=== PATIENT | male | born 1945 | race Caucasian/White ===

== ENCOUNTER 2018-09-30 16:33 | Inpatient (IN) ==
[2018-09-30 16:55] LABS: Basophils # 0.1 K/mm3 (0-0.2); Basophils % 0.4 % (0.1-2.0); Eosinophils # 0.6 K/mm3 (0.0-0.4); Eosinophils % 2.6 % (0.1-12.0); Hematocrit 44.8 % (42.0-52.0); Hemoglobin 14.3 g/dL (14.1-18.0); Lymphocytes # 2.3 K/mm3 (0.7-4.5); Lymphocytes % 10.6 % (10-50); Mean Corpuscular HGB Conc 31.9 g/dL (31.8-35.4); Mean Corpuscular Hemoglobin 31.4 pg (27.0-31.2); Mean Corpuscular Volume 98.3 fl (80-94); Mean Platelet Volume 8.2 fl (7.4-10.4); Monocytes # 0.7 K/mm3 (0.1-1.0); Monocytes % 3.1 % (1.7-9.3); Neutrophils # 17.8 K/mm3 (1.8-7.8); Neutrophils % 83.4 % (37.0-80.0); Platelet Count 156 K/mm3 (142-424); Red Blood Count 4.56 M/mm3 (4.60-6.20); Red Cell Distribution Width 14.4 % (11.5-17.5); White Blood Count 21.4 K/mm3 (4.8-10.8)
--- NOTE | 2018-09-30 16:55 | Emergency Department Note ---
ED Disposition Clinical Impression: Leukocytosis Qualifiers: Leukocytosis type: unspecified Qualified Code(s): D72.829 - Elevated white blood cell count, unspecified Vomiting alone Qualifiers: Vomiting type: unspecified Vomiting Intractability: non-intractable Qualified Code(s): R11.11 - Vomiting without nausea Hypothermia Qualifiers: Encounter type: initial encounter Qualified Code(s): T68.XXXA - Hypothermia, in itial encounter Disposition: Still a Patient Condition on Discharge: Fair - Critical Care Critical Care Time: No Attestation: On , the high probability of a clinically significant, sudden or life threatening deterioration of the following system(s) required my full and direct attention, intervention and personal management. The time I documented below is in addition to time spent performing reported procedures but includes the following listed in this critical care notation. Medical Decision Making - Jermaine Inquiry Pt receiving controlled substance: No Vital Signs: 09/30/18 16:53 09/30/18 18:03 09/30/18 18:20 Temperature 97.0 F L 96.2 F L Temperature Source Tympanic Rectal Pulse Rate [Left Radial] 90 103 H Respiratory Rate 18 Blood Pressure [Right Arm] 133/81 123/50 L Blood Pressure Mean [Right Arm] 98 74 Blood Pressure Source [Right Arm] Manual Cuff/ Palpation Automatic Cuff Blood Pressure Position [Right Arm] Sitting Supine 02 Sat by Pulse Oximetry 98 99 Oxygen Delivery Method Room Air Room Air 09/30/18 18:34 09/30/18 19:00 09/30/18 19:17 Temperature 96.8 F L Temperature Source Rectal Pulse Rate [Left Radial] 93 H 93 H Respiratory Rate Blood Pressure [Right Arm] 115/69 114/60 Blood Pressure Mean [Right Arm] 84 78 Blood Pressure Source [Right Arm] Automatic Cuff Blood Pressure Position [Right Arm] Sitting 02 Sat by Pulse Oximetry 97 95 Oxygen Delivery Method Room Air 09/30/18 19:19 Temperature 96.8 F L Temperature Source Rectal Pulse Rate [Left Radial] 95 H Respiratory Rate 20 Blood Pressure [Right Arm] 124/84 Blood Pressure Mean [Right Arm] 97 Blood Pressure Source [Right Arm] Blood Pressure Position [Right Arm] 02 Sat by Pulse Oximetry 95 Oxygen Delivery Method Room Air - Lab Data Lab Results 09/30/18 16:45: WBC 21.4 H*, RBC 4.56 L, Hgb 14.3, Hct 44.8, MCV 98.3 H, MCH 31.4 H, MCHC 31.9, RDW 14.4, Plt Count 156, MPV 8.2, Neut % (Auto) 83.4 H, Lymph % (Auto) 10.6, [place] % (Auto) 3.1, Eos % (Auto) 2.6, Baso % (Auto) 0.4, Neut # (Auto) 17.8 H, Lymph # (Auto) 2.3, [place] # (Auto) 0.7, Eos # (Auto) 0.6 H, Baso # (Auto) 0.1, Total Counted 100, Neutrophils % (Manual) 81 H, Band Neutrophils % 1.0, Lymphocytes % (Manual) 10, Atypical Lymphs % 2.0, Monocytes % (Manual) 4, Eosinophils % (Manual) 2, Platelet Estimate Normal, RBC Morphology Normal 09/30/18 16:45: Sodium 138, Potassium 5.3 H, Chloride 102, Carbon Dioxide 27, Anion Gap 14.3, BUN 24 H, Creatinine 1.74 H, Estimated Creat Clear 48, Estimated GFR 39 L, Est GFR ( Amer) 47 L, Glucose 198 H, Calcium 9.5, Total Bilirubin 0.4, AST 19, ALT 24, Alkaline Phosphatase 114, Total Protein 8.1, Albumin 3.8, Globulin 4.3 H, Albumin/Globulin Ratio 0.9 L, Amylase 128 H, Lipase 135 09/30/18 16:45: Influenza Type A Ag Negative, Influenza Type B Ag Negative 09/30/18 16:45: Troponin I 0.06 09/30/18 16:45: TSH 1.55, Free T4 Index 3.4 L, Thyroxine (T4) 9.4, T3 Uptake 36 09/30/18 17:33: Lactate 1.7 09/30/18 18:24: Urine Color Yellow, Urine Appearance Clear, Urine pH 6.0, Ur Specific [place] >= 1.030, Urine Protein 2+, Urine Glucose (UA) Trace, Urine Ketones Trace, Urine Blood 3+, Urine Nitrate Negative, Urine Bilirubin Negative, Urine Urobilinogen 0.2, Ur Leukocyte Esterase Negative Result diagrams: 09/30/18 16:45 09/30/18 16:45 Orders (Tests/Meds): ED MEDICATIONS Discontinued Medications Generic Name Dose Route Start Last Admin Trade Name Freq PRN Reason Stop Dose Admin Sodium Chloride 500 mls @ 500 mls/hr 09/30/18 17:00 Sod Chlor 0.9% 500ml Bag IV 10/30/18 16:59 .Q1H ROHITH Sodium Chloride 500 mls @ 999 mls/hr 09/30/18 17:00 09/30/18 17:02 Sod Chlor 0.9% 1000ml Bag IV 09/30/18 17:30 999 mls/hr .Q31M ROHITH Administration Ondansetron HCl 4 mg 09/30/18 16:44 09/30/18 16:45 Zofran 4mg/2ml Vial IV 09/30/18 16:45 4 mg ONCE ONE Administration ORDERS Category Date Time Status CT abdomen pelvis wo con Stat Cat Scan 09/30/18 17:20 Taken XR chest portable Stat Exams 09/30/18 17:01 Taken Urinalysis and Microscopic Stat Lab 09/30/18 18:24 Ordered Blood Culture Stat Micro 09/30/18 17:33 Received - Radiology Data #1 Image(s): Chest Image Reviewed: Yes I reviewed the patient's radiology image Hazy left base, no infiltrate in this area on CT scan. - CT Data CT Scan: Abdomen, Pelvis Time Received: 18:[address] Reviewed: Yes: I have viewed the radiologist's interpretation Findings Narrative: CT scan interpreted by [facility] radiologist. Faxed report received and reviewed: No acute intrapelvic abnormality detected. Nonobstructing left urinary calculi. Fat-containing bilateral inguinal hernias, left greater than right, without inflammatory changes. Mild cell canal stenosis at L4-L5. Colonic diverticulosis without diverticulitis. Moderate stool burden in the sigmoid colon and rectum. - ECG Data Tracing #1 EKG interpreted by Gregory Arriola MD: Rhythm: sinus Rate: 93 [place]: Left Ectopy: none Conduction: Right bundle branch block ST Segment Changes: none T Wave Changes: none Q Waves: none No evidence of acute ischemia or injury No prior EKGs available for comparison - Physician Consults Physician Consulted: Lilian Ramsey Time: 18:52 Reason -: Admission Comment/Response: Agrees to admit the patient to the hospital. We discussed the patient's clinical information, including history, exam, laboratory and radiology results and ED course. Per hospital procedure, I will write temporary bridge inpatient orders on the patient. Specific orders requested by the [facility] physician: Treat for sepsis, vancomycin and cefepime. Cultures. General Adult HPI - General Stated complaint: vomitting, weakness Time Seen by Provider: 09/30/18 16:55 - History of Present Illness HPI narrative: Poor historian. Lays with eyes closed. Will answer questions by shaking and nodding his head and sometimes with one word answers. Brought in by ambulance with reports of general illness and vomiting. Patient told the nurse that he was having generalized abdominal pain, nausea and vomiting. He tells me that he feels improved and is currently denying any pain including abdominal pain. Denies headache, chest pain, back pain, or abdominal pain. He states that he does feel nauseated. Denies shortness of breath. Has schizoaffective disorder and is a diabetic. - Related Data Home Medications Medication Instructions Recorded Confirmed Allopurinol [Allopurinol 300mg 300 mg PO DAILY 09/30/18 09/30/18 tablet] Aspirin [Aspir 81] 81 mg PO DAILY 09/30/18 09/30/18 Atorvastatin Calcium [Atorvastatin 40 mg PO DAILY 09/30/18 09/30/18 40mg Tab] Cholecalciferol (Vitamin D3) 1,000 unit PO DAILY 09/30/18 09/30/18 [Vitamin D3 1,000 Unit Cap] Levothyroxine Sodium 100 mg PO DAILY 09/30/18 09/30/18 [Levothyroxine 100mcg (0.1MG) Tab] Lisinopril [Prinivil 5mg Tablet] 5 mg PO DAILY 09/30/18 09/30/18 Metformin HCl [Fortamet] 500 mg PO BID 09/30/18 09/30/18 Metoprolol Tartrate 50 mg PO BID 09/30/18 09/30/18 Tamsulosin HCl [Flomax 0.4mg 0.4 mg PO HS 09/30/18 09/30/18 capsule] Venlafaxine HCl [Effexor XR 75mg 75 mg PO DAILY 09/30/18 09/30/18 capsule] Allergies Allergy/AdvReac Type Severity Reaction Status Date / Time No Known Allergies Allergy Verified 09/30/18 16:43 [facility] History I have reviewed the patient's past medical history: Yes ROS Obtained: Yes unobtainable due to mental condition Physical Exam - General General appearance: in no apparent distress, other (Lays with eyes closed, appears generally ill) - Head Head exam: atraumatic, normocephalic - Eye Eye exam: Present: normal appearance, PERRL, EOMI - ENT ENT exam: Present: mucous membranes moist - Neck Neck exam: Present: normal inspection - Chest Chest inspection: Present: normal inspection - Respiratory Respiratory exam: Present: normal lung sounds bilaterally. Absent: respiratory distress - Cardiovascular Cardiovascular exam: Present: regular rate, normal rhythm, normal heart sounds - Abdominal Exam Abdominal exam: Present: soft, guarding (Denies tenderness, but seems to guard with palpation, generalized) - Extremities Exam Extremities exam: Present: normal inspection - Neurological Exam Neurological exam: Present: alert, other (Oriented to person and place, states year is 82) - Skin Skin exam: Present: warm, pallor, other (no cellulitis)
[2018-09-30 17:10] LABS: Albumin Level 3.8 gm/dL (3.4-5.0); Albumin/Globulin Ratio 0.9 (1.1-1.8); Anion Gap 14.3 mEq/L (5-15); Bilirubin,Total 0.4 mg/dL (0.2-1.0); Calcium 9.5 mg/dL (8.5-10.1); Globulin 4.3 gm/dl (1.3-3.2); Potassium 5.3 mmoL/L (3.5-5.1); Total Protein,Serum 8.1 gm/dL (6.4-8.2)
[2018-09-30 17:18] LABS: Eosinophils % 2 % (0-3); Lymphocytes % 10 % (10-50); Monocytes % 4 % (2-9); Neutrophils % 81 % (42-76); Total Cells Counted 100
[2018-09-30 17:19] LABS: RBC Morphology Normal
[2018-09-30 17:44] LABS: Free Thyroxine Index 3.4 ug/dL (5.93-13.13); T4 (Thyroxine) 9.4 ug/dl (4.7-13.3); Thyroid Stimulating Hormone 1.55 uIU/ml (0.358-3.740)
[2018-09-30 18:31] LABS: Microscopic, Urine URINE MICROSCOPIC (MICROSCOPIC)
[2018-09-30 18:37] LABS: Appearance,Urine CLEAR (Clear); Bilirubin,Urine Negative (Negative); Blood, Urine 3+ (Negative); Color,Urine YELLOW (Yellow); Glucose,Urine (UA) TRACE (Negative); Ketones,Urine TRACE (Negative); Leukocyte Esterase,Urine Negative (Negative); Protein,Urine 2+ (Negative); Specific Gravity, Urine >= 1.030 (1.005-1.030); Urobilinogen,Urine 0.2 EU/dl (0.2)
[2018-09-30 19:36] LABS: Bacteria,Urine Trace /lpf; RBC,Urine 20-50 #/hpf (0-3); Squamous Epithelial Cell,Urine Occasional #/hpf (0-5); WBC,Urine Occasional #/hpf (0-3)
--- NOTE | 2018-09-30 20:33 | History & Physical Report ---
*Admission Date: 09/30/18 *Chief complaint: abd pain *History of present illness: this wm was sent from [facility] for not feeling well poor historian. Lays with eyes closed. Will answer questions by shaking and nodding his head and sometimes with one word answers. Brought in by ambulance with reports of general illness and vomiting. Patient told the nurse that he was having generalized abdominal pain, nausea and vomiting. He tells me that he feels improved and is currently denying any pain including abdominal pain. Denies headache, chest pain, back pain, or abdominal pain. He states that he does feel nauseated. Denies shortness of breath. Has schizoaffective disorder and is a diabetic. [facility] History I have reviewed the patient's past medical history: Yes Medical History: Reports:: Diabetes Mellitus Type 2 Denies:: Cancer, Diabetes Mellitus Type 1, MRSA Amputation: No Fractures: No - *Social History Educational Level: Completed High School Smoking Status: Current every day smoker Tobacco Type: cigarettes Alcohol Intake: never Occupational Status: unemployed Housing: assisted living facility - Psychiatric History Expresses thoughts of harming self/others: None Suicide Plan Description: No Plan *Family Hx:: Kidney Disease Review of Systems - Review of Systems Review of systems:: pertinent systems reviewed and negative unless documented below - Constitutional Denies fever(s) - Eyes Denies change in vision - ENT Denies sore throat - *Cardiovascular Denies chest pain - *Respiratory Denies cough - *Gastrointestinal Reports abdominal pain, Reports nausea - *Genitourinary Denies blood in urine - *Musculoskeletal Denies back pain - Integumentary/Breasts Denies rash - *Neurologic Denies seizure-like activity - Psychiatric Denies anxiety Meds Home Medications Medication Instructions Recorded Confirmed Type Allopurinol [Allopurinol 300mg 300 mg PO DAILY 09/30/18 09/30/18 History tablet] Aspirin [Aspir 81] 81 mg PO DAILY 09/30/18 09/30/18 History Atorvastatin Calcium [Atorvastatin 40 mg PO DAILY 09/30/18 09/30/18 History 40mg Tab] Cholecalciferol (Vitamin D3) 1,000 unit PO DAILY 09/30/18 09/30/18 History [Vitamin D3 1,000 Unit Cap] Levothyroxine Sodium 100 mg PO DAILY 09/30/18 09/30/18 History [Levothyroxine 100mcg (0.1MG) Tab] Lisinopril [Prinivil 5mg Tablet] 5 mg PO DAILY 09/30/18 09/30/18 History Metformin HCl [Fortamet] 500 mg PO BID 09/30/18 09/30/18 History Metoprolol Tartrate 50 mg PO BID 09/30/18 09/30/18 History Tamsulosin HCl [Flomax 0.4mg 0.4 mg PO HS 09/30/18 09/30/18 History capsule] Venlafaxine HCl [Effexor XR 75mg 75 mg PO DAILY 09/30/18 09/30/18 History capsule] Allergies Allergy/AdvReac Type Severity Reaction Status Date / Time No Known Allergies Allergy Verified 09/30/18 16:43 Exam Vital signs and Labs for Last 24 Hours: Temp Pulse Resp BP Pulse Ox 97.1 F L 105 H 20 107/54 L 96 09/30/18 20:00 09/30/18 20:00 09/30/18 20:00 09/30/18 20:00 09/30/18 20:00 Laboratory Results - last 24 hr 09/30/18 16:45: WBC 21.4 H*, RBC 4.56 L, Hgb 14.3, Hct 44.8, MCV 98.3 H, MCH 31.4 H, MCHC 31.9, RDW 14.4, Plt Count 156, MPV 8.2, Neut % (Auto) 83.4 H, Lymph % (Auto) 10.6, [place] % (Auto) 3.1, Eos % (Auto) 2.6, Baso % (Auto) 0.4, Neut # (Auto) 17.8 H, Lymph # (Auto) 2.3, [place] # (Auto) 0.7, Eos # (Auto) 0.6 H, Baso # (Auto) 0.1, Total Counted 100, Neutrophils % (Manual) 81 H, Band Neutrophils % 1.0, Lymphocytes % (Manual) 10, Atypical Lymphs % 2.0, Monocytes % (Manual) 4, Eosinophils % (Manual) 2, Platelet Estimate Normal, RBC Morphology Normal 09/30/18 16:45: Sodium 138, Potassium 5.3 H, Chloride 102, Carbon Dioxide 27, Anion Gap 14.3, BUN 24 H, Creatinine 1.74 H, Estimated Creat Clear 48, Estimated GFR 39 L, Est GFR ( Amer) 47 L, Glucose 198 H, Calcium 9.5, Total Bilirubin 0.4, AST 19, ALT 24, Alkaline Phosphatase 114, Total Protein 8.1, Albumin 3.8, Globulin 4.3 H, Albumin/Globulin Ratio 0.9 L, Amylase 128 H, Lipase 135 09/30/18 16:45: Influenza Type A Ag Negative, Influenza Type B Ag Negative 09/30/18 16:45: Troponin I 0.06 09/30/18 16:45: TSH 1.55, Free T4 Index 3.4 L, Thyroxine (T4) 9.4, T3 Uptake 36 09/30/18 17:33: Lactate 1.7 09/30/18 18:24: Urine Color Yellow, Urine Appearance Clear, Urine pH 6.0, Ur Specific [place] >= 1.030, Urine Protein 2+, Urine Glucose (UA) Trace, Urine Ketones Trace, Urine Blood 3+, Urine Nitrate Negative, Urine Bilirubin Negative, Urine Urobilinogen 0.2, Ur Leukocyte Esterase Negative, Urine RBC 20-50, Urine WBC Occasional, Ur Squamous Epith Cells Occasional, Urine Bacteria Trace I & O for Last 24 hours: Intake & Output 09/28/18 09/29/18 09/30/18 10/01/18 11:59 11:59 11:59 11:59 Intake Total 1000 / 1000 Balance 1000 / 1000 Weight 200 lb - Constitutional no acute distress, obese - *Routine HEENT Exam Head: Present: normocephalic Eye: Present: EOMI, PERRL. Absent: conjunctival icterus ENT: Present: mucous membranes dry - *Routine Neck Exam Present: supple - *Routine Respiratory Exam Present: CTA bilaterally - *Routine Cardiovascular Exam Present: RRR, murmur - *Routine Abdominal Exam Present: soft, tenderness - *Routine Extremities Exam Absent: tenderness - *Routine Skin Exam Present: intact - *Routine Neurological Exam Present: alert, CN II-XII intact - Routine Psychiatric Exam Present: unable to assess Assessment and Plan (1) Diabetes 1.5, managed as type 2 Current visit: Yes Status: Acute Category: Medical Code(s): E10.9 - Type 1 diabetes mellitus without complications (2) Leukocytosis Current visit: Yes Status: Acute Qualifiers: Leukocytosis type: unspecified Qualified Code(s): D72.829 - Elevated white blood cell count, unspecified Category: Medical Code(s): D72.829 - Elevated white blood cell count, unspecified (3) Hypothermia Current visit: Yes Status: Acute Qualifiers: Encounter type: initial encounter Qualified Code(s): T68.XXXA - Hypothermia, initial encounter Category: Medical Code(s): T68.XXXA - Hypothermia, initial encounter (4) Overweight Current visit: Yes Status: Acute Category: Medical Code(s): E66.3 - Overweight (5) Schizophrenia Current visit: Yes Status: Acute Category: Medical Code(s): F20.9 - Sc hizophrenia, unspecified
[2018-10-01 06:26] LABS: Eosinophils # 0.2 K/mm3 (0.0-0.4); Monocytes # 0.6 K/mm3 (0.1-1.0); Neutrophils # 8.6 K/mm3 (1.8-7.8); Red Cell Distribution Width 14.6 % (11.5-17.5)
[2018-10-01 06:32] LABS: Basophils % 0.3 % (0.1-2.0); Eosinophils % 1.4 % (0.1-12.0); Lymphocytes # 1.5 K/mm3 (0.7-4.5); Lymphocytes % 13.7 % (10-50); Mean Corpuscular HGB Conc 31.8 g/dL (31.8-35.4); Mean Corpuscular Hemoglobin 31.4 pg (27.0-31.2); Mean Corpuscular Volume 98.9 fl (80-94); Mean Platelet Volume 8.5 fl (7.4-10.4); Monocytes % 5.2 % (1.7-9.3); Neutrophils % 79.4 % (37.0-80.0); Platelet Count 125 K/mm3 (142-424); Red Blood Count 3.54 M/mm3 (4.60-6.20); White Blood Count 10.8 K/mm3 (4.8-10.8)
[2018-10-01 06:33] LABS: Anion Gap 11.6 mEq/L (5-15); Potassium 4.6 mmoL/L (3.5-5.1)
[2018-10-01 06:34] LABS: Hemoglobin 11.1 g/dL (14.1-18.0)
[2018-10-01 06:45] LABS: Calcium 8.1 mg/dL (8.5-10.1)
--- NOTE | 2018-10-01 07:33 | Pharmacy Consult Notes ---
[facility] Pharmacy VTE Monitoring - Patient Demographics Admission date: 10/01/18 Report Date: 10/01/18 Time: 07:29 Allergies/Adverse Reactions: Patient Allergies No Known Allergies Allergy (Verified 09/30/18 16:43) Height: 1.65 m Weight: 96.247 kg Patient Problems: Current Active Problems Leukocytosis (Acute) Vomiting alone (Acute) Hypothermia (Acute) Diabetes 1.5, managed as type 2 (Acute) Overweight (Acute) Schizophrenia (Acute) - VTE Risk Labs: VTE Related Lab Results Hgb 11.1 g/dL (14.1-18.0) L D 10/01/18 05:45 Hct 35.0 % (42.0-52.0) L 10/01/18 05:45 Plt Count 125 K/mm3 (142-424) L 10/01/18 05:45 BUN 20 mg/dL (7-18) H 10/01/18 05:45 Creatinine 1.49 mg/dL (0.70-1.30) H 10/01/18 05:45 Estimated Creat Clear 59 mL/min (50-200) 10/01/18 05:45 Was VTE Risk Assessment Performed: Yes VTE Risk Level: Very Low Risk Clinical Trial Participant: No - Prophylaxis VTE Prophylaxis Ordered?: Yes Types of VTE Prophylaxis: TEDS Knee High
--- NOTE | 2018-10-01 08:41 | Pharmacy Consult Notes ---
- Pharmacy Consult Date: 10/01/18 Time: 08:39 Referring provider: DR. SUAREZ Reason for Consult:: VANCOMYCIN DOSING Allergies and ADEs:: Allergies Allergy/AdvReac Type Severity Reaction Status Date / Time No Known Allergies Allergy Verified 09/30/18 16:43 Home Medications:: Home Medications Medication Instructions Recorded Confirmed Type Allopurinol [Allopurinol 300mg 300 mg PO DAILY 09/30/18 09/30/18 History tablet] Aspirin [Aspir 81] 81 mg PO DAILY 09/30/18 09/30/18 History Atorvastatin Calcium [Atorvastatin 40 mg PO DAILY 09/30/18 09/30/18 History 40mg Tab] Cholecalciferol (Vitamin D3) 1,000 unit PO DAILY 09/30/18 09/30/18 History [Vitamin D3 1,000 Unit Cap] Levothyroxine Sodium 100 mcg PO DAILY 09/30/18 10/01/18 History [Levothyroxine 100mcg (0.1MG) Tab] Lisinopril [Prinivil 5mg Tablet] 5 mg PO DAILY 09/30/18 09/30/18 History Metformin HCl [Fortamet] 500 mg PO BID 09/30/18 09/30/18 History Metoprolol Tartrate 50 mg PO BID 09/30/18 09/30/18 History Tamsulosin HCl [Flomax 0.4mg 0.4 mg PO HS 09/30/18 09/30/18 History capsule] Venlafaxine HCl [Effexor XR 75mg 75 mg PO DAILY 09/30/18 09/30/18 History capsule] Height: 1.65 m Weight: 96.247 kg Laboratory Results:: Laboratory Results - last 24 hr 09/30/18 16:45: WBC 21.4 H*, RBC 4.56 L, Hgb 14.3, Hct 44.8, MCV 98.3 H, MCH 31.4 H, MCHC 31.9, RDW 14.4, Plt Count 156, MPV 8.2, Neut % (Auto) 83.4 H, Lymph % (Auto) 10.6, [place] % (Auto) 3.1, Eos % (Auto) 2.6, Baso % (Auto) 0.4, Neut # (Auto) 17.8 H, Lymph # (Auto) 2.3, [place] # (Auto) 0.7, Eos # (Auto) 0.6 H, Baso # (Auto) 0.1, Total Counted 100, Neutrophils % (Manual) 81 H, Band Neutrophils % 1.0, Lymphocytes % (Manual) 10, Atypical Lymphs % 2.0, Monocytes % (Manual) 4, E osinophils % (Manual) 2, Platelet Estimate Normal, RBC Morphology Normal 09/30/18 16:45: Sodium 138, Potassium 5.3 H, Chloride 102, Carbon Dioxide 27, Anion Gap 14.3, BUN 24 H, Creatinine 1.74 H, Estimated Creat Clear 48, Estimated GFR 39 L, Est GFR ( Amer) 47 L, Glucose 198 H, Calcium 9.5, Total Bilirubin 0.4, AST 19, ALT 24, Alkaline Phosphatase 114, Total Protein 8.1, Albumin 3.8, Globulin 4.3 H, Albumin/Globulin Ratio 0.9 L, Amylase 128 H, Lipase 135 09/30/18 16:45: Influenza Type A Ag Negative, Influenza Type B Ag Negative 09/30/18 16:45: Troponin I 0.06 09/30/18 16:45: TSH 1.55, Free T4 Index 3.4 L, Thyroxine (T4) 9.4, T3 Uptake 36 09/30/18 17:33: Lactate 1.7 09/30/18 18:24: Urine Color Yellow, Urine Appearance Clear, Urine pH 6.0, Ur Specific [place] >= 1.030, Urine Protein 2+, Urine Glucose (UA) Trace, Urine Ketones Trace, Urine Blood 3+, Urine Nitrate Negative, Urine Bilirubin Negative, Urine Urobilinogen 0.2, Ur Leukocyte Esterase Negative, Urine RBC 20-50, Urine WBC Occasional, Ur Squamous Epith Cells Occasional, Urine Bacteria Trace 09/30/18 20:50: Troponin I 0.08 H 09/30/18 23:03: POC Glucose 164 H 09/30/18 23:45: Troponin I 0.09 H 10/01/18 05:45: WBC 10.8 D, RBC 3.54 L, Hgb 11.1 L D, Hct 35.0 L, MCV 98.9 H, MCH 31.4 H, MCHC 31.8, RDW 14.6, Plt Count 125 L, MPV 8.5, Neut % (Auto) 79.4, Lymph % (Auto) 13.7, [place] % (Auto) 5.2, Eos % (Auto) 1.4, Baso % (Auto) 0.3, Neut # (Auto) 8.6 H, Lymph # (Auto) 1.5, [place] # (Auto) 0.6, Eos # (Auto) 0.2, Baso # (Auto) 0.0 10/01/18 05:45: Sodium 141, Potassium 4.6, Chloride 108 H, Carbon Dioxide 26, Anion Gap 11.6, BUN 20 H, Creatinine 1.49 H, Estimated Creat Clear 59, Estimated GFR 46 L, Est GFR ( Amer) 56 L, Glucose 116 H D, Calcium 8.1 L D 10/01/18 05:45: ESR 22 H 10/01/18 06:20: POC Glucose 112 H Medical History: Reports:: Diabetes Mellitus Type 2 Denies:: Cancer, Diabetes Mellitus Type 1, MRSA Assessment and Plan (1) Diabetes 1.5, managed as type 2 Current visit: Yes Status: Acute Category: Medical Code(s): E10.9 - Type 1 diabetes mellitus without complications (2) Leukocytosis Current visit: Yes Status: Acute Qualifiers: Leukocytosis type: unspecified Qualified Code(s): D72.829 - Elevated white blood cell count, unspecified Category: Medical Code(s): D72.829 - Elevated white blood cell count, unspecified (3) Hypothermia Current visit: Yes Status: Acute Qualifiers: Encounter type: initial encounter Qualified Code(s): T68.XXXA - Hypothermia, initial encounter Category: Medical Code(s): T68.XXXA - Hypothermia, initial encounter (4) Overweight Current visit: Yes Status: Acute Category: Medical Code(s): E66.3 - Overweight (5) Schizophrenia Current visit: Yes Status: Acute Category: Medical Code(s): F20.9 - Schizophrenia, unspecified - Assessment and plan all Dx Assessment and Plan for all problems:: BASED ON PATIENT FACTORS, RECOMMEND VANCOMYCIN 1750 MG IV Q24H. WILL OBTAIN VANCOMYCIN TROUGH LEVEL PRIOR TO 3RD DOSE. PHARMACY WILL FOLLOW DAILY AND ADJUST APPROPRIATE.
--- NOTE | 2018-10-01 08:51 | Progress Note ---
Internal Medicine - PN: Subj Interval history: looks better but still with abd pain but no vomiting and wbc ok Exam Vital signs and Labs for Last 24 Hours: Temp Pulse Resp BP Pulse Ox 97.9 F 83 16 138/53 L 99 10/01/18 08:00 10/01/18 08:00 10/01/18 08:00 10/01/18 08:00 10/01/18 08:00 Laboratory Results - last 24 hr 09/30/18 16:45: WBC 21.4 H*, RBC 4.56 L, Hgb 14.3, Hct 44.8, MCV 98.3 H, MCH 31.4 H, MCHC 31.9, RDW 14.4, Plt Count 156, MPV 8.2, Neut % (Auto) 83.4 H, Lymph % (Auto) 10.6, [place] % (Auto) 3.1, Eos % (Auto) 2.6, Baso % (Auto) 0.4, Neut # (Auto) 17.8 H, Lymph # (Auto) 2.3, [place] # (Auto) 0.7, Eos # (Auto) 0.6 H, Baso # (Auto) 0.1, Total Counted 100, Neutrophils % (Manual) 81 H, Band Neutrophils % 1.0, Lymphocytes % (Manual) 10, Atypical Lymphs % 2.0, Monocytes % (Manual) 4, Eosinophils % (Manual) 2, Platelet Estimate Normal, RBC Morphology Normal 09/30/18 16:45: Sodium 138, Potassium 5.3 H, Chloride 102, Carbon Dioxide 27, Anion Gap 14.3, BUN 24 H, Creatinine 1.74 H, Estimated Creat Clear 48, Estimated GFR 39 L, Est GFR ( Amer) 47 L, Glucose 198 H, Calcium 9.5, Total Phil irubin 0.4, AST 19, ALT 24, Alkaline Phosphatase 114, Total Protein 8.1, Albumin 3.8, Globulin 4.3 H, Albumin/Globulin Ratio 0.9 L, Amylase 128 H, Lipase 135 09/30/18 16:45: Influenza Type A Ag Negative, Influenza Type B Ag Negative 09/30/18 16:45: Troponin I 0.06 09/30/18 16:45: TSH 1.55, Free T4 Index 3.4 L, Thyroxine (T4) 9.4, T3 Uptake 36 09/30/18 17:33: Lactate 1.7 09/30/18 18:24: Urine Color Yellow, Urine Appearance Clear, Urine pH 6.0, Ur Specific [place] >= 1.030, Urine Protein 2+, Urine Glucose (UA) Trace, Urine Ketones Trace, Urine Blood 3+, Urine Nitrate Negative, Urine Bilirubin Negative, Urine Urobilinogen 0.2, Ur Leukocyte Esterase Negative, Urine RBC 20-50, Urine WBC Occasional, Ur Squamous Epith Cells Occasional, Urine Bacteria Trace 09/30/18 20:50: Troponin I 0.08 H 09/30/18 23:03: POC Glucose 164 H 09/30/18 23:45: Troponin I 0.09 H 10/01/18 05:45: WBC 10.8 D, RBC 3.54 L, Hgb 11.1 L D, Hct 35.0 L, MCV 98.9 H, MCH 31.4 H, MCHC 31.8, RDW 14.6, Plt Count 125 L, MPV 8.5, Neut % (Auto) 79.4, Lymph % (Auto) 13.7, [place] % (Auto) 5.2, Eos % (Auto) 1.4, Baso % (Auto) 0.3, Neut # (Auto) 8.6 H, Lymph # (Auto) 1.5, [place] # (Auto) 0.6, Eos # (Auto) 0.2, Baso # (Auto) 0.0 10/01/18 05:45: Sodium 141, Potassium 4.6, Chloride 108 H, Carbon Dioxide 26, Anion Gap 11.6, BUN 20 H, Creatinine 1.49 H, Estimated Creat Clear 59, Estimated GFR 46 L, Est GFR ( Amer) 56 L, Glucose 116 H D, Calcium 8.1 L D 10/01/18 05:45: ESR 22 H 10/01/18 06:20: POC Glucose 112 H I & O for Last 24 hours: Intake & Output 09/28/18 09/29/18 09/30/18 10/01/18 11:59 11:59 11:59 11:59 Intake Total 1240 / 1240 Output Total 800 / 800 Balance 440 / 440 Weight 212 lb 3 oz - Constitutional no acute distress, obese - *Routine HEENT Exam Head: Present: normocephalic Eye: Present: EOMI, PERRL. Absent: conjunctival icterus ENT: Present: mucous membranes dry - *Routine Neck Exam Absent: JVD - *Routine Respiratory Exam Present: CTA bilaterally - *Routine Cardiovascular Exam Present: RRR, murmur - *Routine Abdominal Exam Present: soft, tenderness. Absent: rebound, guarding, organomegaly - *Routine Extremities Exam Absent: calf tenderness - Routine Back/Spine/Pelvis Exam Back/Spine: Present: full ROM - *Routine Skin Exam Present: intact - *Routine Neurological Exam Present: CN II-XII intact - Routine Psychiatric Exam Present: unable to assess Assessment and Plan (1) Diabetes 1.5, managed as type 2 Current visit: Yes Status: Acute Category: Medical Code(s): E10.9 - Type 1 diabetes mellitus without complications (2) Leukocytosis Current visit: Yes Status: Acute Qualifiers: Leukocytosis type: unspecified Qualified Code(s): D72.829 - Elevated white blood cell count, unspecified Category: Medical Code(s): D72.829 - Elevated white blood cell count, unspecified (3) Hypothermia Current visit: Yes Status: Acute Qualifiers: Encounter type: initial encounter Qualified Code(s): T68.XXXA - Hypothermia, initial encounter Category: Medical Code(s): T68.XXXA - Hypothermia, initial encounter (4) Overweight Current visit: Yes Status: Acute Category: Medical Code(s): E66.3 - Overweight (5) Schizophrenia Current visit: Yes Status: Acute Category: Medical Code(s): F20.9 - Schizophrenia, unspecified (6) Renal insufficiency Current visit: Yes Status: Acute Category: Medical Code(s): N28.9 - Disorder of kidney and ureter, unspecified
[2018-10-02 07:05] LABS: Basophils % 0.4 % (0.1-2.0); Eosinophils # 0.5 K/mm3 (0.0-0.4); Eosinophils % 5.7 % (0.1-12.0); Hematocrit 32.6 % (42.0-52.0); Hemoglobin 10.3 g/dL (14.1-18.0); Lymphocytes # 1.6 K/mm3 (0.7-4.5); Mean Corpuscular HGB Conc 31.6 g/dL (31.8-35.4); Mean Corpuscular Hemoglobin 30.8 pg (27.0-31.2); Mean Corpuscular Volume 97.4 fl (80-94); Mean Platelet Volume 8.6 fl (7.4-10.4); Monocytes # 0.6 K/mm3 (0.1-1.0); Monocytes % 6.5 % (1.7-9.3); Neutrophils # 5.9 K/mm3 (1.8-7.8); Neutrophils % 68.4 % (37.0-80.0); Platelet Count 98 K/mm3 (142-424); Red Blood Count 3.34 M/mm3 (4.60-6.20); Red Cell Distribution Width 14.5 % (11.5-17.5); White Blood Count 8.6 K/mm3 (4.8-10.8)
[2018-10-02 07:08] LABS: Anion Gap 10.4 mEq/L (5-15); Calcium 8.1 mg/dL (8.5-10.1); Potassium 4.4 mmoL/L (3.5-5.1)
--- NOTE | 2018-10-02 08:45 | Progress Note ---
Internal Medicine - PN: Subj *Date: 10/02/18 *Time: 08:56 Exam Vital signs and Labs for Last 24 Hours: Temp Pulse Resp BP Pulse Ox 98.8 F 76 16 112/64 95 10/02/18 08:00 10/02/18 08:00 10/02/18 08:00 10/02/18 08:00 10/02/18 08:00 Laboratory Results - last 24 hr 10/01/18 08:55: Lactate 0.9 10/01/18 12:03: POC Glucose 115 H 10/01/18 16:43: POC Glucose 136 H 10/01/18 20:18: POC Glucose 122 H 10/02/18 06:18: POC Glucose 109 10/02/18 06:47: WBC 8.6, RBC 3.34 L, Hgb 10.3 L, Hct 32.6 L, MCV 97.4 H, MCH 30.8, MCHC 31.6 L, RDW 14.5, Plt Count 98 L, MPV 8.6, Neut % (Auto) 68.4, Lymph % (Auto) 19.0, [place] % (Auto) 6.5, Eos % (Auto) 5.7, Baso % (Auto) 0.4, Neut # (Auto) 5.9, Lymph # (Auto) 1.6, [place] # (Auto) 0.6, Eos # (Auto) 0.5 H, Baso # (Auto) 0.0 10/02/18 06:47: Sodium 140, Potassium 4.4, Chloride 108 H, Carbon Dioxide 26, Anion Gap 10.4, BUN 18, Creatinine 1.44 H, Estimated Creat Clear 61, Estimated GFR 48 L, Est GFR ( Amer) 58 L, Glucose 117 H, Calcium 8.1 L I & O for Last 24 hours: Intake & Output 09/29/18 09/30/18 10/01/18 10/02/18 11:59 11:59 11:59 11:59 Intake Total 1240 / 1240 2594 / 2594 Output Total 800 / 800 800 / 800 Balance 440 / 440 1794 / 1794 Weight 212 lb 3.013 oz - *Routine HEENT Exam Head: Present: normocephalic Eye: Present: PERRL ENT: Present: mucous membranes moist - *Routine Neck Exam Present: supple. Absent: lymphadenopathy - *Routine Respiratory Exam Present: CTA bilaterally - *Routine Cardiovascular Exam Present: RRR - *Routine Abdominal Exam Present: soft, normoactive bowel sounds. Absent: tenderness - *Routine Extremities Exam Absent: cyanosis, clubbing, edema - *Routine Skin Exam Present: warm. Absent: rash - *Routine Neurological Exam Present: alert, oriented X3 Assessment and Plan (1) Diabetes 1.5, managed as type 2 Current visit: Yes Status: Acute Category: Medical Code(s): E10.9 - Type 1 diabetes mellitus without complications (2) Leukocytosis Current visit: Yes Status: Acute Qualifiers: Leukocytosis type: unspecified Qualified Code(s): D72.829 - Elevated white blood cell count, unspecified Category: Medical Code(s): D72.829 - Elevated white blood cell count, unspecified (3) Hypothermia Current visit: Yes Status: Acute Qualifiers: Encounter type: initial encounter Qualified Code(s): T68.XXXA - Hypothermia, initial encounter Category: Medical Code(s): T68.XXXA - Hypothermia, initial encounter (4) Overweight Current visit: Yes Status: Acute Category: Medical Code(s): E66.3 - Over weight (5) Schizophrenia Current visit: Yes Status: Acute Category: Medical Code(s): F20.9 - Schizophrenia, unspecified (6) Renal insufficiency Current visit: Yes Status: Acute Category: Medical Code(s): N28.9 - Disorder of kidney and ureter, unspecified - Assessment and plan all Dx Assessment and Plan for all problems:: rounded with lori,all orders per lori. wait cx results PT eval
--- NOTE | 2018-10-02 14:56 | Cardiology Report ---
PROCEDURE: 2-D M-mode and color Doppler study INDICATIONS FOR THE TEST: Chest pain COPD Heart Murmur Tobacco Smoking+ Palpitations Fatigue Syncope Edema Hypertension Diabetes Mellitus+ Rheumatic Fever SOB DRUMMOND Obesity Hyperlipidemia Family History HD Additional History SCHIZOPHRENIA PATIENT INFORMATION HEIGHT:65 WEIGHT:212 GENDER: Male B/P:107/54 2-D/M-MODE INTERPRETATION: 2-D MEASUREMENTS OBSERVED VALUES IN CMS Right Ventricular Dimension (RVDd) 2.2 Interventricular Septum (Thickness)(IVsd) 1.0 Left Ventricular Internal Dimensions(LVIDd) 4.3 Left Ventricular Posterior Wall (Thickness)(LVPWd) 1.1 Aortic Root 4.0 Aortic Cusp Separation 2.0 Left Atrial Dimensions (LAD) 4.1 2D 1. Left atrium is mildly enlarged, left ventricle is normal size, mild concentric left ventricular hypertrophy, visually estimated ejection fraction of 55% with no regional wall motion abnormality. 2. The right atrium and right ventricle are normal size and contractility. 3. The aortic valve is thickened and calcified with leaflet continue to show mobility. 4. The mitral and tricuspid valve is minimally thickened. 5. The pulmonic valve is poorly visualized. 6. No significant pericardial effusion noted. DOPPLER INTERROGATION: Doppler interrogation of the aortic, mitral and tricuspid valvular presence of mild mitral and tricuspid regurgitation, tricuspid regurgitation jet velocity is inadequate for calculation of the right ventricular systolic pressure, grade 1 diastolic dysfunction seen with tissue Doppler evidence of raised left atrial pressure. CONCLUSION: 1. Mildly enlarged left atrium, normal left ventricular size, mild concentric left ventricular hypertrophy, visually estimated ejection fraction 55% with no regional wall motion abnormality, grade 1 diastolic dysfunction seen with tissue Doppler evidence of raised left atrial pressure. 2. Thickened and calcified aortic valve without Doppler evidence of aortic stenosis aortic insufficiency. 3. Mild mitral and tricuspid regurgitation 4. No significant pericardial effusion noted.
[2018-10-03 07:02] LABS: Basophils % 0.3 % (0.1-2.0); Eosinophils % 7.5 % (0.1-12.0); Hemoglobin 11.1 g/dL (14.1-18.0); Lymphocytes # 1.1 K/mm3 (0.7-4.5); Lymphocytes % 8.1 % (10-50); Mean Corpuscular HGB Conc 32.7 g/dL (31.8-35.4); Mean Corpuscular Hemoglobin 31.5 pg (27.0-31.2); Mean Corpuscular Volume 96.3 fl (80-94); Mean Platelet Volume 8.1 fl (7.4-10.4); Monocytes # 0.7 K/mm3 (0.1-1.0); Neutrophils # 10.3 K/mm3 (1.8-7.8); Neutrophils % 79.2 % (37.0-80.0); Platelet Count 122 K/mm3 (142-424); Red Blood Count 3.53 M/mm3 (4.60-6.20); Red Cell Distribution Width 14.6 % (11.5-17.5); White Blood Count 13.1 K/mm3 (4.8-10.8)
[2018-10-03 07:12] LABS: Calcium 8.3 mg/dL (8.5-10.1)
--- NOTE | 2018-10-03 08:42 | Discharge Summary ---
General - General Admission date:: 10/01/18 Discharge date: 10/03/18 HPI HPI: this wm was sent from [facility] for not feeling well poor historian. Lays with eyes closed. Will answer questions by shaking and nodding his head and sometimes with one word answers. Brought in by ambulance with reports of general illness and vomiting. Patient told the nurse that he was having generalized abdominal pain, nausea and vomiting. He tells me that he feels improved and is currently denying any pain including abdominal pain. Denies headache, chest pain, back pain, or abdominal pain. He states that he does feel nauseated. Denies shortness of breath. Has schizoaffective disorder and is a diabetic. Hospital Course Hospital Course: pt with slow improvement in sx and is eating and able to ambulate - cultures have been ok and labs stable with no fever Objective Vital signs: Temp Pulse Resp BP Pulse Ox 99.0 F 99 H 18 113/66 93 L 10/03/18 08:00 10/03/18 08:00 10/03/18 08:00 10/03/18 08:00 10/03/18 08:00 no acute distress, obese - *Routine HEENT Exam Head: Present: normocephalic Eye: Present: EOMI, PERRL ENT: Present: mucous membranes dry - *Routine Neck Exam Present: supple - *Routine Respiratory Exam Present: CTA bilaterally - *Routine Cardiovascular Exam Present: murmur, S4 - *Routine Abdominal Exam Present: soft - *Routine Extremities Exam Present: full ROM - *Routine Skin Exam Present: intact - *Routine Neurological Exam Present: alert, oriented X3, CN II-XII intact - Routine Psychiatric Exam Present: normal affect Results Labs on day of discharge: Labs from last 24 hours 10/03/18 10/03/18 10/03/18 06:35 06:35 05:58 WBC 13.1 H D RBC 3.53 L Hgb 11.1 L Hct 34.0 L MCV 96.3 H MCH 31.5 H MCHC 32.7 RDW 14.6 Plt Count 122 L MPV 8.1 Neut % (Auto) 79.2 Lymph % (Auto) 8.1 L [place] % (Auto) 5.0 Eos % (Auto) 7.5 Baso % (Auto) 0.3 Neut # (Auto) 10.3 H Lymph # (Auto) 1.1 [place] # (Auto) 0.7 Eos # (Auto) 1.0 H Baso # (Auto) 0.0 Sodium 137 Potassium 4.0 Chloride 104 Carbon Dioxide 23 Anion Gap 14.0 BUN 19 H Creatinine 1.41 H Estimated Creat Clear 63 Estimated GFR 49 L Est GFR ( Amer) 59 Glucose 140 H POC Glucose 139 H Calcium 8.3 L Vancomycin Trough 10/02/18 10/02/18 10/02/18 20:24 20:20 16:43 WBC RBC Hgb Hct MCV MCH MCHC RDW Plt Count MPV Neut % (Auto) Lymph % (Auto) [place] % (Auto) Eos % (Auto) Baso % (Auto) Neut # (Auto) Lymph # (Auto) [place] # (Auto) Eos # (Auto) Baso # (Auto) Sodium Potassium Chloride Carbon Dioxide Anion Gap BUN Creatinine Estimated Creat Clear Estimated GFR Est GFR ( Amer) Glucose POC Glucose 108 94 Calcium Vancomycin Trough 13.4 10/02/18 10:59 WBC RBC Hgb Hct MCV MCH MCHC RDW Plt Count MPV Neut % (Auto) Lymph % (Auto) [place] % (Auto) Eos % (Auto) Baso % (Auto) Neut # (Auto) Lymph # (Auto) [place] # (Auto) Eos # (Auto) Baso # (Auto) Sodium Potassium Chloride Carbon Dioxide Anion Gap BUN Creatinine Estimated Creat Clear Estimated GFR Est GFR ( Amer) Glucose POC Glucose 151 H Calcium Vancomycin Trough Preliminary micro results at discharge 09/30/18 17:33 Blood Culture - Preliminary Blood NO GROWTH AFTER 48 HOURS 09/30/18 17:33 Blood Culture - Preliminary Blood NO GROWTH AFTER 48 HOURS 10/01/18 11:34 Urine Culture - Preliminary Urine,Catheterized NO GROWTH AFTER 24 HOURS DS: Diagnosis - Discharge Diagnosis (1) Diabetes 1.5, managed as type 2 Status: Acute (2) Leukocytosis Status: Acute (3) Hypothermia Status: Acute (4) Overweight Status: Acute (5) Schizophrenia Status: Acute (6) Renal insufficiency Status: Acute Discharge Plan - Patient Discharge Instructions ACTIVITY: Continue current activity DIET: continue same diet Patient Instructions: DI for Nausea -- Adult, DI for Vomiting -- Adult, DI for Leukocytosis - Follow up Plan Disposition: Home, Self-Snf Medications: Home Medications Medication Instructions Recorded Confirmed Type Allopurinol [Allopurinol 300mg 300 mg PO DAILY 11/13/18 11/13/18 History tablet] Aspirin [Aspir 81] 81 mg PO DAILY 09/30/18 09/30/18 History Atorvastatin Calcium [Atorvastatin 20 mg PO DAILY 09/30/18 10/01/18 History 40mg Tab] Cholecalciferol (Vitamin D3) 1,000 unit PO DAILY 09/30/18 09/30/18 History [Vitamin D3 1,000 Unit Cap] Levothyroxine Sodium 100 mcg PO DAILY 09/30/18 10/01/18 History [Levothyroxine 100mcg (0.1MG) Tab] Lisinopril [Prinivil 5mg Tablet] 2.5 mg PO DAILY 09/30/18 10/01/18 History Metformin HCl [Fortamet] 500 mg PO BID 09/30/18 09/30/18 History Metoprolol Tartrate 25 mg PO BID 09/30/18 10/01/18 History Tamsulosin HCl [Flomax 0.4mg 0.4 mg PO HS 09/30/18 09/30/18 History capsule] Venlafaxine HCl [Effexor XR 75mg 225 mg PO DAILY 09/30/18 10/01/18 History capsule] Prescriptions/Medication Reconciliation: New Atorvastatin Calcium [Lipitor 20mg Tablet] 20 mg PO HS tablet Lisinopril [Zestril 2.5mg Tablet] 2.5 mg PO DAILY tablet Venlafaxine HCl [Effexor XR 75mg capsule] 225 mg PO DAILY cap.er.24h cephALEXin [Keflex 500mg Cap] 500 mg PO TID #15 cap Metoprolol Tartrate [Lopressor 25mg tablet] 25 mg PO BID tablet Continue Tamsulosin HCl [Flomax 0.4mg capsule] 0.4 mg PO HS Lisinopril [Prinivil 5mg Tablet] 2.5 mg PO DAILY Levothyroxine Sodium [Levothyroxine 100mcg (0.1MG) Tab] 100 mcg PO DAILY Metoprolol Tartrate 25 mg PO BID Metformin HCl [Fortamet] 500 mg PO BID Atorvastatin Calcium [Atorvastatin 40mg Tab] 20 mg PO DAILY Allopurinol [Allopurinol 300mg tablet] 300 mg PO DAILY Cholecalciferol (Vitamin D3) [Vitamin D3 1,000 Unit Cap] 1,000 unit PO DAILY Venlafaxine HCl [Effexor XR 75mg capsule] 225 mg PO DAILY Aspirin [Aspir 81] 81 mg PO DAILY
== END 2018-10-03 11:35 | disposition home or self-care (01) ==
LOC: 2ND 16:33 → ER 16:33 → 2ND 20:00
PROVIDERS: ADMIT Internal Medicine Adolescent Medicine; ATTEND Emergency Medicine
CPT/HCPCS: 36415; 71010; 71045; 74176; 80048; 80053; 80202; 81001; 82150; 82962; 83605; 83690; 84436; 84443; 84479; 84484; 85007; 85025; 85651; 87040; 87086; 87275; 87276; 93005; 93306; 96365; 96366; 96367; 96375; 97161; 99285; G0378; J2405; J3370

== ENCOUNTER → 2019-04-18 15:52 | Outpatient (REF) | payer MEDICARE, SELFPAY ==
[2019-04-18 17:12] LABS: Occult Blood,Stool Negative (Negative)
== END ==
LOC: LAB.DROPOF 15:52
PROVIDERS: Visit Provider Emergency Medicine
DX: D64.9 Anemia, unspecified (principal)
CPT/HCPCS: 82272; G0328

== ENCOUNTER 2019-07-24 21:35 | Inpatient (IN) ==
[2019-07-24 22:06] LABS: Basophils % 0.2 % (0.1-2.0); Eosinophils # 0.2 K/mm3 (0.0-0.4); Eosinophils % 1.3 % (0.1-12.0); Hematocrit 37.3 % (42.0-52.0); Hemoglobin 12.3 g/dL (14.1-18.0); Lymphocytes # 2.2 K/mm3 (0.7-4.5); Lymphocytes % 12.1 % (10-50); Mean Corpuscular Volume 97.1 fl (80-94); Monocytes # 1.3 K/mm3 (0.1-1.0); Monocytes % 6.9 % (1.7-9.3); Neutrophils # 14.3 K/mm3 (1.8-7.8); Neutrophils % 79.3 % (37.0-80.0); Platelet Count 203 K/mm3 (142-424); Red Blood Count 3.84 M/mm3 (4.60-6.20); Red Cell Distribution Width 13.8 % (11.5-17.5); White Blood Count 18.1 K/mm3 (4.8-10.8)
--- NOTE | 2019-07-24 22:13 | Emergency Department Note ---
ED Disposition Clinical Impression: Cellulitis, UTI (urinary tract infection) Disposition: Admitted as Observation Condition on Discharge: Fair Instructions: Cellulitis Referrals: Provider,ReferralMD [Referring] - Time of Disposition: 02:02 - Critical Care Critical Care Time: No Attestation: On 07/24/19, the high probability of a clinically significant, sudden or life threatening deterioration of the following system(s) required my full and direct attention, intervention and personal management. The time I documented below is in addition to time spent performing reported procedures but includes the following listed in this critical care notation. Medical Decision Making - Medical Records Medical records reviewed: Yes: I reviewed the patient's medical records. - Jermaine Inquiry Pt receiving controlled substance: No Jermaine was queried for this patient: No Vital Signs: 07/24/19 21:36 07/24/19 23:22 07/25/19 00:48 Temperature 101.2 F H Temperature Source Oral Pulse Rate [Right] 120 H 96 H 92 H Respiratory Rate 20 18 16 Blood Pressure [Right Arm] 134/75 122/73 105/62 L Blood Pressure Mean [Right Arm] 94 89 76 Blood Pressure Source [Right Arm] Automatic Cuff Automatic Cuff Automatic Cuff Blood Pressure Position [Right Arm] Supine Supine Supine 02 Sat by Pulse Oximetry 95 93 L 97 Oxygen Delivery Method Room Air Room Air Room Air 07/25/19 01:31 07/25/19 01:47 Temperature 98.3 F Temperature Source Oral Pulse Rate [Right] 96 H Respiratory Rate 18 Blood Pressure [Right Arm] 112/83 Blood Pressure Mean [Right Arm] 92 Blood Pressure Source [Right Arm] Automatic Cuff Blood Pressure Position [Right Arm] Supine 02 Sat by Pulse Oximetry 97 Oxygen Delivery Method Room Air - Lab Data Lab results reviewed: Yes: I reviewed the patient's lab results. Lab Results 07/24/19 21:40: WBC 18.1 H, RBC 3.84 L, Hgb 12.3 L, Hct 37.3 L, MCV 97.1 H, MCH 32.0 H, MCHC 33.0, RDW 13.8, Plt Count 203, MPV 8.0, Neut % (Auto) 79.3, Lymph % (Auto) 12.1, [place] % (Auto) 6.9, Eos % (Auto) 1.3, Baso % (Auto) 0.2, Neut # (Auto) 14.3 H, Lymph # (Auto) 2.2, [place] # (Auto) 1.3 H, Eos # (Auto) 0.2, Baso # (Auto) 0.0, Total Counted 100, Neutrophils % (Manual) 87 H, Band Neutrophils % 7.0, Lymphocytes % (Manual) 4 L, Monocytes % (Manual) 2, Platelet Estimate Normal, RBC Morphology Normal 07/24/19 21:40: Sodium 133 L, Potassium 3.7, Chloride 98, Carbon Dioxide 24, Anion Gap 14.7, BUN 21 H, Creatinine 1.68 H, Estimated Creat Clear 52, Estimated GFR 40 L, Est GFR ( Amer) 48 L, Glucose 161 H, Calcium 9.4, Total Bilirubin 0.5, AST 38 H, ALT 50, Alkaline Phosphatase 100, Total Protein 7.8, Albumin 2.8 L, Globulin 5.0 H, Albumin/Globulin Ratio 0.6 L 07/24/19 21:40: Lactate 1.6 Result diagrams: 07/24/19 21:40 07/24/19 21:40 Orders (Tests/Meds): ED MEDICATIONS Generic Name Dose Route Start Last Admin Trade Name Freq PRN Reason Stop Dose Admin Sodium Chloride 1,000 mls @ 999 mls/hr 07/24/19 21:45 07/24/19 23:00 Sod Chlor 0.9% 1000ml Bag IV 07/24/19 22:45 999 mls/hr .Q1H1M ROHITH Administration Piperacillin Sod/Tazobactam 100 mls @ 200 mls/hr 07/24/19 21:45 07/24/19 23:00 Sod 4.5 gm/ Sodium Chloride IV 08/07/19 21:44 200 mls/hr Q8H ROHITH Administration Protocol Vancomycin HCl 1,500 mg 07/25/19 09:00 Vancomycin 1000mg Vial IV 08/08/19 08:59 DAILY ROHITH Protocol Vancomycin HCl 2,000 mg 07/24/19 22:41 Vancomycin 1000mg Vial IV 07/24/19 22:42 ONCE ONE Protocol Discontinued Medications Generic Name Dose Route Start Last Admin Trade Name Freq PRN Reason Stop Dose Admin Acetaminophen 1,000 mg 07/24/19 21:43 07/24/19 22:59 Tylenol 500mg Tablet PO 07/24/19 21:44 1,000 mg ONCE ONE Administration ORDERS Category Date Time Status CT cervical spine wo con Stat Cat Scan 07/24/19 22:[address] head/brain wo con Stat Cat Scan 07/24/19 21:43 Taken XR chest portable Stat Exams 07/25/19 00:01 Taken UA [Urinalysis and Microscopic] Stat Lab 07/24/19 23:23 Ordered Blood Culture Stat Micro 07/24/19 21:40 Received Skin/Abscess/FB HPI - General Chief complaint: Skin/Abscess/Foreign Body Stated complaint: cellulitis Time Seen by Provider: 07/24/19 21:40 Mode of Arrival: EMS Source of Information: Patient, EMS Limitations: No Limitations Description of Symptoms (Recalled from ER Triage Doc. by RN): Pt has large boil on back of neck - History of Present Illness HPI narrative: large mass posterior scalp, c/q abscess. feels deep. no superficial skin changes - Related Data Home Medications Medication Instructions Recorded Confirmed Allopurinol [Allopurinol 300mg 300 mg PO DAILY 09/30/18 07/25/19 tablet] Aspirin [Aspir 81] 81 mg PO DAILY 09/30/18 07/25/19 Atorvastatin Calcium [Atorvastatin 20 mg PO DAILY 09/30/18 07/25/19 40mg Tab] Levothyroxine Sodium 100 mcg PO DAILY 09/30/18 07/25/19 [Levothyroxine 100mcg (0.1MG) Tab] Lisinopril [Prinivil 5mg Tablet] 2.5 mg PO DAILY 09/30/18 07/25/19 Metformin HCl [Fortamet] 500 mg PO BID 09/30/18 07/25/19 Metoprolol Tartrate 25 mg PO BID 09/30/18 07/25/19 Tamsulosin HCl [Flomax 0.4mg 0.4 mg PO HS 09/30/18 07/25/19 capsule] Venlafaxine HCl [Effexor XR 75mg 225 mg PO DAILY 03/27/19 07/25/19 capsule] Acetaminophen [Acetaminophen 325mg 650 mg PO Q4-6H PRN 07/25/19 07/25/19 tab] Cholecalciferol (Vitamin D3) 1,000 unit PO DAILY 07/25/19 07/25/19 [Vitamin D3 1,000 Unit Cap] Magnesium Oxide [Mag-Ox 400mg Tab] 400 mg PO DAILY 07/25/19 07/25/19 Promethazine HCl [Phenergan 25mg 25 mg PO Q6H PRN 07/25/19 07/25/19 tab] Sennosides [Senna] 8.6 mg PO BID 07/25/19 07/25/19 Allergies Allergy/AdvReac Type Severity Reaction Status Date / Time No Known Allergies Allergy Verified 09/30/18 16:43 [facility] History - Hepatitis A Screen Drug use history?: No High risk sexual behaviors?: No History of sexually transmitted infection?: No 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 I have reviewed the patient's past medical history: Yes Medical History: Reports:: Diabetes Mellitus Type 2 Denies:: Cancer, Diabetes Mellitus Type 1, MRSA Amputation: No Fractures: No - Social History Smoking Status: Current every day smoker Tobacco Type: cigarettes # Packs/Day (cigarettes): 1 Alcohol Intake: never Occupational Status: unemployed Housing: assisted living facility Family Hx:: Kidney Disease ROS Obtained: Yes All systems reviewed & no additional complaints - Constitutional Constitutional: Reports chills, Reports fever(s) - Cardiovascular Cardiovascular: Denies chest pain - Respiratory Respiratory: No chest congestion, No cough, No dyspnea, No dyspnea on exertion - Gastrointestinal Gastrointestingal: Denies: abdominal pain, vomiting - Genitourinary Male Genitourinary: Denies flank pain, Denies hematuria - Musculoskeletal Musculoskeletal: Reports neck pain - Integumentary/Breasts Skin/Breast: Reports skin pain, Reports skin swelling - Neurologic Neurologic: Reports other (dementia baseline) - Hematologic/Lymphatic Henatologic/Lymphatic: Reports easy bleeding, Reports easy bruising Physical Exam - General General appearance: alert, in no apparent distress - Head Head exam: atraumatic, other (large mass posterior scalp, fever, abscess likely and deep) - Eye Eye exam: Present: normal appearance, PERRL, EOMI - ENT ENT exam: Present: normal exam, normal oropharynx, mucous membranes moist, TM's normal bilaterally, normal external ear exam - Neck Neck exam: Present: tenderness. Absent: normal inspection, full ROM - Chest Chest inspection: Present: normal inspection, symmetric chest wall rise. Absent: tenderness - Respiratory Respiratory exam: Present: normal lung sounds bilaterally. Absent: respiratory distress - Cardiovascular Cardiovascular exam: Present: regular rate, normal rhythm. Absent: JVD - Abdominal Exam Abdominal exam: Present: soft, normal bowel sounds. Absent: distention, tenderness, guarding - Extremities Exam Extremities exam: Present: normal inspection, full ROM, normal capillary refill. Absent: calf tenderness - Back Exam Back exam: Present: normal inspection. Absent: tenderness - Neurological Exam Neurological exam: Present: alert. Absent: oriented X3
[2019-07-24 22:15] LABS: Lymphocytes % 4 % (10-50); Monocytes % 2 % (2-9); Neutrophils % 87 % (42-76); RBC Morphology Normal; Total Cells Counted 100
[2019-07-24 22:16] LABS: Albumin Level 2.8 gm/dL (3.4-5.0); Albumin/Globulin Ratio 0.6 (1.1-1.8); Anion Gap 14.7 mEq/L (5-15); Bilirubin,Total 0.5 mg/dL (0.2-1.0); Calcium 9.4 mg/dL (8.5-10.1); Total Protein,Serum 7.8 gm/dL (6.4-8.2)
[2019-07-25 05:55] LABS: Basophils # 0.1 K/mm3 (0-0.2); Basophils % 0.5 % (0.1-2.0); Eosinophils # 0.6 K/mm3 (0.0-0.4); Eosinophils % 3.1 % (0.1-12.0); Hematocrit 36.4 % (42.0-52.0); Hemoglobin 11.8 g/dL (14.1-18.0); Lymphocytes # 1.6 K/mm3 (0.7-4.5); Lymphocytes % 8.8 % (10-50); Mean Corpuscular HGB Conc 32.4 g/dL (31.8-35.4); Mean Corpuscular Volume 98.4 fl (80-94); Mean Platelet Volume 8.3 fl (7.4-10.4); Monocytes # 1.2 K/mm3 (0.1-1.0); Monocytes % 6.7 % (1.7-9.3); Neutrophils # 14.5 K/mm3 (1.8-7.8); Neutrophils % 80.9 % (37.0-80.0); Platelet Count 173 K/mm3 (142-424); Red Cell Distribution Width 13.8 % (11.5-17.5); White Blood Count 17.9 K/mm3 (4.8-10.8)
[2019-07-25 06:13] LABS: Calcium 8.4 mg/dL (8.5-10.1)
--- NOTE | 2019-07-25 12:04 | History & Physical Report ---
*Admission Date: 07/24/19 *Chief complaint: neck abscess *History of present illness: this wm presented to the ed - has large boil on back of neck- large mass posterior scalp, c/q abscess. feels deep. no superficial skin changes uncertain as to time period as pt is poor historian - pt with abn labs and large abscess and will need admit - did meet sirs criteria - will need surg consult [facility] History I have reviewed the patient's past medical history: Yes Medical History: Reports:: Diabetes Mellitus Type 2, Hyperlipidemia, Hypertension Denies:: Cancer, Diabetes Mellitus Type 1, MRSA *Have you ever received a pneumonia vaccine?: No *Have you received a flu vaccine this season?: No Other Medical History: Reports: Anemia, Hypothyroidism Amputation: No Fractures: No - *Social History Smoking Status: Current every day smoker Tobacco Type: cigarettes # Packs/Day (cigarettes): 1 Alcohol Intake: never *Occupational Status:: unemployed Housing: assisted living facility *Travel in the last 8 weeks: None Family Hx:: Unable to obtain Review of Systems - Review of Systems Review of systems:: pertinent systems reviewed and negative unless documented below - Constitutional Denies fever(s) - Eyes Denies change in vision - ENT Denies sore throat - *Cardiovascular Denies chest pain at rest - *Respiratory Denies cough - *Gastrointestinal Denies abdominal pain - *Genitourinary Denies blood in semen - *Musculoskeletal Denies joint pain - Integumentary/Breasts Reports boil, Reports other (uuchal abscess ) - *Neurologic Reports confusion, Reports other (dementia baseline) - Psychiatric Reports behavioral changes Meds Home Medications Medication Instructions Recorded Confirmed Type Allopurinol [Allopurinol 300mg 300 mg PO DAILY 09/30/18 07/25/19 History tablet] Aspirin [Aspir 81] 81 mg PO DAILY 09/30/18 07/25/19 History Atorvastatin Calcium [Atorvastatin 20 mg PO DAILY 09/30/18 07/25/19 History 40mg Tab] Levothyroxine Sodium 100 mcg PO DAILY 09/30/18 07/25/19 History [Levothyroxine 100mcg (0.1MG) Tab] Lisinopril [Prinivil 5mg Tablet] 2.5 mg PO DAILY 09/30/18 07/25/19 History Metformin HCl [Fortamet] 500 mg PO BID 09/30/18 07/25/19 History Metoprolol Tartrate 25 mg PO BID 09/30/18 07/25/19 History Tamsulosin HCl [Flomax 0.4mg 0.4 mg PO HS 09/30/18 07/25/19 History capsule] Venlafaxine HCl [Effexor XR 75mg 225 mg PO DAILY 03/27/19 07/25/19 History capsule] Acetaminophen [Acetaminophen 325mg 650 mg PO Q4-6H PRN 07/25/19 07/25/19 History tab] Cholecalciferol (Vitamin D3) 1,000 unit PO DAILY 07/25/19 07/25/19 History [Vitamin D3 1,000 Unit Cap] Magnesium Oxide [Mag-Ox 400mg Tab] 400 mg PO DAILY 07/25/19 07/25/19 History Promethazine HCl [Phenergan 25mg 25 mg PO Q6H PRN 07/25/19 07/25/19 History tab] Sennosides [Senna] 8.6 mg PO BID 07/25/19 07/25/19 History Allergies Allergy/AdvReac Type Severity Reaction Status Date / Time No Known Allergies Allergy Verified 09/30/18 16:43 Exam Vital signs and Labs for Last 24 Hours: Temp Pulse Resp BP Pulse Ox 99.2 F 115 H 22 138/75 98 07/25/19 08:00 07/25/19 08:00 07/25/19 08:00 07/25/19 08:00 07/25/19 08:00 Laboratory Results - last 24 hr 07/24/19 21:40: WBC 18.1 H, RBC 3.84 L, Hgb 12.3 L, Hct 37.3 L, MCV 97.1 H, MCH 32.0 H, MCHC 33.0, RDW 13.8, Plt Count 203, MPV 8.0, Neut % (Auto) 79.3, Lymph % (Auto) 12.1, [place] % (Auto) 6.9, Eos % (Auto) 1.3, Baso % (Auto) 0.2, Neut # (Au to) 14.3 H, Lymph # (Auto) 2.2, [place] # (Auto) 1.3 H, Eos # (Auto) 0.2, Baso # (Auto) 0.0, Total Counted 100, Neutrophils % (Manual) 87 H, Band Neutrophils % 7.0, Lymphocytes % (Manual) 4 L, Monocytes % (Manual) 2, Platelet Estimate Normal, RBC Morphology Normal 07/24/19 21:40: Sodium 133 L, Potassium 3.7, Chloride 98, Carbon Dioxide 24, Anion Gap 14.7, BUN 21 H, Creatinine 1.68 H, Estimated Creat Clear 52, Estimated GFR 40 L, Est GFR ( Amer) 48 L, Glucose 161 H, Calcium 9.4, Total Bilirubin 0.5, AST 38 H, ALT 50, Alkaline Phosphatase 100, Total Protein 7.8, Albumin 2.8 L, Globulin 5.0 H, Albumin/Globulin Ratio 0.6 L 07/24/19 21:40: Lactate 1.6 07/25/19 05:40: WBC 17.9 H, RBC 3.70 L, Hgb 11.8 L, Hct 36.4 L, MCV 98.4 H, MCH 31.9 H, MCHC 32.4, RDW 13.8, Plt Count 173, MPV 8.3, Neut % (Auto) 80.9 H, Lymph % (Auto) 8.8 L, [place] % (Auto) 6.7, Eos % (Auto) 3.1, Baso % (Auto) 0.5, Neut # (Auto) 14.5 H, Lymph # (Auto) 1.6, [place] # (Auto) 1.2 H, Eos # (Auto) 0.6 H, Baso # (Auto) 0.1 07/25/19 05:40: Sodium 140, Potassium 4.0, Chloride 103, Carbon Dioxide 28, Anion Gap 13.0, BUN 21 H, Creatinine 1.64 H, Estimated Creat Clear 48, Estimated GFR 41 L, Est GFR ( Amer) 50 L, Glucose 142 H, Calcium 8.4 L D 07/25/19 10:04: Lactate 1.5 I & O for Last 24 hours: Intake & Output 07/23/19 07/24/19 07/25/19 07/26/19 11:59 11:59 11:59 11:59 Intake Total 1817 Balance 1817 Weight 193 lb 6 oz - Constitutional no acute distress - *Routine HEENT Exam Head: Present: normocephalic Eye: Present: EOMI, PERRL ENT: Present: mucous membranes dry - *Routine Neck Exam Present: trachea midline. Absent: meningismus - *Routine Respiratory Exam Present: decreased breath sounds - *Routine Cardiovascular Exam Present: RRR, murmur, S4 - *Routine Abdominal Exam Present: soft - *Routine Extremities Exam Absent: calf tenderness - *Routine Skin Exam Comments: large abscess post neck - *Routine Neurological Exam confused but no focal neuro sx - Routine Psychiatric Exam Present: unable to assess Assessment and Plan (1) Abscess Current visit: Yes Status: Acute Category: Medical Code(s): L02.91 - Cutaneous abscess, unspecified (2) Hypothyroidism Current visit: Yes Status: Acute Qualifiers: Hypothyroidism type: acquired Qualified Code(s): E03.9 - Hypothyroidism, unspecified Category: Medical Code(s): E03.9 - Hypothyroidism, unspecified (3) Diabetes 1.5, managed as type 2 Current visit: No Status: Acute Category: Medical Code(s): E10.9 - Type 1 diabetes mellitus without complications (4) Overweight Current visit: No Status: Acute Category: Medical Code(s): E66.3 - Overweight (5) Renal insufficiency Current visit: Yes Status: Acute Category: Medical Code(s): N28.9 - Disorder of kidney and ureter, unspecified (6) SIRS (systemic inflammatory response syndrome) Current visit: Yes Status: Acute Category: Medical Code(s): R65.10 - Systemic inflammatory response syndrome (SIRS) of non-infectious origin without acute organ dysfunction
--- NOTE | 2019-07-25 13:25 | Consult Report ---
*Admission Date: 07/24/19 *Reason for consult:: Abscess *History of present illness: This is a 74-year-old gentleman seen in consultation from the service of Dr. Ramsey after presenting to the emergency department with increasing pain/swelling along the posterior neck. He states that he developed the symptom s over the past few days. No fevers. Evaluation revealed changes consistent with a deep abscess and the surgical service was consulted. Review of Systems - Constitutional Denies chills - Eyes Denies change in vision - ENT Denies change in voice - *Cardiovascular Denies chest pain - *Respiratory Denies cough - *Gastrointestinal Denies abdominal pain - *Genitourinary Denies blood in urine - *Neurologic Reports behavioral changes, Reports confusion, Reports other (dementia baseline) - Psychiatric Denies anxiety - Hematologic/Lymphatic Denies easy bleeding [facility] History Medical History: Reports:: Diabetes Mellitus Type 2, Hyperlipidemia, Hypertension Denies:: Cancer, Diabetes Mellitus Type 1, MRSA *Have you ever received a pneumonia vaccine?: No *Have you received a flu vaccine this season?: No Other Medical History: Reports: Anemia, Hypothyroidism Amputation: No Fractures: No - *Social History Smoking Status: Current every day smoker Tobacco Type: cigarettes # Packs/Day (cigarettes): 1 Alcohol Intake: never *Occupational Status:: unemployed Housing: assisted living facility *Travel in the last 8 weeks: None Family Hx:: Unable to obtain Med Home Medications Medication Instructions Recorded Confirmed Type Allopurinol [Allopurinol 300mg 300 mg PO DAILY 09/30/18 07/25/19 History tablet] Aspirin [Aspir 81] 81 mg PO DAILY 09/30/18 07/25/19 History Atorvastatin Calcium [Atorvastatin 20 mg PO DAILY 09/30/18 07/25/19 History 40mg Tab] Levothyroxine Sodium 100 mcg PO DAILY 09/30/18 07/25/19 History [Levothyroxine 100mcg (0.1MG) Tab] Lisinopril [Prinivil 5mg Tablet] 2.5 mg PO DAILY 09/30/18 07/25/19 History Metformin HCl [Fortamet] 500 mg PO BID 09/30/18 07/25/19 History Metoprolol Tartrate 25 mg PO BID 09/30/18 07/25/19 History Tamsulosin HCl [Flomax 0.4mg 0.4 mg PO HS 09/30/18 07/25/19 History capsule] Venlafaxine HCl [Effexor XR 75mg 225 mg PO DAILY 03/27/19 07/25/19 History capsule] Acetaminophen [Acetaminophen 325mg 650 mg PO Q4-6H PRN 07/25/19 07/25/19 History tab] Cholecalciferol (Vitamin D3) 1,000 unit PO DAILY 07/25/19 07/25/19 History [Vitamin D3 1,000 Unit Cap] Magnesium Oxide [Mag-Ox 400mg Tab] 400 mg PO DAILY 07/25/19 07/25/19 History Promethazine HCl [Phenergan 25mg 25 mg PO Q6H PRN 07/25/19 07/25/19 History tab] Sennosides [Senna] 8.6 mg PO BID 07/25/19 07/25/19 History Allergies Allergy/AdvReac Type Severity Reaction Status Date / Time No Known Allergies Allergy Verified 09/30/18 16:43 Exam Vital signs and Labs for Last 24 Hours: Temp Pulse Resp BP Pulse Ox 99.2 F 115 H 22 138/75 98 07/25/19 08:00 07/25/19 08:00 07/25/19 08:00 07/25/19 08:00 07/25/19 08:00 Laboratory Results - last 24 hr 07/24/19 21:40: WBC 18.1 H, RBC 3.84 L, Hgb 12.3 L, Hct 37.3 L, MCV 97.1 H, MCH 32.0 H, MCHC 33.0, RDW 13.8, Plt Count 203, MPV 8.0, Neut % (Auto) 79.3, Lymph % (Auto) 12.1, [place] % (Auto) 6.9, Eos % (Auto) 1.3, Baso % (Auto) 0.2, Neut # (Auto) 14.3 H, Lymph # (Auto) 2.2, [place] # (Auto) 1.3 H, Eos # (Auto) 0.2, Baso # (Auto) 0.0, Total Counted 100, Neutrophils % (Manual) 87 H, Band Neutrophils % 7.0, Lymphocytes % (Manual) 4 L, Monocytes % (Manual) 2, Platelet Estimate Normal, RBC Morphology Normal 07/24/19 21:40: Sodium 133 L, Potassium 3.7, Chloride 98, Carbon Dioxide 24, Anion Gap 14.7, BUN 21 H, Creatinine 1.68 H, Estimated Creat Clear 52, Estimated GFR 40 L, Est GFR ( Amer) 48 L, Glucose 161 H, Calcium 9.4, Total Bilirubin 0.5, AST 38 H, ALT 50, Alkaline Phosphatase 100, Total Protein 7.8, Al bumin 2.8 L, Globulin 5.0 H, Albumin/Globulin Ratio 0.6 L 07/24/19 21:40: Lactate 1.6 07/25/19 05:40: WBC 17.9 H, RBC 3.70 L, Hgb 11.8 L, Hct 36.4 L, MCV 98.4 H, MCH 31.9 H, MCHC 32.4, RDW 13.8, Plt Count 173, MPV 8.3, Neut % (Auto) 80.9 H, Lymph % (Auto) 8.8 L, [place] % (Auto) 6.7, Eos % (Auto) 3.1, Baso % (Auto) 0.5, Neut # (Auto) 14.5 H, Lymph # (Auto) 1.6, [place] # (Auto) 1.2 H, Eos # (Auto) 0.6 H, Baso # (Auto) 0.1 07/25/19 05:40: Sodium 140, Potassium 4.0, Chloride 103, Carbon Dioxide 28, Anion Gap 13.0, BUN 21 H, Creatinine 1.64 H, Estimated Creat Clear 48, Estimated GFR 41 L, Est GFR ( Amer) 50 L, Glucose 142 H, Calcium 8.4 L D 07/25/19 10:04: Lactate 1.5 I & O for Last 24 hours: Intake & Output 07/23/19 07/24/19 07/25/19 07/26/19 11:59 11:59 11:59 11:59 Intake Total 1817 120 / 120 Balance 1817 120 / 120 Weight 193 lb 6 oz - Constitutional no acute distress - *Routine Respiratory Exam Absent: respiratory distress - *Routine Cardiovascular Exam Present: tachycardia - *Routine Skin Exam Comments: Abscessed sebaceous cyst along posterior neck Results - Labs 07/25/19 05:40 07/25/19 05:40 Laboratory Results - last 24 hr 07/24/19 21:40: WBC 18.1 H, RBC 3.84 L, Hgb 12.3 L, Hct 37.3 L, MCV 97.1 H, MCH 32.0 H, MCHC 33.0, RDW 13.8, Plt Count 203, MPV 8.0, Neut % (Auto) 79.3, Lymph % (Auto) 12.1, [place] % (Auto) 6.9, Eos % (Auto) 1.3, Baso % (Auto) 0.2, Neut # ( Auto) 14.3 H, Lymph # (Auto) 2.2, [place] # (Auto) 1.3 H, Eos # (Auto) 0.2, Baso # (Auto) 0.0, Total Counted 100, Neutrophils % (Manual) 87 H, Band Neutrophils % 7.0, Lymphocytes % (Manual) 4 L, Monocytes % (Manual) 2, Platelet Estimate Normal, RBC Morphology Normal 07/24/19 21:40: Sodium 133 L, Potassium 3.7, Chloride 98, Carbon Dioxide 24, Anion Gap 14.7, BUN 21 H, Creatinine 1.68 H, Estimated Creat Clear 52, Estimated GFR 40 L, Est GFR ( Amer) 48 L, Glucose 161 H, Calcium 9.4, Total Bilirubin 0.5, AST 38 H, ALT 50, Alkaline Phosphatase 100, Total Protein 7.8, Albumin 2.8 L, Globulin 5.0 H, Albumin/Globulin Ratio 0.6 L 07/24/19 21:40: Lactate 1.6 07/25/19 05:40: WBC 17.9 H, RBC 3.70 L, Hgb 11.8 L, Hct 36.4 L, MCV 98.4 H, MCH 31.9 H, MCHC 32.4, RDW 13.8, Plt Count 173, MPV 8.3, Neut % (Auto) 80.9 H, Lymph % (Auto) 8.8 L, [place] % (Auto) 6.7, Eos % (Auto) 3.1, Baso % (Auto) 0.5, Neut # (Auto) 14.5 H, Lymph # (Auto) 1.6, [place] # (Auto) 1.2 H, Eos # (Auto) 0.6 H, Baso # (Auto) 0.1 07/25/19 05:40: Sodium 140, Potassium 4.0, Chloride 103, Carbon Dioxide 28, Anion Gap 13.0, BUN 21 H, Creatinine 1.64 H, Estimated Creat Clear 48, Estimated GFR 41 L, Est GFR ( Amer) 50 L, Glucose 142 H, Calcium 8.4 L D 07/25/19 10:04: Lactate 1.5 Assessment and Plan (1) Abscess Current visit: Yes Status: Acute Category: Medical Code(s): L02.91 - Cutaneous abscess, unspecified Abscessed sebaceous cyst on posterior neck Continue antibiotics NPO after midnight He has been scheduled for incision or drainage tomorrow morning (2) Hypothyroidism Current visit: Yes Status: Acute Qualifiers: Hypothyroidism type: acquired Qualified Code(s): E03.9 - Hypothyroidism, unspecified Category: Medical Code(s): E03.9 - Hypothyroidism, unspecified (3) Diabetes 1.5, managed as type 2 Current visit: No Status: Acute Category: Medical Code(s): E10.9 - Type 1 diabetes mellitus without complications (4) Overweight Current visit: No Status: Acute Category: Medical Code(s): E66.3 - Overweight (5) Renal insufficiency Current visit: Yes Status: Acute Category: Medical Code(s): N28.9 - Disorder of kidney and ureter, unspecified (6) SIRS (systemic inflammatory response syndrome) Current visit: Yes Status: Acute Category: Medical Code(s): R65.10 - Systemic inflammatory response syndrome (SIRS) of non-infectious origin without acute organ dysfunction
--- NOTE | 2019-07-25 14:32 | Pharmacy Consult Notes ---
[facility] Pharmacy VTE Monitoring - Patient Demographics Admission date: 07/25/19 Report Date: 07/25/19 Time: 14:32 Allergies/Adverse Reactions: Patient Allergies No Known Allergies Allergy (Verified 09/30/18 16:43) Height: 1.78 m Weight: 87.713 kg Patient Problems: Current Active Problems Cellulitis (Acute) UTI (urinary tract infection) (Acute) Abscess (Acute) Hypothyroidism (Acute) Renal insufficiency (Acute) SIRS (systemic inflammatory response syndrome) (Acute) - VTE Risk Labs: VTE Related Lab Results Hgb 11.8 g/dL (14.1-18.0) L 07/25/19 05:40 Hct 36.4 % (42.0-52.0) L 07/25/19 05:40 Plt Count 173 K/mm3 (142-424) 07/25/19 05:40 BUN 21 mg/dL (7-18) H 07/25/19 05:40 Creatinine 1.64 mg/dL (0.70-1.30) H 07/25/19 05:40 Estimated Creat Clear 48 mL/min (50-200) 07/25/19 05:40 Was VTE Risk Assessment Performed: Yes VTE Score: 1 VTE Risk Level: Very Low Risk - Prophylaxis Types of VTE Prophylaxis: TEDS Knee High (SVITLANA HOSE ORDER PLACED)
--- NOTE | 2019-07-25 14:51 | Pharmacy Consult Notes ---
- Pharmacy Consult Date: 07/25/19 Time: 14:49 Referring provider: DR. SUAREZ Reason for Consult:: VANCOMYCIN DOSING Allergies and ADEs:: Allergies Allergy/AdvReac Type Severity Reaction Status Date / Time No Known Allergies Allergy Verified 09/30/18 16:43 Home Medications:: Home Medications Medication Instructions Recorded Confirmed Type Allopurinol [Allopurinol 300mg 300 mg PO DAILY 09/30/18 07/25/19 History tablet] Atorvastatin Calcium [Atorvastatin 20 mg PO DAILY 09/30/18 07/25/19 History 40mg Tab] Levothyroxine Sodium 100 mcg PO DAILY 09/30/18 07/25/19 History [Levothyroxine 100mcg (0.1MG) Tab] Lisinopril [Prinivil 5mg Tablet] 2.5 mg PO DAILY 09/30/18 07/25/19 History Metformin HCl [Fortamet] 500 mg PO BID 09/30/18 07/25/19 History Metoprolol Tartrate 25 mg PO BID 09/30/18 07/25/19 History Tamsulosin HCl [Flomax 0.4mg 0.4 mg PO HS 09/30/18 07/25/19 History capsule] Venlafaxine HCl [Effexor XR 75mg 225 mg PO DAILY 03/27/19 07/25/19 History capsule] Acetaminophen [Acetaminophen 325mg 650 mg PO Q4-6H PRN 07/25/19 07/25/19 History tab] Aspirin [Aspirin 81mg chewable 81 mg PO DAILY 07/25/19 07/25/19 History tab] Cholecalciferol (Vitamin D3) 1,000 unit PO DAILY 07/25/19 07/25/19 History [Vitamin D3 1,000 Unit Cap] Magnesium Oxide [Mag-Ox 400mg Tab] 400 mg PO DAILY 07/25/19 07/25/19 History Promethazine HCl [Phenergan 25mg 25 mg PO Q6H PRN 07/25/19 07/25/19 History tab] Sennosides/Docusate Sodium [Senna 1 each PO BID 07/25/19 07/25/19 History Plus Tablet] Height: 1.78 m Weight: 87.713 kg Laboratory Results:: Laboratory Results - last 24 hr 07/24/19 21:40: WBC 18.1 H, RBC 3.84 L, Hgb 12.3 L, Hct 37.3 L, MCV 97.1 H, MCH 32.0 H, MCHC 33.0, RDW 13.8, Plt Count 203, MPV 8.0, Neut % (Auto) 79.3, Lymph % (Auto) 12.1, [place] % (Auto) 6.9, Eos % (Auto) 1.3, Baso % (Auto) 0.2, Neut # (Auto) 14.3 H, Lymph # (Auto) 2.2, [place] # (Auto) 1.3 H, Eos # (Auto) 0.2, Baso # (Auto) 0.0, Total Counted 100, Neutrophils % (Manual) 87 H, Band Neutrophils % 7.0, Lymphocytes % (Manual) 4 L, Monocytes % (Manual) 2, Platelet Estimate Normal, RBC Morphology Normal 07/24/19 21:40: Sodium 133 L, Potassium 3.7, Chloride 98, Carbon Dioxide 24, Anion Gap 14.7, BUN 21 H, Creatinine 1.68 H, Estimated Creat Clear 52, Estimated GFR 40 L, Est GFR ( Amer) 48 L, Glucose 161 H, Calcium 9.4, Total Bilirubin 0.5, AST 38 H, ALT 50, Alkaline Phosphatase 100, Total Protein 7.8, Albumin 2.8 L, Globulin 5.0 H, Albumin/Globulin Ratio 0.6 L 07/24/19 21:40: Lactate 1.6 07/25/19 05:40: WBC 17.9 H, RBC 3.70 L, Hgb 11.8 L, Hct 36.4 L, MCV 98.4 H, MCH 31.9 H, MCHC 32.4, RDW 13.8, Plt Count 173, MPV 8.3, Neut % (Auto) 80.9 H, Lymph % (Auto) 8.8 L, [place] % (Auto) 6.7, Eos % (Auto) 3.1, Baso % (Auto) 0.5, Neut # (Auto) 14.5 H, Lymph # (Auto) 1.6, [place] # (Auto) 1.2 H, Eos # (Auto) 0.6 H, Baso # (Auto) 0.1 07/25/19 05:40: Sodium 140, Potassium 4.0, Chloride 103, Carbon Dioxide 28, Anion Gap 13.0, BUN 21 H, Creatinine 1.64 H, Estimated Creat Clear 48, Estimated GFR 41 L, Est GFR ( Amer) 50 L, Glucose 142 H, Calcium 8.4 L D 07/25/19 10:04: Lactate 1.5 Medical History: Reports:: Diabetes Mellitus Type 2, Hyperlipidemia, Hypertension Denies:: Cancer, Diabetes Mellitus Type 1, MRSA Assessment and Plan (1) Abscess Current visit: Yes Status: Acute Category: Medical Code(s): L02.91 - Cutaneous abscess, unspecified (2) Hypothyroidism Current visit: Yes Status: Acute Qualifiers: Hypothyroidism type: acquired Qualified Code(s): E03.9 - Hypothyroidism, unspecified Category: Medical Code(s): E03.9 - Hypothyroidism, unspecified (3) Diabetes 1.5, managed as type 2 Current visit: No Status: Acute Category: Medical Code(s): E10.9 - Type 1 diabetes mellitus without complications (4) Overweight Current visit: No Status: Acute Category: Medical Code(s): E66.3 - Overweight (5) Renal insufficiency Current visit: Yes Status: Acute Category: Medical Code(s): N28.9 - Disorder of kidney and ureter, unspecified (6) SIRS (systemic inflammatory response syndrome) Current visit: Yes Status: Acute Category: Medical Code(s): R65.10 - Systemic inflammatory response syndrome (SIRS) of non-infectious origin without acute organ dysfunction - Assessment and plan all Dx Assessment and Plan for all problems:: BASED ON PATIENT'S FACTORS, RECOMMEND CONTINUING WITH VANCOMYCIN 1500 MG Q24H AT THIS TIME. WILL ORDER VANCOMYCIN TROUGH LEVEL PRIOR TO 3RD DOSE ON 07/26/19. PHARMACY WILL FOLLOW DAILY AND ADJUST APPROPRIATE.
--- NOTE | 2019-07-26 06:48 | Progress Note ---
[facility] Anesthesia Checklist - Patient Identification Patient Identification: Arm Band, Verbal (Name & ) - Structural Data Admitted From: Inpatient Planned Operative Procedure/s: i and d abcess Consent for Planned Operative Procedure(s) Verified: Yes Verified Documents: History and Physical - NPO Status Verified Time NPO: 00:00 - Additional verifications Patient : No Anesthesia Reactions: No Hx Blood Transfusions: No Blood Transfusion Reaction: No Cephalosporin Allergy: No Previous Colonoscopy: No - Cardiovascular Assessment Heart Sounds: S1 & S2 Pulse Strength: Baseline Pulse Rhythm: Regular Peripheral Edema: No - Airway Assessment C-Spine Mobility Assessed: Yes TMJ Mobility Assessed: Yes Dentition: Poor Dentition - Neurological Assessment Level of Consciousness: Awake, Appropriate Hx Seizures: No Numbness or tingling in extremities: No - Anesthesia Plan Anesthesia Risk discussed: Yes Anesthesia Plan: Verified ASA Class: III Anesthesia Type: General [facility] History I have reviewed the patient's past medical history: Yes Medical History: Reports:: Diabetes Mellitus Type 2, Hyperlipidemia, Hypertension Denies:: Cancer, Diabetes Mellitus Type 1, MRSA *Have you ever received a pneumonia vaccine?: No *Have you received a flu vaccine this season?: No Other Medical History: Reports: Anemia, Hypothyroidism Anesthesia experience/problems:: none Amputation: No Fractures: No - *Social History Smoking Status: Current every day smoker Tobacco Type: cigarettes # Packs/Day (cigarettes): 1 Alcohol Intake: never Substance Use Type: other *Occupational Status:: unemployed Housing: assisted living facility *Travel in the last 8 weeks: None Family Hx:: Unable to obtain
[2019-07-26 06:57] LABS: Anion Gap 12.8 mEq/L (5-15); Calcium 8.4 mg/dL (8.5-10.1)
--- NOTE | 2019-07-26 07:22 | Progress Note ---
Subjective Narrative: He continues to have pain along the posterior neck. Exam Vital signs and Labs for Last 24 Hours: Temp Pulse Resp BP Pulse Ox 98.8 F 75 18 115/70 95 07/26/19 04:35 07/26/19 03:41 07/26/19 03:41 07/26/19 03:41 07/26/19 03:41 Laboratory Results - last 24 hr 07/25/19 10:04: Lactate 1.5 07/25/19 20:08: POC Glucose 126 H 07/26/19 06:15: Sodium 138, Potassium 3.8, Chloride 105, Carbon Dioxide 24, Anion Gap 12.8, BUN 16, Creatinine 1.64 H, Estimated Creat Clear 49, Estimated GFR 41 L, Est GFR ( Amer) 50 L, Glucose 117 H, Calcium 8.4 L 07/26/19 06:16: POC Glucose 112 H I & O for Last 24 hours: Intake & Output 07/23/19 07/24/19 07/25/19 07/26/19 11:59 11:59 11:59 11:59 Intake Total 1818 / 1817 3501 / 3501 Balance 181 / 1817 3501 / 3501 Weight 193 lb 6 oz 195 lb 9 oz Progress Note: A&P (1) Abscess Status: Acute Assessment and plan: Continue antibiotics 2 OR this AM for incision and drainage. NOTE: The patient seems to understand the need for operative intervention and is agreeable. He is not oriented x3 and is therefore deemed unable to provide consent. Multiple attempts at contacting the patient's power of estate planning attorney have been unsuccessful. He has an infectious source that cannot effectively be treated with antibiotics alone. His condition has worsened and concerns for potential sepsis must be entertained. Source control can only be accomplished operatively and this is deemed emergent. Current Visit: Yes (2) Hypothyroidism Status: Acute Current Visit: Yes (3) Diabetes 1.5, managed as type 2 Status: Acute Current Visit: No (4) Overweight Status: Acute Current Visit: No (5) Renal insufficiency Status: Acute Current Visit: Yes (6) SIRS (systemic inflammatory response syndrome) Status: Acute Current Visit: Yes
--- NOTE | 2019-07-26 08:28 | Operative Note ---
Date of procedure: 07/26/19 Pre-op Diagnosis:: Posterior neck abscessed cyst Post-op Diagnosis:: Complex posterior neck abscess Procedure performed:: Incision and drainage of complex posterior neck abscess Surgeon:: Amrit Pelletier MD Acid Retort Operator(s):: Huong CASE FINISHER:: Callum Lizama Anesthesia: LMA Estimated blood loss (mL): 10 Operative findings:: Small central abscess cavity with large surrounding region of "microabscesses" Operative note:: After informed consent was obtained the patient was taken to the operating room and placed in the supine position. General anesthesia with laryngeal mask airway was achieved. He was transferred to the left lateral decubitus position. His neck was prepped and draped in a sterile fashion. After infiltration local anesthetic an elliptical incision was made around the central portion of the abscess. A central abscess cavity with purulence was encountered and fluid was obtained for Gram stain/culture. Evaluation then revealed a very large surrounding region of "microabscesses". This region was evacuated bluntly and additional compression was achieved to relieve a large portion of purulent fluid. The entire area was irrigated and then packed with moistened Kerlix. The Kerlix was then infiltrated with 1% lidocaine and dressings were applied. The patient was transferred to recovery in stable condition after removal of his laryngeal mask airway. Condition: stable Disposition: PACU Specimens:: Fluid for Gram stain/culture Complications:: No immediate
--- NOTE | 2019-07-26 08:37 | Progress Note ---
[facility] Anesthesia Record Part I Intake, IV Amount: 400 Estimated blood loss (mL): 10 Urine output (mL): 0 Blood Products used (#): none Blood Pressure: 87/51 SaO2: 93 Pulse Rate: 94 Respiratory Rate: 20 Temperature: 98.1 F Patient is:: Drowsy, Nasal O2, Stable Stable to PACU at:: 08:30
--- NOTE | 2019-07-26 08:38 | Progress Note ---
[facility] Anesthesia Record Part II Discharge Time: 09:00 Destination: Medical Surgical Department PACU nurse assessment reviewed?: Yes Patient Condition:: Good Anesthesia Complications:: None Swallowing reflex intact?: Yes Cyanosis?: No
--- NOTE | 2019-07-26 10:07 | Progress Note ---
Internal Medicine - PN: Subj *Date: 07/27/19 *Time: 08:16 Interval history: pt with surg today - Exam Vital signs and Labs for Last 24 Hours: Temp Pulse Resp BP Pulse Ox 98.2 F 95 H 18 117/72 95 07/26/19 09:29 07/26/19 09:29 07/26/19 09:29 07/26/19 09:29 07/26/19 09:29 Laboratory Results - last 24 hr 07/25/19 10:04: Lactate 1.5 07/25/19 20:08: POC Glucose 126 H 07/26/19 06:15: Sodium 138, Potassium 3.8, Chloride 105, Carbon Dioxide 24, Anion Gap 12.8, BUN 16, Creatinine 1.64 H, Estimated Creat Clear 49, Estimated GFR 41 L, Est GFR ( Amer) 50 L, Glucose 117 H, Calcium 8.4 L 07/26/19 06:16: POC Glucose 112 H I & O for Last 24 hours: Intake & Output 07/23/19 07/24/19 07/25/19 07/26/19 11:59 11:59 11:59 11:59 Intake Total 1817 3901 / 3901 Balance 1817 3901 / 3901 Weight 193 lb 6 oz 195 lb 9 oz - Constitutional no acute distress - *Routine HEENT Exam Head: Present: normocephalic Eye: Present: EOMI, PERRL ENT: Present: mucous membranes dry - *Routine Neck Exam Absent: JVD - *Routine Respiratory Exam Present: decreased breath sounds - *Routine Cardiovascular Exam Present: RRR, murmur - *Routine Abdominal Exam Present: soft - *Routine Extremities Exam Absent: calf tenderness - *Routine Skin Exam Comments: abscess neck - *Routine Neurological Exam Present: alert - Routine Psychiatric Exam Present: normal affect Assessment and Plan (1) Abscess Current visit: Yes Status: Acute Category: Medical Code(s): L02.91 - Cutaneous abscess, unspecified (2) Hypothyroidism Current visit: Yes Status: Acute Qualifiers: Hypothyroidism type: acquired Qualified Code(s): E03.9 - Hypothyroidism, unspecified Category: Medical Code(s): E03.9 - Hypothyroidism, unspecified (3) Diabetes 1.5, managed as type 2 Current visit: No Status: Acute Category: Medical Code(s): E10.9 - Type 1 diabetes mellitus without complications (4) Overweight Current visit: No Status: Acute Category: Medical Code(s): E66.3 - Overweight (5) Renal insufficiency Current visit: Yes Status: Acute Category: Medical Code(s): N28.9 - Disorder of kidney and ureter, unspecified (6) SIRS (systemic inflammatory response syndrome) Current visit: Yes Status: Acute Category: Medical Code(s): R65.10 - Systemic inflammatory response syndrome (SIRS) of non-infectious origin without acute organ dysfunction
--- NOTE | 2019-07-27 07:44 | Progress Note ---
Subjective Patient reports: no new complaints, feels better Exam Vital signs and Labs for Last 24 Hours: Temp Pulse Resp BP Pulse Ox 98.4 F 95 H 20 114/64 94 L 07/27/19 04:00 07/27/19 04:00 07/27/19 04:00 07/27/19 04:00 07/27/19 04:00 Laboratory Results - last 24 hr 07/26/19 09:29: Lactate 0.6 07/26/19 11:27: POC Glucose 155 H 07/26/19 17:05: POC Glucose 108 07/26/19 20:03: POC Glucose 150 H 07/26/19 20:30: Vancomycin Trough 13.4 07/27/19 06:14: POC Glucose 101 I & O for Last 24 hours: Intake & Output 07/24/19 07/25/19 07/26/19 07/27/19 11:59 11:59 11:59 11:59 Intake Total 1818 / 1818 3901 / 3901 4640 / 4640 Output Total 1000 / 1000 Balance 1818 / 1818 3901 / 3901 3640 / 3640 Weight 193 lb 6 oz 195 lb 9 oz 204 lb 2 oz Microbiology Reports for the Last 24 Hours: Microbiology 07/24/19 21:40 Blood Blood Culture - Preliminary NO GROWTH AFTER 48 HOURS 07/24/19 21:40 Blood Blood Culture - Preliminary NO GROWTH AFTER 48 HOURS 07/26/19 08:12 Neck - Abscess Gram Stain - Final - Constitutional no acute distress - *Routine Respiratory Exam Absent: respiratory distress - *Routine Cardiovascular Exam Present: RRR - *Routine Skin Exam Comments: Posterior neck dressing intact. No spreading cellulitis. Progress Note: A&P (1) Abscess Status: Acute Assessment and plan: Overall, doing well status post incision and drainage of complex posterior neck abscess. Continue antibiotics Dressing changes Current Visit: Yes (2) Hypothyroidism Status: Acute Current Visit: Yes (3) Diabetes 1.5, managed as type 2 Status: Acute Current Visit: No (4) Overweight Status: Acute Current Visit: No (5) Renal insufficiency Status: Acute Current Visit: Yes (6) SIRS (systemic inflammatory response syndrome) Status: Acute Current Visit: Yes
--- NOTE | 2019-07-27 08:23 | Pharmacy Consult Notes ---
- Pharmacy Consult Date: 07/27/19 Time: 08:19 Referring provider: DR. SUAREZ Reason for Consult:: VANCOMYCIN TROUGH LEVEL Allergies and ADEs:: Allergies Allergy/AdvReac Type Severity Reaction Status Date / Time No Known Allergies Allergy Verified 09/30/18 16:43 Home Medications:: Home Medications Medication Instructions Recorded Confirmed Type Allopurinol [Allopurinol 300mg 300 mg PO DAILY 09/30/18 07/25/19 History tablet] Atorvastatin Calcium [Atorvastatin 20 mg PO DAILY 09/30/18 07/25/19 History 40mg Tab] Levothyroxine Sodium 100 mcg PO DAILY 09/30/18 07/25/19 History [Levothyroxine 100mcg (0.1MG) Tab] Lisinopril [Prinivil 5mg Tablet] 2.5 mg PO DAILY 09/30/18 07/25/19 History Metformin HCl [Fortamet] 500 mg PO BID 09/30/18 07/25/19 History Metoprolol Tartrate 25 mg PO BID 09/30/18 07/25/19 History Tamsulosin HCl [Flomax 0.4mg 0.4 mg PO HS 09/30/18 07/25/19 History capsule] Venlafaxine HCl [Effexor XR 75mg 225 mg PO DAILY 03/27/19 07/25/19 History capsule] Acetaminophen [Acetaminophen 325mg 650 mg PO Q4-6H PRN 07/25/19 07/25/19 History tab] Aspirin [Aspirin 81mg chewable 81 mg PO DAILY 07/25/19 07/25/19 History tab] Cholecalciferol (Vitamin D3) 1,000 unit PO DAILY 07/25/19 07/25/19 History [Vitamin D3 1,000 Unit Cap] Magnesium Oxide [Mag-Ox 400mg Tab] 400 mg PO DAILY 07/25/19 07/25/19 History Promethazine HCl [Phenergan 25mg 25 mg PO Q6H PRN 07/25/19 07/25/19 History tab] Sennosides/Docusate Sodium [Senna 1 each PO BID 07/25/19 07/25/19 History Plus Tablet] Height: 1.78 m Weight: 92.59 kg Laboratory Results:: Laboratory Results - last 24 hr 07/26/19 09:29: Lactate 0.6 07/26/19 11:27: POC Glucose 155 H 07/26/19 17:05: POC Glucose 108 07/26/19 20:03: POC Glucose 150 H 07/26/19 20:30: Vancomycin Trough 13.4 07/27/19 06:14: POC Glucose 101 Medical History: Reports:: Diabetes Mellitus Type 2, Hyperlipidemia, Hypertension Denies:: Cancer, Diabetes Mellitus Type 1, MRSA, Seizures Assessment and Plan (1) Abscess Current visit: Yes Status: Acute Category: Medical Code(s): L02.91 - Cutaneous abscess, unspecified (2) Hypothyroidism Current visit: Yes Status: Acute Qualifiers: Hypothyroidism type: acquired Qualified Code(s): E03.9 - Hypothyroidism, unspecified Category: Medical Code(s): E03.9 - Hypothyroidism, unspecified (3) Diabetes 1.5, managed as type 2 Current visit: No Status: Acute Category: Medical Code(s): E10.9 - Type 1 diabetes mellitus without complications (4) Overweight Current visit: No Status: Acute Category: Medical Code(s): E66.3 - Overweight (5) Renal insufficiency Current visit: Yes Status: Acute Category: Medical Code(s): N28.9 - Disorder of kidney and ureter, unspecified (6) SIRS (systemic inflammatory response syndrome) Current visit: Yes Status: Acute Category: Medical Code(s): R65.10 - Systemic inflammatory response syndrome (SIRS) of non-infectious origin without acute organ dysfunction - Assessment and plan all Dx Assessment and Plan for all problems:: BASED ON VANCOMYCIN TROUGH LEVEL AND PATIENT FACTORS, RECOMMEND CONTINUING VANCOMYCIN 1500 MG IV Q24H. PHARMACY WILL CONTINUE TO MONITOR DAILY AND ADJUST APPROPRIATE.
[2019-07-27 08:51] LABS: Basophils % 0.2 % (0.1-2.0); Eosinophils # 0.5 K/mm3 (0.0-0.4); Eosinophils % 4.1 % (0.1-12.0); Hematocrit 29.3 % (42.0-52.0); Hemoglobin 9.5 g/dL (14.1-18.0); Lymphocytes # 1.2 K/mm3 (0.7-4.5); Lymphocytes % 10.7 % (10-50); Mean Corpuscular HGB Conc 32.4 g/dL (31.8-35.4); Mean Corpuscular Volume 100.5 fl (80-94); Mean Platelet Volume 7.9 fl (7.4-10.4); Monocytes # 0.9 K/mm3 (0.1-1.0); Monocytes % 7.7 % (1.7-9.3); Neutrophils # 8.6 K/mm3 (1.8-7.8); Neutrophils % 77.3 % (37.0-80.0); Platelet Count 157 K/mm3 (142-424); Red Blood Count 2.92 M/mm3 (4.60-6.20); Red Cell Distribution Width 13.6 % (11.5-17.5); White Blood Count 11.2 K/mm3 (4.8-10.8)
--- NOTE | 2019-07-27 12:59 | Progress Note ---
Internal Medicine - PN: Subj *Date: 07/27/19 *Time: 12:57 Interval history: doin better this am - awaiting culture results - still with packing Exam Vital signs and Labs for Last 24 Hours: Temp Pulse Resp BP Pulse Ox 97.7 F 72 18 135/67 95 07/27/19 07:57 07/27/19 07:57 07/27/19 07:57 07/27/19 07:57 07/27/19 07:57 Laboratory Results - last 24 hr 07/26/19 11:27: POC Glucose 155 H 07/26/19 17:05: POC Glucose 108 07/26/19 20:03: POC Glucose 150 H 07/26/19 20:30: Vancomycin Trough 13.4 07/27/19 06:14: POC Glucose 101 07/27/19 08:37: WBC 11.2 H D, RBC 2.92 L, Hgb 9.5 L, Hct 29.3 L, MCV 100.5 H, MCH 32.6 H, MCHC 32.4, RDW 13.6, Plt Count 157, MPV 7.9, Neut % (Auto) 77.3, Lymph % (Auto) 10.7, [place] % (Auto) 7.7, Eos % (Auto) 4.1, Baso % (Auto) 0.2, Neut # (Auto) 8.6 H, Lymph # (Auto) 1.2, [place] # (Auto) 0.9, Eos # (Auto) 0.5 H, Baso # (Auto) 0.0 07/27/19 11:51: POC Glucose 118 H I & O for Last 24 hours: Intake & Output 07/25/19 07/26/19 07/27/19 07/28/19 11:59 11:59 11:59 11:59 Intake Total 1817 / 1817 3901 / 3901 5000 / 5000 Output Total 1000 / 1000 Balance 1817 / 1817 3901 / 3901 4000 / 4000 Weight 193 lb 6 oz 195 lb 9 oz 204 lb 2 oz Microbiology Reports for the Last 24 Hours: Microbiology 07/26/19 08:12 Neck - Abscess Gram Stain - Final 07/26/19 08:12 Neck - Abscess Abscess Culture - Preliminary Gram Positive Cocci 07/24/19 21:40 Blood Blood Culture - Preliminary NO GROWTH AFTER 48 HOURS 07/24/19 21:40 Blood Blood Culture - Preliminary NO GROWTH AFTER 48 HOURS - Constitutional no acute distress - *Routine HEENT Exam Head: Present: normocephalic Eye: Present: EOMI, PERRL ENT: Present: mucous membranes dry - *Routine Neck Exam Absent: JVD - *Routine Respiratory Exam Present: decreased breath sounds - *Routine Cardiovascular Exam Present: RRR - *Routine Abdominal Exam Present: soft - *Routine Extremities Exam Absent: calf tenderness - *Routine Skin Exam Present: intact - *Routine Neurological Exam Present: alert - Routine Psychiatric Exam Present: normal affect Assessment and Plan (1) Abscess Current visit: Yes Status: Acute Category: Medical Code(s): L02.91 - Cutaneous abscess, unspecified (2) Hypothyroidism Current visit: Yes Status: Acute Qualifiers: Hypothyroidism type: acquired Qualified Code(s): E03.9 - Hypothyroidism, unspecified Category: Medical Code(s): E03.9 - Hypothyroidism, unspecified (3) Diabetes 1.5, managed as type 2 Current visit: No Status: Acute Category: Medical Code(s): E10.9 - Type 1 diabetes mellitus without complications (4) Overweight Current visit: No Status: Acute Category: Medical Code(s): E66.3 - Overweight (5) Renal insufficiency Current visit: Yes Status: Acute Category: Medical Code(s): N28.9 - Disorder of kidney and ureter, unspecified (6) SIRS (systemic inflammatory response syndrome) Current visit: Yes Status: Acute Category: Medical Code(s): R65.10 - Systemic inflammatory response syndrome (SIRS) of non-infectious origin without acute organ dysfunction (7) Anemia Current visit: Yes Status: Acute Qualifiers: Anemia type: unspecified type Qualified Code(s): D64.9 - Anemia, unspecified Category: Medical Code(s): D64.9 - Anemia, unspecified
--- NOTE | 2019-07-27 18:03 | Electrocardiograph Report ---
APPROVED REPORT Exam: Resting ECG HR:117 bpm ECG Measurements Heart Rate 117 AXES MI 136 P 37 QRSd 100 QRS -58 QT 326 T45 QTc 454 <Conclusion> Sinus tachycardia Low voltage QRS Incomplete right bundle branch block Left anterior fascicular block Possible Lateral infarct, age undetermined Abnormal ECG Electronically signed by : Callum Quintana, 07/27/2019 18:03:36
[2019-07-27 19:34] LABS: Microscopic, Urine URINE MICROSCOPIC (MICROSCOPIC)
[2019-07-27 19:43] LABS: Appearance,Urine CLEAR (Clear); Bilirubin,Urine Negative (Negative); Blood, Urine TRACE-L (Negative); Color,Urine YELLOW (Yellow); Glucose,Urine (UA) Negative (Negative); Ketones,Urine Negative (Negative); Leukocyte Esterase,Urine Negative (Negative); Protein,Urine TRACE (Negative); Urobilinogen,Urine 0.2 EU/dl (0.2)
[2019-07-27 19:46] LABS: Bacteria,Urine Trace /lpf; Squamous Epithelial Cell,Urine Occasional #/hpf (0-5); WBC,Urine Occasional #/hpf (0-3)
[2019-07-28 06:25] LABS: Anion Gap 11.3 mEq/L (5-15); Calcium 8.4 mg/dL (8.5-10.1)
--- NOTE | 2019-07-28 08:44 | Progress Note ---
Subjective Patient reports: feels better Exam Vital signs and Labs for Last 24 Hours: Temp Pulse Resp BP Pulse Ox 99.3 F 101 H 18 134/71 91 L 07/28/19 07:50 07/28/19 07:50 07/28/19 07:50 07/28/19 07:50 07/28/19 07:50 Laboratory Results - last 24 hr 07/24/19 18:00: Urine Color Yellow, Urine Appearance Clear, Urine pH 6.0, Ur Specific [place] 1.010, Urine Protein Trace, Urine Glucose (UA) Negative, Urine Ketones Negative, Urine Blood Trace-l, Urine Nitrate Negative, Urine Bilirubin Negative, Urine Urobilinogen 0.2, Ur Leukocyte Esterase Negative, Urine WBC Occasional, Ur Squamous Epith Cells Occasional, Urine Bacteria Trace 07/27/19 08:37: WBC 11.2 H D, RBC 2.92 L, Hgb 9.5 L, Hct 29.3 L, MCV 100.5 H, MCH 32.6 H, MCHC 32.4, RDW 13.6, Plt Count 157, MPV 7.9, Neut % (Auto) 77.3, Lymph % (Auto) 10.7, [place] % (Auto) 7.7, Eos % (Auto) 4.1, Baso % (Auto) 0.2, Neut # (Auto) 8.6 H, Lymph # (Auto) 1.2, [place] # (Auto) 0.9, Eos # (Auto) 0.5 H, Baso # (Auto) 0.0 07/27/19 11:51: POC Glucose 118 H 07/27/19 16:32: POC Glucose 95 07/27/19 21:07: POC Glucose 129 H 07/28/19 05:40: Sodium 139, Potassium 4.3, Chloride 107, Carbon Dioxide 25, Anion Gap 11.3, BUN 17, Creatinine 1.95 H, Estimated Creat Clear 44, Estimated GFR 34 L, Est GFR ( Amer) 41 L, Glucose 102, Calcium 8.4 L 07/28/19 05:42: POC Glucose 104 I & O for Last 24 hours: Intake & Output 07/25/19 07/26/19 07/27/19 07/28/19 11:59 11:59 11:59 11:59 Intake Total 1818 / 1818 3901 / 3901 5000 / 5000 2752 / 2752 Output Total 1000 / 1000 1800 / 1800 Balance 1818 / 1818 3901 / 3901 4000 / 4000 952 / 952 Weight 193 lb 6 oz 195 lb 9 oz 204 lb 2 oz 207 lb 3 oz Microbiology Reports for the Last 24 Hours: Microbiology 07/26/19 08:12 Neck - Abscess Gram Stain - Final 07/26/19 08:12 Neck - Abscess Abscess Culture - Final Staphylococcus aureus - Constitutional no acute distress - *Routine Skin Exam Comments: Posterior neck remains fairly indurated. No spreading cellulitis. Wound margin clean. Patchy necrosis along the base. Progress Note: A&P (1) Abscess Status: Acute Assessment and plan: Overall, doing well status post incision and drainage of complex posterior neck abscess. Continue antibiotics for now Continue dressing changes Current Visit: Yes (2) Hypothyroidism Status: Acute Current Visit: Yes (3) Diabetes 1.5, managed as type 2 Status: Acute Current Visit: No (4) Overweight Status: Acute Current Visit: No (5) Renal insufficiency Status: Acute Current Visit: Yes (6) SIRS (systemic inflammatory response syndrome) Status: Acute Current Visit: Yes (7) Anemia Status: Acute Current Visit: Yes
--- NOTE | 2019-07-28 13:58 | Discharge Summary ---
General - General Admission date:: 07/25/19 Discharge date: 07/28/19 HPI HPI: this wm presented to the ed - has large boil on back of neck- large mass posterior scalp, c/q abscess. feels deep. no superficial skin changes uncertain as to time period as pt is poor historian - pt with abn labs and large abscess and will need admit - did meet sirs criteria - will need surg consult Hospital Course Hospital Course: wound cx positive for Staphylococcus Aureus sensitive to clindamycin. Surgery consult-see note Status post I&D see op report Blood cultures negative Vital signs within normal limits Physical therapy consult see note Will be discharged back to personal halfway with home health for dressing changes. We will continue antibiotics for 6 more days. Patient to follow-up with Dr. Pelletier on Saturday. Objective Vital signs: Temp Pulse Resp BP Pulse Ox 99.3 F 101 H 18 134/71 91 L 07/28/19 07:50 07/28/19 07:50 07/28/19 07:50 07/28/19 07:50 07/28/19 07:50 no acute distress - *Routine HEENT Exam Head: Present: normocephalic Eye: Present: PERRL ENT: Present: mucous membranes moist - *Routine Neck Exam Present: supple, full ROM Comments: dressing c/d/i - *Routine Respiratory Exam Present: CTA bilaterally - *Routine Cardiovascular Exam Present: RRR - *Routine Abdominal Exam Present: soft, normoactive bowel sounds. Absent: tenderness - *Routine Extremities Exam Present: full ROM - *Routine Skin Exam Present: wounds Comments: dressing c/d/i - *Routine Neurological Exam Present: alert, oriented X3 - Routine Psychiatric Exam Present: normal affect Results Labs on day of discharge: Labs from last 24 hours 07/28/19 07/28/19 07/28/19 11:28 05:42 05:40 Sodium 139 Potassium 4.3 Chloride 107 Carbon Dioxide 25 Anion Gap 11.3 BUN 17 Creatinine 1.95 H Estimated Creat Clear 44 Estimated GFR 34 L Est GFR ( Amer) 41 L Glucose 102 POC Glucose 170 H 104 Calcium 8.4 L Urine Color Urine Appearance Urine pH Ur Specific [place] Urine Protein Urine Glucose (UA) Urine Ketones Urine Blood Urine Nitrate Urine Bilirubin Urine Urobilinogen Ur Leukocyte Esterase Urine WBC Ur Squamous Epith Cells Urine Bacteria 07/27/19 07/27/1907/24/19 21:07 16:32 18:00 Sodium Potassium Chloride Carbon Dioxide Anion Gap BUN Creatinine Estimated Creat Clear Estimated GFR Est GFR ( Amer) Glucose POC Glucose 129 H 95 Calcium Urine Color Yellow Urine Appearance Clear Urine pH 6.0 Ur Specific [place] 1.010 Urine Protein Trace Urine Glucose (UA) Negative Urine Ketones Negative Urine Blood Trace-l Urine Nitrate Negative Urine Bilirubin Negative Urine Urobilinogen 0.2 Ur Leukocyte Esterase Negative Urine WBC Occasional Ur Squamous Epith Cells Occasional Urine Bacteria Trace Preliminary micro results at discharge 07/24/19 21:40 Blood Culture - Preliminary Blood NO GROWTH AFTER 48 HOURS 07/24/19 21:40 Blood Culture - Preliminary Blood NO GROWTH AFTER 48 HOURS - Additional Comments Rounded with Dr. Ramsey all orders per Braulio DS: Diagnosis - Discharge Diagnosis (1) Abscess Status: Acute Problem details: Staphylococcus aureus (2) Hypothyroidism Status: Acute (3) Diabetes 1.5, managed as type 2 Status: Acute (4) Overweight Status: Acute (5) Renal insufficiency Status: Acute (6) SIRS (systemic inflammatory response syndrome) Status: Acute (7) Anemia Status: Acute (8) Schizophrenia Status: Acute Discharge Plan - Patient Discharge Instructions ACTIVITY: Continue current activity DIET: continue same diet Patient Instructions: DI for Cellulitis -- Adult, Urinary Tract Infection, Cellulitis, DI for Urinary Tract Infection (UTI) - Follow up Plan Follow up with: Amrit Pelletier MD [Staff Physician] - 07/31/19 Disposition: Home, Self-[facility] Medications: Home Medications Medication Instructions Recorded Confirmed Type Allopurinol [Allopurinol 300mg 300 mg PO DAILY 09/30/18 07/25/19 History tablet] Atorvastatin Calcium [Atorvastatin 20 mg PO DAILY 09/30/18 07/25/19 History 40mg Tab] Levothyroxine Sodium 100 mcg PO DAILY 09/30/18 07/25/19 History [Levothyroxine 100mcg (0.1MG) Tab] Lisinopril [Prinivil 5mg Tablet] 2.5 mg PO DAILY 09/30/18 07/25/19 History Metformin HCl [Fortamet] 500 mg PO BID 09/30/18 07/25/19 History Metoprolol Tartrate 25 mg PO BID 09/30/18 07/25/19 History Tamsulosin HCl [Flomax 0.4mg 0.4 mg PO HS 09/30/18 07/25/19 History capsule] Venlafaxine HCl [Effexor XR 75mg 225 mg PO DAILY 03/27/19 07/25/19 History capsule] Acetaminophen [Acetaminophen 325mg 650 mg PO Q4-6H PRN 07/25/19 07/25/19 History tab] Aspirin [Aspirin 81mg chewable 81 mg PO DAILY 07/25/19 07/25/19 History tab] Cholecalciferol (Vitamin D3) 1,000 unit PO DAILY 07/25/19 07/25/19 History [Vitamin D3 1,000 Unit Cap] Magnesium Oxide [Mag-Ox 400mg Tab] 400 mg PO DAILY 07/25/19 07/25/19 History Promethazine HCl [Phenergan 25mg 25 mg PO Q6H PRN 07/25/19 07/25/19 History tab] Sennosides/Docusate Sodium [Senna 1 each PO BID 07/25/19 07/25/19 History Plus Tablet] Clindamycin HCl [Clindamycin HCl 300 mg PO Q6 6 Days #24 cap 07/28/19 Rx 300mg Cap] Prescriptions/Medication Reconciliation: New Clindamycin HCl [Clindamycin HCl 300mg Cap] 300 mg PO Q6 6 Days #24 cap Continued Tamsulosin HCl [Flomax 0.4mg capsule] 0.4 mg PO HS Lisinopril [Prinivil 5mg Tablet] 2.5 mg PO DAILY Levothyroxine Sodium [Levothyroxine 100mcg (0.1MG) Tab] 100 mcg PO DAILY Metoprolol Tartrate 25 mg PO BID Metformin HCl [Fortamet] 500 mg PO BID Atorvastatin Calcium [Atorvastatin 40mg Tab] 20 mg PO DAILY Allopurinol [Allopurinol 300mg tablet] 300 mg PO DAILY Cholecalciferol (Vitamin D3) [Vitamin D3 1,000 Unit Cap] 1,000 unit PO DAILY Magnesium Oxide [Mag-Ox 400mg Tab] 400 mg PO DAILY Acetaminophen [Acetaminophen 325mg tab] 650 mg PO Q4-6H PRN PRN Reason: As Needed For Fever Or Pain Venlafaxine HCl [Effexor XR 75mg capsule] 225 mg PO DAILY Aspirin [Aspirin 81mg chewable tab] 81 mg PO DAILY Sennosides/Docusate Sodium [Senna Plus Tablet] 1 each PO BID Discontinued Promethazine HCl [Phenergan 25mg tab] 25 mg PO Q6H PRN PRN Reason: Nausea And Vomiting - Problem Reconciliation Problems Reviewed?: Yes
--- NOTE | 2019-07-28 15:27 | Progress Note ---
Internal Medicine - PN: Subj *Date: 07/28/19 *Time: 15:27 Exam Vital signs and Labs for Last 24 Hours: Temp Pulse Resp BP Pulse Ox 99.3 F 101 H 18 134/71 91 L 07/28/19 07:50 07/28/19 07:50 07/28/19 07:50 07/28/19 07:50 07/28/19 07:50 Laboratory Results - last 24 hr 07/24/19 18:00: Urine Color Yellow, Urine Appearance Clear, Urine pH 6.0, Ur Specific [place] 1.010, Urine Protein Trace, Urine Glucose (UA) Negative, Urine Ketones Negative, Urine Blood Trace-l, Urine Nitrate Negative, Urine Bilirubin Negative, Urine Urobilinogen 0.2, Ur Leukocyte Esterase Negative, Urine WBC Occasional, Ur Squamous Epith Cells Occasional, Urine Bacteria Trace 07/27/19 16:32: POC Glucose 95 07/27/19 21:07: POC Glucose 129 H 07/28/19 05:40: Sodium 139, Potassium 4.3, Chloride 107, Carbon Dioxide 25, Anion Gap 11.3, BUN 17, Creatinine 1.95 H, Estimated Creat Clear 44, Estimated GFR 34 L, Est GFR ( Amer) 41 L, Glucose 102, Calcium 8.4 L 07/28/19 05:42: POC Glucose 104 07/28/19 11:28: POC Glucose 170 H I & O for Last 24 hours: Intake & Output 07/25/19 07/26/19 07/27/19 07/28/19 23:59 23:59 23:59 23:59 Intake Total 3741 / 3741 4824 / 4824 2514 / 2514 2872 / 2872 Output Total 200 / 200 1550 / 1550 1050 / 1050 Balance 3741 / 3741 4624 / 4624 964 / 964 1822 / 1822 Weight 87.713 kg 88.706 kg 92.59 kg 93.979 kg Microbiology Reports for the Last 24 Hours: Microbiology 07/26/19 08:12 Neck - Abscess Gram Stain - Final 07/26/19 08:12 Neck - Abscess Abscess Culture - Final Staphylococcus aureus Assessment and Plan (1) Abscess Problem details: Staphylococcus aureus Current visit: Yes Status: Acute Category: Medical Code(s): L02.91 - Cutaneous abscess, unspecified (2) Hypothyroidism Current visit: Yes Status: Acute Qualifiers: Hypothyroidism type: acquired Qualified Code(s): E03.9 - Hypothyroidism, unspecified Category: Medical Code(s): E03.9 - Hypothyroidism, unspecified (3) Diabetes 1.5, managed as type 2 Current visit: No Status: Acute Category: Medical Code(s): E10.9 - Type 1 diabetes mellitus without complications (4) Overweight Current visit: No Status: Acute Category: Medical Code(s): E66.3 - Overweight (5) Renal insufficiency Current visit: Yes Status: Acute Category: Medical Code(s): N28.9 - Disorder of kidney and ureter, unspecified (6) SIRS (systemic inflammatory response syndrome) Current visit: Yes Status: Acute Category: Medical Code(s): R65.10 - Systemic inflammatory response syndrome (SIRS) of non-infectious origin without acute organ dysfunction (7) Anemia Current visit: Yes Status: Acute Qualifiers: Anemia type: unspecified type Qualified Code(s): D64.9 - Anemia, unspecified Category: Medical Code(s): D64.9 - Anemia, unspecified (8) Schizophrenia Current visit: No Status: Acute Category: Medical Code(s): F20.9 - Schizophrenia, unspecified The patient's infection will respond to the chosen ABx?: Yes Is the patient receiving the right drug, dose, and route?: Yes Could a more targeted ABx be ordered?: No ([facility])
== END 2019-07-28 16:15 | disposition home or self-care (01) | DRG 603 ==
LOC: 2ND 21:35 → ER 21:35 → 2ND 07-25 03:15
PROVIDERS: ADMIT Internal Medicine Adolescent Medicine; ATTEND Emergency Medicine
DX: E11.9 Type 2 diabetes mellitus without complications; N39.0 Urinary tract infection, site not specified; B95.61 Methicillin susceptible Staphylococcus aureus infection as the cause of diseases classified elsewhere; R65.10 Systemic inflammatory response syndrome (SIRS) of non-infectious origin without acute organ dysfunction; E03.9 Hypothyroidism, unspecified; L02.12 Furuncle of neck; Z72.0 Tobacco use; I10 Essential (primary) hypertension
CPT/HCPCS: 36415; 70450; 71010; 71045; 72125; 80048; 80053; 80202; 81001; 82962; 83605; 85007; 85025; 87040; 87070; 87077; 87186; 87205; 93005; 96365; 96367; 97161; 99284; J2405; J2543; J3370

== ENCOUNTER 2019-07-29 09:57 | Outpatient (CLI) | payer MEDICARE, MEDICAID, SELFPAY ==
[2019-07-29 10:15] VITALS: BP 131/75; PULSE 76; RESP 18; O2SAT 93
== END 2019-07-29 10:15 | disposition home or self-care (01) ==
LOC: INF 09:57
PROVIDERS: Visit Provider Emergency Medicine
DX: L03.221 Cellulitis of neck; N39.0 Urinary tract infection, site not specified; Z48.01 Encounter for change or removal of surgical wound dressing
CPT/HCPCS: G0463

== ENCOUNTER 2019-07-30 09:34 | Outpatient (CLI) | payer MEDICARE, MEDICAID, SELFPAY ==
[2019-07-30 09:55] VITALS: BP 154/86; PULSE 96; RESP 18; TEMP 36.6; O2SAT 95
== END 2019-07-30 09:55 | disposition home or self-care (01) ==
LOC: INF 09:34
PROVIDERS: Visit Provider Emergency Medicine
DX: Z48.01 Encounter for change or removal of surgical wound dressing (principal); L03.221 Cellulitis of neck; N39.0 Urinary tract infection, site not specified
CPT/HCPCS: G0463

== ENCOUNTER 2019-07-31 10:47 | Outpatient (CLI) | payer MEDICARE, MEDICAID, SELFPAY ==
[2019-07-31 11:08] VITALS: BP 108/68; PULSE 77; RESP 18; O2SAT 97
== END 2019-07-31 11:08 | disposition home or self-care (01) ==
LOC: INF 10:47
PROVIDERS: Visit Provider Emergency Medicine
DX: Z48.01 Encounter for change or removal of surgical wound dressing (principal); L03.221 Cellulitis of neck; N39.0 Urinary tract infection, site not specified
CPT/HCPCS: G0463

== ENCOUNTER 2019-08-01 07:51 | Outpatient (CLI) | payer MEDICARE, MEDICAID, SELFPAY ==
[2019-08-01 08:00] VITALS: BP 125/78; PULSE 96; RESP 17; TEMP 37.2; O2SAT 94
[2019-08-01 08:15] VITALS: BP 120/75; PULSE 96; RESP 18; TEMP 37.2; O2SAT 94
== END 2019-08-01 08:15 | disposition home or self-care (01) ==
LOC: INF 07:52
PROVIDERS: PCP Emergency Medicine; Visit Provider Emergency Medicine
DX: Z48.01 Encounter for change or removal of surgical wound dressing (principal); L03.221 Cellulitis of neck; N39.0 Urinary tract infection, site not specified
CPT/HCPCS: G0463

== ENCOUNTER → 2019-08-02 08:01 | Outpatient (CLI) | payer MEDICARE, MEDICAID, SELFPAY ==
[2019-08-02 08:15] VITALS: BP 99/58; PULSE 109; RESP 16; TEMP 36.6; O2SAT 95
== END ==
PROVIDERS: PCP Emergency Medicine; Visit Provider Emergency Medicine
DX: Z48.01 Encounter for change or removal of surgical wound dressing (principal); L03.221 Cellulitis of neck; N39.0 Urinary tract infection, site not specified
CPT/HCPCS: G0463

== ENCOUNTER 2019-08-03 10:17 | Outpatient (CLI) | payer MEDICARE, MEDICAID, SELFPAY | END 2019-08-03 11:35 | disposition home or self-care (01) | LOC: INF 10:17 | PROVIDERS: Visit Provider Emergency Medicine | DX: Z48.01 Encounter for change or removal of surgical wound dressing (principal); L03.221 Cellulitis of neck; N39.0 Urinary tract infection, site not specified | CPT/HCPCS: G0463 ==

== ENCOUNTER 2019-08-04 10:01 | Outpatient (CLI) | payer MEDICARE, MEDICAID, SELFPAY ==
--- NOTE | 2019-08-04 12:29 | PC.NURSE ---
WOUND TO BACK OF HEAD; CLEANED WITH SALINE; PACKED WITH GAUZE AND APPLIED 4X4 AND TEGADERM PT TOLERATED WITHOUT ANY PROBLEMS
== END 2019-08-04 10:30 | disposition home or self-care (01) ==
LOC: INF 10:01
PROVIDERS: PCP Emergency Medicine; Visit Provider Emergency Medicine
DX: Z48.01 Encounter for change or removal of surgical wound dressing (principal); L03.221 Cellulitis of neck; N39.0 Urinary tract infection, site not specified
CPT/HCPCS: G0463

== ENCOUNTER 2019-08-05 10:25 | Outpatient (CLI) | payer MEDICARE, MEDICAID, SELFPAY ==
[2019-08-05 10:27] VITALS: BP 102/62; PULSE 77; RESP 18
== END 2019-08-05 10:27 | disposition home or self-care (01) ==
LOC: INF 10:25
PROVIDERS: Visit Provider Emergency Medicine
DX: L03.221 Cellulitis of neck (principal); N39.0 Urinary tract infection, site not specified
CPT/HCPCS: G0463

== ENCOUNTER 2019-08-06 09:50 | Outpatient (CLI) | payer MEDICARE, MEDICAID, SELFPAY ==
--- NOTE | 2019-08-06 15:06 | PC.NURSE ---
0950 - OUTER DRESSING HAD ALREADY FALLEN OFF PRIOR TO PT'S ARRIVAL. PACKING WET WITH NS AND EASILY REMOVED. IRRIGATED WOUND WITH NS AND DR COLIN CAME TO INFUSION TO LOOK AT WOUND. HE WAS PLEASED WITH THE PROGRESS AND ENCOURAGED TO WRAP AROUND NECK WITH KERLIX TO HELP HOLD OUTER DRESSING IN PLACE. PACKED WOUND WITH NS MOISTENED KERLIX, COVERED WITH 1/2 ABD PAD AND TAPED INTO PLACE. WRAPPED LOOSELY AROUND NECK WITH KERLIX TO HELP HOLD DRESSING IN PLACE.
== END 2019-08-06 10:12 | disposition home or self-care (01) ==
LOC: INF 09:50
PROVIDERS: PCP Emergency Medicine; Visit Provider Emergency Medicine
DX: Z48.01 Encounter for change or removal of surgical wound dressing (principal); L03.221 Cellulitis of neck; N39.0 Urinary tract infection, site not specified
CPT/HCPCS: G0463

== ENCOUNTER → 2019-08-07 09:42 | Outpatient (CLI) | payer MEDICARE, MEDICAID, SELFPAY | PROVIDERS: Visit Provider Emergency Medicine | DX: Z48.01 Encounter for change or removal of surgical wound dressing (principal); L03.221 Cellulitis of neck; N39.0 Urinary tract infection, site not specified | CPT/HCPCS: G0463 ==

== ENCOUNTER → 2019-08-08 09:38 | Outpatient (CLI) | payer MEDICARE, MEDICAID, SELFPAY ==
[2019-08-08 11:22] VITALS: BP 108/62; PULSE 94; RESP 16; TEMP 36.7; O2SAT 97
[2019-08-08 14:03] VITALS: BP 110/65; PULSE 91; RESP 16; TEMP 36.7; O2SAT 96
== END ==
PROVIDERS: PCP Emergency Medicine; Visit Provider Emergency Medicine
DX: Z48.01 Encounter for change or removal of surgical wound dressing (principal); L03.221 Cellulitis of neck; N39.0 Urinary tract infection, site not specified
CPT/HCPCS: G0463

== ENCOUNTER → 2019-08-09 09:11 | Outpatient (CLI) | payer MEDICARE, MEDICAID, SELFPAY ==
[2019-08-09 09:35] VITALS: BP 92/59; PULSE 96; RESP 16; TEMP 36.5; O2SAT 98
[2019-08-09 09:38] VITALS: BP 101/57; PULSE 101; RESP 18; TEMP 36.5; O2SAT 96
== END ==
PROVIDERS: PCP Emergency Medicine; Visit Provider Emergency Medicine
DX: L03.221 Cellulitis of neck (principal); N39.0 Urinary tract infection, site not specified; Z48.01 Encounter for change or removal of surgical wound dressing
CPT/HCPCS: G0463

== ENCOUNTER 2019-08-10 10:12 | Outpatient (CLI) | payer MEDICARE, MEDICAID, SELFPAY | END 2019-08-10 10:50 | disposition home or self-care (01) | LOC: INF 10:12 | PROVIDERS: Visit Provider Emergency Medicine | DX: Z48.01 Encounter for change or removal of surgical wound dressing (principal); L03.221 Cellulitis of neck; N39.0 Urinary tract infection, site not specified | CPT/HCPCS: G0463 ==

== ENCOUNTER 2019-08-11 13:23 | Outpatient (CLI) | payer MEDICARE, MEDICAID, SELFPAY ==
[2019-08-11 13:50] VITALS: BP 103/55; PULSE 78; RESP 18
== END 2019-08-11 13:50 | disposition home or self-care (01) ==
LOC: INF 13:23
PROVIDERS: Visit Provider Emergency Medicine
DX: Z48.01 Encounter for change or removal of surgical wound dressing (principal); L03.221 Cellulitis of neck; N39.0 Urinary tract infection, site not specified
CPT/HCPCS: G0463

== ENCOUNTER 2019-08-12 10:05 | Outpatient (CLI) | payer MEDICARE, MEDICAID, SELFPAY ==
[2019-08-12 10:45] VITALS: BP 92/60; PULSE 72; RESP 18; O2SAT 95
== END 2019-08-12 10:45 | disposition home or self-care (01) ==
LOC: INF 10:05
PROVIDERS: Visit Provider Emergency Medicine
DX: Z48.01 Encounter for change or removal of surgical wound dressing (principal); L03.221 Cellulitis of neck; N39.0 Urinary tract infection, site not specified
CPT/HCPCS: G0463

== ENCOUNTER 2019-08-13 09:29 | Outpatient (CLI) | payer MEDICARE, MEDICAID, SELFPAY | END 2019-08-13 10:15 | disposition home or self-care (01) | LOC: INF 09:29 | PROVIDERS: Visit Provider Emergency Medicine | DX: Z48.01 Encounter for change or removal of surgical wound dressing (principal); L03.221 Cellulitis of neck | CPT/HCPCS: G0463 ==

== ENCOUNTER 2019-08-14 09:32 | Outpatient (CLI) | payer MEDICARE, MEDICAID, SELFPAY ==
[2019-08-14 10:00] VITALS: BP 104/59; PULSE 62; RESP 18; TEMP 36.6; O2SAT 97
== END 2019-08-14 10:00 | disposition home or self-care (01) ==
LOC: INF 09:32
PROVIDERS: Visit Provider Emergency Medicine
DX: Z48.01 Encounter for change or removal of surgical wound dressing (principal); L03.221 Cellulitis of neck; N39.0 Urinary tract infection, site not specified
CPT/HCPCS: G0463

== ENCOUNTER 2019-08-15 10:03 | Outpatient (CLI) | payer MEDICARE, MEDICAID, SELFPAY ==
[2019-08-15 10:15] VITALS: BP 95/44; PULSE 66; RESP 18; TEMP 36.5; O2SAT 97
--- NOTE | 2019-08-15 10:30 | PC.NURSE ---
Upon beginning of old dressing removal it was noted that the pt was digging and tugging at the existing dressing. upon closer inspection it was noted that the packing had been dislodged from the wound bed as well as the wound no longer being covered by the dressing. the pt was advised that he needed to not tug or pull on the bandage.
== END 2019-08-15 11:04 | disposition hospice, home (50) ==
LOC: INF 10:05
PROVIDERS: Visit Provider Emergency Medicine
DX: L03.221 Cellulitis of neck (principal); N39.0 Urinary tract infection, site not specified; Z48.01 Encounter for change or removal of surgical wound dressing
CPT/HCPCS: G0463

== ENCOUNTER 2019-08-16 09:41 | Outpatient (CLI) | payer MEDICARE, MEDICAID, SELFPAY ==
[2019-08-16 09:58] VITALS: BP 89/56; PULSE 98; RESP 17; TEMP 36.8; O2SAT 96
--- NOTE | 2019-08-16 10:13 | PC.NURSE ---
Pt was accompanied [facility] who state pt had taken a shower that am and packing had fell out. Outer dressing was below wound leaving it open to air. Wound bed was pink with small amount of white drainage. It was cleaned with saline and packed with saline soaked 4x4's. Covered with dry 4x4's, tape then kerlix to help secure dressing in place. Pt tolerated w/o incident.
[2019-08-16 10:16] VITALS: BP 90/54; PULSE 94; RESP 18; TEMP 36.8; O2SAT 98
== END 2019-08-16 10:15 | disposition home or self-care (01) ==
PROVIDERS: PCP Emergency Medicine; Visit Provider Emergency Medicine
DX: Z48.01 Encounter for change or removal of surgical wound dressing (principal); L03.221 Cellulitis of neck; N39.0 Urinary tract infection, site not specified
CPT/HCPCS: G0463

== ENCOUNTER 2019-08-17 09:33 | Outpatient (CLI) | payer MEDICARE, MEDICAID, SELFPAY | END 2019-08-17 10:20 | disposition home or self-care (01) | LOC: INF 09:33 | PROVIDERS: Visit Provider Emergency Medicine | DX: Z48.01 Encounter for change or removal of surgical wound dressing (principal); L03.221 Cellulitis of neck; N39.0 Urinary tract infection, site not specified | CPT/HCPCS: G0463 ==

== ENCOUNTER 2019-08-18 09:44 | Outpatient (CLI) | payer MEDICARE, MEDICAID, SELFPAY | END 2019-08-18 10:33 | disposition home or self-care (01) | LOC: INF 09:44 | PROVIDERS: Visit Provider Emergency Medicine | DX: Z48.01 Encounter for change or removal of surgical wound dressing (principal); L03.221 Cellulitis of neck; N39.0 Urinary tract infection, site not specified | CPT/HCPCS: G0463 ==

== ENCOUNTER 2019-08-19 09:51 | Outpatient (CLI) | payer MEDICARE, MEDICAID, SELFPAY | END 2019-08-19 10:00 | disposition home or self-care (01) | LOC: INF 09:51 | PROVIDERS: Visit Provider Emergency Medicine | DX: Z48.01 Encounter for change or removal of surgical wound dressing (principal); L03.221 Cellulitis of neck; N39.0 Urinary tract infection, site not specified | CPT/HCPCS: G0463 ==

== ENCOUNTER 2019-08-20 09:33 | Outpatient (CLI) | payer MEDICARE, MEDICAID, SELFPAY | END 2019-08-20 10:05 | disposition home or self-care (01) | LOC: INF 09:33 | PROVIDERS: Visit Provider Emergency Medicine | DX: Z48.01 Encounter for change or removal of surgical wound dressing (principal); L03.221 Cellulitis of neck; N39.0 Urinary tract infection, site not specified | CPT/HCPCS: G0463 ==

== ENCOUNTER 2019-08-21 09:55 | Outpatient (CLI) | payer MEDICARE, MEDICAID, SELFPAY ==
--- NOTE | 2019-08-21 15:34 | PC.NURSE ---
1005 - REMOVED KERLEX WRAP FROM NECK, GAUZE, AND PACKING FROM WOUND. WOUND BED RED AND MOIST. IRRIGATED WITH NS AND REPACKED WITH NS MOISTENED GAUZE, COVERED WIT 2 DRY 4X4'S FOLDED IN HALF AND TAPED INTO PLACE. LOOSELY PLACED KERLEX AROUND NECK AND DRESSING TO HELP HOLD IN PLACE.
== END 2019-08-21 10:22 | disposition home or self-care (01) ==
LOC: INF 09:59
PROVIDERS: Visit Provider Emergency Medicine
DX: Z48.01 Encounter for change or removal of surgical wound dressing (principal); L03.221 Cellulitis of neck; N39.0 Urinary tract infection, site not specified
CPT/HCPCS: G0463

== ENCOUNTER → 2019-08-22 09:20 | Outpatient (CLI) | payer MEDICARE, MEDICAID, SELFPAY ==
[2019-08-22 09:52] VITALS: BP 81/54; PULSE 82; RESP 18; TEMP 36.7; O2SAT 98; BMI 35.2
[2019-08-22 09:54] VITALS: BP 86/59; PULSE 80; RESP 16; TEMP 36.7; O2SAT 98
== END ==
PROVIDERS: PCP Emergency Medicine; Visit Provider Emergency Medicine
DX: Z48.01 Encounter for change or removal of surgical wound dressing (principal); L03.221 Cellulitis of neck
CPT/HCPCS: G0463

== ENCOUNTER → 2019-08-23 13:48 | Outpatient (CLI) | payer MEDICARE, MEDICAID, SELFPAY ==
[2019-08-23 14:23] VITALS: BP 91/57; PULSE 84; RESP 18; TEMP 36.7; O2SAT 97; BMI 31.5
== END ==
PROVIDERS: PCP Emergency Medicine; Visit Provider Emergency Medicine
DX: Z48.01 Encounter for change or removal of surgical wound dressing (principal); L03.221 Cellulitis of neck
CPT/HCPCS: G0463

== ENCOUNTER 2019-08-24 09:55 | Outpatient (CLI) | payer MEDICARE, MEDICAID, SELFPAY | END 2019-08-24 10:24 | disposition home or self-care (01) | LOC: INF 09:55 | PROVIDERS: Visit Provider Emergency Medicine | DX: Z48.01 Encounter for change or removal of surgical wound dressing (principal); L03.221 Cellulitis of neck | CPT/HCPCS: G0463 ==

== ENCOUNTER 2019-08-25 09:46 | Outpatient (CLI) | payer MEDICARE, MEDICAID, SELFPAY ==
[2019-08-25 10:04] VITALS: BP 97/50; PULSE 73; RESP 18; TEMP 36.3; O2SAT 98
[2019-08-25 10:11] VITALS: BP 97/50; PULSE 73; RESP 18; TEMP 36.3; O2SAT 98
== END 2019-08-25 10:13 | disposition home or self-care (01) ==
LOC: INF 09:46
PROVIDERS: Visit Provider Emergency Medicine
DX: Z48.01 Encounter for change or removal of surgical wound dressing (principal); L03.221 Cellulitis of neck
CPT/HCPCS: G0463

== ENCOUNTER 2019-08-26 10:17 | Outpatient (CLI) | payer MEDICARE, MEDICAID, SELFPAY ==
[2019-08-26 11:00] VITALS: BP 95/51; PULSE 94; RESP 18
== END 2019-08-26 11:00 | disposition home or self-care (01) ==
LOC: INF 10:17
PROVIDERS: Visit Provider Emergency Medicine
DX: Z48.01 Encounter for change or removal of surgical wound dressing (principal); L03.221 Cellulitis of neck
CPT/HCPCS: G0463

== ENCOUNTER 2019-08-27 09:51 | Outpatient (CLI) | payer MEDICARE, MEDICAID, SELFPAY | END 2019-08-27 10:00 | disposition home or self-care (01) | LOC: INF 09:51 | PROVIDERS: Visit Provider Emergency Medicine | DX: Z48.01 Encounter for change or removal of surgical wound dressing (principal); L03.221 Cellulitis of neck | CPT/HCPCS: G0463 ==

== ENCOUNTER 2021-01-10 11:47 | Observation (INO) | payer MEDICARE, MEDICAID, OTHER, SELFPAY ==
[2021-01-10] VITALS (14 sets, daily range): BP systolic 94–159; BP diastolic 62–104; PULSE 114–134; RESP 16–24; TEMP 36.7–37.5; O2SAT 96–100; BMI 34.4; BMI 28.0
--- NOTE | 2021-01-10 12:14 | XR_ITS ---
PROCEDURE: XR CHEST PORTABLE CLINICAL HISTORY: weakness COMPARISON: CR [id number] XR chest portable from 09/30/2018 CR XR CHEST PORTABLE from 07/25/2019 CR XR CHEST PORTABLE from 10/01/2019 FINDINGS: The cardiomediastinal silhouette and pulmonary vascularity are within normal limits. The lungs are clear without infiltrates, suspicious nodules, or pleural effusions. Degenerative changes noted of the shoulders IMPRESSION: No acute findings. Dictated by: Jesus Eduardo MD 01/10/2021 13:44 Jesus Eduardo MD in [facility] 01/10/2021 13:44
--- NOTE | 2021-01-10 12:16 | ECG_ITS ---
APPROVED REPORT Exam: Resting ECG HR:131 bpm ECG Measurements Heart Rate [address] 132 P 26 QRSd 92 QRS -64 QT 298 T 41 QTc 440 Conclusion Sinus tachycardia Left axis deviation Low voltage QRS Incomplete right bundle branch block Cannot rule out Anterior infarct, age undetermined Abnormal ECG Electronically signed by : Callum Quintana, 01/10/2021 21:19:43
[2021-01-10 12:19] LABS: Basophils # 0.1 K/mm3 (0-0.2); Basophils % 0.3 % (0.1-2.0); Chloride 99 mmol/L (98-107); Eosinophils # 0.1 K/mm3 (0.0-0.4); Eosinophils % 0.4 % (0.1-12.0); Hematocrit 42.8 % (42.0-52.0); Hemoglobin 13.5 g/dL (14.1-18.0); Lymphocytes # 2.1 K/mm3 (0.7-4.5); Lymphocytes % 11.3 % (10-50); Mean Corpuscular HGB Conc 31.5 g/dL (31.8-35.4); Mean Corpuscular Volume 98.4 fl (80-94); Mean Platelet Volume 8.3 fl (7.4-10.4); Monocytes # 0.8 K/mm3 (0.1-1.0); Monocytes % 4.6 % (1.7-9.3); Neutrophils # 15.4 K/mm3 (1.8-7.8); Neutrophils % 83.5 % (37.0-80.0); Platelet Count 175 K/mm3 (142-424); Potassium 5.2 mmoL/L (3.5-5.1); Red Blood Count 4.35 M/mm3 (4.60-6.20); Red Cell Distribution Width 14.3 % (11.5-17.5); Sodium 136 mmol/L (136-145); White Blood Count 18.5 K/mm3 (4.8-10.8)
--- NOTE | 2021-01-10 12:21 | PC.NURSE ---
Rad at bedside
[2021-01-10 12:22] LABS: Alanine Aminotransferase 34 U/L (12-78); Albumin Level 4.3 g/dl (3.5-5.0); Albumin/Globulin Ratio 1.1 (1.1-1.8); Alkaline Phosphatase 106 U/L (38-126); Anion Gap 13.2 mEq/L (5-15); Aspartate Amino Transferase 33 U/L (17-59); Blood Urea Nitrogen 24 mg/dl (9-20); Calcium 10.2 mg/dl (8.4-10.2); Carbon Dioxide 29 mmol/L (22.0-30.0); Creatinine Clearance Estimated 57 mL/min (50-200); Estimated Glomerular Filt Rate 39 ml/min (>60); GFR (African American) 48 ML/MIN (>60); Globulin 3.8 g/dL (1.3-3.2); Glucose 184 mg/dl (74-100); MANUAL DIFFERENTIAL MANUAL DIFFERENTIAL (MANUAL DIFF); Total Protein,Serum 8.1 g/dl (6.3-8.2)
[2021-01-10 12:34] LABS: Troponin I 0.02 ng/ml (0.00-0.034)
--- NOTE | 2021-01-10 12:35 | HMH.EDGENADL ---
ED Disposition Clinical Impression: SIRS (systemic inflammatory response syndrome), Sinus tachycardia, Calculus of renal pelvis Hypotension Qualifiers: Hypotension type: unspecified hypotension type Qualified Code(s): I95.9 - Hypotension, unspecified Leukocytosis Qualifiers: Leukocytosis type: unspecified Qualified Code(s): D72.829 - Elevated white blood cell count, unspecified Disposition: Admitted as Observation Condition on Discharge: [facility] - Critical Care Critical Care Time: No Attestation: On 01/10/21, the high probability of a clinically significant, sudden or life threatening deterioration of the following system(s) required my full and direct attention, intervention and personal management. The time I documented below is in addition to time spent performing reported procedures but includes the following listed in this critical care notation. Medical Decision Making - Jermaine Inquiry Pt receiving controlled substance: No Vital Signs: 01/10/21 11:48 01/10/21 12:18 01/10/21 13:00 Temperature 98.0 F Temperature Source Oral Pulse Rate [Right Radial] 130 H 130 H 119 H Respiratory Rate 20 24 20 Blood Pressure [Right Arm] 94/66 L 104/62 L 123/74 Blood Pressure Mean [Right Arm] 75 76 90 Blood Pressure Source [Right Arm] Automatic Cuff Automatic Cuff Automatic Cuff Blood Pressure Position [Right Arm] Sitting Sitting Supine 02 Sat by Pulse Oximetry 96 96 100 Oxygen Delivery Method Room Air Room Air Room Air Oxygen Flow Rate (LPM) 01/10/21 13:24 01/10/21 13:34 01/10/21 14:01 Temperature 98.8 F Temperature Source Rectal Pulse Rate [Right Radial] 114 H 115 H Respiratory Rate 16 Blood Pressure [Right Arm] 138/84 129/86 Blood Pressure Mean [Right Arm] 102 100 Blood Pressure Source [Right Arm] Automatic Cuff Automatic Cuff Blood Pressure Position [Right Arm] Sitting Sitting 02 Sat by Pulse Oximetry 100 96 Oxygen Delivery Method Nasal Cannula Room Air Oxygen Flow Rate (LPM) 2 01/10/21 14:30 Temperature Temperature Source Pulse Rate [Right Radial] 114 H Respiratory Rate Blood Pressure [Right Arm] 148/99 H Blood Pressure Mean [Right Arm] 115 Blood Pressure Source [Right Arm] Automatic Cuff Blood Pressure Position [Right Arm] Sitting 02 Sat by Pulse Oximetry 97 Oxygen Delivery Method Oxygen Flow Rate (LPM) - Lab Data Lab Results 01/10/21 11:51: WBC 18.5 H, RBC 4.35 L, Hgb 13.5 L, Hct 42.8, MCV 98.4 H, MCH 31.0, MCHC 31.5 L, RDW 14.3, Plt Count 175, MPV 8.3, Neut % (Auto) 83.5 H, Lymph % (Auto) 11.3, [place] % (Auto) 4.6, Eos % (Auto) 0.4, Baso % (Auto) 0.3, Neut # (Auto) 15.4 H, Lymph # (Auto) 2.1, [place] # (Auto) 0.8, Eos # (Auto) 0.1, Baso # (Auto) 0.1, Total Counted 100, Neutrophils % (Manual) 81 H, Lymphocytes % (Manual) 13, Monocytes % (Manual) 6, Platelet Estimate Normal, RBC Morphology Normal 01/10/21 11:51: Sodium 136, Potassium 5.2 H, Chloride 99, Carbon Dioxide 29, Anion Gap 13.2, BUN 24 H, Creatinine 1.70 H, Estimated Creat Clear 57, Estimated GFR 39 L, Est GFR ( Amer) 48 L, Glucose 184 H, Calcium 10.2, Total Bilirubin 1.0, AST 33, ALT 34, Alkaline Phosphatase 106, Troponin I 0.02, Total Protein 8.1, Albumin 4.3, Globulin 3.8 H, Albumin/Globulin Ratio 1.1 01/10/21 11:51: TSH 0.05 L 01/10/21 13:05: Lactate 1.9 Result diagrams: 01/10/21 11:51 01/10/21 11:51 Orders (Tests/Meds): ED MEDICATIONS Generic Name Dose Route Start Last Admin Trade Name Freq PRN Reason Stop Dose Admin Ertapenem 1 gm/ Sodium 50 mls @ 100 mls/hr 01/10/21 15:00 01/10/21 15:21 Chloride IV 01/24/21 14:59 100 mls/hr Q24H ROHITH Administration Protocol Discontinued Medications Generic Name Dose Route Start Last Admin Trade Name Freq PRN Reason Stop Dose Admin Sodium Chloride 1,000 ml 01/10/21 12:41 01/10/21 12:54 Sodium Chloride 0.9% 1000ml Bag IV 01/10/21 12:42 1,000 ml BOLUS ONE Administration ORDERS Category Date Time Status Covid-19 Nasal PCR (H
[2021-01-10 12:41] LABS: Lymphocytes % 13 % (10-50); Monocytes % 6 % (2-9); Neutrophils % 81 % (42-76); Platelet Estimate Normal; RBC Morphology Normal; Total Cells Counted 100
--- NOTE | 2021-01-10 13:00 | PC.NURSE ---
notified REMI LEE unable to place swenson catheter in pt.
[2021-01-10 13:38] LABS: Lactic Acid 1.9 mmol/L (0.7-2.1)
[2021-01-10 13:50] LABS: Thyroid Stimulating Hormone 0.05 uIU/mL (0.465-4.68)
--- NOTE | 2021-01-10 14:48 | PC.NURSE ---
Dr Ramsey to return call.
--- NOTE | 2021-01-10 14:51 | PC.NURSE ---
Dr Ramsey returned call.
--- NOTE | 2021-01-10 14:57 | CT_ITS ---
PROCEDURE: CT ABDOMEN PELVIS WO CON CLINICAL INDICATION: leukocytosis COMPARISON: CT ABDPELWO CT abdomen pelvis wo con from 09/30/2018 TECHNIQUE: Axial images obtained with sagittal and coronal reformats. All CT scans at the facility use one or more dose reduction, viz: automated exposure control, ma/kV adjustment per patient size (including targeted exams where dose is matched to indication, i.e. head), or iterative reconstruction technique. FINDINGS: LOWER THORAX: There are mild atelectatic changes in the lung bases. Coronary artery calcifications are present ABDOMEN & PELVIS: Gallbladder is somewhat distended. No radiopaque stones are identified. There is a mild amount of retained colonic feces. The adrenal glands, spleen, and pancreas have an unremarkable appearance. There are 2 stones in the left renal pelvis 1 at 1.5 cm and another at 0.7 cm. There is mild prominence of the left renal pelvis. There is mild prominence of the left ureter just distal to the renal stones. No distal ureteral calculus is however evident. There is a 2 mm stone in the mid polar region on the right. There is mild stranding of the perinephric renal fat on both sides. No evidence of appendicitis. Colonic diverticulosis is present involving the descending and sigmoid colon. No evidence of diverticulitis. There are degenerative changes in the lumbar spine. IMPRESSION: 1. Prominent stones within the left renal pelvis with mild prominence of the left renal pelvis. No distal ureteral calculi evident. 2. Mildly distended gallbladder 3. Colonic diverticulosis. No evidence of diverticulitis Dictated by: Jesus Eduardo MD 01/10/2021 15:55 Jesus Eduardo MD in [facility] 01/10/2021 15:55
--- NOTE | 2021-01-10 15:01 | PC.NURSE ---
per lab pt covid swab has approx 50 minutes left until resulted
--- NOTE | 2021-01-10 15:07 | PC.NURSE ---
pt going to CT
--- NOTE | 2021-01-10 15:37 | PC.NURSE ---
pt returning from CT
--- NOTE | 2021-01-10 18:07 | PC.NURSE ---
contacted lab to check on status of covid swab, states they test is done and they are trying to get it resulted but they are busy so it taking longer than usual.
--- NOTE | 2021-01-10 18:28 | PC.NURSE ---
report given to fabriziorn
--- NOTE | 2021-01-10 18:56 | PC.NURSE ---
PT ARRIVED TO FLOOR VIA W/C FROM ED W/STAFF AT 185
--- NOTE | 2021-01-10 21:18 | PC.NURSE ---
Unable to perform med rec on this pt. MAR from facility ([facility] only lists 6 medications and has no times or dates on them. Copy is in pt's chart. Pt unable to tell this RN when he took his medications last. When asked, pt responds I don't know
[2021-01-10 21:48] LABS: POC Glucose,Bedside 114 (70-110)
[2021-01-11] VITALS: BP 119/70; PULSE 106; RESP 17; TEMP 37.4; O2SAT 96
[2021-01-11 04:00] VITALS: BP 124/78; PULSE 110; RESP 18; TEMP 36.6; O2SAT 98
--- NOTE | 2021-01-11 05:26 | PC.NURSE ---
No acute changes this shift. Pt has slept this entire shift. Pt continues on RA. x1 assist to the bathroom. Pt still tachycardic with heart rate >100. Will continue to monitor.
[2021-01-11 06:20] LABS: POC Glucose,Bedside 92 (70-110)
[2021-01-11 06:38] VITALS: BMI 28.0
--- NOTE | 2021-01-11 07:40 | HMH.PHAVTE ---
[facility] Pharmacy VTE Monitoring - Patient Demographics Admission date: 01/10/21 Report Date: 01/11/21 Time: 07:40 Allergies/Adverse Reactions: Patient Allergies No Known Allergies Allergy (Verified 08/27/19 14:39) Height: 1.8 m Weight: 90.718 kg Patient Problems: Current Active Problems Leukocytosis (Acute) SIRS (systemic inflammatory response syndrome) (Acute) Hypotension (Acute) Sinus tachycardia (Acute) Calculus of renal pelvis (Acute) - VTE Risk Labs: VTE Related Lab Results Hgb 13.5 g/dL (14.1-18.0) L 01/10/21 11:51 Hct 42.8 % (42.0-52.0) 01/10/21 11:51 Plt Count 175 K/mm3 (142-424) 01/10/21 11:51 BUN 24 mg/dl (9-20) H 01/10/21 11:51 Creatinine 1.70 mg/dl (0.66-1.25) H 01/10/21 11:51 Estimated Creat Clear 57 mL/min (50-200) 01/10/21 11:51 VTE Score: 1 - Prophylaxis VTE Prophylaxis Ordered?: Yes Types of VTE Prophylaxis: TEDS Knee High Location of Applied Device: Bilateral Lower Extremeties
[2021-01-11 07:58] LABS: Basophils # 0.1 K/mm3 (0-0.2); Basophils % 0.5 % (0.1-2.0); Eosinophils # 0.2 K/mm3 (0.0-0.4); Eosinophils % 1.4 % (0.1-12.0); Hematocrit 35.7 % (42.0-52.0); Lymphocytes # 2.1 K/mm3 (0.7-4.5); Mean Corpuscular HGB Conc 31.2 g/dL (31.8-35.4); Mean Corpuscular Hemoglobin 31.4 pg (27.0-31.2); Mean Corpuscular Volume 100.8 fl (80-94); Monocytes # 0.7 K/mm3 (0.1-1.0); Monocytes % 5.8 % (1.7-9.3); Neutrophils # 9.2 K/mm3 (1.8-7.8); Neutrophils % 75.2 % (37.0-80.0); Platelet Count 145 K/mm3 (142-424); Red Blood Count 3.54 M/mm3 (4.60-6.20); Red Cell Distribution Width 14.3 % (11.5-17.5); White Blood Count 12.3 K/mm3 (4.8-10.8)
[2021-01-11 07:59] LABS: Hemoglobin 11.1 g/dL (14.1-18.0)
[2021-01-11 08:00] VITALS: BP 107/75; PULSE 103; RESP 18; TEMP 36.8; O2SAT 99
--- NOTE | 2021-01-11 09:22 | HMH.HP ---
*Admission Date: 01/10/21 *Chief complaint: Weakness *History of present illness: 75-year-old male patient brought to the emergency department via squad from [facility]. Staff at [place] report patient was cool, clammy, and low blood pressure. In the emergency department patient is a poor historian but he did report he felt fair, denying any pain, shortness of breath, weakness, or dizziness Lab work in the emergency department reveals white blood cell count 18.5, H&H stable at 13.5/42.8 Chemistries reveal sodium 136, potassium 5.2, BUN 2.4 and creatinine 1.7 Chest x-ray revealed no acute findings In the emergency department blood pressure was 94/66, heart rate was 130, respirations 24, and white blood cell count was 18.5 He did receive 1 L of normal saline and Ertapenem IV 01/10/21 Abd/Pelvis CT: FINDINGS: LOWER THORAX: There are mild atelectatic changes in the lung bases. Coronary artery calcifications are present ABDOMEN & PELVIS: Gallbladder is somewhat distended. No radiopaque stones are identified. There is a mild amount of retained colonic feces. The adrenal glands, spleen, and pancreas have an unremarkable appearance. There are 2 stones in the left renal pelvis 1 at 1.5 cm and another at 0.7 cm. There is mild prominence of the left renal pelvis. There is mild prominence of the left ureter just distal to the renal stones. No distal ureteral calculus is however evident. There is a 2 mm stone in the mid polar region on the right. There is mild stranding of the perinephric renal fat on both sides. No evidence of appendicitis. Colonic diverticulosis is present involving the descending and sigmoid colon. No evidence of diverticulitis. There are degenerative changes in the lumbar spine. IMPRESSION: 1. Prominent stones within the left renal pelvis with mild prominence of the left renal pelvis. No distal ureteral calculi evident. 2. Mildly distended gallbladder 3. Colonic diverticulosis. No evidence of diverticulitis Dictated by: Jayce, This morning patient is sitting up in bed tolerating breakfast without any difficulty, reports he had a good night he denies any pain, respiratory distress, dizziness, or weakness at present. Oxygen saturation 96% on room air, will obtain urine for UA [employer] [facility] History I have reviewed the patient's past medical history: Yes Medical History: Reports:: Diabetes Mellitus Type 2, Hyperlipidemia, Hypertension Denies:: Cancer, Diabetes Mellitus Type 1, MRSA, Seizures *Have you ever received a pneumonia vaccine?: Yes *Have you received a flu vaccine this season?: Yes Other Medical History: Reports: Anemia, Blood Transfusion Reaction, Hypothyroidism, Thyroid Disease Laterality Cases: Bilateral: Tonsillectomy Other Surgeries: Yes: Other Amputation: No Fractures: No - *Social History Last grade of school completed: High school graduate Smoking Status: Current every day smoker Tobacco Type: cigarettes # Packs/Day (cigarettes): 1 Alcohol Intake: never Substance Use Type: other *Occupational Status:: disabled Housing: assisted living facility Household Members: other *Travel in the last 8 weeks: None Family Hx:: Unable to obtain Review of Systems - Review of Systems Review of systems:: pertinent systems reviewed and negative unless documented below - Constitutional Reports weakness, Denies fever(s) - Eyes Denies blurry vision, Denies change in vision - ENT Reports dizziness, Reports headache(s) - *Cardiovascular Denies chest pain, Denies shortness of breath - *Respiratory Denies chest congestion, Denies shortness of breath - *Gastrointestinal Denies abdominal pain, Denies difficulty swallowing - *Genitourinary Denies difficulty urinating, Denies painful urination - *Musculoskeletal Denies back pain, Denies neck pain - Integumentary/Breasts Denies hair loss - Endocrine Denies cold intolerance, Denies
--- NOTE | 2021-01-11 09:33 | SW/DCPLANNER ---
Addendum entered by Merry Mendoza 01/12/21 13:47: [employer] [employer] has been set up for this patient per A Nick. Addendum entered by Merry Mendoza 01/12/21 09:23: I have notified Miguel/Sangeetha with [facility] that this patient is stable for discharge today. Miguel has stated that patient will NOT require another COVID swab prior to discharge. All patient information has been faxed to Miguel: she has additional clinical questions in which I have directed her to speak with patients nurse (Lesia). Miguel has stated that they will have to evaluate patient at [facility] prior to returning to [facility] today. Miguel is aware that patient is ready for discharge. Original Note: This patient currently resides at [facility]. I have spoke with Miguel from [facility] regarding this patient. Miguel has requested all patient information to be faxed prior to deciding if patient can return. I have informed Miguel that patient will be ready for discharge later today pending labs. Patient information has been faxed.
--- NOTE | 2021-01-11 09:39 | HMH.PTEV ---
Physical Therapy Evaluation Rehab PT IP Evaluation Start: 01/11/21 09:20 Freq: .once Status: Active Protocol: Document 01/11/21 09:34 SPENCER (Rec: 01/11/21 09:39 PHOKRISTY [id number]) Subjective/History History History 75 yowm adm to [facility] with SIRS and generalized weakness. He lives at [facility] at baseline and is independent with mobility there. Subjective Subjective Pt reports no c/o this am. Rehab PT IP Eval Objective Appearance Patient Behavior Appropriate Patient Orientation Person,Place Difficulty following instructions none Speech Pattern Clear Ambulation Patient Able to Ambulate Yes Ambulation Observation IP General Gait Pattern Observation Shuffling Step Ambulation Distance (feet) 30 Ambulation Assistive Device None Ambulation Ability Supervision/Stand by Balance Ability to Arise Able, uses arms to help Sitting Balance Steady, safe Standing Balance Steady, wide stance Dynamic Sitting Balance Ability Good Dynamic Standing Balance Ability Fair Transfers Bed Transfer Ability Supervision/Stand by Chair Transfer Ability Supervision/Stand by Sit to Stand Bed Transfer Ability Supervision/Stand by Sit to Stand Chair Transfer Ability Supervision/Stand by ROM All Extremities PT ROM Status WFL MMT All Extremities PT MMT WFL Rehab PT IP prob,goals,plan Problems Date of Evaluation: 01/11/21 Discharge Plan PT Discharge Plan Pt is appropriate to return to [facility] once medically stable, no inpatient therapy needs at this time. G -code Required No Eval Complexity Eval Charge Codes 30339 - Moderate Complexity PHYSICIAN CERTIFICATION: I certify the specified therapy services for Geo Bond are required, authorized, and reviewed every 30 days.
[2021-01-11 09:57] LABS: Chloride 103 mmol/L (98-107); Potassium 4.7 mmoL/L (3.5-5.1); Sodium 136 mmol/L (136-145)
[2021-01-11 10:00] LABS: Blood Urea Nitrogen 24 mg/dl (9-20); Creatinine Clearance Estimated 58 mL/min (50-200); Estimated Glomerular Filt Rate 49 ml/min (>60); GFR (African American) 60 ML/MIN (>60)
[2021-01-11 10:01] LABS: Anion Gap 9.7 mEq/L (5-15); Calcium 9.2 mg/dl (8.4-10.2); Carbon Dioxide 28 mmol/L (22.0-30.0); Glucose 105 mg/dl (74-100)
--- NOTE | 2021-01-11 10:07 | HMH.OTEV ---
OT Inpatient Evaluation Rehab OT IP Evaluation Start: 01/11/21 09:21 Freq: ONCE Status: Complete Protocol: Document 01/11/21 10:03 [facility] (Rec: 01/11/21 10:07 [facility] [id number]) Rehab OT IP Assessment Subjective History Pt oriented x 3 on arrival. Pt agreeable to engage in therapy evaluation. Pt was admitted via ED on 01/10/21 from personal nursing home ([facility]) due to low BP, weak, and clammy. Pt has a past medical history of DM type 2, Hyperlipidemia, and HTN. Pt is a poor historian, but claims he was independent with all ADLs prior to admission. He also reports he does not use any AE during ambulation. Subjective I used to live on [facility]. Objective Patient Orientation Person,Place,Birthday Upper Extremity Gross ROM WFL Bed Mobility bed mobility-scooting,bed mobility - supine/sit,bed mobility - rolling Assist Level Supervision/Stand by Transfer Training Sit/Stand Transfer Assist Level Supervision/Stand by Chair Transfer Ability Supervision/Stand by Chair Transfer Technique Sit to/from Ambulatory Chair Transfer Assistive Devices None Lower Body Dressing Ability Standby Assistance Performing Toilet Hygiene Ability Standby Assistance Overall Commode/Toilet Transfer Ability Standby Assistance Commode/Toilet Transfer Technique Sit to/from Ambulatory Rehab OT IP prob,goals,plan Problems Date of Evaluation: 01/11/21 Rehab Potential Rehab Potential Innapropriate for Skilled Therapy Discharge Plan OT Discharge Plan At this time patient appears to be at his baseline functionally. He is safe to return back to [facility] once medically stable. Eval Complexity Eval Charge Codes 67826 - Moderate Complexity G Codes G -code Required No PHYSICIAN CERTIFICATION: I certify the specified therapy services for Geo Bond are required, authorized, and reviewed every 30 days.
--- NOTE | 2021-01-11 10:17 | PC.NURSE ---
MD states need for UA this AM. Pt incontinent of urine this AM. States he usually knows when he needs to void. Urinal @ bedside as well as speci cup. Call juan r w/in reach.
--- NOTE | 2021-01-11 10:55 | CARE MANAGER ---
Notified [facility]. notification ID#[id number]. WOLFGANG Elliott
--- NOTE | 2021-01-11 11:28 | HMH.PHAINT ---
MEDICATION RECONCILIATION COMPLETED ON PATIENT USING MAR FROM [facility]. -NATALIO GARCIA, VENTURAD
[2021-01-11 14:22] LABS: Microscopic, Urine URINE MICROSCOPIC (MICROSCOPIC)
[2021-01-11 14:25] LABS: Appearance,Urine CLEAR (Clear); Bilirubin,Urine Negative (Negative); Blood, Urine TRACE-I (Negative); Color,Urine YELLOW (Yellow); Glucose,Urine (UA) Negative (Negative); Ketones,Urine TRACE (Negative); Leukocyte Esterase,Urine Negative (Negative); Nitrate,Urine Negative (Negative); Protein,Urine 2+ (Negative); Specific Gravity, Urine 1.025 (1.005-1.030); Urobilinogen,Urine 0.2 EU/dl (0.2)
[2021-01-11 15:23] LABS: Bacteria,Urine Trace /lpf
--- NOTE | 2021-01-11 15:30 | PC.NURSE ---
No complaints voiced this shift. Has been up to chair majority of day. Remains on room air. Abdomen soft, non-tender w/ active BS. Pt was incontinent of urine this AM, but has since then used urinal w/ assistance of staff. Appetite has been average this shift. Uses call pete appropriately, is w/in reach. No needs voiced.
[2021-01-11 16:00] VITALS: BP 107/73; PULSE 112; RESP 8; TEMP 36.8; O2SAT 97
[2021-01-11 16:54] LABS: POC Glucose,Bedside 96 (70-110)
[2021-01-11 16:54] LABS: POC Glucose,Bedside 112 (70-110)
[2021-01-11 20:00] VITALS: BP 114/74; PULSE 114; RESP 17; TEMP 37.2; O2SAT 99
[2021-01-11 21:58] LABS: POC Glucose,Bedside 108 (70-110)
[2021-01-12 00:05] VITALS: BP 105/64; PULSE 99; RESP 18; TEMP 36.6; O2SAT 99
--- NOTE | 2021-01-12 03:17 | PC.NURSE ---
Pt has had a good night. Pt got up to shower this shift. Pt has been incontinent x1 this shift. No other acute changes or complaints at this time.
[2021-01-12 03:44] VITALS: BP 108/71; PULSE 93; RESP 18; TEMP 36.8; O2SAT 96
[2021-01-12 05:14] VITALS: BMI 24.5
[2021-01-12 06:08] LABS: POC Glucose,Bedside 116 (70-110)
[2021-01-12 07:06] LABS: Basophils % 0.3 % (0.1-2.0); Eosinophils # 0.3 K/mm3 (0.0-0.4); Eosinophils % 3.5 % (0.1-12.0); Hematocrit 34.7 % (42.0-52.0); Hemoglobin 10.7 g/dL (14.1-18.0); Lymphocytes # 1.5 K/mm3 (0.7-4.5); Lymphocytes % 16.2 % (10-50); Mean Corpuscular HGB Conc 30.9 g/dL (31.8-35.4); Mean Corpuscular Hemoglobin 31.1 pg (27.0-31.2); Mean Corpuscular Volume 100.5 fl (80-94); Mean Platelet Volume 8.5 fl (7.4-10.4); Monocytes # 0.6 K/mm3 (0.1-1.0); Neutrophils # 6.8 K/mm3 (1.8-7.8); Platelet Count 149 K/mm3 (142-424); Red Blood Count 3.45 M/mm3 (4.60-6.20); Red Cell Distribution Width 14.3 % (11.5-17.5); White Blood Count 9.2 K/mm3 (4.8-10.8)
[2021-01-12 07:11] LABS: Chloride 104 mmol/L (98-107); Sodium 137 mmol/L (136-145)
[2021-01-12 07:12] LABS: Potassium 4.9 mmoL/L (3.5-5.1)
[2021-01-12 07:15] LABS: Anion Gap 9.9 mEq/L (5-15); Blood Urea Nitrogen 31 mg/dl (9-20); Calcium 9.3 mg/dl (8.4-10.2); Carbon Dioxide 28 mmol/L (22.0-30.0); Creatinine Clearance Estimated 44 mL/min (50-200); Estimated Glomerular Filt Rate 42 ml/min (>60); GFR (African American) 51 ML/MIN (>60); Glucose 120 mg/dl (74-100)
[2021-01-12 08:00] VITALS: BP 134/75; PULSE 95; RESP 18; TEMP 36.4; O2SAT 99
--- NOTE | 2021-01-12 09:09 | HMH.DCSUM ---
General - General Admission date:: 01/10/21 Discharge date: 01/12/21 HPI HPI: 75-year-old male patient brought to the emergency department via squad from [facility]. Staff at [facility] report patient was cool, clammy, and low blood pressure. In the emergency department patient is a poor historian but he did report he felt fair, denying any pain, shortness of breath, weakness, or dizziness Lab work in the emergency department reveals white blood cell count 18.5, H&H stable at 13.5/42.8 Chemistries reveal sodium 136, potassium 5.2, BUN 2.4 and creatinine 1.7 Chest x-ray revealed no acute findings In the emergency department blood pressure was 94/66, heart rate was 130, respirations 24, and white blood cell count was 18.5 He did receive 1 L of normal saline and Ertapenem IV 01/10/21 Abd/Pelvis CT: FINDINGS: LOWER THORAX: There are mild atelectatic changes in the lung bases. Coronary artery calcifications are present ABDOMEN & PELVIS: Gallbladder is somewhat distended. No radiopaque stones are identified. There is a mild amount of retained colonic feces. The adrenal glands, spleen, and pancreas have an unremarkable appearance. There are 2 stones in the left renal pelvis 1 at 1.5 cm and another at 0.7 cm. There is mild prominence of the left renal pelvis. There is mild prominence of the left ureter just distal to the renal stones. No distal ureteral calculus is however evident. There is a 2 mm stone in the mid polar region on the right. There is mild stranding of the perinephric renal fat on both sides. No evidence of appendicitis. Colonic diverticulosis is present involving the descending and sigmoid colon. No evidence of diverticulitis. There are degenerative changes in the lumbar spine. IMPRESSION: 1. Prominent stones within the left renal pelvis with mild prominence of the left renal pelvis. No distal ureteral calculi evident. 2. Mildly distended gallbladder 3. Colonic diverticulosis. No evidence of diverticulitis Dictated by: Jayce, This morning patient is sitting up in bed tolerating breakfast without any difficulty, reports he had a good night he denies any pain, respiratory distress, dizziness, or weakness at present. 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 Hospital Course: Laboratory Tests 01/10/21 01/10/21 01/10/21 11:51 11:51 11:51 WBC 18.5 H RBC 4.35 L Hgb 13.5 L Hct 42.8 MCV 98.4 H MCH 31.0 MCHC 31.5 L RDW 14.3 Plt Count 175 MPV 8.3 Neut % (Auto) 83.5 H Lymph % (Auto) 11.3 Dukes % (Auto) 4.6 Eos % (Auto) 0.4 Baso % (Auto) 0.3 Neut # (Auto) 15.4 H Lymph # (Auto) 2.1 Dukes # (Auto) 0.8 Eos # (Auto) 0.1 Baso # (Auto) 0.1 Total Counted 100 Neutrophils % (Manual) 81 H Lymphocytes % (Manual) 13 Monocytes % (Manual) 6 Platelet Estimate Normal RBC Morphology Normal Sodium 136 Potassium 5.2 H Chloride 99 Carbon Dioxide 29 Anion Gap 13.2 BUN 24 H Creatinine 1.70 H Estimated Creat Clear 57 Estimated GFR 39 L Est GFR ( Amer) 48 L Glucose 184 H POC Glucose Lactate Calcium 10.2 Total Bilirubin 1.0 AST 33 ALT 34 Alkaline Phosphatase 106 Troponin I 0.02 Total Protein 8.1 Albumin 4.3 Globulin 3.8 H Albumin/Globulin Ratio 1.1 TSH 0.05 L Urine Color Urine Appearance Urine pH Ur Specific [place] Urine Protein Urine Glucose (UA) Urine Ketones Urine Blood Urine Nitrate Urine Bilirubin Urine Urobilinogen Ur Leukocyte Esterase Urine RBC Urine WBC Ur Squamous Epith Cells Urine Bacteria 01/10/21 01/10/21 01/11/21 13:05 21:41 06:13 WBC RBC Hgb Hct MCV MCH MCHC RDW Plt Count MPV Neut % (Auto) Lymph % (Auto) Dukes % (Auto)
[2021-01-12 11:52] LABS: POC Glucose,Bedside 99 (70-110)
== END 2021-01-12 15:05 | disposition home or self-care (01) ==
LOC: ER 14:59 → 2ND 16:21
PROVIDERS: Nurse Practitioner Family; Admitting Provider Emergency Medicine; Emergency Provider Emergency Medicine; PCP Emergency Medicine; Visit Provider Emergency Medicine
DX: N20.0 Calculus of kidney (principal); D72.829 Elevated white blood cell count, unspecified; E03.9 Hypothyroidism, unspecified; Z72.0 Tobacco use; R65.10 Systemic inflammatory response syndrome (SIRS) of non-infectious origin without acute organ dysfunction; E11.9 Type 2 diabetes mellitus without complications; Z79.4 Long term (current) use of insulin; Z79.82 Long term (current) use of aspirin; Z79.899 Other long term (current) drug therapy; F20.9 Schizophrenia, unspecified
CPT/HCPCS: 36415; 71045; 74176; 80048; 80053; 81001; 82962; 83605; 84443; 84484; 85007; 85025; 87040; 87077; 87086; 87186; 93005; 96365; 96367; 97162; 97166; 99285; G0378; J1335; U0003

== ENCOUNTER 2022-11-30 11:04 | Observation (INO) | payer MEDICARE, MEDICAID, OTHER, SELFPAY ==
[2022-11-30] VITALS (20 sets, daily range): BP systolic 90–145; BP diastolic 46–81; PULSE 82–115; RESP 14–20; TEMP 36.6–38.4; O2SAT 94–100; BMI 23.7; BMI 23.4
--- NOTE | 2022-11-30 11:18 | XR_ITS ---
FINAL REPORT CLINICAL HISTORY: ams, concern for pneumonia COMPARISON: 01/10/2021 FINDINGS: SINGLE-VIEW CHEST The heart size is normal. The mediastinum is normal. There is mild left base atelectasis or scar. The right lung is clear. There is no pneumothorax. IMPRESSION: Left base atelectasis or scar. Reviewed, Interpreted and Dictated by Stanton Thomas III, MD Transcribed by Yazmin Cee Authenticated and [facility]
--- NOTE | 2022-11-30 11:18 | CT_ITS ---
FINAL REPORT CLINICAL HISTORY: Altered mental status COMPARISON: 07/25/2019 FINDINGS: Axial images of the head were obtained without contrast. Coronal reformatted images were also obtained. This study was performed with techniques to keep radiation doses as low as reasonably achievable (ALARA). Individualized dose reduction techniques using automated exposure control or adjustment of mA and/or kV according to the patient''s size were employed. There are bilateral, small chronic infarcts which are stable. There is generalized age-appropriate atrophy. Periventricular low-attenuation areas are seen consistent with mild chronic ischemic changes. There is no evidence of intracranial hemorrhage or mass. There is no evidence of acute infarct. There is no evidence of shift of the midline structures. No skull abnormality is seen on the bone window images. IMPRESSION: Atrophy and mild periventricular chronic ischemic changes. No acute intracranial abnormality identified. Reviewed, Interpreted and Dictated by Stanton Thomas III, MD Transcribed by Kristyn Case Authenticated and [facility]
[2022-11-30 11:37] LABS: VBG Base Excess -1.7 mmol/L (-2.4-2.3); VBG HCO3 22.7 mmol/L (23-30); VBG Oxygen Saturation 98.8 % (50-70); VBG PCO2 35.3 mmol/L (35-51); VBG PH 7.43 mmol/L (7.31-7.41); VBG PO2 117.6 mmol/L (28-40); VBG Total CO2 23.8 mmol/L (23-27)
--- NOTE | 2022-11-30 11:38 | PC.NURSE ---
Patient went to CT
[2022-11-30 11:48] LABS: Chloride 101 mmol/L (98-107); Potassium 4.8 mmoL/L (3.5-5.1); Sodium 137 mmol/L (136-145)
--- NOTE | 2022-11-30 11:49 | PC.NURSE ---
Patient back from CT
[2022-11-30 11:51] LABS: Alanine Aminotransferase 24 U/L (12-78); Albumin Level 3.9 g/dl (3.5-5.0); Alkaline Phosphatase 81 U/L (38-126); Anion Gap 13.8 mEq/L (5-15); Aspartate Amino Transferase 31 U/L (17-59); Bilirubin,Total 0.5 mg/dl (0.2-1.3); Blood Urea Nitrogen 38 mg/dl (9-20); Carbon Dioxide 27 mmol/L (22.0-30.0); Creatinine Clearance Estimated 31 mL/min (50-200); Estimated Glomerular Filt Rate 28 ml/min (>60); GFR (African American) 33 ML/MIN (>60); Globulin 3.8 g/dL (1.3-3.2); Total Protein,Serum 7.7 g/dl (6.3-8.2)
[2022-11-30 11:52] LABS: Calcium 9.3 mg/dl (8.4-10.2); Glucose 168 mg/dl (74-100)
[2022-11-30 11:57] LABS: C-Reactive Protein 19.2 mg/L (0-4)
[2022-11-30 12:33] LABS: Coronavirus 19, PCR Not Detected (NotDetected); Influenza A, PCR Not Detected (NotDetected); Influenza B, PCR Not Detected (NotDetected)
[2022-11-30 12:40] LABS: Procalcitonin 0.323 ng/mL (0.0-2.0)
--- NOTE | 2022-11-30 12:42 | PC.NURSE ---
this nurse and physician attempted to collect ua. catheter unable to be placed. pt became combative towards staff and was not able to be redirected.
--- NOTE | 2022-11-30 12:48 | EXP.PHA.CONS ---
Pharmacy Consult Date: 11/30/22 Time: 12:48 Referring provider: DR. CARDONA Reason for Consult:: VANCOMYCIN DOSING Allergies Allergy/AdvReac Type Severity Reaction Status Date / Time No Known Allergies Allergy Verified 08/27/19 14:39 Home Medications Medication Instructions Recorded Confirmed Type allopurinol 300 mg tablet 300 mg PO DAILY gout 09/30/18 01/10/21 History atorvastatin 40 mg tablet 20 mg PO HS Cholesterol 09/30/18 01/11/21 History levothyroxine 100 mcg tablet 100 mcg PO DAILY thyroid 09/30/18 01/10/21 History metformin 500 mg tablet,extended 1,000 mg PO BIDWM Diabetes 09/30/18 01/11/21 History release 24hr tamsulosin 0.4 mg capsule 0.4 mg PO HS prostate 09/30/18 01/10/21 History venlafaxine 75 mg capsule,extended 225 mg PO HS MOOD 03/27/19 01/11/21 History release 24 hr acetaminophen 325 mg tablet 650 mg PO TIDP PRN As Needed For 07/25/19 01/11/21 History Fever Or Pain aspirin 81 mg chewable tablet 81 mg PO DAILY HEART HEALTH 07/25/19 01/10/21 History cholecalciferol (vitamin D3) 25 1,000 unit PO DAILY Diet supplement 07/25/19 01/10/21 History mcg (1,000 unit) capsule magnesium oxide 400 mg (241.3 mg 400 mg PO DAILY Diet supplement 07/25/19 01/10/21 History magnesium) tablet sennosides 8.6 mg-docusate sodium 1 each PO BID CONSTIPATION 07/25/19 01/10/21 History 50 mg tablet metoprolol tartrate 25 mg tablet 12.5 mg PO BID Hypertension 01/11/21 01/11/21 History fluocinonide 0.05 % topical cream 1 applic topical BID #30 grams 11/30/22 Rx New Prescriptions to Start Prescriptions: Juanito Neri Height: 1.85 m Weight: 81.647 kg Laboratory Results:: Laboratory Results - last 24 hr 11/30/22 11:19: VBG pH 7.43 H, VBG pCO2 35.3, VBG pO2 117.6 H, VBG HCO3 22.7 L, VBG Total CO2 23.8, VBG O2 Saturation 98.8 H, VBG Base Excess -1.7 11/30/22 11:20: Sodium 137, Potassium 4.8, Chloride 101, Carbon Dioxide 27, Anion Gap 13.8, BUN 38 H, Creatinine 2.30 H, Estimated Creat Clear 31, Estimated GFR 28 L, Est GFR ( Amer) 33 L, Glucose 168 H, Calcium 9.3, Total Bilirubin 0.5, AST 31, ALT 24, Alkaline Phosphatase 81, C-Reactive Protein 19.2 H, Total Protein 7.7, Albumin 3.9, Globulin 3.8 H, Albumin/Globulin Ratio 1.0 L Assessment and Plan Assessment and plan all Dx Assessment and Plan for all problems:: Pharmacokinetic dosing service Objective: Patient: Floor: Age: 77 yo Serum creatinine: 2.30 mg/dL Height: 73.0 Inches Weight (kg): 81.6 Assessment: IBW (kg): 79.90 Dosing wt(kg): 81.6 Estimated Creatinine clearance (ml/min): 29.9 CRCL method: Cockcroft and Gault using ibw(default). Drug selected: Vancomycin Loading dose (mg): Vd (liters): 61.2 (factor used: 0.75 L/kg) Murray (hr-1): 0.029 Half life (hrs): 23.90 CLvanco=?? 1.775 L/hr Recommended dose: 1500 mg Interval: 36 hrs Infusion time (hrs): 2.0 Predicted peak (mcg/mL): 36.8 Predicted trough (mcg/mL): 13.73 Total body weight is being used for vancomycin dosing. Recommendations: Give Vancomycin 1500 mg q 36 hrs with an expected Cpeak of 36.8 mcg/ml and an expected Ctrough of 13.73 mcg/ml AUC 0-24 /MICHAEL Data: MICHAEL 0.5 mcg/mL:?? AUC/MICHAEL:? 1126.8 MICHAEL 1.0 mcg/mL:?? AUC/MICHAEL:? 563.4 --------- MICHAEL 1.5 mcg/mL:?? AUC/MICHAEL:? 375.6 MICHAEL 2.0 mcg/mL:?? AUC/MICHAEL:? 281.7 Thank you for the consult, will continue to follow. -NATALIO GARCIA, [place]
[2022-11-30 12:51] LABS: Basophils # 0.1 K/mm3 (0-0.2); Basophils % 0.4 % (0.1-2.0); Eosinophils % 0.1 % (0.1-12.0); Hematocrit 41.1 % (42.0-52.0); Hemoglobin 12.7 g/dL (14.1-18.0); Lymphocytes # 0.9 K/mm3 (0.7-4.5); Lymphocytes % 6.3 % (10-50); Mean Corpuscular Hemoglobin 31.2 pg (27.0-31.2); Mean Corpuscular Volume 100.7 fl (80-94); Mean Platelet Volume 9.5 fl (7.4-10.4); Monocytes # 0.6 K/mm3 (0.1-1.0); Monocytes % 3.9 % (1.7-9.3); Neutrophils % 89.3 % (37.0-80.0); Platelet Count 248 K/mm3 (142-424); Red Blood Count 4.08 M/mm3 (4.60-6.20); Red Cell Distribution Width 14.2 % (11.5-17.5); White Blood Count 14.5 K/mm3 (4.8-10.8)
[2022-11-30 12:53] LABS: MANUAL DIFFERENTIAL MANUAL DIFFERENTIAL (MANUAL DIFF)
--- NOTE | 2022-11-30 12:57 | HMH.EDGENADL ---
Discharge Plan Disposition Patient Disposition: Admitted As Inpatient Condition: Fair Clinical Impressions Clinical Impression: AMS (altered mental status), Sepsis Discharge ED Provider: Juanito Alves General Adult HPI General Chief complaint: Fever Stated complaint: pain Time Seen by Provider: 11/30/22 11:04 Mode of Arrival: EMS Source of Information: EMS Limitations: No Limitations Description of Symptoms (Recalled from ER Triage Doc. by RN): pt to ed via ems. pt will not answer questions appropriately. when asked a question pt will answer with i dont know. pt's abd is tender on palpation. pt denies pain. History of Present Illness HPI narrative: Patient is a 77-year-old male with a past medical history of schizoaffective disorder, anemia, renal insufficiency, urinary tract infection, CVA, diabetes who presents with concern for altered mental status. Patient picked up from nursing facility with concern for altered mental status. They state that the patient is normally able to talk without difficulty and take care of himself for the most part. He reports that starting this morning he will not answer many of their questions which is abnormal for him. EMS picked him up and said that he did not complain of any symptoms but when they palpated his abdomen it was tender. No reported falls. No reported blood thinners. Rest the history is unobtainable due to patient mental status. Related Data Home Medications Medication Instructions Recorded Confirmed allopurinol 300 mg tablet 300 mg PO DAILY gout 09/30/18 01/10/21 atorvastatin 40 mg tablet 20 mg PO HS Cholesterol 09/30/18 01/11/21 levothyroxine 100 mcg tablet 100 mcg PO DAILY thyroid 09/30/18 01/10/21 metformin 500 mg tablet,extended 1,000 mg PO BIDWM Diabetes 09/30/18 01/11/21 release 24hr tamsulosin 0.4 mg capsule 0.4 mg PO HS prostate 09/30/18 01/10/21 venlafaxine 75 mg capsule,extended 225 mg PO HS MOOD 03/27/19 01/11/21 release 24 hr acetaminophen 325 mg tablet 650 mg PO TIDP PRN As Needed For 07/25/19 01/11/21 Fever Or Pain aspirin 81 mg chewable tablet 81 mg PO DAILY HEART HEALTH 07/25/19 01/10/21 cholecalciferol (vitamin D3) 25 1,000 unit PO DAILY Diet supplement 07/25/19 01/10/21 mcg (1,000 unit) capsule magnesium oxide 400 mg (241.3 mg 400 mg PO DAILY Diet supplement 07/25/19 01/10/21 magnesium) tablet sennosides 8.6 mg-docusate sodium 1 each PO BID CONSTIPATION 07/25/19 01/10/21 50 mg tablet metoprolol tartrate 25 mg tablet 12.5 mg PO BID Hypertension 01/11/21 01/11/21 Allergies Allergy/AdvReac Type Severity Reaction Status Date / Time No Known Allergies Allergy Verified 08/27/19 14:39 [facility] Disclaimer: The information contained in this section may have been updated after the patient was seen, as this information can be updated by other users. Social History Smoking Status: Never smoker second hand exposure: No alcohol intake: never substance use type: other current occupational status: disabled Travel in the last 8 weeks: None household members: other housing: assisted living facility current occupational exposures/hazards: No caffeine: Yes ROS Obtained: Yes unobtainable due to mental status Physical Exam General General appearance: alert and in no apparent distress Head Head exam: atraumatic, normocephalic and normal inspection Eye Eye exam: Present normal appearance, PERRL and EOMI ENT ENT exam: Present normal exam, normal oropharynx, mucous membranes moist, TM's normal bilaterally and normal external ear exam Neck Neck exam: Present normal inspection, full ROM and trachea midline; Absent meningismus or lymphadenopathy Chest Chest inspection: Present normal inspection and symmetric chest wall rise; Absent tenderness Respiratory Respiratory exam: Present normal lung sounds bilaterally; Absent respiratory distress Cardiovascular Cardiovascul
--- NOTE | 2022-11-30 13:00 | PC.NURSE ---
[facility] to see [facility] and update with information when obtained
--- NOTE | 2022-11-30 13:06 | ECG_ITS ---
APPROVED REPORT Exam: Resting ECG HR:106 bpm ECG Measurements Heart Rate 106 AXES VT 139 P 46 QRSd 106 QRS -52 QT 352 T 25 QTc 414 Conclusion SINUS TACHYCARDIA PATTERN CONSISTENT WITH PULMONARY DISEASE POSSIBLE RIGHT VENTRICULAR CONDUCTION DELAY [RSR (QR) IN V1/V2] LEFT ANTERIOR FASCICULAR BLOCK [QRS AXIS <= -45, QR IN I, RS IN II] ABNORMAL ECG UNCONFIRMED REPORT Electronically signed by : Callum Quintana MD 11/30/2022 17:28:15
[2022-11-30 13:08] LABS: Lactic Acid 1.8 mmol/L (0.7-2.1)
--- NOTE | 2022-11-30 13:08 | PC.NURSE ---
Notifying [facility] that pt is in the ER
--- NOTE | 2022-11-30 13:09 | PC.NURSE ---
Geetha from [place], no beds available at their facility. MD sommers
--- NOTE | 2022-11-30 13:25 | EXP.HP ---
History of Present Illness *Admission Date: 11/30/22 *Reason for visit:: Confusion *History of present illness: ?Mr. Bond is a 77-year-old gentleman who resides at [facility]. Has a history of schizophrenia, diabetes, hypothyroidism. Patient was brought to the ER via EMS for concern for worsening altered mental status. History obtained from nursing facility and ER, patient unable to give review of systems or history. Reportedly, starting this morning he would not answer questions which was inappropriate or abnormal for him. He just says I do not know . Appears more fatigued and ill. Complained of abdomen being tender. No reported falls, trauma, nausea or vomiting, chest pain, shortness of breath. Work-up in ER concerning for sepsis with fever, leukocytosis, HERMILO, and suspected UTI. Patient initiated on empiric antibiotics and medicine contacted for admission. On interview, patient is unable to give any review of systems to me. He appears comfortable in bed. Exam is benign. Numerous attempts at placing catheter by ER were unsuccessful due to obstruction. Still awaiting urine. [facility] Disclaimer: The information contained in this section may have been updated after the patient was seen, as this information can be updated by other users. Social History Smoking Status: Never smoker second hand exposure: No alcohol intake: never substance use type: other current occupational status: disabled Travel in the last 8 weeks: None household members: other housing: assisted living facility current occupational exposures/hazards: No caffeine: Yes Review of Systems Review of Systems Review of systems:: unable to obtain Meds Home Medications and Allergies Home Medications Medication Instructions Recorded Confirmed Type allopurinol 300 mg tablet 300 mg PO DAILY gout 09/30/18 01/10/21 History atorvastatin 40 mg tablet 20 mg PO HS Cholesterol 09/30/18 01/11/21 History levothyroxine 100 mcg tablet 100 mcg PO DAILY thyroid 09/30/18 01/10/21 History metformin 500 mg tablet,extended 1,000 mg PO BIDWM Diabetes 09/30/18 01/11/21 History release 24hr tamsulosin 0.4 mg capsule 0.4 mg PO HS prostate 09/30/18 01/10/21 History venlafaxine 75 mg capsule,extended 225 mg PO HS MOOD 03/27/19 01/11/21 History release 24 hr acetaminophen 325 mg tablet 650 mg PO TIDP PRN As Needed For 07/25/19 01/11/21 History Fever Or Pain aspirin 81 mg chewable tablet 81 mg PO DAILY HEART HEALTH 07/25/19 01/10/21 History cholecalciferol (vitamin D3) 25 1,000 unit PO DAILY Diet supplement 07/25/19 01/10/21 History mcg (1,000 unit) capsule magnesium oxide 400 mg (241.3 mg 400 mg PO DAILY Diet supplement 07/25/19 01/10/21 History magnesium) tablet sennosides 8.6 mg-docusate sodium 1 each PO BID CONSTIPATION 07/25/19 01/10/21 History 50 mg tablet metoprolol tartrate 25 mg tablet 12.5 mg PO BID Hypertension 01/11/21 01/11/21 History New Prescriptions to Start Prescriptions: Allergies Allergy/AdvReac Type Severity Reaction Status Date / Time No Known Allergies Allergy Verified 08/27/19 14:39 Exam Data for Last 24 hours Vital signs and Labs for Last 24 Hours: Temp Pulse Resp BP Pulse Ox 101.2 F H 106 H 18 91/54 L 98 11/30/22 11:11 11/30/22 13:01 11/30/22 11:11 11/30/22 13:01 11/30/22 13:01 Laboratory Results - last 24 hr 11/30/22 11:19: VBG pH 7.43 H, VBG pCO2 35.3, VBG pO2 117.6 H, VBG HCO3 22.7 L, VBG Total CO2 23.8, VBG O2 Saturation 98.8 H, VBG Base Excess -1.7 11/30/22 11:20: WBC 14.5 H, RBC 4.08 L, Hgb 12.7 L, Hct 41.1 L, MCV 100.7 H, MCH 31.2, MCHC 31.0 L, RDW 14.2, Plt Count 248, MPV 9.5, Neut % (Auto) 89.3 H, Lymph % (Auto) 6.3 L, [place] % (Auto) 3.9, Eos % (Auto) 0.1, Baso % (Auto) 0.4, Neut # (Auto) 13.0 H, Lymph # (Auto) 0.9, [place] # (Auto) 0.6, Eos # (Auto) 0.0, Baso # (Auto) 0.1 11/30/22 11:20: Sodium 137, Potassium 4.8,
--- NOTE | 2022-11-30 14:00 | PC.NURSE ---
DR SYLVESTER HERE TO SEE PT
[2022-11-30 14:09] LABS: Lymphocytes % 10 % (10-50); Monocytes % 5 % (2-9); Neutrophils % 85 % (42-76); Total Cells Counted 100
[2022-11-30 14:10] LABS: Platelet Estimate Normal
[2022-11-30 14:11] LABS: Macrocytosis 1+
[2022-11-30 14:26] LABS: Hemoglobin A1C 6.3 % (4.0-6.0)
--- NOTE | 2022-11-30 18:11 | PC.NURSE ---
report given to marycarmen bella
[2022-11-30 18:27] LABS: Thyroid Stimulating Hormone 3.07 uIU/mL (0.465-4.68)
--- NOTE | 2022-11-30 19:39 | CT_ITS ---
PROCEDURE INFORMATION: Exam: CT Abdomen And Pelvis Without Contrast Exam date and time: 11/30/2022 7:51 PM Age: 77 years old Clinical indication: Abdominal pain; Additional info: Suspected kidney stone, infection TECHNIQUE: Imaging protocol: Computed tomography of the abdomen and pelvis without contrast. Radiation optimization: All CT scans at this facility use at least one of these dose optimization techniques: automated exposure control; mA and/or kV adjustment per patient size (includes targeted exams where dose is matched to clinical indication); or iterative reconstruction. COMPARISON: CT ABDOMEN PELVIS WO CON 01/10/2021 3:11 PM FINDINGS: Liver: Normal. No mass. Gallbladder and bile ducts: Normal. No calcified stones. No ductal dilation. Pancreas: Normal. No ductal dilation. Spleen: Normal. No splenomegaly. Adrenal glands: Normal. No mass. Kidneys and ureters: There are 2 large stones in the left renal pelvis, the larger measuring 16 mm in the smaller measuring 10 mm. These appear similar to previous. There is mild left hydroureteronephrosis, increased from the prior study. No distal ureteral stone seen on either side. Stable mild bilateral perinephric fatty stranding noted. Stomach and bowel: Unremarkable. No obstruction. No mucosal thickening. Appendix: No evidence of appendicitis. Intraperitoneal space: Unremarkable. No free air. No significant fluid collection. Vasculature: Moderate diffuse atherosclerotic calcification of the aorta and iliac arteries noted. No evidence of aneurysm. Lymph nodes: Unremarkable. No enlarged lymph nodes. Urinary bladder: Unremarkable as visualized. Reproductive: Unremarkable as visualized. Bones/joints: Unremarkable. No acute fracture. Soft tissues: Unremarkable. IMPRESSION: 1. Two stable left renal pelvis stones measuring 16 mm and 10 mm. Interval development of mild left hydroureteronephrosis without evidence of distal ureteral stone. 2. Degenerative changes of the lower spine
--- NOTE | 2022-11-30 19:57 | PC.NURSE ---
pt pulled off male purwick. This RN also escorted pt to radiology for ct scan with graduate teaching associate.
--- NOTE | 2022-11-30 20:09 | PC.NURSE ---
pt arrived to floor at this time
[2022-11-30 21:10] LABS: POC Glucose,Bedside 93 (70-110)
[2022-12-01 04:00] VITALS: BP 118/71; PULSE 88; RESP 20; TEMP 37.1; O2SAT 100; BMI 23.7
[2022-12-01 04:15] LABS: Microscopic, Urine URINE MICROSCOPIC (MICROSCOPIC)
[2022-12-01 04:16] LABS: Appearance,Urine CLEAR (Clear); Bilirubin,Urine Negative (Negative); Blood, Urine 2+ (Negative); Color,Urine YELLOW (Yellow); Glucose,Urine (UA) Negative (Negative); Ketones,Urine Negative (Negative); Leukocyte Esterase,Urine Negative (Negative); Nitrate,Urine Negative (Negative); PH,Urine 5.5 (5.0-8.5); Protein,Urine 1+ (Negative); Specific Gravity, Urine >= 1.030 (1.005-1.030); Urobilinogen,Urine 0.2 EU/dl (0.2)
[2022-12-01 04:29] LABS: Amorphous Sediment,Urine 1+ /lpf
--- NOTE | 2022-12-01 05:34 | PC.NURSE ---
Patient is alert but confused. IV fluids running at 125. Condom cath placed on patient and is working well. Able to obtain a UA. Patient was febrile whenever he was first brought up to the floor but tylenol was given and patient is now afebrile. No complaints of pain through the night.
[2022-12-01 06:09] LABS: POC Glucose,Bedside 82 (70-110)
[2022-12-01 07:53] LABS: Basophils % 0.8 % (0.1-2.0); Eosinophils # 0.1 K/mm3 (0.0-0.4); Eosinophils % 0.9 % (0.1-12.0); Hematocrit 33.3 % (42.0-52.0); Lymphocytes # 0.8 K/mm3 (0.7-4.5); Lymphocytes % 14.7 % (10-50); Mean Corpuscular HGB Conc 32.4 g/dL (31.8-35.4); Mean Corpuscular Hemoglobin 31.6 pg (27.0-31.2); Mean Corpuscular Volume 97.5 fl (80-94); Mean Platelet Volume 8.5 fl (7.4-10.4); Monocytes # 0.3 K/mm3 (0.1-1.0); Monocytes % 5.4 % (1.7-9.3); Neutrophils # 4.3 K/mm3 (1.8-7.8); Neutrophils % 78.3 % (37.0-80.0); Platelet Count 169 K/mm3 (142-424); Red Blood Count 3.41 M/mm3 (4.60-6.20); White Blood Count 5.5 K/mm3 (4.8-10.8)
[2022-12-01 08:00] VITALS: BP 131/71; PULSE 92; RESP 20; TEMP 36.8; O2SAT 98
[2022-12-01 08:03] LABS: Alanine Aminotransferase 14 U/L (12-78); Albumin Level 3.2 g/dl (3.5-5.0); Albumin/Globulin Ratio 1.1 (1.1-1.8); Alkaline Phosphatase 67 U/L (38-126); Anion Gap 9.9 mEq/L (5-15); Aspartate Amino Transferase 25 U/L (17-59); Bilirubin,Total 0.4 mg/dl (0.2-1.3); Blood Urea Nitrogen 35 mg/dl (9-20); Calcium 8.7 mg/dl (8.4-10.2); Carbon Dioxide 26 mmol/L (22.0-30.0); Chloride 104 mmol/L (98-107); Creatinine Clearance Estimated 39 mL/min (50-200); Estimated Glomerular Filt Rate 37 ml/min (>60); GFR (African American) 44 ML/MIN (>60); Globulin 2.9 g/dL (1.3-3.2); Glucose 86 mg/dl (74-100); Magnesium 1.5 mg/dl (1.6-2.3); Potassium 3.9 mmoL/L (3.5-5.1); Sodium 136 mmol/L (136-145); Total Protein,Serum 6.1 g/dl (6.3-8.2)
[2022-12-01 08:25] LABS: Hemoglobin 10.8 g/dL (14.1-18.0)
[2022-12-01 11:42] LABS: POC Glucose,Bedside 96 (70-110)
--- NOTE | 2022-12-01 13:09 | HMH.PHAINT1 ---
Pharmacy Intervention Comments: MEDICATION RECONCILIATION COMPLETE USING MAR FROM [facility].
[2022-12-01 16:00] VITALS: BP 156/92; PULSE 97; RESP 20; TEMP 36.8; O2SAT 99
--- NOTE | 2022-12-01 16:18 | EXP.ACUTE.PN ---
Subjective *Date: 12/01/22 *Time: 16:18 Interval history: No acute events overnight. Stable on room air. Tolerating p.o. intake. Able to get a catheter in place last night. Urine sent for culture and urinalysis. Patient more alert and interactive today on exam. Denies chest pain, nausea, vomiting, diarrhea. Medical Exam Vital signs and Labs for Last 24 Hours: Vital Signs Temp Pulse Pulse Resp BP BP Pulse Ox 12/01/22 08:00 98.2 F 92 H 20 131/71 98 12/01/22 04:00 98.8 F 88 20 118/71 100 11/30/22 20:11 100.1 F H 99 H 20 145/80 H 99 11/30/22 20:00 98 F 82 18 105/58 L 11/30/22 19:01 85 101/57 L 96 11/30/22 18:31 85 127/81 98 11/30/22 18:00 87 16 124/71 98 11/30/22 17:31 89 16 117/72 100 11/30/22 16:30 85 14 121/73 100 Intake and Output 12/01/22 12/01/22 12/01/22 07:59 15:59 23:59 Intake Total 0 / 240 240 / 240 Output Total 0 / 0 Balance 0 / 240 240 / 240 Intake: Intake, Oral Amount 0 / 240 240 / 240 Output: Output, Urine Amount 0 / 0 Other: Number of Unmeasured Voids 1 Weight 81.2 kg Patient Weight 12/01/22 23:59 Weight 81.2 kg Laboratory Results - last 24 hr 11/30/22 11:20: TSH 3.07 11/30/22 20:36: POC Glucose 93 12/01/22 03:45: Urine Color Yellow, Urine Appearance Clear, Urine pH 5.5, Ur Specific [place] >= 1.030, Urine Protein 1+, Urine Glucose (UA) Negative, Urine Ketones Negative, Urine Blood 2+, Urine Nitrate Negative, Urine Bilirubin Negative, Urine Urobilinogen 0.2, Ur Leukocyte Esterase Negative, Urine RBC 5-10, Urine WBC 5-10, Amorphous Sediment 1+ 12/01/22 05:57: POC Glucose 82 12/01/22 07:30: WBC 5.5 D, RBC 3.41 L, Hgb 10.8 L D, Hct 33.3 L, MCV 97.5 H, MCH 31.6 H, MCHC 32.4, RDW 14.0, Plt Count 169 D, MPV 8.5, Neut % (Auto) 78.3, Lymph % (Auto) 14.7, [place] % (Auto) 5.4, Eos % (Auto) 0.9, Baso % (Auto) 0.8, Neut # (Auto) 4.3, Lymph # (Auto) 0.8, [place] # (Auto) 0.3, Eos # (Auto) 0.1, Baso # (Auto) 0.0 12/01/22 07:30: Sodium 136, Potassium 3.9, Chloride 104, Carbon Dioxide 26, Anion Gap 9.9, BUN 35 H, Creatinine 1.80 H D, Estimated Creat Clear 39, Estimated GFR 37 L, Est GFR ( Amer) 44 L D, Glucose 86 D, Calcium 8.7, Magnesium 1.5 L, Total Bilirubin 0.4, AST 25, ALT 14 D, Alkaline Phosphatase 67, Total Protein 6.1 L, Albumin 3.2 L D, Globulin 2.9, Albumin/Globulin Ratio 1.1 12/01/22 11:35: POC Glucose 96 I & O for Labs for Last 24 Hours: Intake & Output 11/28/22 11/29/22 11/30/22 12/01/22 23:59 23:59 23:59 23:59 Intake Total 240 / 240 Output Total 0 / 0 0 / 0 Balance 0 / 0 240 / 240 Weight 80.195 kg 81.2 kg Constitutional: Present no acute distress, average body habitus, chronically ill appearing and disheveled Head: Present atraumatic and normocephalic Neck: Present normal inspection Respiratory: Present normal respiratory effort; Absent accessory muscle use, rhonchi, wheezes or crackles Cardiac: Present Reg Rate and Rhythm GI: Present soft and normal bowel sounds; Absent distention or tenderness Extremities: Present normal inspection and full ROM Skin: Present intact; Absent erythema Neuro: Present Grossly Intact, alert, awake and moves all extremities Assessment and Plan *Assessment and plan (1) SIRS (systemic inflammatory response syndrome): Status: Acute Category: Medical Code(s): R65.10 - Systemic inflammatory response syndrome (SIRS) of non-infectious origin without acute organ dysfunction (2) [id number]-ml-stylnfs kidney injury: Status: Acute Category: Medical Code(s): N17.9 - Acute kidney failure, unspecified; N18.9 - Chronic kidney disease, unspecified (3) AMS (altered mental status): Status: Acute Category: Medical Code(s): R41.82 - Altered mental status, unspecified (4) Hypothyroidism: Status: Acute Qualifiers: Hypothyroidism type: acquired Qualified Code(s): E03.9 - Hypothyroidism, unspecif
--- NOTE | 2022-12-01 17:46 | PC.NURSE ---
tech note; notified nurse of high blood pressure for 1600 vital signs.
--- NOTE | 2022-12-01 18:43 | PC.NURSE ---
pt alert but confused. has rested in bed for most of shift with head covered with blankets.
[2022-12-01 20:52] VITALS: BMI 23.7
[2022-12-01 21:50] LABS: POC Glucose,Bedside 96 (70-110)
[2022-12-02] VITALS: BP 99/74; PULSE 120; RESP 20; TEMP 37.4; O2SAT 97
[2022-12-02 01:35] LABS: POC Glucose,Bedside 95 (70-110)
[2022-12-02 04:00] VITALS: BMI 24.0
[2022-12-02 05:22] VITALS: BP 100/54; PULSE 74; RESP 20; TEMP 36.7; O2SAT 97
[2022-12-02 05:39] LABS: POC Glucose,Bedside 96 (70-110)
[2022-12-02 08:00] VITALS: BP 116/59; PULSE 81; RESP 17; TEMP 36.9; O2SAT 96
[2022-12-02 08:18] LABS: Basophils % 0.7 % (0.1-2.0); Eosinophils # 0.2 K/mm3 (0.0-0.4); Eosinophils % 2.7 % (0.1-12.0); Hematocrit 33.8 % (42.0-52.0); Hemoglobin 10.8 g/dL (14.1-18.0); Lymphocytes # 1.5 K/mm3 (0.7-4.5); Lymphocytes % 25.4 % (10-50); Mean Corpuscular Hemoglobin 30.6 pg (27.0-31.2); Mean Corpuscular Volume 95.6 fl (80-94); Mean Platelet Volume 8.4 fl (7.4-10.4); Monocytes # 0.4 K/mm3 (0.1-1.0); Neutrophils # 3.7 K/mm3 (1.8-7.8); Neutrophils % 64.3 % (37.0-80.0); Platelet Count 166 K/mm3 (142-424); Red Blood Count 3.53 M/mm3 (4.60-6.20); Red Cell Distribution Width 13.9 % (11.5-17.5); White Blood Count 5.8 K/mm3 (4.8-10.8)
[2022-12-02 08:19] LABS: Chloride 102 mmol/L (98-107); Potassium 4.1 mmoL/L (3.5-5.1); Sodium 136 mmol/L (136-145)
[2022-12-02 08:22] LABS: Anion Gap 11.1 mEq/L (5-15); Blood Urea Nitrogen 33 mg/dl (9-20); Calcium 8.7 mg/dl (8.4-10.2); Carbon Dioxide 27 mmol/L (22.0-30.0); Creatinine Clearance Estimated 42 mL/min (50-200); Estimated Glomerular Filt Rate 39 ml/min (>60); GFR (African American) 47 ML/MIN (>60); Glucose 100 mg/dl (74-100); Magnesium 1.8 mg/dl (1.6-2.3)
[2022-12-02 11:43] LABS: POC Glucose,Bedside 123 (70-110)
--- NOTE | 2022-12-02 12:31 | EXP.ACUTE.PN ---
Subjective *Date: 12/02/22 *Time: 13:29 Interval history: No acute events overnight. Stable on room air. Tolerating p.o. intake. Requiring assistance to mobilize around the room. Very unsteady on his feet. Not at baseline independent level of function that is safe to go back to [facility]. Patient almost fell this morning on rounds when standing him. Denies chest pain, shortness of breath, diarrhea or vomiting. Cannot recall his last bowel movement. Medical Exam Vital signs and Labs for Last 24 Hours: Vital Signs Temp Pulse Resp BP Pulse Ox 12/02/22 08:00 98.4 F 81 17 116/59 L 96 12/02/22 05:22 98.0 F 74 20 100/54 L 97 12/02/22 00:00 99.4 F 120 H 20 99/74 L 97 12/01/22 16:00 98.3 F 97 H 20 156/92 H 99 Intake and Output 12/01/22 12/02/22 12/02/22 23:59 07:59 15:59 Intake Total 240 / 480 0 / 300 300 / 300 Output Total 0 / 0 0 / 0 0 / 0 Balance 240 / 480 0 / 300 300 / 300 Intake: Intake, Oral Amount 240 / 480 0 / 300 300 / 300 Output: Output, Urine Amount 0 / 0 0 / 0 0 / 0 Other: Number of Unmeasured Voids 1 1 1 Weight 81.2 kg 82.2 kg Patient Weight 12/02/22 23:59 Weight 82.2 kg Laboratory Results - last 24 hr 12/01/22 16:29: POC Glucose 96 12/01/22 23:22: POC Glucose 12/02/22 05:32: POC Glucose 12/02/22 07:27: WBC 5.8, RBC 3.53 L, Hgb 10.8 L, Hct 33.8 L, MCV 95.6 H, MCH 30.6, MCHC 32.0, RDW 13.9, Plt Count 166, MPV 8.4, Neut % (Auto) 64.3, Lymph % (Auto) 25.4, [place] % (Auto) 7.0, Eos % (Auto) 2.7, Baso % (Auto) 0.7, Neut # (Auto) 3.7, Lymph # (Auto) 1.5, [place] # (Auto) 0.4, Eos # (Auto) 0.2, Baso # (Auto) 0.0 12/02/22 07:27: Sodium 136, Potassium 4.1, Chloride 102, Carbon Dioxide 27, Anion Gap 11.1, BUN 33 H, Creatinine 1.70 H, Estimated Creat Clear 42, Estimated GFR 39 L, Est GFR ( Amer) 47 L, Glucose 100, Calcium 8.7, Magnesium 1.8 D 12/02/22 11:32: POC Glucose 123 H I & O for Labs for Last 24 Hours: Intake & Output 11/29/22 11/30/22 12/01/22 12/02/22 23:59 23:59 23:59 23:59 Intake Total 480 / 480 300 / 300 Output Total 0 / 0 0 / 0 0 / 0 Balance 0 / 0 480 / 480 300 / 300 Weight 80.195 kg 81.2 kg 82.2 kg Microbiology Reports for the Last 24 Hours: Microbiology 12/01/22 03:45 Urine,Catheterized Urine Culture - Preliminary NO GROWTH AFTER 24 HOURS Constitutional: Present no acute distress, average body habitus, chronically ill appearing and disheveled Head: Present atraumatic and normocephalic Neck: Present normal inspection Respiratory: Present normal respiratory effort; Absent accessory muscle use, rhonchi, wheezes or crackles Cardiac: Present Reg Rate and Rhythm GI: Present soft and normal bowel sounds; Absent distention or tenderness Extremities: Present normal inspection and full ROM Skin: Present intact; Absent erythema Neuro: Present Grossly Intact, alert, awake and moves all extremities Assessment and Plan *Assessment and plan (1) SIRS (systemic inflammatory response syndrome): Status: Acute Category: Medical Code(s): R65.10 - Systemic inflammatory response syndrome (SIRS) of non-infectious origin without acute organ dysfunction (2) Husom-th-bgnvpqt kidney injury: Status: Acute Category: Medical Code(s): N17.9 - Acute kidney failure, unspecified; N18.9 - Chronic kidney disease, unspecified (3) AMS (altered mental status): Status: Acute Category: Medical Code(s): R41.82 - Altered mental status, unspecified (4) Hypothyroidism: Status: Acute Qualifiers: Hypothyroidism type: acquired Qualified Code(s): E03.9 - Hypothyroidism, unspecified Category: Medical Code(s): E03.9 - Hypothyroidism, unspecified (5) Diabetes 1.5, managed as type 2: Status: Acute Category: Medical Code(s): E10.9 - Type 1 diabetes mellitus without complications (6) Schizophrenia: Status: Acute Category
[2022-12-02 15:17] VITALS: BP 141/75; PULSE 75; RESP 16; TEMP 36.9; O2SAT 97
[2022-12-02 17:38] LABS: POC Glucose,Bedside 108 (70-110)
[2022-12-02 20:00] VITALS: BP 109/70; PULSE 84; RESP 18; TEMP 37.1; O2SAT 96
[2022-12-03 04:00] VITALS: BP 105/58; PULSE 77; RESP 18; TEMP 37; O2SAT 96; BMI 21.8
[2022-12-03 04:24] LABS: POC Glucose,Bedside 122 (70-110)
--- NOTE | 2022-12-03 06:09 | PC.NURSE ---
patient had no issues through the night. on room air. getting up with 1 assist to go to the bathroom
[2022-12-03 06:21] LABS: POC Glucose,Bedside 100 (70-110)
[2022-12-03 06:38] LABS: Basophils % 0.6 % (0.1-2.0); Eosinophils # 0.3 K/mm3 (0.0-0.4); Eosinophils % 4.5 % (0.1-12.0); Hematocrit 32.2 % (42.0-52.0); Hemoglobin 10.8 g/dL (14.1-18.0); Lymphocytes # 1.6 K/mm3 (0.7-4.5); Lymphocytes % 25.4 % (10-50); Mean Corpuscular HGB Conc 33.4 g/dL (31.8-35.4); Mean Corpuscular Hemoglobin 31.5 pg (27.0-31.2); Mean Corpuscular Volume 94.3 fl (80-94); Mean Platelet Volume 8.6 fl (7.4-10.4); Monocytes # 0.4 K/mm3 (0.1-1.0); Neutrophils # 3.8 K/mm3 (1.8-7.8); Neutrophils % 62.5 % (37.0-80.0); Platelet Count 178 K/mm3 (142-424); Red Blood Count 3.42 M/mm3 (4.60-6.20); White Blood Count 6.1 K/mm3 (4.8-10.8)
[2022-12-03 06:48] LABS: Anion Gap 11.2 mEq/L (5-15); Blood Urea Nitrogen 39 mg/dl (9-20); Carbon Dioxide 25 mmol/L (22.0-30.0); Chloride 104 mmol/L (98-107); Creatinine Clearance Estimated 40 mL/min (50-200); Estimated Glomerular Filt Rate 42 ml/min (>60); GFR (African American) 51 ML/MIN (>60); Glucose 99 mg/dl (74-100); Potassium 4.2 mmoL/L (3.5-5.1); Sodium 136 mmol/L (136-145)
--- NOTE | 2022-12-03 07:36 | EXP.DC.SUM ---
General Admission date:: 11/30/22 Discharge date: 12/03/22 HPI HPI HPI: ?Mr. Bond is a 77-year-old gentleman who resides at personal long-term in [facility]. Has a history of schizophrenia, diabetes, hypothyroidism. Patient was brought to the ER via EMS for concern for worsening altered mental status. History obtained from nursing facility and ER, patient unable to give review of systems or history. Reportedly, starting this morning he would not answer questions which was inappropriate or abnormal for him. He just says I do not know . Appears more fatigued and ill. Complained of abdomen being tender. No reported falls, trauma, nausea or vomiting, chest pain, shortness of breath. Work-up in ER concerning for sepsis with fever, leukocytosis, HERMILO, and suspected UTI. Patient initiated on empiric antibiotics and medicine contacted for admission. On interview, patient is unable to give any review of systems to me. He appears comfortable in bed. Exam is benign. Numerous attempts at placing catheter by ER were unsuccessful due to obstruction. Still awaiting urine. Hospital Course Hospital Course Hospital Course: 77-year-old male with schizophrenia, diabetes, hypertension, hypothyroidism who presents with concern for UTI and sepsis.? Catheter placed last night.? Able to obtain UA.? Culture still pending.? Symptoms defervescing.? Patient doing better today.? Continuing empiric antibiotics.? Problems addressed as follows: SIRS/sepsis Suspected UTI -Presented with symptoms concerning for SIRS. Had an abnormal UA, no other overt signs of infection. SIRS criteria met with leukocytosis, tachycardia, and fever. No cultures positive during admission. Blood cultures negative. Urine culture negative. Symptoms defervesced rapidly with initiation of antibiotics. We will plan to complete empiric course of antibiotics with cefdinir. Complete per medication recommendation. Of note, patient does have kidney stones noted on CT of abdomen and pelvis. History of kidney stones per chart review. Suspect possible staghorn stones with source of infection. Would recommend referral to urology as an outpatient for further management. Diabetes -A1c 6.3 on admission. Initially treated with sliding scale insulin and fingerstick glucose monitoring. Resumed oral metformin with improvement in kidney function. Hypothyroidism -TSH 3.27, resume levothyroxine. increased to 88 mcg as patient is not optimally controlled HERMILO on CKD -2.3 on admission.? Creatinine improved to 1.8.? Baseline approximately 1.4.? Renally dose medications.? Tolerating p.o. fluids, discontinued maintenance fluids. Schizophrenia -Mood stable, continued home medications. PT/OT evaluated the patient. He is at baseline level of function. Independent and stable on his feet. Stable for discharge back to personal long-term. Exam Data for Last 24 hours Vital signs and Labs for Last 24 Hours: Temp Pulse Resp BP Pulse Ox 98.0 F 74 20 100/54 L 97 12/02/22 05:22 12/02/22 05:22 12/02/22 05:22 12/02/22 05:22 12/02/22 05:22 Laboratory Results - last 24 hr 12/01/22 07:30: WBC 5.5 D, RBC 3.41 L, Hgb 10.8 L D, Hct 33.3 L, MCV 97.5 H, MCH 31.6 H, MCHC 32.4, RDW 14.0, Plt Count 169 D, MPV 8.5, Neut % (Auto) 78.3, Lymph % (Auto) 14.7, [place] % (Auto) 5.4, Eos % (Auto) 0.9, Baso % (Auto) 0.8, Neut # (Auto) 4.3, Lymph # (Auto) 0.8, [place] # (Auto) 0.3, Eos # (Auto) 0.1, Baso # (Auto) 0.0 12/01/22 07:30: Sodium 136, Potassium 3.9, Chloride 104, Carbon Dioxide 26, Anion Gap 9.9, BUN 35 H, Creatinine 1.80 H D, Estimated Creat Clear 39, Estimated GFR 37 L, Est GFR ( Amer) 44 L D, Glucose 86 D, Calcium 8.7, Magnesium 1.5 L, Total Bilirubin 0.4, AST 25, ALT 14 D, Alkaline Phosphatase 67, Total Protein 6.1 L, Albumin 3.2 L D, Globulin 2.9, Albumin/Globulin Ratio 1.1 12/01/22 11:35: POC Glucose 96 12/01/22 16:29: POC Glucose 96 12/01/22 23:22: POC Glucose 95 12/02/22 05:32: POC Glucose 96
[2022-12-03 08:00] VITALS: BP 103/61; PULSE 64; RESP 20; TEMP 36.8; O2SAT 97
--- NOTE | 2022-12-03 09:08 | EXP.PHA.PN ---
Subjective *Date: 12/03/22 *Time: 09:08 Medical Exam Vital signs and Labs for Last 24 Hours: Vital Signs Temp Pulse Resp BP Pulse Ox 12/03/22 08:00 98.3 F 64 20 103/61 L 97 12/03/22 04:00 98.6 F 77 18 105/58 L 96 12/02/22 20:00 98.8 F 84 18 109/70 L 96 12/02/22 15:17 98.4 F 75 16 141/75 H 97 Intake and Output 12/02/22 12/03/22 12/03/22 23:59 07:59 15:59 Intake Total 60 / 460 360 / 360 Output Total 0 / 0 0 / 0 Balance 60 / 460 0 / 360 360 / 360 Intake: Intake, Oral Amount 60 / 460 360 / 360 Output: Output, Urine Amount 0 / 0 0 / 0 Other: Number of Unmeasured Voids 1 1 Weight 74.588 kg Patient Weight 12/03/22 23:59 Weight 74.588 kg Laboratory Results - last 24 hr 12/02/22 11:32: POC Glucose 123 H 12/02/22 17:30: POC Glucose 108 12/02/22 20:01: POC Glucose 122 H 12/03/22 06:02: POC Glucose 100 12/03/22 06:03: WBC 6.1, RBC 3.42 L, Hgb 10.8 L, Hct 32.2 L, MCV 94.3 H, MCH 31.5 H, MCHC 33.4, RDW 14.0, Plt Count 178, MPV 8.6, Neut % (Auto) 62.5, Lymph % (Auto) 25.4, [place] % (Auto) 7.0, Eos % (Auto) 4.5, Baso % (Auto) 0.6, Neut # (Auto) 3.8, Lymph # (Auto) 1.6, [place] # (Auto) 0.4, Eos # (Auto) 0.3, Baso # (Auto) 0.0 12/03/22 06:03: Sodium 136, Potassium 4.2, Chloride 104, Carbon Dioxide 25, Anion Gap 11.2, BUN 39 H, Creatinine 1.60 H, Estimated Creat Clear 40, Estimated GFR 42 L, Est GFR ( Amer) 51 L, Glucose 99, Calcium 9.0 I & O for Labs for Last 24 Hours: Intake & Output 11/30/22 12/01/22 12/02/22 12/03/22 23:59 23:59 23:59 23:59 Intake Total 480 / 480 460 / 460 360 / 360 Output Total 0 / 0 0 / 0 0 / 0 0 / 0 Balance 0 / 0 480 / 480 460 / 460 360 / 360 Weight 80.195 kg 81.2 kg 82.2 kg 74.588 kg Microbiology Reports for the Last 24 Hours: Microbiology 12/01/22 03:45 Urine,Catheterized Urine Culture - Final NO GROWTH AFTER 48 HOURS 11/30/22 12:20 Blood - Other Blood Culture - Preliminary NO GROWTH AFTER 48 HOURS 11/30/22 12:20 Blood - Other Blood Culture - Preliminary NO GROWTH AFTER 48 HOURS The patient's infection will respond to the chosen ABx?: Yes Is the patient receiving the right drug, dose, and route?: Yes Could a more targeted ABx be ordered?: No (WBX WNL, BLD CX - X2, URINE - X1)
--- NOTE | 2022-12-03 09:57 | HMH.PTEV ---
Physical Therapy Evaluation Rehab PT IP Evaluation Start: 12/02/22 12:31 Freq: ONCE Status: Active Protocol: Document 12/03/22 09:00 SPENCER (Rec: 12/03/22 09:57 SPENCER [id number]) Subjective/History History History 77 yowm adm to [facility] with HERMILO, Sepsis, and AMS. He has hx of schizophrenia and resides at a personal skilled nursing. He is generally independent with all mobility per his report. Subjective Subjective Pt has no c/o this am. Rehab PT IP Eval Objective Appearance Patient Behavior Appropriate Patient Orientation Person,Place Difficulty following instructions none Speech Pattern Clear Ambulation Patient Able to Ambulate Yes Ambulation Observation IP General Gait Pattern Observation Wide Based Gait,Shuffling Step Ambulation Distance (feet) 50 Ambulation Assistive Device None Ambulation Ability Supervision/Stand by Balance Ability to Arise Able, uses arms to help Sitting Balance Steady, safe Standing Balance Steady, wide stance Dynamic Sitting Balance Ability Good Dynamic Standing Balance Ability Fair Transfers Bed Transfer Ability Supervision/Stand by Chair Transfer Ability Supervision/Stand by Sit to Stand Bed Transfer Ability Supervision/Stand by Sit to Stand Chair Transfer Ability Supervision/Stand by Rehab PT IP prob,goals,plan Problems Date of Evaluation: 12/03/22 Discharge Plan PT Discharge Plan Pt currently appears to be at baseline for all mobility and is appropriate to return to prior living situation once medically stable for d/c. G -code Required No Eval Complexity Eval Charge Codes 80853 - Moderate Complexity PHYSICIAN CERTIFICATION: I certify the specified therapy services for Geo Bond are required, authorized, and reviewed every 30 days.
--- NOTE | 2022-12-03 10:03 | HMH.OTEV ---
OT Inpatient Evaluation Rehab OT IP Evaluation Start: 12/02/22 12:31 Freq: ONCE Status: Active Protocol: Document 12/03/22 09:55 ZAID (Rec: 12/03/22 10[id number] Rehab OT IP Assessment Subjective History Pt oriented x 2 on arrival. Pt agreeable to engage in therapy evaluation. Pt was amitted on 11/30/22 due to AMS. Prior to being in the hosptial, pt lived at [facility] nursing home. Pt claims he was independent with all ADLS such as dressing, bathing, and feeding. However , he was dependent upon staff to complete all IADLS. Pt does not use any type of AE during ambulation or ADLs. Pt has a past medical history of schizophrenia, diabetes, hypothyroidism. Subjective I can't really remember. Objective Patient Orientation Person,Birthday Upper Extremity Gross ROM WFL Bed Mobility bed mobility-scooting,bed mobility - supine/sit,bed mobility - rolling Assist Level Supervision/Stand by Transfer Training Sit/Stand Transfer Assist Level Contact Guard/Hand Hold Feeding Ability Independent Lower Body Dressing Ability Standby Assistance Overall Commode/Toilet Transfer Ability Standby Assistance Commode/Toilet Transfer Technique Sit to/from Ambulatory Rehab OT IP prob,goals,plan Problems Date of Evaluation: 12/03/22 Rehab Potential Rehab Potential Innapropriate for Skilled Therapy Discharge Plan OT Discharge Plan At this time, pt appears to be at his baseline with functional transfers and ADL independence. Pt can [facility] back to [facility] once medically stable per physician . Eval Complexity Eval Charge Codes 87232 - Low Complexity G Codes G -code Required No PHYSICIAN CERTIFICATION: I certify the specified therapy services for Geo Bond are required, authorized, and reviewed every 30 days.
[2022-12-03 11:13] LABS: POC Glucose,Bedside 94 (70-110)
--- NOTE | 2022-12-03 11:55 | CARE MANAGER ---
Patient evaluated by PT/OT this morning, who states that patient is appropriate for discharging back to [facility]. Sangeetha notified, and she is planning to come assess the patient today. CM will continue to follow.
--- NOTE | 2022-12-03 13:16 | CARE MANAGER ---
Patient discharging today, back to [facility]. [facility] called and transportation set up for today.
[2022-12-03 13:51] LABS: Vancomycin,Trough 11.3 ug/mL (5.0-10.0)
--- NOTE | 2022-12-04 13:53 | CARE MANAGER ---
Contacted David Quiñonez related to hospital discharge. They state he is doing well and Dr. Ramsey will see him when he is there next time. WOLFGANG Elliott
== END 2022-12-03 13:40 | disposition home or self-care (01) ==
LOC: ER 14:54 → 2ND 16:07
PROVIDERS: Admitting Provider Internal Medicine Adolescent Medicine; Emergency Provider Student in an Organized Health Care Education/Training Program; Visit Provider Internal Medicine Adolescent Medicine
DX: N17.9 Acute kidney failure, unspecified (principal); N18.9 Chronic kidney disease, unspecified; E03.9 Hypothyroidism, unspecified; F20.9 Schizophrenia, unspecified; E11.9 Type 2 diabetes mellitus without complications; Z79.84 Long term (current) use of oral hypoglycemic drugs; Z20.822 Contact with and (suspected) exposure to COVID-19; Z79.899 Other long term (current) drug therapy
CPT/HCPCS: G0378; 36415; 70450; 71045; 74176; 80048; 80053; 80202; 81001; 82803; 82962; 83036; 83605; 83735; 84145; 84443; 85007; 85025; 86140; 87040; 87086; 93005; 97162; 97165; 99285; C9803; J3475; U0003; U0005

== ENCOUNTER 2024-12-12 05:40 | Emergency (ER) | payer MEDICARE, MEDICAID, OTHER, SELFPAY ==
[2024-12-12 05:36] VITALS: BP 140/86; PULSE 76; O2SAT 83
--- NOTE | 2024-12-12 05:38 | XR_ITS ---
PROCEDURE INFORMATION: Exam: XR Right Shoulder Exam date and time: 12/12/2024 5:52 AM Age: 79 years old Clinical indication: Pain; Shoulder; Right; Additional info: Pain right shoulder 3d TECHNIQUE: Imaging protocol: Radiologic exam of the right shoulder. Views: 2 or more views. COMPARISON: CR XR CHEST PORTABLE 11/30/2022 11:57 AM FINDINGS: Bones/joints: High-riding humeral head. Severe glenohumeral and acromioclavicular joint arthritis. Soft tissues: Normal. IMPRESSION: 1. High-riding humeral head which is new from 11/30/2022. This suggest likely high-grade superior rotator cuff injury/tear. 2. Severe osteoarthritis.
[2024-12-12 05:39] VITALS: BP 140/86; PULSE 100; RESP 20; TEMP 37.3; O2SAT 96; BMI 20.9
--- NOTE | 2024-12-12 05:41 | ED_ITS ---
Discharge Plan Disposition Patient Disposition: Home, Self-Care Condition: Good Chief Complaint: PAIN Prescriptions Prescriptions: New lidocaine 5 % adhesive patch,medicated See Rx Instructions .ROUTE .COMPLEX Qty: 15 0RF Rx Instructions: Apply to most painful area for 12 hours. Remove and leave off for 12 hours before using a new patch. No Action triamcinolone acetonide 0.5 % cream See Rx Instructions .ROUTE .COMPLEX Qty: 15 10RF Dose Instruction: APPLY TOPICALLY TO AFFECTED AREA(S) TWICE DAILY NEEDED Rx Instructions: APPLY TOPICALLY TO AFFECTED AREA(S) TWICE DAILY NEEDED tamsulosin 0.4 MG capsule 0.4 mg PO HS allopurinol 300 MG tablet 300 mg PO DAILY acetaminophen 325 MG tablet 650 mg PO TIDP PRN (Reason: As Needed For Fever Or Pain) magnesium oxide 400 MG tablet 400 mg PO DAILY cholecalciferol (vitamin D3) 1,000 UNIT capsule 1,000 unit PO DAILY aspirin 81 MG tablet,chewable 81 mg PO DAILY sennosides-docusate sodium 1 EACH tablet 1 each PO BID venlafaxine 75 MG capsule,extended release 24hr 225 mg PO HS metoprolol tartrate 25 MG tablet 12.5 mg PO BID metformin 500 mg Tablet 500 mg PO BIDWMEAL atorvastatin 20 mg Tablet 20 mg PO HS ondansetron HCl 4 mg Tablet 4 mg PO Q6HP PRN (Reason: NAUSEA/VOMITING) levothyroxine [Synthroid] 88 mcg Tablet 88 mcg PO DAILYDM 30 Days Qty: 30 0RF cefdinir 300 mg capsule 300 mg PO BID 3 Days Qty: 6 0RF Activity Restrictions/Add. Instructions Additional Instructions/Restrictions: Geo was evaluated in the ER and is appropriate for discharge at this time. He should continue his home medications. Lidocaine patches have been prescribed for him. They should be used for 12 hours on, 12 hours off. Please remove the lidocaine patch that is currently on his right shoulder at 6 PM. He should follow-up with his primary care doctor for reevaluation and return to the ER with new, worsening, or otherwise concerning symptoms. Clinical Impressions Clinical Impression: Pain in right shoulder Print Language Print Language: Trinidadian Discharge ED Provider: Clemente Dia General Adult HPI <Yannick Garcia MD - Last Filed: 12/12/24 06:58> General Chief complaint: PAIN Stated complaint: Extremity Time Seen by Provider: 12/12/24 05:45 History of Present Illness HPI narrative: 79-year-old male who resides at [facility] presents via EMS for concerns of right arm pain. Reportedly [facility] caretakers noticed that patient has been holding his right arm close against his body for the last 3 days. They report he does not go outside and typically stays in his room. He has not had any falls that they know of, patient does not report any falls. He is limitedly verbal according to the facility. He has a history of CVA, diabetes, renal insufficiency, schizophrenia. Patient reports he does not have any pain right now, but when touching the arm, he obviously winces and has pain with palpation of the shoulder. He states he does not know why the shoulder hurts. He knows who he is, his date of and other personal information but is otherwise not oriented. Reportedly this is baseline for him. He denies chest pain, difficulty breathing, cough, congestion, abdominal pain, vomiting, diarrhea, or pain elsewhere. Related Data Home Medications ?Medication ?Instructions ?Recorded ?Confirmed allopurinol 300 mg tablet 300 mg PO DAILY gout 09/30/18 11/30/22 tamsulosin 0.4 mg capsule 0.4 mg PO HS prostate 09/30/18 11/30/22 venlafaxine 75 mg capsule,extended 225 mg PO HS MOOD 03/27/19 11/30/22 release 24 hr acetaminophen 325 mg tablet 650 mg PO TIDP PRN As Needed For 07/25/19 11/30/22 Fever Or Pain aspirin 81 mg chewable tablet 81 mg PO DAILY HEART HEALTH 07/25/19 11/30/22 cholecalciferol (vitamin D3) 25 1,000 unit PO DAILY Diet supplement 07/25/19 11/30/22 mcg (1,000 unit) capsule magnesium oxide 400 mg (241.3 mg 400 mg PO DAILY Diet supplement 07/25/19 11/30/22 magnesium) tablet sennosides 8.6 mg-docusate sodium 1 each PO BID CONSTIPATION 07/25/19 11/30/22 50 mg tablet metoprolol tartrate 25 mg tablet 12.5 mg PO BID Hypertension 01/11/21 11/30/22 atorvastatin 20 mg tablet 20 mg PO HS Cholesterol 12/01/22 12/01/22 metformin 500 mg tablet 500 mg PO BIDWMEAL Diabetes 12/01/22 12/01/22 ondansetron HCl 4 mg tablet 4 mg PO Q6HP PRN NAUSEA/VOMITING 12/01/22 12/01/22 Previous Rx's ?Medication ?Instructions ?Recorded levothyroxine 88 mcg tablet 88 mcg PO DAILYDM 30 days #30 tabs 12/02/22 (Synthroid) cefdinir 300 mg capsule 300 mg PO BID 3 days #6 caps 12/03/22 triamcinolone acetonide 0.5 % See Rx Instructions .Route 09/12/23 topical cream .COMPLEX #15 grams lidocaine 5 % topical patch See Rx Instructions topical 12/12/24 .COMPLEX #15 ea Allergies Allergy/AdvReac Type Severity Reaction Status Date / Time No Known Allergies Allergy Verified 08/27/19 14:39 PFSH <Yannick Garcia MD - Last Filed: 12/12/24 06:58> [facility] Disclaimer: The information contained in this section may have been updated after the patient was seen, as this information can be updated by other users. Medical History (Updated 12/12/24 @ 06:23 by Yannick Garcia MD) Hypertension Schizo affective schizophrenia Dysphagia Diabetes Diabetes Hypothyroid Anemia CVA (cerebral vascular accident) Social History (Updated 11/30/22 @ 21:08 by Uma Baron RN) Smoking Status: Never smoker second hand exposure: No alcohol intake: never substance use type: other current occupational status: disabled Travel in the last 8 weeks: None household members: other housing: assisted living facility current occupational exposures/hazards: No caffeine: Yes Other Medical History Have you received the Flu Vaccine for this season: No Have you received the Pneumonia Vaccine: No <Yannick Garcia MD - Last Filed: 12/12/24 06:58> ROS Obtained: Yes Systems reviewed as appropriate & no additional complaints except as documented Per HPI Physical Exam <Yannick Garcia MD - Last Filed: 12/12/24 06:58> General General appearance: alert and in no apparent distress Head Head exam: atraumatic and normocephalic Eye Eye exam: Present PERRL and EOMI ENT ENT exam: Present mucous membranes moist Neck Neck exam: Present normal inspection and full ROM Chest Chest inspection: Present symmetric chest wall rise Respiratory Respiratory exam: Present normal lung sounds bilaterally; Absent respiratory distress, wheezes or stridor Cardiovascular Cardiovascular exam: Present regular rate, normal rhythm and other (2+ pulses throughout) Abdominal Exam Abdominal exam: Present soft; Absent distention or tenderness Extremities Exam Extremities exam: Present full ROM and tenderness (Tenderness to palpation of the anterior and posterior aspects of the right shoulder without crepitus, d eformity, bruising, or swelling, no other tenderness identified on exam); Absent edema or joint swelling Neurological Exam Neurological exam: Present alert; Absent oriented X3 (Oriented to self and birthday, disoriented to location, year) or motor sensory deficit Psychiatric Psychiatric exam: Present normal affect and normal mood Skin Skin exam: Present warm and dry Medical Decision Making <Yannick Garcia MD - Last Filed: 12/12/24 06:58> Medical Records Medical records reviewed: Yes I reviewed the patient's medical records. Screening: Per USPSTF and CDC recommendations, given the prevalence of disease in our region, it is our hospital?s policy to screen for HIV and viral Hepatitis for all patients aged 18 and over and those with ongoing risk factors. MR Comment: David polk reported that patient ambulates well, however he has a documented history of unsteady gait in our system. Review of discharge summary from November 2022 Demonstrates patient was admitted for altered mental status. Patient answered most questions with I do not know at that time. He had a suspected UTI. He was evaluated by physical therapy and Occupational Therapy who reported he was independent and stable on his feet. Jermaine Inquiry Pt receiving controlled substance: No Vital Signs: 12/12/24 05:36 12/12/24 05:39 12/12/24 06:01 Temperature 99.1 F Temperature Source Oral Pulse Rate 76 Pulse Rate [Left Brachial] 100 H Respiratory Rate 20 Blood Pressure 140/86 114/49 L Blood Pressure [Left Arm] 140/86 Blood Pressure Mean 70 Blood Pressure Mean [Left Arm] 104 Blood Pressure Source [Left Arm] Automatic Cuff 02 Sat by Pulse Oximetry 83 L 96 Oxygen Delivery Method Room Air 12/12/24 06:30 Temperature Temperature Source Pulse Rate Pulse Rate [Left Brachial] Respiratory Rate Blood Pressure 153/96 H Blood Pressure [Left Arm] Blood Pressure Mean 103 Blood Pressure Mean [Left Arm] Blood Pressure Source [Left Arm] 02 Sat by Pulse Oximetry Oxygen Delivery Method Orders (Tests/Meds): ED MEDICATIONS Discontinued Medications Generic Name Dose Route Start Last Admin Trade Name Freq PRN Reason Stop Dose Admin Ibuprofen 400 mg 12/12/24 05:48 12/12/24 05:50 Ibuprofen 200mg/10ml Susp Udc PO 12/12/24 05:49 400 mg ONCE ONE Administration Lidocaine 1 each 12/12/24 05:38 12/12/24 05:49 Lidocaine 5% Transdermal Patch TP 12/12/24 05:39 1 each ONCE ONE Administration ORDERS Category Date Time Status Hip XR right minimum 2 views [XR hip RT 2-3V w/pelvis] Exams 12/12/24 05:58 Taken Stat Shoulder XR right miminum 2 views [XR shoulder RT min Exams 12/12/24 05:38 Taken 2V] Stat HIV Combo Routine Lab 12/12/24 05:43 Ordered Hepatitis C Ab Qual. W/ RFX Routine Lab 12/12/24 05:43 Ordered Medical Decision Narrative: In summary, this 79-year-old male with comorbidities described in the HPI presents to the emergency department today with right shoulder pain. On initial evaluation patient is hemodynamically stable, afebrile, patient is a poor historian but there does not appear to be traumatic injury however patient has tenderness to both the anterior and posterior aspects of the right shoulder without crepitus, deformity, or swelling. Neurovascularly intact distally. No other findings of injury on exam with thorough palpation throughout the MSK system. Cardiopulmonary exam benign, no infectious symptoms. Differential diagnosis includes but is not limited to fracture, dislocation, degenerative changes, rotator cuff injury, among others. Based on these concerns, I ordered x-ray right shoulder. Lidocaine patch was applied to the patient's shoulder for symptom relief. He also received a dose of ibuprofen. Due to history of dysphagia, this was administered in solution form. X-ray right shoulder personally interpreted demonstrates significant degenerative changes but no acute osseous injury. Radiology read pending. During x-rays, patient was rolled onto his side. He winced and complained of his right hip. He did not complain of this during exam and I do not appreciate traumatic injury. He is neurovascularly intact and does not have obvious tenderness to palpation. X-ray of the hip was added to workup. X-ray hip was personally interpreted and demonstrates no injury on my personal interpretation, radiology read pending. On reassessment patient continues to be stable. I prescribed lidocaine patches for outpatient management in anticipation of patient likely being discharged. Patient handed off to Dr. Dia at physician shift change for further management and disposition. <Clemente Dia MD - Last Filed: 12/12/24 07:13> Vital Signs: 12/12/24 05:36 12/12/24 05:39 12/12/24 06:01 Temperature 99.1 F Temperature Source Oral Pulse Rate 76 Pulse Rate [Left Brachial] 100 H Respiratory Rate 20 Blood Pressure 140/86 114/49 L Blood Pressure [Left Arm] 140/86 Blood Pressure Mean 70 Blood Pressure Mean [Left Arm] 104 Blood Pressure Source [Left Arm] Automatic Cuff 02 Sat by Pulse Oximetry 83 L 96 Oxygen Delivery Method Room Air 12/12/24 06:30 Temperature Temperature Source Pulse Rate Pulse Rate [Left Brachial] Respiratory Rate Blood Pressure 153/96 H Blood Pressure [Left Arm] Blood Pressure Mean 103 Blood Pressure Mean [Left Arm] Blood Pressure Source [Left Arm] 02 Sat by Pulse Oximetry Oxygen Delivery Method Orders (Tests/Meds): ED MEDICATIONS Discontinued Medications Generic Name Dose Route Start Last Admin Trade Name Freq PRN Reason Stop Dose Admin Ibuprofen 400 mg 12/12/24 05:48 12/12/24 05:50 Ibuprofen 200mg/10ml Susp Udc PO 12/12/24 05:49 400 mg ONCE ONE Administration Lidocaine 1 each 12/12/24 05:38 12/12/24 05:49 Lidocaine 5% Transdermal Patch TP 12/12/24 05:39 1 each ONCE ONE Administration ORDERS Category Date Time Status Hip XR right minimum 2 views [XR hip RT 2-3V w/pelvis] Exams 12/12/24 05:58 Taken Stat Shoulder XR right miminum 2 views [XR shoulder RT min Exams 12/12/24 05:38 Taken 2V] Stat HIV Combo Routine Lab 12/12/24 05:43 Ordered Hepatitis C Ab Qual. W/ RFX Routine Lab 12/12/24 05:43 Ordered Medical Decision Narrative: In summary, this 79-year-old male with comorbidities described in the HPI presents to the emergency department today with right shoulder pain. On initial evaluation patient is hemodynamically stable, afebrile, patient is a poor historian but there does not appear to be traumatic injury however patient has tenderness to both the anterior and posterior aspects of the right shoulder without crepitus, deformity, or swelling. Neurovascularly intact distally. No other findings of injury on exam with thorough palpation throughout the MSK system. Cardiopulmonary exam benign, no infectious symptoms. Differential diagnosis includes but is not limited to fracture, dislocation, degenerative changes, rotator cuff injury, among others. Based on these concerns, I ordered x-ray right shoulder. Lidocaine patch was applied to the patient's shoulder for symptom relief. He also received a dose of ibuprofen. Due to history of dysphagia, this was administered in solution form. X-ray right shoulder personally interpreted demonstrates significant degenerative changes but no acute osseous injury. Radiology read pending. During x-rays, patient was rolled onto his side. He winced and complained of his right hip. He did not complain of this during exam and I do not appreciate traumatic injury. He is neurovascularly intact and does not have obvious tenderness to palpation. X-ray of the hip was added to workup. X-ray hip was personally interpreted and demonstrates no injury on my personal interpretation, radiology read pending. On reassessment patient continues to be stable. I prescribed lidocaine patches for outpatient management in anticipation of patient likely being discharged. Patient handed off to Dr. Dia at physician shift change for further management and disposition. Ifeoma: I assumed primary responsibility for this patient after signout from previous physician. I independently interpreted patient's imaging. No acute fracture of the right shoulder or right hip. General degenerative disease. On my independent evaluation, patient has no acute complaints. Because patient at baseline without signs or symptoms of clinical decompensation, deemed appropriate for discharge. Results were relayed to patient who voiced understanding and were agreeable to outpatient management and follow up. I discussed my clinical impression with patient and answered all questions. At this time, the evidence for any other entities in the differential is insufficient to warrant any further testing or ED observation. This was explained as well. Advisory was given that persistent or worsening symptoms require further evaluation. I confirmed the understanding of this discussion. Critical Care <Yannick Garcia MD - Last Filed: 12/12/24 06:58> Critical Care Time Critical Care Time: No
[2024-12-12] MEDS: LIDOCAINE 5% TRANSDERMAL PATCH 1 EACH TP (05:49)
[2024-12-12] MEDS: IBUPROFEN 200MG/10ML SUSP UDC 400 MG PO (05:50)
--- NOTE | 2024-12-12 05:53 | PC.NURSE ---
xray done at bedside
--- NOTE | 2024-12-12 05:58 | XR_ITS ---
PROCEDURE INFORMATION: Exam: XR Right Hip Exam date and time: 12/12/2024 6:01 AM Age: 79 years old Clinical indication: Hip pain; Right hip TECHNIQUE: Imaging protocol: Radiologic exam of the right hip. Views: 2 or 3 views hip with pelvis when performed. COMPARISON: CT ABDOMEN PELVIS WO CON 11/30/2022 7:51 PM FINDINGS: Bones/joints: Diffuse degenerative change of the visualized osseous structures. Soft tissues: Unremarkable. Gastrointestinal tract: Heavy rectal stool burden. IMPRESSION: 1. No acute osseous abnormality. 2. Heavy rectal stool burden.
[2024-12-12 06:01] VITALS: BP 114/49
[2024-12-12 06:30] VITALS: BP 153/96
--- NOTE | 2024-12-12 06:41 | PC.NURSE ---
Pt resting quietly in bed awaiting xray results
[2024-12-12 07:33] VITALS: BP 138/88; PULSE 101; RESP 18; TEMP 36.5; O2SAT 95
== END 2024-12-12 07:42 | disposition home or self-care (01) ==
PROVIDERS: Emergency Provider Emergency Medicine
DX: M25.511 Pain in right shoulder (principal); M79.601 Pain in right arm
CPT/HCPCS: 73030; 73502; 99283

== ENCOUNTER 2024-12-24 21:53 | Observation (INO) | payer MEDICARE, MEDICAID, OTHER, SELFPAY ==
[2024-12-24 21:36] VITALS: BP 112/66; PULSE 100; RESP 20; TEMP 36.4; O2SAT 98; BMI 25.1
--- NOTE | 2024-12-24 21:41 | PC.NURSE ---
Pt awake and alert Denies complaints Skin pale warm and dry Resp full and easy Speech clear and appropriate.
--- NOTE | 2024-12-24 21:59 | PC.NURSE ---
Patient was cleaned after a bowel movement and placed in a new brief.
--- NOTE | 2024-12-24 22:14 | PC.NURSE ---
Pt resting comfortably aware waiting on second troponin result
[2024-12-24 22:30] VITALS: BP 97/67; PULSE 90; O2SAT 95
--- NOTE | 2024-12-24 22:42 | CT_ITS ---
PROCEDURE INFORMATION: Exam: CT Head Without Contrast Exam date and time: 12/24/2024 11:39 PM Age: 79 years old Clinical indication: Altered mental status/memory loss; Additional info: AMS, general weakness TECHNIQUE: Imaging protocol: Computed tomography of the head without contrast. Radiation optimization: All CT scans at this facility use at least one of these dose optimization techniques: automated exposure control; mA and/or kV adjustment per patient size (includes targeted exams where dose is matched to clinical indication); or iterative reconstruction. COMPARISON: CT HEAD/BRAIN WO CON 11/30/2022 11:40 AM FINDINGS: Brain: Similar chronic infarcts of right cerebellar hemisphere. Underlying periventricular white matter changes and parenchymal cortical volume loss. No hemorrhage. Cerebral ventricles: No ventriculomegaly. Paranasal sinuses: Visualized sinuses are unremarkable. No fluid levels. Mastoid air cells: Visualized mastoid air cells are well aerated. Bones: Unremarkable. No acute fracture. Soft tissues: Unremarkable. IMPRESSION: No acute intracranial findings identified.
--- NOTE | 2024-12-24 22:42 | XR_ITS ---
PROCEDURE INFORMATION: Exam: XR Chest Exam date and time: 12/24/2024 11:33 PM Age: 79 years old Clinical indication: Cough; Additional info: AMS, general weakness TECHNIQUE: Imaging protocol: Radiologic exam of the chest. Views: 1 view. COMPARISON: CR XR CHEST PORTABLE 11/30/2022 11:57 AM FINDINGS: Lungs: Unremarkable. No consolidation. Pleural spaces: Unremarkable. No pleural effusion. No pneumothorax. Heart/Mediastinum: Unremarkable. No cardiomegaly. Bones/joints: Unremarkable. IMPRESSION: No acute findings. No infiltration identified
[2024-12-24 23:07] VITALS: BP 96/76
[2024-12-24 23:31] VITALS: BP 119/65
[2024-12-24 23:34] LABS: Appearance,Urine CLEAR (Clear); Bilirubin,Urine Negative (Negative); Blood, Urine TRACE-I (Negative); Color,Urine YELLOW (Yellow); Glucose,Urine (UA) TRACE (Negative); Ketones,Urine Negative (Negative); Leukocyte Esterase,Urine TRACE (Negative); Microscopic, Urine URINE MICROSCOPIC (MICROSCOPIC); Nitrate,Urine Negative (Negative); PH,Urine 5.5 (5.0-8.5); Protein,Urine 2+ (Negative); Specific Gravity, Urine >= 1.030 (1.005-1.030)
[2024-12-24 23:37] LABS: Basophils % 0.2 % (0.1-2.0); Eosinophils # 0.1 K/mm3 (0.0-0.4); Eosinophils % 0.6 % (0.1-12.0); Hematocrit 32.6 % (42.0-52.0); Hemoglobin 10.6 g/dL (14.1-18.0); Lymphocytes # 1.6 K/mm3 (0.7-4.5); Lymphocytes % 12.8 % (10-50); Mean Corpuscular HGB Conc 32.5 g/dL (31.8-35.4); Mean Corpuscular Hemoglobin 30.4 pg (27.0-31.2); Mean Corpuscular Volume 93.4 fl (80-94); Monocytes # 0.7 K/mm3 (0.1-1.0); Monocytes % 5.5 % (1.7-9.3); Neutrophils # 10.2 K/mm3 (1.8-7.8); Neutrophils % 80.5 % (37.0-80.0); Platelet Count 235 K/mm3 (142-424); Red Blood Count 3.49 M/mm3 (4.60-6.20); White Blood Count 12.6 K/mm3 (4.8-10.8)
--- NOTE | 2024-12-24 23:37 | HMH.EDGENADL ---
Discharge Plan Disposition Patient Disposition: Admitted Clinical Impressions Clinical Impression: Acute UTI, AMS (altered mental status) Discharge ED Provider: Kane Tanner General Adult HPI <Ambar Clark DO - Last Filed: 12/25/24 00:09> General Chief complaint: PAIN Stated complaint: High BP Time Seen by Provider: 12/24/24 22:40 Mode of Arrival: EMS Source of Information: Patient and EMS Limitations: No Limitations Description of Symptoms (Recalled from ER Triage Doc. by RN): Pt sent to ED because staff thought he was having increased difficulty breathing History of Present Illness HPI narrative: This patient is an 79-year-old male with a history of prior CVA, renal insufficiency, schizophrenia, diabetes presenting to the emergency department for evaluation with concern for general weakness and shakiness noted at [facility]. According to staff that works there, they felt he was shaky and weaker than normal. They said they checked his blood pressure and it was high. Patient arrives by EMS who noted the patient's vitals were stable en route. On my assessment of the patient, he has no concerns or complaints and states that he feels fine, but he is only oriented to person and place but not time. Related Data Home Medications ?Medication ?Instructions ?Recorded ?Confirmed allopurinol 300 mg tablet 300 mg PO DAILY gout 09/30/18 12/21/24 tamsulosin 0.4 mg capsule 0.4 mg PO HS prostate 09/30/18 12/21/24 venlafaxine 75 mg capsule,extended 225 mg PO HS MOOD 03/27/19 12/21/24 release 24 hr acetaminophen 325 mg tablet 650 mg PO TIDP PRN As Needed For 07/25/19 12/21/24 Fever Or Pain aspirin 81 mg chewable tablet 81 mg PO DAILY HEART HEALTH 07/25/19 12/21/24 cholecalciferol (vitamin D3) 25 1,000 unit PO DAILY Diet supplement 07/25/19 12/21/24 mcg (1,000 unit) capsule magnesium oxide 400 mg (241.3 mg 400 mg PO DAILY Diet supplement 07/25/19 12/21/24 magnesium) tablet sennosides 8.6 mg-docusate sodium 1 each PO BID CONSTIPATION 07/25/19 12/21/24 50 mg tablet metoprolol tartrate 25 mg tablet 12.5 mg PO BID Hypertension 01/11/21 12/21/24 atorvastatin 20 mg tablet 20 mg PO HS Cholesterol 12/01/22 12/21/24 metformin 500 mg tablet 500 mg PO BIDWMEAL Diabetes 12/01/22 12/21/24 ondansetron HCl 4 mg tablet 4 mg PO Q6HP PRN NAUSEA/VOMITING 12/01/22 12/21/24 megestrol 400 mg/10 mL (40 mg/mL) mg PO 12/21/24 12/21/24 oral suspension Previous Rx's ?Medication ?Instructions ?Recorded levothyroxine 88 mcg tablet 88 mcg PO DAILYDM 30 days #30 tabs 12/02/22 (Synthroid) cefdinir 300 mg capsule 300 mg PO BID 3 days #6 caps 12/03/22 triamcinolone acetonide 0.5 % See Rx Instructions .Route 09/12/23 topical cream .COMPLEX #15 grams lidocaine 5 % topical patch See Rx Instructions topical 12/12/24 .COMPLEX #15 ea diclofenac sodium 1 % topical gel 4 g topical QID #100 grams 12/21/24 (Voltaren Arthritis Pain) Allergies Allergy/AdvReac Type Severity Reaction Status Date / Time No Known Allergies Allergy Verified 12/21/24 13:37 [facility] <Ambar Clark DO - Last Filed: 12/25/24 00:09> [facility] Disclaimer: The information contained in this section may have been updated after the patient was seen, as this information can be updated by other users. Medical History Hypertension Schizo affective schizophrenia Dysphagia Diabetes Diabetes Hypothyroid Anemia CVA (cerebral vascular accident) Social History Smoking Status: Never smoker second hand exposure: No alcohol intake: never substance use type: other current occupational status: disabled Travel in the last 8 weeks: None household members: other housing: assisted living facility current occupational exposures/hazards: No caffeine: Yes Have you lived/traveled outside [place] in past 30 days?: No Contact w/someone who lives/traveled outside US past 30 days?: No Exposure to someone with infectious disease in past 14 days?: No Do you have a fever (greater than 100.4 F or 38 C)?: No Have you tested positive for COVID-19: No Exposed to someone with COVID-19 in past 14 days?: No Do you have a sore throat?: No Do you have a cough?: No Do you have any weakness?: No Do you have any diarrhea?: No Are you experiencing any unusual bleeding?: No Do you have any muscle aches/pain?: No Do you have any abdominal pain?: No Are you experiencing loss of taste or smell?: No Other Medical History Have you received the Flu Vaccine for this season: No Have you received the Pneumonia Vaccine: Yes <Ambar Clark DO - Last Filed: 12/25/24 00:09> ROS Obtained: Yes All systems reviewed & no additional complaints except as documented Physical Exam <Ambar Clark DO - Last Filed: 12/25/24 00:09> General General appearance: alert and in no apparent distress Head Head exam: atraumatic and normocephalic Eye Eye exam: Present normal appearance, PERRL and EOMI ENT ENT exam: Present normal exam, normal oropharynx, mucous membranes moist and normal external ear exam Neck Neck exam: Present normal inspection, full ROM and trachea midline; Absent tenderness Chest Chest inspection: Present normal inspection and symmetric chest wall rise; Absent tenderness Respiratory Respiratory exam: Present normal lung sounds bilaterally; Absent respiratory distress, wheezes, stridor or accessory muscle use Cardiovascular Cardiovascular exam: Present regular rate and normal rhythm Abdominal Exam Abdominal exam: Present soft; Absent distention, tenderness or guarding Extremities Exam Extremities exam: Present normal inspection, full ROM and normal capillary refill; Absent tenderness or edema Back Exam Back exam: Present normal inspection and full ROM; Absent tenderness Neurological Exam Neurological exam: Present alert, oriented X3, CN II-XII intact and normal gait; Absent motor sensory deficit Psychiatric Psychiatric exam: Present normal affect and normal mood Skin Skin exam: Present warm and dry Medical Decision Making <Ambar Clark DO - Last Filed: 12/25/24 00:09> Medical Records Medical records reviewed: Yes I reviewed the patient's medical records. Screening: Per USPSTF and CDC recommendations, given the prevalence of disease in our region, it is our hospital?s policy to screen for HIV and viral Hepatitis for all patients aged 18 and over and those with ongoing risk factors. Jermaine Inquiry Pt receiving controlled substance: No Vital Signs: 12/24/24 21:36 12/24/24 22:30 12/24/24 23:07 Temperature 97.5 F L Temperature Source Oral Pulse Rate 90 Pulse Rate [Right Brachial] 100 H Respiratory Rate 20 Blood Pressure 97/67 L 96/76 L Blood Pressure [Right Arm] 112/66 Blood Pressure Mean 77 81 Blood Pressure Mean [Right Arm] 81 Blood Pressure Source [Right Arm] Automatic Cuff Blood Pressure Position [Right Arm] Sitting 02 Sat by Pulse Oximetry 98 95 Oxygen Delivery Method Room Air Room Air 12/24/24 23:31 Temperature Temperature Source Pulse Rate Pulse Rate [Right Brachial] Respiratory Rate Blood Pressure 119/65 Blood Pressure [Right Arm] Blood Pressure Mean 72 Blood Pressure Mean [Right Arm] Blood Pressure Source [Right Arm] Blood Pressure Position [Right Arm] 02 Sat by Pulse Oximetry Oxygen Delivery Method Lab Data Lab results reviewed: Yes I reviewed the patient's lab results. Lab Results 12/24/24 23:25: WBC 12.6 H, RBC 3.49 L, Hgb 10.6 L, Hct 32.6 L, MCV 93.4, MCH 30.4, MCHC 32.5, RDW 12.0, Plt Count 235, MPV 10.0, Neut % (Auto) 80.5 H, Lymph % (Auto) 12.8, Cochran % (Auto) 5.5, Eos % (Auto) 0.6, Baso % (Auto) 0.2, Neut # (Auto) 10.2 H, Lymph # (Auto) 1.6, Cochran # (Auto) 0.7, Eos # (Auto) 0.1, Baso # (Auto) 0.0, Sodium 138, Potassium 5.0, Chloride 106, Carbon Dioxide 23, Anion Gap 14.0, BUN 46 H, Creatinine 1.90 H, Estimated Creat Clear 35, Estimated GFR 34 L, Est GFR ( Amer) 41 L, Glucose 114 H, Calcium 9.4, Magnesium 1.6, Total Bilirubin 0.3, AST 26, ALT 17, Alkaline Phosphatase 74, Troponin I 0.03, NT-Pro-B Natriuret Pep 1930 H, Total Protein 7.0, Albumin 3.7, Globulin 3.3 H, Albumin/Globulin Ratio 1.1, Lipase 93, TSH 7.01 H, Thyroxine (T4) 7.6, Urine Color Yellow, Urine Appearance Clear, Urine pH 5.5, Ur Specific [place] >= 1.030, Urine Protein 2+ A, Urine Glucose (UA) Trace, Urine Ketones Negative, Urine Blood Trace-i, Urine Nitrate Negative, Urine Bilirubin Negative, Urine Urobilinogen 1.0, Ur Leukocyte Esterase Trace, Urine RBC 10-20, Urine WBC 20-50, Ur Squamous Epith Cells 10-20, Urine Bacteria 4+, Urine Mucus 1+, HCV Ab CATRACHITA w/Rflx PCR Qn Negative, HIV Ag/Ab Combo Qual Negative 12/24/24 23:25 12/24/24 23:25 Orders (Tests/Meds): ED MEDICATIONS Generic Name Dose Route Start Last Admin Trade Name Freq PRN Reason Stop Dose Admin Ceftriaxone Sodium 2 gm/ 50 mls @ 100 mls/hr 12/25/24 00:46 Sodium Chloride IV 12/25/24 01:15 ONCE ONE Sodium Chloride 1,000 mls @ 999 mls/hr 12/25/24 01:15 Sod Chlor 0.9% 1000ml Bag IV 12/25/24 02:15 .Q1H1M ROHITH Sodium Chloride 10 ml 12/25/24 01:04 Sodium Chloride 0.9% 10ml Flush Syringe IV 01/24/25 01:03 NEEDED PRN Maintain IV Site ORDERS Category Date Time Status CT head/brain wo con Stat Cat Scan 12/24/24 22:42 Completed CXR --portable [XR chest portable] Stat Exams 12/24/24 22:42 Completed BNP [NT Pro Brain Natriuretic Pep.] Stat Lab 12/24/24 23:25 Completed Complete Blood Count Auto Diff Stat Lab 12/24/24 23:25 Completed Comprehensive Metabolic Panel Stat Lab 12/24/24 23:25 Completed HIV Combo Routine Lab 12/24/24 23:25 Completed Hepatitis C Ab Qual. W/ RFX Routine Lab 12/24/24 23:25 Completed Lipase Stat Lab 12/24/24 23:25 Completed MAG [Magnesium] Stat Lab 12/24/24 23:25 Completed Rapid PCR Covid and Flu A/B Stat Lab 12/25/24 00:17 Received T4 (Thyroxine) Stat Lab 12/24/24 23:25 Completed TSH [Thyroid Stimulating Hormone] Stat Lab 12/24/24 23:25 Completed Trop I [Troponin I] Stat Lab 12/24/24 23:25 Completed Troponin I Q3H Lab 12/25/24 01:45 Ordered Troponin I Q3H Lab 12/25/24 04:45 Ordered UA [Urinalysis and Microscopic] Stat Lab 12/24/24 23:25 Completed Blood Culture Stat Micro 12/25/24 00:50 Ordered Urine Culture Stat Micro 12/24/24 23:25 Received ECG Data Tracing #1: I reviewed this ECG and interpreted as documented below: Sinus tachycardia at a ventricular rate of [address] changes concerning for STEMI. Baseline tremor with motion artifact ECG initial impression date: 12/25/24 ECG initial impression time: 00:00 Medical Decision Narrative: In summary, this patient is a 79-year-old male presenting to the Emergency Department for evaluation of suppose a general weakness and shakiness noted that she had at [facility]. Patient has no concerns or complaints on assessment but is not oriented to time or situation. Differential diagnoses considered include but are not limited to dehydration, electrolyte derangements, viral syndrome, pneumonia, urinary tract infection. Ruling out the most morbid conditions drove assessment. It should be noted patient's history includes schizophrenia, prior CVA, hypertension, hyperlipidemia, diabetes which may or may not be at goal therapy. This complicates all aspects of care by increasing patient's risk for morbidity. I reviewed patient's past medical records and noted patient at baseline is a poor historian. On exam, the patient is lying in bed in no acute distress with no concerns or complaints. At baseline, he is a poor historian. He has no focal neurologic deficits, but is generally weak. Workup included basic lab evaluation, urinalysis, chest x-ray, CT scan of the head without contrast. Patient presented to the oncoming provider, Dr. Tanner, pending workup and disposition. <Kane Tanner MD - Last Filed: 12/25/24 01:10> Vital Signs: 12/24/24 21:36 12/24/24 22:30 12/24/24 23:07 Temperature 97.5 F L Temperature Source Oral Pulse Rate 90 Pulse Rate [Right Brachial] 100 H Respiratory Rate 20 Blood Pressure 97/67 L 96/76 L Blood Pressure [Right Arm] 112/66 Blood Pressure Mean 77 81 Blood Pressure Mean [Right Arm] 81 Blood Pressure Source [Right Arm] Automatic Cuff Blood Pressure Position [Right Arm] Sitting 02 Sat by Pulse Oximetry 98 95 Oxygen Delivery Method Room Air Room Air 12/24/24 23:31 Temperature Temperature Source Pulse Rate Pulse Rate [Right Brachial] Respiratory Rate Blood Pressure 119/65 Blood Pressure [Right Arm] Blood Pressure Mean 72 Blood Pressure Mean [Right Arm] Blood Pressure Source [Right Arm] Blood Pressure Position [Right Arm] 02 Sat by Pulse Oximetry Oxygen Delivery Method Lab Data Lab Results 12/24/24 23:25: WBC 12.6 H, RBC 3.49 L, Hgb 10.6 L, Hct 32.6 L, MCV 93.4, MCH 30.4, MCHC 32.5, RDW 12.0, Plt Count 235, MPV 10.0, Neut % (Auto) 80.5 H, Lymph % (Auto) 12.8, Cochran % (Auto) 5.5, Eos % (Auto) 0.6, Baso % (Auto) 0.2, Neut # (Auto) 10.2 H, Lymph # (Auto) 1.6, [place]ran # (Auto) 0.7, Eos # (Auto) 0.1, Baso # (Auto) 0.0, Sodium 138, Potassium 5.0, Chloride 106, Carbon Dioxide 23, Anion Gap 14.0, BUN 46 H, Creatinine 1.90 H, Estimated Creat Clear 35, Estimated GFR 34 L, Est GFR ( Amer) 41 L, Glucose 114 H, Calcium 9.4, Magnesium 1.6, Total Bilirubin 0.3, AST 26, ALT 17, Alkaline Phosphatase 74, Troponin I 0.03, NT-Pro-B Natriuret Pep 1930 H, Total Protein 7.0, Albumin 3.7, Globulin 3.3 H, Albumin/Globulin Ratio 1.1, Lipase 93, TSH 7.01 H, Thyroxine (T4) 7.6, Urine Color Yellow, Urine Appearance Clear, Urine pH 5.5, Ur Specific [place] >= 1.030, Urine Protein 2+ A, Urine Glucose (UA) Trace, Urine Ketones Negative, Urine Blood Trace-i, Urine Nitrate Negative, Urine Bilirubin Negative, Urine Urobilinogen 1.0, Ur Leukocyte Esterase Trace, Urine RBC 10-20, Urine WBC 20-50, Ur Squamous Epith Cells 10-20, Urine Bacteria 4+, Urine Mucus 1+, HCV Ab CATRACHITA w/Rflx PCR Qn Negative, HIV Ag/Ab Combo Qual Negative Orders (Tests/Meds): ED MEDICATIONS Generic Name Dose Route Start Last Admin Trade Name Cosmo PRN Reason Stop Dose Admin Ceftriaxone Sodium 2 gm/ 50 mls @ 100 mls/hr 12/25/24 00:46 Sodium Chloride IV 12/25/24 01:15 ONCE ONE Sodium Chloride 1,000 mls @ 999 mls/hr 12/25/24 01:15 Sod Chlor 0.9% 1000ml Bag IV 12/25/24 02:15 .Q1H1M ROHITH Sodium Chloride 10 ml 12/25/24 01:04 Sodium Chloride 0.9% 10ml Flush Syringe IV 01/24/25 01:03 NEEDED PRN Maintain IV Site ORDERS Category Date Time Status CT head/brain wo con Stat Cat Scan 12/24/24 22:42 Completed CXR --portable [XR chest portable] Stat Exams 12/24/24 22:42 Completed BNP [NT Pro Brain Natriuretic Pep.] Stat Lab 12/24/24 23:25 Completed Complete Blood Count Auto Diff Stat Lab 12/24/24 23:25 Completed Comprehensive Metabolic Panel Stat Lab 12/24/24 23:25 Completed HIV Combo Routine Lab 12/24/24 23:25 Completed Hepatitis C Ab Qual. W/ RFX Routine Lab 12/24/24 23:25 Completed Lipase Stat Lab 12/24/24 23:25 Completed MAG [Magnesium] Stat Lab 12/24/24 23:25 Completed Rapid PCR Covid and Flu A/B Stat Lab 12/25/24 00:17 Received T4 (Thyroxine) Stat Lab 12/24/24 23:25 Completed TSH [Thyroid Stimulating Hormone] Stat Lab 12/24/24 23:25 Completed Trop I [Troponin I] Stat Lab 12/24/24 23:25 Completed Troponin I Q3H Lab 12/25/24 01:45 Ordered Troponin I Q3H Lab 12/25/24 04:45 Ordered UA [Urinalysis and Microscopic] Stat Lab 12/24/24 23:25 Completed Blood Culture Stat Micro 12/25/24 00:50 Ordered Urine Culture Stat Micro 12/24/24 23:25 Received Medical Decision Narrative: In summary, this patient is a 79-year-old male presenting to the Emergency Department for evaluation of suppose a general weakness and shakiness noted that she had at [facility]. Patient has no concerns or complaints on assessment but is not oriented to time or situation. Differential diagnoses considered include but are not limited to dehydration, electrolyte derangements, viral syndrome, pneumonia, urinary tract infection. Ruling out the most morbid conditions drove assessment. It should be noted patient's history includes schizophrenia, prior CVA, hypertension, hyperlipidemia, diabetes which may or may not be at goal therapy. This complicates all aspects of care by increasing patient's risk for morbidity. I reviewed patient's past medical records and noted patient at baseline is a poor historian. On exam, the patient is lying in bed in no acute distress with no concerns or complaints. At baseline, he is a poor historian. He has no focal neurologic deficits, but is generally weak. Workup included basic lab evaluation, urinalysis, chest x-ray, CT scan of the head without contrast. Patient presented to the oncoming provider, Dr. Tanner, pending workup and disposition. On reassessment patient remains hemodynamically stable. Labs independently interpreteted by me with mild leukocytosis, UA consistent with UTI. CT imaging independently interpreted by me, no acute intracranial bleeding or lesion. CXR clear bilaterally without opacity. Blood cultures were obtained, patient was initiated on iv fluids and IV ceftriaxone. Interactive discussion was had with the hospitalist automation engineering technician for admission for UTI and AMS. Critical Care <Ambar Clark, DO - Last Filed: 12/25/24 00:09> Critical Care Time Critical Care Time: No
[2024-12-24 23:42] LABS: Alanine Aminotransferase 17 U/L (12-78); Albumin Level 3.7 g/dl (3.5-5.0); Albumin/Globulin Ratio 1.1 (1.1-1.8); Alkaline Phosphatase 74 U/L (38-126); Aspartate Amino Transferase 26 U/L (17-59); Bilirubin,Total 0.3 mg/dl (0.2-1.3); Blood Urea Nitrogen 46 mg/dl (9-20); Calcium 9.4 mg/dl (8.4-10.2); Carbon Dioxide 23 mmol/L (22.0-30.0); Creatinine Clearance Estimated 35 mL/min (50-200); Estimated Glomerular Filt Rate 34 ml/min (>60); GFR (African American) 41 ML/MIN (>60); Globulin 3.3 g/dL (1.3-3.2); Glucose 114 mg/dl (74-100)
[2024-12-24 23:55] LABS: NT Pro Brain Natriuretic Pep. 1930 pg/mL (0-450); Troponin I 0.03 ng/ml (0.00-0.034)
--- NOTE | 2024-12-24 23:57 | ECG_ITS ---
APPROVED REPORT Exam: Resting ECG HR:103 bpm ECG Measurements Heart Rate 103 AXES TN 171 P 109 QRSd 93 QRS -45 QT 344 T 65 QTc 403 Conclusion SINUS TACHYCARDIA WITH OCCASIONAL SUPRAVENTRICULAR PREMATURE COMPLEXES LEFT AXIS DEVIATION [QRS AXIS < -30] LOW QRS VOLTAGE IN PRECORDIAL LEADS [QRS DEFLECTION < 1.0 mV IN CHEST LEADS] INCOMPLETE RIGHT BUNDLE BRANCH BLOCK [90+ ms QRS DURATION, TERMINAL R IN V1/V2, 40+ ms S IN I/aVL/V4/V5/V6] ABNORMAL ECG UNCONFIRMED REPORT Electronically signed by : DARCIE OLSON, 12/25/2024 06:49:35
[2024-12-25] VITALS (10 sets, daily range): BP systolic 88–119; BP diastolic 40–72; PULSE 73–109; RESP 17–20; TEMP 36.6–37.4; O2SAT 92–100; BMI 20.6
[2024-12-25] LABS: T4 (Thyroxine) 7.6 ug/dl (5.53-11.0)
[2024-12-25 00:04] LABS: Chloride 106 mmol/L (98-107); Sodium 138 mmol/L (136-145)
[2024-12-25 00:07] LABS: Lipase 93 U/L (23-300)
[2024-12-25 00:08] LABS: Magnesium 1.6 mg/dl (1.6-2.3)
[2024-12-25 00:13] LABS: Thyroid Stimulating Hormone 7.01 uIU/mL (0.465-4.68)
[2024-12-25 00:16] LABS: Bacteria,Urine 4+ /lpf; Mucus,Urine 1+ /lpf; WBC,Urine 20-50 #/hpf (0-3)
[2024-12-25 00:24] LABS: Coronavirus 19, PCR Not Detected (NotDetected); Influenza A, PCR Not Detected (NotDetected); Influenza B, PCR Not Detected (NotDetected)
[2024-12-25 00:34] LABS: HIV Combo NEGATIVE (Negative)
[2024-12-25 00:42] LABS: Hepatitis C Ab Qual. W/ RFX NEGATIVE (Negative)
--- NOTE | 2024-12-25 00:57 | PC.NURSE ---
Admitted to 217 with dx of uti to service of Hospitalist.
[2024-12-25] MEDS: CEFTRIAXONE 1 GM 2 GM in 0.9 % SODIUM CHLORIDE 50 ML IV (01:08)
[2024-12-25] MEDS: 0.9 % SODIUM CHLORIDE 1000ML 1,000 ML 999 ML IV (01:09)
--- NOTE | 2024-12-25 01:16 | PC.NURSE ---
Report called to WOLFGANG Ivory
--- NOTE | 2024-12-25 01:32 | PC.NURSE ---
Due to patient inability to keep right arm straight for medication administration, second IV placed in left forearm. Patient tolerated well, site secured. Patient also incontinent of bowel and bladder. Patient cleaned up and juma care provided. Patient cooperated and helped roll unassisted. New brief in place, no sacral/coccyx breakdown or redness noted.
--- NOTE | 2024-12-25 01:49 | PC.NURSE ---
Pt to inpatient unit via stretcher with IV
--- NOTE | 2024-12-25 01:53 | PC.NURSE ---
Patient arrived to floor via stretcher from ED at 01:49.
[2024-12-25 02:54] LABS: Troponin I 0.03 ng/ml (0.00-0.034)
--- NOTE | 2024-12-25 03:30 | PC.NURSE ---
patient was admitted this shift with a UTI, oriented to person only, antibiotics administered to treat UTI, no c/o pain or discomfort, bed alarm is on and functioning for patient safety, patient was straight catheterized in the ER to obtain urine specimen, patient has some scant bleeding and irritation around urethra
--- NOTE | 2024-12-25 04:11 | P.HP_ITS ---
History of Present Illness *Admission Date: 12/25/24 *Reason for visit:: Confusion *History of present illness: The patient is an 79-year-old male with a history of prior cerebrovascular accident, renal insufficiency, schizophrenia, and diabetes who presents from [facility] for evaluation of generalized weakness and shakiness. According to the staff, he appeared noticeably more shaky and weaker than his baseline, and they reported an elevated blood pressure; however, EMS found his vital signs to be stable en route. On arrival, the patient denies any specific complaints and insists he feels fine, although his mental status is altered?he is oriented to person and place but not to time?and he is a poor historian. On examination, he appears generally weak without focal neurologic deficits. Initial laboratory studies reveal a mildly elevated white blood cell count of 12.6 and anemia with a hemoglobin of 10.6 and hematocrit of 32.6. Renal function is compromised, with a BUN of 46, creatinine of 1.90, and an estimated GFR of 34, consistent with his known renal insufficiency. The urinalysis is concerning for infection, showing 2+ protein, 4+ bacteria, 10?20 RBCs, 20?50 WBCs, and trace leukocyte esterase. Additionally, his thyroid studies demonstrate an elevated TSH of 7.01 with a T4 of 7.6, raising the possibility of hypothyroidism contributing to his symptoms. An ECG obtained in the ED reveals sinus tachycardia at a ventricular rate of 103 bpm without ischemic changes. Overall, his presentation raises concerns for an infectious process, metabolic derangements, and the possibility that his altered mental status and weakness may be multifactorial in origin. Admission to hospitalist service for monitoring and evaluation recommended. [facility] Disclaimer: The information contained in this section may have been updated after the patient was seen, as this information can be updated by other users. Medical History Hypertension Schizo affective schizophrenia Dysphagia Diabetes Diabetes Hypothyroid Anemia CVA (cerebral vascular accident) Social History Smoking Status: Never smoker second hand exposure: No alcohol intake: never substance use type: other current occupational status: disabled Travel in the last 8 weeks: None household members: other housing: assisted living facility current occupational exposures/hazards: No caffeine: Yes Have you lived/traveled outside US in past 30 days?: No Contact w/someone who lives/traveled outside US past 30 days?: No Exposure to someone with infectious disease in past 14 days?: No Do you have a fever (greater than 100.4 F or 38 C)?: No Have you tested positive for COVID-19: No Exposed to someone with COVID-19 in past 14 days?: No Do you have a sore throat?: No Do you have a cough?: No Do you have any weakness?: No Are you experiencing any nausea/vomitting?: No Do you have any diarrhea?: No Are you experiencing any unusual bleeding?: No Do you have any muscle aches/pain?: No Do you have any abdominal pain?: No Are you experiencing loss of taste or smell?: No Other Medical History Have you received the Flu Vaccine for this season: No (unknown) Have you received the Pneumonia Vaccine: No (unknown) Review of Systems Review of Systems Review of systems (narrative): 13 point review of systems negative except as listed in [facility] Meds Home Medications and Allergies Home Medications ?Medication ?Instructions ?Recorded ?Confirmed ?Type allopurinol 300 mg tablet 300 mg PO DAILY 09/30/18 12/25/24 History venlafaxine 75 mg capsule,extended 225 mg PO HS 03/27/19 12/25/24 History release 24 hr acetaminophen 325 mg tablet 650 mg PO Q6HP PRN As Needed For 07/25/19 12/25/24 History Fever Or Pain sennosides 8.6 mg-docusate sodium 1 each PO BID 07/25/19 12/25/24 History 50 mg tablet atorvastatin 20 mg tablet 20 mg PO HS 12/01/22 12/25/24 History metformin 500 mg tablet 500 mg PO BIDWMEAL 12/01/22 12/25/24 History megestrol 400 mg/10 mL (40 mg/mL) 400 mg PO DAILY 12/21/24 12/25/24 History oral suspension levothyroxine 75 mcg tablet 75 mcg PO DAILY 12/25/24 12/25/24 History (Synthroid) New Prescriptions to Start Prescriptions: Allergies Allergy/AdvReac Type Severity Reaction Status Date / Time No Known Allergies Allergy Verified 12/21/24 13:37 Exam Data for Last 24 hours Vital signs and Labs for Last 24 Hours: Temp Pulse Resp BP Pulse Ox O2 Del Method 98.3 F 95 H 20 106/70 L 100 Room Air 12/25/24 02:00 12/25/24 02:00 12/25/24 02:00 12/25/24 02:00 12/25/24 02:00 12/25/24 03:00 Laboratory Results - last 24 hr 12/24/24 23:25: WBC 12.6 H, RBC 3.49 L, Hgb 10.6 L, Hct 32.6 L, MCV 93.4, MCH 30.4, MCHC 32.5, RDW 12.0, Plt Count 235, MPV 10.0, Neut % (Auto) 80.5 H, Lymph % (Auto) 12.8, [place] % (Auto) 5.5, Eos % (Auto) 0.6, Baso % (Auto) 0.2, Neut # (Auto) 10.2 H, Lymph # (Auto) 1.6, [place] # (Auto) 0.7, Eos # (Auto) 0.1, Baso # (Auto) 0.0, Sodium 138, Potassium 5.0, Chloride 106, Carbon Dioxide 23, Anion Gap 14.0, BUN 46 H, Creatinine 1.90 H, Estimated Creat Clear 35, Estimated GFR 34 L, Est GFR ( Amer) 41 L, Glucose 114 H, Calcium 9.4, Magnesium 1.6, Total Bilirubin 0.3, AST 26, ALT 17, Alkaline Phosphatase 74, Troponin I 0.03, NT-Pro-B Natriuret Pep 1930 H, Total Protein 7.0, Albumin 3.7, Globulin 3.3 H, Albumin/Globulin Ratio 1.1, Lipase 93, TSH 7.01 H, Thyroxine (T4) 7.6, Urine Color Yellow, Urine Appearance Clear, Urine pH 5.5, Ur Specific [place] >= 1.030, Urine Protein 2+ A, Urine Glucose (UA) Trace, Urine Ketones Negative, Urine Blood Trace-i, Urine Nitrate Negative, Urine Bilirubin Negative, Urine Urobilinogen 1.0, Ur Leukocyte Esterase Trace, Urine RBC 10-20, Urine WBC 20-50, Ur Squamous Epith Cells 10-20, Urine Bacteria 4+, Urine Mucus 1+, HCV Ab CATRACHITA w/Rflx PCR Qn Negative, HIV Ag/Ab Combo Qual Negative 12/25/24 00:17: SARS-CoV-2 (PCR) Not detected, Influenza A Untype (PCR) Not detected, Influenza Type B (PCR) Not detected 12/25/24 02:21: Troponin I 0.03 I & O for Last 24 hours: Intake & Output 12/22/24 12/23/24 12/24/24 12/25/24 23:59 23:59 23:59 23:59 Weight 79.379 kg Constitutional Constitutional: no acute distress Comments: Tremulous *Routine HEENT Exam Head: Present normocephalic Eye: Present EOMI and PERRL ENT: Present mucous membranes moist *Routine Neck Exam Neck: Present supple; Absent lymphadenopathy *Routine Respiratory Exam Respiratory: Present CTA bilaterally *Routine Cardiovascular Exam Cardiovascular: Present RRR *Routine Abdominal Exam Abdominal: Present soft and normoactive bowel sounds; Absent tenderness *Routine Rectal Exam Rectal:: deferred *Routine Genitalia Exam Genitalia:: deferred *Routine Extremities Exam Extremities: Absent cyanosis, clubbing or edema *Routine Skin Exam Skin: Present warm; Absent rash *Routine Neurological Exam Neurological: Present alert, CN II-XII intact, altered mental status and abnormal gait Routine Psychiatric Exam Psychiatric: Present cooperative Assessment and Plan *Assessment and plan (1) AMS (altered mental status): Status: Acute Category: Medical Code(s): R41.82 - Altered mental status, unspecified (2) Acute UTI: Status: Acute Category: Medical Code(s): N39.0 - Urinary tract infection, site not specified (3) Unsteady gait: Status: Acute Category: Medical Code(s): R26.81 - Unsteadiness on feet (4) Hypothyroidism: Status: Acute Qualifiers: Hypothyroidism type: acquired Qualified Code(s): E03.9 - Hypothyroidism, unspecified Category: Medical Code(s): E03.9 - Hypothyroidism, unspecified (5) Renal insufficiency: Status: Acute Category: Medical Code(s): N28.9 - Disorder of kidney and ureter, unspecified (6) Schizophrenia: Status: Acute Category: Medical Code(s): F20.9 - Schizophrenia, unspecified (7) Diabetes 1.5, managed as type 2: Status: Acute Category: Medical Code(s): E13.9 - Other specified diabetes mellitus without complications Plan Medical decision making: This 79-year-old male, with multiple comorbidities including prior CVA, renal insufficiency, schizophrenia, and diabetes, presents with generalized weakness and altered mental status (disoriented to time). His laboratory evaluation reveals evidence of a urinary tract infection (UA with significant bacteriuria and pyuria), mild anemia, and worsening renal function. In addition, an elevated TSH raises concern for hypothyroidism as a contributing factor. Given his age, complex medical history, and altered mental status, he requires inpatient evaluation and management with a focus on treating the suspected UTI, optimizing his renal status, and reassessing his thyroid function. Suspected Urinary Tract Infection * UA findings: 2+ protein, 4+ bacteria, 10?20 RBCs, 20?50 WBCs, trace leukocyte esterase. * Obtain a urine culture. * Initiate empiric antibiotic therapy IV ceftriaxone pending culture results. * Monitor for clinical improvement and recheck UA as indicated. Renal Insufficiency * Labs show BUN 46, creatinine 1.90, and eGFR 34, consistent with his known renal insufficiency. * Ensure appropriate hydration while avoiding fluid overload. * Adjust dosing of renally cleared medications accordingly. Altered Mental Status and Generalized Weakness * The patient is disoriented to time and appears generally weak, likely multifactorial from infection, dehydration, and metabolic derangements. * Monitor mental status closely and perform periodic neurologic reassessments. * Implement safety precautions to prevent falls. * Monitor electrolytes Subclinical/Oligo-symptomatic Hypothyroidism * Elevated TSH at 7.01 with T4 of 7.6; this may be contributing to his weakness. 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 * Continue continuous cardiac telemetry monitoring due to his history of CVA and risk factors for cardiac events. Disposition: * Admit the patient for inpatient management of suspected urinary tract infection, altered mental status, and renal insufficiency. * Coordinate multidisciplinary care with hospital medicine, nephrology, and psychiatry as indicated, and ensure close monitoring of his clinical status. * Full code * In light of renal insufficiency hold Lovenox for VTE prophylaxis, subcu prophylaxis with heparin * Recheck CBC and BMP in a.m., follow culture for sensitivity Rounded on patient after nurse practitioner. Personally examined and interviewed patient. Agree with exam findings and care plan as documented. Patient evaluated by therapy, recommend SNF placement. [facility], case management assisting with [facility] to [facility] to [facility] at our [facility] versus transfer. Alert and oriented to self only this morning. Thinks he is at [facility] (his personal detention).
[2024-12-25 05:09] LABS: Basophils % 0.3 % (0.1-2.0); Eosinophils # 0.1 K/mm3 (0.0-0.4); Eosinophils % 1.1 % (0.1-12.0); Hematocrit 31.2 % (42.0-52.0); Hemoglobin 10.4 g/dL (14.1-18.0); Lymphocytes # 2.1 K/mm3 (0.7-4.5); Lymphocytes % 17.8 % (10-50); Mean Corpuscular HGB Conc 33.3 g/dL (31.8-35.4); Mean Corpuscular Hemoglobin 31.1 pg (27.0-31.2); Mean Corpuscular Volume 93.4 fl (80-94); Mean Platelet Volume 10.4 fl (7.4-10.4); Monocytes # 0.6 K/mm3 (0.1-1.0); Monocytes % 5.4 % (1.7-9.3); Neutrophils # 8.8 K/mm3 (1.8-7.8); Platelet Count 114 K/mm3 (142-424); Red Blood Count 3.34 M/mm3 (4.60-6.20); Red Cell Distribution Width 11.9 % (11.5-17.5); White Blood Count 11.7 K/mm3 (4.8-10.8)
[2024-12-25 05:13] LABS: Chloride 108 mmol/L (98-107)
[2024-12-25 05:14] LABS: Potassium 4.7 mmoL/L (3.5-5.1); Sodium 140 mmol/L (136-145)
[2024-12-25 05:16] LABS: Blood Urea Nitrogen 43 mg/dl (9-20); Creatinine Clearance Estimated 32 mL/min (50-200); Estimated Glomerular Filt Rate 39 ml/min (>60); GFR (African American) 47 ML/MIN (>60)
[2024-12-25 05:17] LABS: Anion Gap 15.7 mEq/L (5-15); Calcium 9.2 mg/dl (8.4-10.2); Carbon Dioxide 21 mmol/L (22.0-30.0); Glucose 103 mg/dl (74-100); Magnesium 1.6 mg/dl (1.6-2.3)
[2024-12-25 05:29] LABS: Troponin I 0.02 ng/ml (0.00-0.034)
[2024-12-25 06:02] LABS: POC Glucose,Bedside 103 (70-110)
--- NOTE | 2024-12-25 08:55 | HMH.PTEV ---
Physical Therapy Evaluation Rehab PT IP Evaluation Start: 12/25/24 07:43 Freq: ONCE Status: Active Protocol: Document 12/25/24 08:50 RAMIN (Rec: 12/25/24 08:55 RAMIN [id number]) Subjective/History History History Per H&P: The patient is an 79 -year-old male with a history of prior cerebrovascular accident, renal insufficiency, schizophrenia, and diabetes who presents from [facility] for evaluation of generalized weakness and shakiness. According to the staff, he appeared noticeably more shaky and weaker than his baseline, and they reported an elevated blood pressure; however, EMS found his vital signs to be stable en route. On arrival, the patient denies any specific complaints and insists he feels fine, although his mental status is altered?he is oriented to person and place but not to time?and he is a poor historian. On examination, he appears generally weak without focal neurologic deficits. Initial laboratory studies reveal a mildly elevated white blood cell count of 12.6 and anemia with a hemoglobin of 10 .6 and hematocrit of 32.6. Renal function is compromised, with a BUN of 46, creatinine of 1.90, and an estimated GFR of 34, consistent with his known renal insufficiency. The urinalysis is concerning for infection, showing 2+ protein, 4+ bacteria, 10?20 RBCs, 20? 50 WBCs, and trace leukocyte esterase. Additionally, his thyroid studies demonstrate an elevated TSH of 7.01 with a T4 of 7.6, raising the possibility of hypothyroidism contributing to his symptoms. An ECG obtained in the ED reveals sinus tachycardia at a ventricular rate of 103 bpm without ischemic changes. Overall, his presentation raises concerns for an infectious process, metabolic derangements, and the possibility that his altered mental status and weakness may be multifactorial in origin. Admission to hospitalist service for monitoring and evaluation recommended. Subjective Subjective Pt with difficulty answering history questions. Pt reports he lives alone and is IND with all mobility including driving. No prior AD use per pt. New diagnosis of cancer in past 12 No months? Rehab PT IP Eval Objective Appearance Patient Behavior Appropriate,Cooperative Difficulty following instructions mild Speech Pattern Mumbled Ambulation Patient Able to Ambulate No Balance Ability to Arise Able, uses arms to help Sitting Balance Steady, safe Standing Balance Unsteady Dynamic Sitting Balance Ability Fair Dynamic Standing Balance Ability Fair Transfers Bed Transfer Ability Moderate x 1 (50% assist) Sit to Stand Bed Transfer Ability Contact Guard/Hand Hold Rehab PT IP prob,goals,plan Problems Date of Evaluation: 12/25/24 PT IP Problems Bed Mobility,Transfers,Gait, Balance,Self care,Safety Rehab Potential Rehab Potential Good Equipment Needs Assistive Devices Rolling / Wheeled Walker Plan PT Intervention Plan Bed Mobility,Transfers,Gait, Balance,Self care,Safety, Therapeutic Exercise Other Intervention Plan 1-2 times PT Plan Frequency Daily Duration LOS Discharge Goals Bed Transfer Ability Contact Guard/Hand Hold Sit to Stand Chair Transfer Ability Contact Guard/Hand Hold Ambulation Assistive Device Rolling Walker Ambulation Distance (feet) 10 Discharge Plan PT Discharge Plan Initial physical therapy evaluation performed. Patient presents below baseline at this time in functional mobility, transfers, and strength. Pt was unsteady when performing static standing on level surface and demo'd impaired activity tolerance. Pt not safe to return to [facility] living at this time d/t current level of functional mobility. PT recommending short-term rehabilitation stay upon d/c from [facility]. Pt would benefit from skilled PT while at [facility] to prevent further functional decline and maximize safety with mobility. Eval Complexity Eval Charge Codes 10341 - Moderate Complexity PHYSICIAN CERTIFICATION: I certify the specified therapy services for Geo Bond are required, authorized, and reviewed every 30 days.
[2024-12-25] MEDS: ALLOPURINOL 300MG TABLET 300 MG PO (09:31)
[2024-12-25] MEDS: LEVOTHYROXINE 88MCG (0.088MG) TAB 88 MCG PO (09:31)
[2024-12-25] MEDS: ASPIRIN 81MG CHEWABLE TABLET 81 MG PO (09:31)
[2024-12-25] MEDS: SENNOSIDES 8.6MG/DOCUSATE 50MG TABLET 1 TAB PO ×2 (09:31→20:45)
[2024-12-25] MEDS: METOPROLOL TARTRATE 25MG TABLET 12.5 MG PO (09:36)
--- NOTE | 2024-12-25 11:10 | HMH.OTEV ---
OT Inpatient Evaluation Rehab OT IP Evaluation Start: 12/25/24 07:43 Freq: ONCE Status: Active Protocol: Document 12/25/24 11:03 ZAID (Rec: 12/25/24 11:10 [facility] [id number]) Rehab OT IP Assessment Subjective History Pt oriented to self, but unable to provide birthdate or place. Pt admitted on 12/25/24 due to Confusion and UTI. History and physical: The patient is an 79-year-old male with a history of prior cerebrovascular accident, renal insufficiency, schizophrenia, and diabetes who presents from [facility] for evaluation of generalized weakness and shakiness. According to the staff, he appeared noticeably more shaky and weaker than his baseline, and they reported an elevated blood pressure; however, EMS found his vital signs to be stable en route. On arrival, the patient denies any specific complaints and insists he feels fine, although his mental status is altered?he is oriented to person and place but not to time?and he is a poor historian. On examination, he appears generally weak without focal neurologic deficits. Initial laboratory studies reveal a mildly elevated white blood cell count of 12.6 and anemia with a hemoglobin of 10 .6 and hematocrit of 32.6. Renal function is compromised, with a BUN of 46, creatinine of 1.90, and an estimated GFR of 34, consistent with his known renal insufficiency. The urinalysis is concerning for infection, showing 2+ protein, 4+ bacteria, 10?20 RBCs, 20? 50 WBCs, and trace leukocyte esterase. Additionally, his thyroid studies demonstrate an elevated TSH of 7.01 with a T4 of 7.6, raising the possibility of hypothyroidism contributing to his symptoms. An ECG obtained in the ED reveals sinus tachycardia at a ventricular rate of 103 bpm without ischemic changes. Overall, his presentation raises concerns for an infectious process, metabolic derangements, and the possibility that his altered mental status and weakness may be multifactorial in origin. Admission to hospitalist service for monitoring and evaluation recommended. Subjective Due to continued confusion, pt was unable to provide any previous level of functioning. However, if pt was residing at [facility], usually these individuals shoulder be independent with ADLS and functional transfers. Objective Patient Orientation Person Bed Mobility bed mobility-scooting,bed mobility - supine/sit Assist Level Minimal x 1 (25% assist) Transfer Training Sit/Stand/Step Transfer Assist Level Moderate x 1 (50% assist) Rehab OT IP prob,goals,plan Problems Date of Evaluation: 12/25/24 OT IP Problems Bed Mobility,Transfers,Balance ,Self care,Safety Rehab Potential Rehab Potential Good Equipment Needs Assistive Devices Rolling / Wheeled Walker Plan OT intervention Plan Bed Mobility,Transfers,Balance ,Self care,Safety,Therapeutic Exercise OT Plan Frequency Daily Duration LOS Discharge Goals Bed Mobility Ability Standby Assistance Sit to Stand Chair Transfer Ability Minimal x 1 (25% assist) Chair Transfer Ability Minimal x 1 (25% assist) Chair Transfer Technique Sit to/from Ambulatory Chair Transfer Assistive Devices Rolling Walker Lower Body Dressing Ability Minimal Assistance Upper Body Dressing Ability Standby Assistance Bathing Ability Minimal Assistance Performing Toilet Hygiene Ability Minimal Assistance Overall Commode/Toilet Transfer Ability Contact Guard,Minimal Assistance Commode/Toilet Transfer Technique Sit to/from Ambulatory Commode/Toilet Transfer Assistive Grab Bars Devices Discharge Plan OT Discharge Plan Pt will continue to be seen for OT services while at [facility]. At this time, pt would benefit most from short term rehab at [facility] for continued skilled therapy services. Continued therapy is important in order for patient to improve strength, safety, endurance, ADL independence, and functional transfers to reach PLOF. Eval Complexity Eval Charge Codes 55684 - Moderate Complexity PHYSICIAN CERTIFICATION: I certify the specified therapy services for Geo Bond are required, authorized, and reviewed every 30 days.
[2024-12-25 12:12] LABS: POC Glucose,Bedside 130 (70-110)
--- NOTE | 2024-12-25 15:44 | CARE MANAGER ---
Addendum entered by Merry Mendoza 12/28/24 09:51: [facility] is willing to accept this patient. Per MD patient will discharge today. Patient will be [facility] level of care. Addendum entered by Merry Mendoza 12/28/24 08:38: I am waiting to hear back from Shae [facility], [facility], [facility] and [facility]. Patient information also faxed to [facility]. Original Note: Per PT/OT this morning, patient most appropriate for SNF @ discharge. I spoke with patient's brother, Akbar Bond who is POA, and he was agreeable to this plan. Clinical faxed to [facility] and [place] facilities. [facility] does not have a male bed. [facility] is looking at referral, but would not have an answer until Saturday. I am awaiting responses from other facilities.
--- NOTE | 2024-12-25 16:14 | PC.NURSE ---
Pt is A&O to self. He is currently sitting up in his chair. PT/OT consulting. He is assist x2. He is incontinent with brief on. Appetite has been poor today. Medications administered per mar. Pt needs meds crushed and placed in applesauce. Will spit medication out otherwise. Call light is within reach. Safety measures in place.
[2024-12-25 17:23] LABS: POC Glucose,Bedside 168 (70-110)
[2024-12-25] MEDS: VENLAFAXINE XR 75MG CAPSULE 225 MG PO (20:45)
[2024-12-25] MEDS: CEFTRIAXONE 1 GM 1 GM in 0.9 % SODIUM CHLORIDE 50 ML IV (20:45)
[2024-12-25 21:56] LABS: POC Glucose,Bedside 116 (70-110)
[2024-12-26 04:00] VITALS: BP 122/70; PULSE 92; RESP 18; TEMP 37.1; O2SAT 100; BMI 21.1
--- NOTE | 2024-12-26 05:35 | PC.NURSE ---
no significant changes from previous shift. pt pleasant and has slept all of shift, remains A&O x1.
[2024-12-26] MEDS: LEVOTHYROXINE 88MCG (0.088MG) TAB 88 MCG PO (06:03)
[2024-12-26 06:11] LABS: POC Glucose,Bedside 106 (70-110)
--- NOTE | 2024-12-26 06:59 | EXP.ACUTE.PN ---
Subjective *Date: 12/26/24 *Time: 11:24 Interval history: Patient stable on room air. Alert to self only. Pleasant on exam. Denies any chest pain or shortness of breath. Tolerating p.o. intake. Needing assistance with ADLs. Medical Exam Vital signs and Labs for Last 24 Hours: Vital Signs Temp Pulse Resp BP Pulse Ox O2 Del Method 12/26/24 06:21 Room Air 12/26/24 05:00 Room Air 12/26/24 04:00 98.8 F 92 H 18 122/70 100 Room Air 12/26/24 03:00 Room Air 12/26/24 01:00 Room Air 12/25/24 23:00 Room Air 12/25/24 21:00 Room Air 12/25/24 20:00 Room Air 12/25/24 20:00 99.4 F 91 H 18 119/40 L 99 Room Air 12/25/24 18:35 Room Air 12/25/24 17:00 Room Air 12/25/24 16:00 97.8 F 109 H 17 111/60 92 L Room Air 12/25/24 14:53 Room Air 12/25/24 13:00 Room Air 12/25/24 12:00 98.8 F 89 19 99/62 L 99 Room Air 12/25/24 11:00 Room Air 12/25/24 09:00 Room Air 12/25/24 08:00 Room Air 12/25/24 08:00 98.2 F 102 H 20 99/59 L 97 Room Air Intake and Output 12/25/24 12/25/24 12/26/24 15:59 23:59 07:59 Intake Total 620 / 720 100 / 720 Balance 620 / 720 100 / 720 Intake: Intake, Oral Amount 620 / 720 100 / 720 Other: Number of Unmeasured Voids 0 1 Number of Bowel Movements 1 1 Weight 65.4 kg 66.996 kg Patient Weight 12/26/24 23:59 Weight 66.996 kg Laboratory Results - last 24 hr 12/25/24 12:04: POC Glucose 130 H 12/25/24 17:16: POC Glucose 168 H 12/25/24 21:49: POC Glucose 116 H 12/26/24 06:02: POC Glucose 106 I & O for Labs for Last 24 Hours: Intake & Output 12/23/24 12/24/24 12/25/24/08/25 23:59 23:59 23:59 23:59 Intake Total 720 / 720 Balance 720 / 720 Weight 79.379 kg 65.4 kg 66.996 kg Microbiology Reports for the Last 24 Hours: Microbiology 12/25/24 00:50 Blood Blood Culture - Preliminary 12/25/24 01:10 Blood Blood Culture - Preliminary NO GROWTH AFTER 24 HOURS Constitutional: Present no acute distress, average body habitus, chronically ill appearing and disheveled Head: Present atraumatic and normocephalic Neck: Present normal inspection Respiratory: Present normal respiratory effort; Absent accessory muscle use, rhonchi, wheezes or crackles Cardiac: Present Reg Rate and Rhythm GI: Present soft and normal bowel sounds; Absent distention or tenderness Extremities: Present normal inspection and full ROM Skin: Present intact; Absent erythema Neuro: Present Grossly Intact, alert, awake and moves all extremities Comment:: Oriented to self Assessment and Plan *Assessment and plan (1) Acute UTI: Status: Acute Category: Medical Code(s): N39.0 - Urinary tract infection, site not specified (2) Schizophrenia: Status: Acute Category: Medical Code(s): F20.9 - Schizophrenia, unspecified (3) AMS (altered mental status): Status: Acute Category: Medical Code(s): R41.82 - Altered mental status, unspecified (4) Unsteady gait: Status: Acute Category: Medical Code(s): R26.81 - Unsteadiness on feet (5) Hypothyroidism: Status: Acute Qualifiers: Hypothyroidism type: acquired Qualified Code(s): E03.9 - Hypothyroidism, unspecified Category: Medical Code(s): E03.9 - Hypothyroidism, unspecified (6) Renal insufficiency: Status: Acute Category: Medical Code(s): N28.9 - Disorder of kidney and ureter, unspecified (7) Diabetes 1.5, managed as type 2: Status: Acute Category: Medical Code(s): E13.9 - Other specified diabetes mellitus without complications Plan This 79-year-old male, with multiple comorbidities including prior CVA, renal insufficiency, schizophrenia, and diabetes, presents with generalized weakness and altered mental status (disoriented to time). His laboratory evaluation reveals evidence of a urinary tract infection (UA with significant bacteriuria and pyuria), mild anemia, and worsening renal function. In addition, an elevated TSH raises concern for hypothyroidism as a contributing factor. Given his age, complex medical history, and altered mental status, he requires inpatient evaluation and management with a focus on treating the suspected UTI, optimizing his renal status, and reassessing his thyroid function. Awaiting placement. Medically stable at this time. Problems addressed as follows: Urinary Tract Infection CKD 3 HERMILO - UA findings: 2+ protein, 4+ bacteria, 10?20 RBCs, 20?50 WBCs, trace leukocyte esterase. -Continue ceftriaxoneIV 1 g daily. -Urine culture still pending. -1 of 4 bottles from blood cultures showing Staph epidermidis on PCR. Suspect contaminant. -White count normal at 10. Repeat CBC, CMP, magnesium ordered for the morning. -Kidney injury appears to be improving. BUN 36, creatinine 1.5, down from 1.9 on admission. Caution with nephrotoxins Altered Mental Status and Generalized Weakness Schizophrenia -Patient oriented to self. Suspect this may actually be close to his baseline. Monitoring for continued improvement with treatment of infection and dehydration. -Continue with regular interaction with nursing. Continue with day night routine. -Evaluated by therapy, needs skilled therapy. Awaiting placement. -Continue Effexor 225 mg nightly; no behavioral disturbance Subclinical/Oligo-symptomatic Hypothyroidism - Elevated TSH at 7.01 with T4 of 7.6; this may be contributing to his weakness. Patient spitting out his pills here. Unsure if he is consistently taking his levothyroxine. Continue the levothyroxine increased to 88 mcg daily. 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 A1c pending. -Holding home metformin Gout: Continue allopurinol 300 mg daily Hyperlipidemia: Continue Lipitor 20 mg nightly Full code Diabetic diet
[2024-12-26 07:21] LABS: Basophils % 0.4 % (0.1-2.0); Eosinophils # 0.2 K/mm3 (0.0-0.4); Eosinophils % 1.8 % (0.1-12.0); Hematocrit 28.8 % (42.0-52.0); Hemoglobin 9.8 g/dL (14.1-18.0); Lymphocytes # 1.8 K/mm3 (0.7-4.5); Lymphocytes % 18.5 % (10-50); Mean Corpuscular Hemoglobin 31.2 pg (27.0-31.2); Mean Corpuscular Volume 91.7 fl (80-94); Mean Platelet Volume 10.1 fl (7.4-10.4); Monocytes # 0.7 K/mm3 (0.1-1.0); Neutrophils # 7.2 K/mm3 (1.8-7.8); Neutrophils % 71.9 % (37.0-80.0); Platelet Count 207 K/mm3 (142-424); Red Blood Count 3.14 M/mm3 (4.60-6.20); Red Cell Distribution Width 11.9 % (11.5-17.5)
[2024-12-26 07:33] LABS: Anion Gap 15.4 mEq/L (5-15); Blood Urea Nitrogen 36 mg/dl (9-20); Calcium 9.2 mg/dl (8.4-10.2); Carbon Dioxide 22 mmol/L (22.0-30.0); Chloride 102 mmol/L (98-107); Creatinine Clearance Estimated 37 mL/min (50-200); Estimated Glomerular Filt Rate 45 ml/min (>60); GFR (African American) 54 ML/MIN (>60); Glucose 101 mg/dl (74-100); Potassium 4.4 mmoL/L (3.5-5.1); Sodium 135 mmol/L (136-145)
[2024-12-26 08:00] VITALS: BP 107/61; PULSE 99; RESP 18; TEMP 37.7; O2SAT 99
[2024-12-26] MEDS: ALLOPURINOL 300MG TABLET 300 MG PO (09:17)
[2024-12-26 11:42] LABS: POC Glucose,Bedside 122 (70-110)
--- NOTE | 2024-12-26 15:54 | PC.NURSE ---
No acute changes this shift. Pt remains A&O to person. Incontinent Bowel and bladder. Pt has voided and had A BM this shift via incontinent brief. Appetite remains fair. Pt prefers sweet deserts over his main course or vegetables. Continues to spit PO medications out of his mouth. Pt ambulated with assistance from bed to chair. Tolerated fair. Call light within reach. Safety measures in place.
[2024-12-26 16:00] VITALS: BP 103/61; PULSE 109; RESP 18; TEMP 37.1; O2SAT 99
[2024-12-26 16:36] LABS: POC Glucose,Bedside 161 (70-110)
[2024-12-26 20:43] LABS: POC Glucose,Bedside 145 (70-110)
[2024-12-26] MEDS: ACETAMINOPHEN 325MG TAB 650 MG PO (21:15)
[2024-12-26] MEDS: CEFTRIAXONE 1 GM 1 GM in 0.9 % SODIUM CHLORIDE 50 ML IV (21:15)
[2024-12-26] MEDS: VENLAFAXINE XR 75MG CAPSULE 225 MG PO (21:16)
[2024-12-26 22:12] VITALS: TEMP 36.8
[2024-12-27 04:00] VITALS: BP 104/65; PULSE 100; RESP 16; TEMP 36.5; O2SAT 96; BMI 20.7
--- NOTE | 2024-12-27 05:42 | PC.NURSE ---
at beginning of shift pts temp was 100.1. pt was lying in bed with blankets over his head, treated per jan and and removed some blankets. pts temp now 98.3. bed alarm on for pt safety.
[2024-12-27] MEDS: LEVOTHYROXINE 88MCG (0.088MG) TAB 88 MCG PO (06:36)
[2024-12-27 07:48] LABS: Chloride 105 mmol/L (98-107); Potassium 4.8 mmoL/L (3.5-5.1); Sodium 137 mmol/L (136-145)
[2024-12-27] MEDS: SENNOSIDES 8.6MG/DOCUSATE 50MG TABLET 1 TAB PO ×2 (07:48→20:15)
[2024-12-27] MEDS: ALLOPURINOL 300MG TABLET 300 MG PO (07:48)
[2024-12-27 07:51] LABS: Anion Gap 13.8 mEq/L (5-15); Blood Urea Nitrogen 35 mg/dl (9-20); Calcium 9.1 mg/dl (8.4-10.2); Carbon Dioxide 23 mmol/L (22.0-30.0); Creatinine Clearance Estimated 39 mL/min (50-200); Estimated Glomerular Filt Rate 49 ml/min (>60); GFR (African American) 59 ML/MIN (>60); Glucose 123 mg/dl (74-100)
[2024-12-27 07:53] LABS: Basophils % 0.4 % (0.1-2.0); Eosinophils # 0.2 K/mm3 (0.0-0.4); Hemoglobin 9.9 g/dL (14.1-18.0); Lymphocytes # 1.7 K/mm3 (0.7-4.5); Lymphocytes % 20.5 % (10-50); Mean Corpuscular Hemoglobin 30.7 pg (27.0-31.2); Mean Corpuscular Volume 92.9 fl (80-94); Monocytes # 0.5 K/mm3 (0.1-1.0); Monocytes % 6.6 % (1.7-9.3); Neutrophils # 5.7 K/mm3 (1.8-7.8); Platelet Count 195 K/mm3 (142-424); Red Blood Count 3.23 M/mm3 (4.60-6.20); Red Cell Distribution Width 11.9 % (11.5-17.5); White Blood Count 8.1 K/mm3 (4.8-10.8)
[2024-12-27 08:00] VITALS: BP 105/56; PULSE 88; RESP 16; TEMP 37; O2SAT 90
[2024-12-27 08:21] LABS: Hemoglobin A1C 6.1 % (4.0-6.0)
--- NOTE | 2024-12-27 10:16 | EXP.ACUTE.PN ---
Subjective *Date: 12/27/24 *Time: 10:16 Interval history: No acute events overnight stable on room air this morning. Tolerating p.o. intake. Patient has no complaints. Medical Exam Vital signs and Labs for Last 24 Hours: Vital Signs Temp Pulse Resp BP Pulse Ox O2 Del Method O2 Flow Rate 12/27/24 08:03 Room Air 12/27/24 08:00 98.6 F 88 16 105/56 L 90 L Room Air 12/27/24 08:00 Room Air 12/27/24 06:19 Nasal Cannula 2 12/27/24 05:00 Room Air 12/27/24 04:00 97.7 F 100 H 16 104/65 L 96 Room Air 12/27/24 03:00 Room Air 12/27/24 01:00 Room Air 12/26/24 23:00 Room Air 12/26/24 22:12 98.3 F 12/26/24 21:00 Room Air 12/26/24 20:00 Room Air 12/26/24 18:48 Room Air 12/26/24 17:00 Room Air 12/26/24 16:00 98.8 F 109 H 18 103/61 L 99 Room Air 12/26/24 14:50 Room Air 12/26/24 13:00 Room Air 12/26/24 11:00 Room Air Intake and Output 12/26/24 12/27/24 12/27/24 23:59 07:59 15:59 Intake Total 270 / 910 280 / 280 Output Total 0 / 0 0 / 0 Balance 270 / 910 0 / 280 280 / 280 Intake: Intake, Oral Amount 270 / 910 280 / 280 Output: Output, Urine Amount 0 / 0 0 / 0 Other: Number of Unmeasured Voids 1 1 Number of Bowel Movements 1 1 Weight 65.726 kg Patient Weight 12/27/24 23:59 Weight 65.726 kg Laboratory Results - last 24 hr 12/26/24 11:14: POC Glucose 122 H 12/26/24 16:28: POC Glucose 161 H 12/26/24 20:02: POC Glucose 145 H 12/27/24 07:15: WBC 8.1, RBC 3.23 L, Hgb 9.9 L, Hct 30.0 L, MCV 92.9, MCH 30.7, MCHC 33.0, RDW 11.9, Plt Count 195, MPV 10.0, Neut % (Auto) 70.0, Lymph % (Auto) 20.5, [place] % (Auto) 6.6, Eos % (Auto) 2.0, Baso % (Auto) 0.4, Neut # (Auto) 5.7, Lymph # (Auto) 1.7, [place] # (Auto) 0.5, Eos # (Auto) 0.2, Baso # (Auto) 0.0, Sodium 137, Potassium 4.8, Chloride 105, Carbon Dioxide 23, Anion Gap 13.8, BUN 35 H, Creatinine 1.40 H, Estimated Creat Clear 39, Estimated GFR 49 L, Est GFR ( Amer) 59, Glucose 123 H, Hemoglobin A1c 6.1 H, Calcium 9.1 I & O for Labs for Last 24 Hours: Intake & Output 12/24/24 12/25/24 12/26/24 12/27/24 23:59 23:59 23:59 23:59 Intake Total 720 / 720 910 / 910 280 / 280 Output Total 0 / 0 0 / 0 Balance 720 / 720 910 / 910 280 / 280 Weight 79.379 kg 65.4 kg 66.996 kg 65.726 kg Microbiology Reports for the Last 24 Hours: Microbiology 12/24/24 23:25 Urine,Clean Catch Urine Culture - Final 12/25/24 00:50 Blood Blood Culture - Final Staphylococcus epidermidis 12/25/24 01:10 Blood Blood Culture - Preliminary NO GROWTH AFTER 48 HOURS Constitutional: Present no acute distress, average body habitus, chronically ill appearing and disheveled Head: Present atraumatic and normocephalic Neck: Present normal inspection Respiratory: Present normal respiratory effort; Absent accessory muscle use, rhonchi, wheezes or crackles Cardiac: Present Reg Rate and Rhythm GI: Present soft and normal bowel sounds; Absent distention or tenderness Extremities: Present normal inspection and full ROM Skin: Present intact; Absent erythema Neuro: Present Grossly Intact, alert, awake and moves all extremities Comment:: Oriented to self Assessment and Plan *Assessment and plan (1) Acute UTI: Status: Acute Category: Medical Code(s): N39.0 - Urinary tract infection, site not specified (2) Schizophrenia: Status: Acute Category: Medical Code(s): F20.9 - Schizophrenia, unspecified (3) AMS (altered mental status): Status: Acute Category: Medical Code(s): R41.82 - Altered mental status, unspecified (4) Unsteady gait: Status: Acute Category: Medical Code(s): R26.81 - Unsteadiness on feet (5) Hypothyroidism: Status: Acute Qualifiers: Hypothyroidism type: acquired Qualified Code(s): E03.9 - Hypothyroidism, unspecified Category: Medical Code(s): E03.9 - Hypothyroidism, unspecified (6) Renal insufficiency: Status: Acute Category: Medical Code(s): N28.9 - Disorder of kidney and ureter, unspecified (7) Diabetes 1.5, managed as type 2: Status: Acute Category: Medical Code(s): E13.9 - Other specified diabetes mellitus without complications Plan This 79-year-old male, with multiple comorbidities including prior CVA, renal insufficiency, schizophrenia, and diabetes, presents with generalized weakness and altered mental status (disoriented to time). His laboratory evaluation reveals evidence of a urinary tract infection (UA with significant bacteriuria and pyuria), mild anemia, and worsening renal function. In addition, an elevated TSH raises concern for hypothyroidism as a contributing factor. Given his age, complex medical history, and altered mental status, he requires inpatient evaluation and management with a focus on treating the suspected UTI, optimizing his renal status, and reassessing his thyroid function. Awaiting placement. Medically stable at this time. Problems addressed as follows: Urinary Tract Infection CKD 3 HERMILO - UA findings: 2+ protein, 4+ bacteria, 10?20 RBCs, 20?50 WBCs, trace leukocyte esterase. Urine culture remains negative to date. Will complete at least 3 doses of ceftriaxone 1 g IV daily before discontinuing antibiotics. Awaiting final result. -1 of 4 bottles from blood cultures showing Staph epidermidis on PCR. Suspect contaminant. -White count normal at 8.1, lab holiday tomorrow. -Kidney injury appears to have resolved. BUN 35, creatinine 1.4. Suspect this is patient's baseline. Altered Mental Status and Generalized Weakness Schizophrenia -Patient oriented to self. Suspect this may actually be close to his baseline. Monitoring for continued improvement with treatment of infection and dehydration. -Continue with regular interaction with nursing. Continue with day night routine. -Evaluated by therapy, needs skilled therapy. Awaiting placement. -Continue Effexor 225 mg nightly; no behavioral disturbance Subclinical/Oligo-symptomatic Hypothyroidism - Elevated TSH at 7.01 with T4 of 7.6; this may be contributing to his weakness. Patient spitting out his pills here. Unsure if he is consistently taking his levothyroxine. Continue the levothyroxine increased to 88 mcg daily. 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 A1c 6.1 -Holding home metformin Gout: Continue allopurinol 300 mg daily Hyperlipidemia: Continue Lipitor 20 mg nightly Full code Diabetic diet
[2024-12-27 15:58] LABS: POC Glucose,Bedside 105 (70-110)
[2024-12-27 16:00] VITALS: BP 110/65; PULSE 89; RESP 16; TEMP 36.9; O2SAT 100
--- NOTE | 2024-12-27 18:54 | PC.NURSE ---
Aox 2, turn every two hours, assist times 2, on RA, fsbg achs, brief in place for inc of bowel and bladder, PT and OT following, 20g R AC SL, 20L fa sl, bed alarm active, awaiting placement.
[2024-12-27 20:00] VITALS: BP 98/58; PULSE 78; RESP 18; TEMP 37.2; O2SAT 99
[2024-12-27 20:15] LABS: POC Glucose,Bedside 164 (70-110)
[2024-12-27] MEDS: VENLAFAXINE XR 75MG CAPSULE 225 MG PO (20:15)
[2024-12-27] MEDS: CEFTRIAXONE 1 GM 1 GM in 0.9 % SODIUM CHLORIDE 50 ML IV (20:15)
[2024-12-27 21:05] LABS: POC Glucose,Bedside 141 (70-110)
--- NOTE | 2024-12-28 03:56 | PC.NURSE ---
patient had no acute changes since previous assessment, patient is oriented to person, patient turned Q2H, tolerating RA with O2 sats 99-100%, bed alarm is on and functioning, call button is in reach, patient awaiting placement
[2024-12-28 04:00] VITALS: BP 98/61; PULSE 87; RESP 16; TEMP 36.9; O2SAT 99; BMI 19.2
[2024-12-28] MEDS: LEVOTHYROXINE 88MCG (0.088MG) TAB 88 MCG PO (06:12)
[2024-12-28 06:25] LABS: POC Glucose,Bedside 94 (70-110)
[2024-12-28 08:00] VITALS: BP 105/61; PULSE 86; RESP 16; TEMP 37.3; O2SAT 100
--- NOTE | 2024-12-28 08:47 | EXP.PHA.PN ---
Subjective *Date: 12/28/24 *Time: 08:47 Medical Exam Vital signs and Labs for Last 24 Hours: Vital Signs Temp Pulse Resp BP Pulse Ox O2 Del Method 12/28/24 08:00 99.1 F 86 16 105/61 L 100 Room Air 12/28/24 07:57 Room Air 12/28/24 06:32 Room Air 12/28/24 05:00 Room Air 12/28/24 04:00 98.5 F 87 16 98/61 L 99 12/28/24 03:00 Room Air 12/28/24 01:00 Room Air 12/27/24 23:00 Room Air 12/27/24 21:00 Room Air 12/27/24 20:00 Room Air 12/27/24 20:00 98.9 F 78 18 98/58 L 99 Room Air 12/27/24 17:59 Room Air 12/27/24 16:53 Room Air 12/27/24 16:00 98.4 F 89 16 110/65 100 Room Air 12/27/24 14:00 Room Air 12/27/24 12:05 Room Air 12/27/24 10:30 Room Air Intake and Output 12/27/24 12/28/24 12/28/24 23:59 07:59 15:59 Intake Total 290 / 650 360 / 650 Output Total 0 / 0 0 / 0 Balance 0 / 850 290 / 650 360 / 650 Intake: Intake, Oral Amount 240 / 600 360 / 600 Intake, Total IV Amount 50 / 50 Ceftriaxone 1 gm 1 gm In 0.9 % 50 / 50 Sodium Chloride 50 ml @ 100 mls /hr IV Q24H [facility] Rx#:[id number] Output: Output, Urine Amount 0 / 0 0 / 0 Other: Number of Voids 2 Number of Unmeasured Voids 1 1 1 Number of Urine Attends/Diapers 2 Number of Bowel Movements 1 1 Weight 61.008 kg Patient Weight 12/28/24 23:59 Weight 61.008 kg Laboratory Results - last 24 hr 12/27/24 15:52: POC Glucose 105 12/27/24 20:05: POC Glucose 164 H 12/27/24 20:58: POC Glucose 141 H 12/28/24 06:14: POC Glucose 94 I & O for Labs for Last 24 Hours: Intake & Output 12/25/24 12/26/24 12/27/24 12/28/24 23:59 23:59 23:59 23:59 Intake Total 720 / 720 910 / 910 560 / 850 650 / 650 Output Total 0 / 0 0 / 0 0 / 0 Balance 720 / 720 910 / 910 560 / 850 650 / 650 Weight 65.4 kg 66.996 kg 65.726 kg 61.008 kg Microbiology Reports for the Last 24 Hours: Microbiology 12/24/24 23:25 Urine,Clean Catch Urine Culture - Final 12/25/24 00:50 Blood Blood Culture - Final Staphylococcus epidermidis The patient's infection will respond to the chosen ABx?: Yes Is the patient receiving the right drug, dose, and route?: Yes Could a more targeted ABx be ordered?: No (WBC DECREASED, TEMP 99.1, BLD CX POSITIVE X1, CONTINUE CURRENT ABX.)
[2024-12-28] MEDS: ALLOPURINOL 300MG TABLET 300 MG PO (08:48)
[2024-12-28] MEDS: SENNOSIDES 8.6MG/DOCUSATE 50MG TABLET 1 TAB PO (08:48)
--- NOTE | 2024-12-28 10:25 | P.DS_ITS ---
General Admission date:: 12/25/24 Discharge date: 12/28/24 HPI HPI HPI: The patient is an 79-year-old male with a history of prior cerebrovascular accident, renal insufficiency, schizophrenia, and diabetes who presents from [facility] for evaluation of generalized weakness and shakiness. According to the staff, he appeared noticeably more shaky and weaker than his baseline, and they reported an elevated blood pressure; however, EMS found his vital signs to be stable en route. On arrival, the patient denies any specific complaints and insists he feels fine, although his mental status is alt ered?he is oriented to person and place but not to time?and he is a poor historian. On examination, he appears generally weak without focal neurologic deficits. Initial laboratory studies reveal a mildly elevated white blood cell count of 12.6 and anemia with a hemoglobin of 10.6 and hematocrit of 32.6. Renal function is compromised, with a BUN of 46, creatinine of 1.90, and an estimated GFR of 34, consistent with his known renal insufficiency. The urinalysis is concerning for infection, showing 2+ protein, 4+ bacteria, 10?20 RBCs, 20?50 WBCs, and trace leukocyte esterase. Additionally, his thyroid studies demonstrate an elevated TSH of 7.01 with a T4 of 7.6, raising the possibility of hypothyroidism contributing to his symptoms. An ECG obtained in the ED reveals sinus tachycardia at a ventricular rate of 103 bpm without ischemic changes. Overall, his presentation raises concerns for an infectious process, metabolic derangements, and the possibility that his altered mental status and weakness may be multifactorial in origin. Admission to hospitalist service for monitoring and evaluation recommended. Hospital Course Hospital Course Hospital Course: This 79-year-old male, with multiple comorbidities including prior CVA, renal insufficiency, schizophrenia, and diabetes, presents with generalized weakness and altered mental status (disoriented to time). His laboratory evaluation reveals evidence of a urinary tract infection (UA with significant bacteriuria and pyuria), mild anemia, and worsening renal function. In addition, an elevated TSH raises concern for hypothyroidism as a contributing factor. Given his age, complex medical history, and altered mental status, he requires inpatient evaluation and management with a focus on treating the suspected UTI, optimizing his renal status, and reassessing his thyroid function. Patient did well during admission. Evaluated by therapy, needs placement due to self-care deficit. Will discharge to [facility] for further management. Problems addressed as follows: Urinary Tract Infection CKD 3 HERMILO - UA findings: 2+ protein, 4+ bacteria, 10?20 RBCs, 20?50 WBCs, trace leukocyte esterase. Urine culture negative during admission. No growth after 48 hours. Completed 3 days of ceftriaxone 1 g daily. No indication for further antibiotics at this time. White count remained normal during admission. Did have a single blood culture with Staph epidermidis, suspect this is contaminant. Patient does not have other concerns for bacteremia. Kidney injury improved, patient back to baseline BUN 35, creatinine 1.4 morning before discharge. Needs repeat CBC and CMP in 1 week Altered Mental Status and Generalized Weakness, improving Schizophrenia -Patient oriented to self. Suspect this may actually be close to his baseline. Has had stable mentation with no behavioral disturbances during duration of hospitalization. Pleasant on interactions. Continue Effexor 225 mg nightly. Subclinical/Oligo-symptomatic Hypothyroidism - Elevated TSH at 7.01 with T4 of 7.6; this may be contributing to his weakness. Unsure if he is consistently taking his levothyroxine prior to admission. Increased levothyroxine to 88 mcg daily. 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 Exam Data for Last 24 hours Vital signs and Labs for Last 24 Hours: Temp Pulse Resp BP Pulse Ox O2 Del Method O2 Flow Rate 99.1 F 86 16 105/61 L 100 Room Air 2 12/28/24 08:00 12/28/24 08:00 12/28/24 08:00 12/28/24 08:00 12/28/24 08:00 12/28/24 08:52 12/27/24 06:19 Laboratory Results - last 24 hr 12/27/24 15:52: POC Glucose 105 12/27/24 20:05: POC Glucose 164 H 12/27/24 20:58: POC Glucose 141 H 12/28/24 06:14: POC Glucose 94 I & O for Last 24 hours: Intake & Output 12/25/24 12/26/24 12/27/24 12/28/24 23:59 23:59 23:59 23:59 Intake Total 720 / 720 910 / 910 560 / 850 650 / 650 Output Total 0 / 0 0 / 0 0 / 0 Balance 720 / 720 910 / 910 560 / 850 650 / 650 Weight 65.4 kg 66.996 kg 65.726 kg 61.008 kg Microbiology Reports for the Last 24 Hours: Microbiology 12/25/24 00:50 Blood Blood Culture - Final Staphylococcus epidermidis 12/24/24 23:25 Urine,Clean Catch Urine Culture - Final Constitutional Constitutional: no acute distress, average body habitus, chronically ill appearing and cooperative *Routine HEENT Exam Head: Present normocephalic Eye: Present EOMI and PERRL ENT: Present mucous membranes moist *Routine Neck Exam Neck: Present supple; Absent lymphadenopathy *Routine Respiratory Exam Respiratory: Present CTA bilaterally; Absent accessory muscle use, rhonchi, wheezes or crackles *Routine Cardiovascular Exam Cardiovascular: Present RRR *Routine Abdominal Exam Abdominal: Present soft and normoactive bowel sounds; Absent tenderness *Routine Rectal Exam Patient deferred: visual exam *Routine Exam Patient deferred: penile exam *Routine Extremities Exam Extremities: Absent cyanosis, clubbing or edema *Routine Skin Exam Skin: Present warm; Absent rash *Routine Neurological Exam Neurological: Present alert, CN II-XII intact and moving all extremities; Absent motor deficit Comments: oriented to self, baseline mentation Routine Psychiatric Exam Comments: No behavioral disturbance. Normal affect Results Data Completed and Pending Labs on day of discharge: Labs from last 24 hours 12/28/24 12/27/24 12/27/24 06:14 20:58 20:05 POC Glucose 94 141 H 164 H 12/27/24 15:52 POC Glucose 105 Preliminary micro results at discharge 12/25/24 01:10 Blood Culture - Preliminary Blood NO GROWTH AFTER 48 HOURS DS: Diagnosis Discharge Diagnosis (1) Acute UTI: Status: Acute Code(s): N39.0 - Urinary tract infection, site not specified (2) Schizophrenia: Status: Acute Code(s): F20.9 - Schizophrenia, unspecified (3) AMS (altered mental status): Status: Acute Code(s): R41.82 - Altered mental status, unspecified (4) Unsteady gait: Status: Acute Code(s): R26.81 - Unsteadiness on feet (5) Hypothyroidism: Status: Acute Code(s): E03.9 - Hypothyroidism, unspecified Qualifiers: Hypothyroidism type: acquired Qualified Code(s): E03.9 - Hypothyroidism, unspecified (6) Renal insufficiency: Status: Acute Code(s): N28.9 - Disorder of kidney and ureter, unspecified (7) Diabetes 1.5, managed as type 2: Status: Acute Code(s): E13.9 - Other specified diabetes mellitus without complications Meds Home Medications and Allergies Home Medications ?Medication ?Instructions ?Recorded ?Confirmed ?Type acetaminophen 325 mg tablet 650 mg (2 x 325 mg) PO Q6HP PRN As 12/28/24 Rx Needed For Fever Or Pain 30 days #120 tabs allopurinol 300 mg tablet 300 mg PO DAILY 30 days #30 tabs 12/28/24 Rx atorvastatin 20 mg tablet 20 mg PO HS 30 days #30 tabs 12/28/24 Rx levothyroxine 88 mcg tablet 88 mcg PO DAILYDM 30 days #30 tabs 12/28/24 Rx (Synthroid) metformin 500 mg tablet 500 mg PO BIDWMEAL 30 days #60 tabs 12/28/24 Rx sennosides 8.6 mg-docusate sodium 1 tab PO BID PRN constipation 30 12/28/24 Rx 50 mg tablet days #60 tabs venlafaxine 75 mg capsule,extended 225 mg (3 x 75 mg) PO HS 30 days 12/28/24 Rx release 24 hr #90 caps New Prescriptions to Start Prescriptions: acetaminophen Tru,Bryson allopurinol Tru,Bryson atorvastatin Tru,Bryson levothyroxine [Synthroid] Tru,Bryson metformin Tru,Bryson sennosides-docusate sodium Tru,Bryson venlafaxine Bryson Ott Allergies Allergy/AdvReac Type Severity Reaction Status Date / Time No Known Allergies Allergy Verified 12/21/24 13:37 Discharge Plan Disposition Patient Disposition: [facility] Condition: Fair Discharge Order Discharge Orders: Discharge Order (Routine); Ordered 12/28/24 Ordered By: Bryson Ott Follow up Plan Prescriptions/Medication Reconciliation: New levothyroxine [Synthroid] 88 mcg Tablet 88 mcg PO DAILYDM 30 Days Qty: 30 0RF Continued metformin 500 mg Tablet 500 mg PO BIDWMEAL 30 Days Qty: 60 0RF acetaminophen 325 MG tablet 650 mg PO Q6HP PRN (Reason: As Needed For Fever Or Pain) 30 Days Qty: 120 0RF venlafaxine 75 MG capsule,extended release 24hr 225 mg PO HS 30 Days Qty: 90 0RF atorvastatin 20 mg Tablet 20 mg PO HS 30 Days Qty: 30 0RF allopurinol 300 MG tablet 300 mg PO DAILY 30 Days Qty: 30 0RF Changed sennosides-docusate sodium 1 EACH tablet 1 tab PO BID PRN (Reason: constipation) 30 Days Qty: 60 0RF Discontinued megestrol 400 mg/10 mL (40 mg/mL) suspension 400 mg PO DAILY levothyroxine [Synthroid] 75 mcg Tablet 75 mcg PO DAILY Problem Reconciliation Problems Reviewed?: Yes Patient Discharge Instructions ACTIVITY: Continue current activity DIET: continue same diet Patient Instructions: DI for Urinary Tract Infection (UTI), DI for Altered Mental Status Print Language: Micronesian Providers Primary Care Provider: Gamal Tipton Admit Provider: Bryson Ott Attending Provider: Bryson Ott
[2024-12-28 11:10] LABS: POC Glucose,Bedside 122 (70-110)
== END 2024-12-28 12:00 ==
LOC: ER 12-25 00:53 → 2ND 12-25 01:28
PROVIDERS: Emergency Medicine; Nurse Practitioner Family; Admitting Provider Internal Medicine Adolescent Medicine; Emergency Provider Emergency Medicine; PCP Nurse Practitioner Acute Care; Visit Provider Internal Medicine Adolescent Medicine
DX: N17.9 Acute kidney failure, unspecified (principal); N39.0 Urinary tract infection, site not specified; E03.9 Hypothyroidism, unspecified; E11.22 Type 2 diabetes mellitus with diabetic chronic kidney disease; N18.30 Chronic kidney disease, stage 3 unspecified; F25.9 Schizoaffective disorder, unspecified; M10.9 Gout, unspecified; E03.8 Other specified hypothyroidism; E78.5 Hyperlipidemia, unspecified; Z86.73 Personal history of transient ischemic attack (TIA), and cerebral infarction without residual deficits; Z79.899 Other long term (current) drug therapy; Z79.02 Long term (current) use of antithrombotics/antiplatelets; Z79.84 Long term (current) use of oral hypoglycemic drugs; Z74.1 Need for assistance with personal care; Z79.890 Hormone replacement therapy
CPT/HCPCS: 36415; 70450; 71045; 80048; 80053; 81001; 82962; 83036; 83690; 83735; 83880; 84436; 84443; 84484; 85025; 86803; 87040; 87077; 87086; 87186; 87389; 87636; 93005; 97162; 97166; 97530; 99285; G0378; J0696; J7030

== ENCOUNTER 2025-01-20 11:00 | Outpatient (CLI) | payer MEDICARE, MEDICAID, SELFPAY | END 2025-01-20 23:59 | disposition home or self-care (01) | LOC: RAD 11:02 | PROVIDERS: PCP Nurse Practitioner Acute Care; Visit Provider Nurse Practitioner Family | DX: R13.10 Dysphagia, unspecified (principal) ==

== ENCOUNTER 2025-08-17 12:49 | Inpatient (IN) | payer MEDICARE, MEDICAID, SELFPAY ==
[2025-08-17] VITALS (18 sets, daily range): BP systolic 104–172; BP diastolic 66–123; PULSE 90–132; RESP 12–20; TEMP 36.8–38.9; O2SAT 92–99; BMI 23.7; BMI 22.6
--- NOTE | 2025-08-17 13:20 | XR_ITS ---
FINAL REPORT CLINICAL HISTORY: low bp COMPARISON: 12/24/2024 FINDINGS: SINGLE VIEW CHEST The heart is normal in size. The mediastinum is unremarkable. The lungs are underinflated with chronic changes in both lungs. There is no pneumothorax. IMPRESSION: No acute process. Reviewed, Interpreted and Dictated by Zeb Brown MD Transcribed by Yazmin Cee Authenticated and [facility]
--- NOTE | 2025-08-17 13:23 | ED_ITS ---
<Statement entered by Hernán Hemphill DO - 08/18/25 07:28> I was consulted by the JOHN, and we discussed the complexity of problems being addressed. I approved the treatment and management plan for this patient's care in the emergency department, thus performing a substantive portion of the medical decision making. This gentleman presented [facility] emergency department [facility] a [facility] for evaluation of an isolated episode of hypotension. Collateral was obtained from [facility] staff who stated that he is behaving at his baseline mental status and also reportedly has been having some right arm pain which is his baseline. On arrival to the emergency department we measured serial blood pressures and all his blood pressures were normal. We proceeded with screening hematologic labs which showed a nonspecific leukocytosis of 17.6. Aside from this he had no abnormalities and urine was pending. I reassessed the patient multiple times and he had a benign abdomen with no evidence of peritonitis. He remained at his baseline mental status while under my care in the emergency department. At the time of shift change his urinalysis was pending. This case was handed off to Dr. Santana who will supervise the JOHN further for the remainder of the workup. Hernán Hemphill DO Discharge Plan Disposition Patient Disposition: Admitted Clinical Impressions Clinical Impression: Unsteady gait, Osteoarthritis of right shoulder, AMS (altered mental status), Schizophrenia Hypothyroidism Qualifiers: Hypothyroidism type: acquired Qualified Code(s): E03.9 - Hypothyroidism, unspecified Discharge ED Provider: Brennan Santana General Adult HPI <Julia Bibianahugo (ED), CARE SPECIALIST - Last Filed: 08/17/25 20:26> General Chief complaint: Weakness Stated complaint: Weakness Time Seen by Provider: 08/17/25 13:07 Mode of Arrival: EMS Source of Information: Patient and EMS Limitations: Altered Mental Status (At baseline oriented to self only) Description of Symptoms (Recalled from ER Triage Doc. by RN): EMS was called to [facility] for pt with hypotension. EMS reports when they got there the pt was hypertensive. pt is A&O x1 at baseline. Facility staff reports that the pt was walking they noticed he was diaphoretic and weak. pt glucose 152. Denies fall. Pt denies any pain at this time. hx of schizophrenia and Type 2 diabetes. History of Present Illness HPI narrative: 80-year-old [place] [facility] EMS was called because patient was walking around and they noticed he was weak and diaphoretic. They checked patient's blood pressure and it was low. They called EMS and on EMS arrival patient's blood pressure was low. Patient is alert and oriented x 1 at baseline. Patient has history of CVA in the past. He does have history of schizophrenia and type 2 diabetes. Sugar on EMS arrival was 152. Patient denies pain. intermediate denies patient falling. Patient family member at bedside. This is his brother Ally. They told him the same story. Related Data Home Medications ?Medication ?Instructions ?Recorded ?Confirmed levothyroxine 88 mcg tablet 112 mcg PO DAILYDM 5 08/17/25 (Synthroid) Previous Rx's ?Medication ?Instructions ?Recorded acetaminophen 325 mg tablet 650 mg (2 x 325 mg) PO Q6H P PRN As 12/28/24 Needed For Fever Or Pain 30 days #120 tabs allopurinol 300 mg tablet 300 mg PO DAILY 30 days #30 tabs 12/28/24 atorvastatin 20 mg tablet 20 mg PO HS 30 days #30 tabs 12/28/24 metformin 500 mg tablet 500 mg PO BIDWMEAL 30 days # 60 tabs 12/28/24 sennosides 8.6 mg-docusate sodium 1 tab PO BID PRN con stipation 30 12/28/24 50 mg tablet days #60 tabs venlafaxine 75 mg capsule,extended 225 mg (3 x 75 mg) PO HS 30 days 12/28/24 release 24 hr #90 caps Allergies Allergy/AdvReac Type Severity Reaction Status Date / Time No Known Allergies Allergy Verified 12/21/24 13:37 [facility] <Julia Blank (ED), CARE SPECIALIST - Last Filed: 08/17/25 20:26> [facility] Disclaimer: The information contained in this section may have been updated after the patient was seen, as this information can be updated by other users. Medical History Hypertension Schizo affective schizophrenia Dysphagia Diabetes Diabetes Hypothyroid Anemia CVA (cerebral vascular accident) Social History Smoking Status: Former smoker tobacco type: cigarettes packs per day: 1 second hand exposure: No alcohol intake: never substance use type: other current occupational status: disabled Travel in the last 8 weeks?: None household members: other housing: assisted living facility current occupational exposures/hazards: No caffeine: Yes Have you lived/traveled outside [place] in past 30 days?: No Contact w/someone who lives/traveled outside US past 30 days?: No Exposure to someone with infectious disease in past 14 days?: No Do you have a fever (greater than 100.4 F or 38 C)?: No Have you tested positive for COVID-19?: No Exposed to someone with COVID-19 in past 14 days?: No Do you have a sore throat?: No Do you have a cough?: No Do you have any weakness?: No Do you have any diarrhea?: No Are you experiencing any unusual bleeding?: No Do you have any muscle aches/pain?: No Do you have any abdominal pain?: No Are you experiencing loss of taste or smell?: No Other Medical History Have you received the Flu Vaccine for this season: No Have you received the Pneumonia Vaccine: No <Julia Blank (ED), CARE SPECIALIST - Last Filed: 08/17/25 20:26> ROS Obtained: Yes Systems reviewed as appropriate & no additional complaints except as documented Constitutional Constitutional: Reports as per HPI Physical Exam <Julia Blank (ED), CARE SPECIALIST - Last Filed: 08/17/25 20:26> General General appearance: alert and in no apparent distress Head Head exam: normocephalic Eye Eye exam: Present PERRL and EOMI ENT ENT exam: Present normal oropharynx and mucous membranes moist Neck Neck exam: Present full ROM and trachea midline Respiratory Respiratory exam: Present normal lung sounds bilaterally Cardiovascular Cardiovascular exam: Present regular rate, normal rhythm, normal heart sounds, +S1 and +S2 Abdominal Exam Abdominal exam: Present soft and normal bowel sounds Extremities Exam Extremities exam: Present full ROM and normal capillary refill Neurological Exam Neurological exam: Present alert and other (Oriented to self only) Psychiatric Psychiatric exam: Present other (Schizophrenic oriented to self only) Skin Skin exam: Present warm, dry and intact Medical Decision Making <Julia Blank (ED), CARE SPECIALIST - Last Filed: 08/17/25 20:26> Medical Records Screening: Per USPSTF and CDC recommendations, given the prevalence of disease in our region, it is our hospital?s policy to screen for HIV and viral Hepatitis for all patients aged 18 and over and those with ongoing risk factors. Jermaine Inquiry Pt receiving controlled substance: No Jermaine was queried for this patient: No Vital Signs: 08/17/25 12:53 08/17/25 13:01 08/17/25 13:11 Temperature 98.7 F Temperature Source Oral Pulse Rate 101 H 90 Pulse Rate [Right] 99 H Respiratory Rate 12 15 19 Blood Pressure 122/78 142/69 H Blood Pressure [Right Arm] 122/78 Blood Pressure Mean Blood Pressure Mean [Right Arm] 92 Blood Pressure Source [Right Arm] Automatic Cuff Blood Pressure Position [Right Arm] Supine 02 Sat by Pulse Oximetry 99 98 96 Oxygen Delivery Method Room Air 08/17/25 13:23 08/17/25 13:33 08/17/25 14:01 Temperature Temperature Source Pulse Rate Pulse Rate [Right] Respiratory Rate 14 12 Blood Pressure 137/79 125/73 Blood Pressure [Right Arm] Blood Pressure Mean Blood Pressure Mean [Right Arm] Blood Pressure Source [Right Arm] Blood Pressure Position [Right Arm] 02 Sat by Pulse Oximetry 96 97 Oxygen Delivery Method Room Air 08/17/25 14:31 08/17/25 15:02 08/17/25 15:31 Temperature Temperature Source Pulse Rate Pulse Rate [Right] Respiratory Rate 14 19 Blood Pressure 136/66 128/110 H 139/92 H Blood Pressure [Right Arm] Blood Pressure Mean 89 111 105 Blood Pressure Mean [Right Arm] Blood Pressure Source [Right Arm] Blood Pressure Position [Right Arm] 02 Sat by Pulse Oximetry 92 L 92 L Oxygen Delivery Method 08/17/25 16:01 08/17/25 16:31 08/17/25 17:01 Temperature Temperature Source Pulse Rate Pulse Rate [Right] Respiratory Rate 13 Blood Pressure 136/99 H 152/123 H 172/87 H Blood Pressure [Right Arm] Blood Pressure Mean 132 115 Blood Pressure Mean [Right Arm] Blood Pressure Source [Right Arm] Blood Pressure Position [Right Arm] 02 Sat by Pulse Oximetry Oxygen Delivery Method 08/17/25 19:09 08/17/25 19:31 08/17/25 19:36 Temperature Temperature Source Pulse Rate 132 H 129 H 131 H Pulse Rate [Right] Respiratory Rate Blood Pressure 132/69 131/76 114/74 Blood Pressure [Right Arm] Blood Pressure Mean Blood Pressure Mean [Right Arm] Blood Pressure Source [Right Arm] Blood Pressure Position [Right Arm] 02 Sat by Pulse Oximetry 97 98 95 Oxygen Delivery Method 08/17/25 20:01 08/17/25 20:01 08/17/25 20:15 Temperature 98.2 F Temperature Source Pulse Rate 124 H 128 H Pulse Rate [Right] Respiratory Rate 20 Blood Pressure 132/88 139/78 Blood Pressure [Right Arm] Blood Pressure Mean Blood Pressure Mean [Right Arm] Blood Pressure Source [Right Arm] Blood Pressure Position [Right Arm] 02 Sat by Pulse Oximetry 98 Oxygen Delivery Method Room Air Room Air Lab Data Lab Results 08/17/25 13:00: WBC 17.6 H, RBC 3.34 L, Hgb 9.7 L, Hct 31.3 L, MCV 93.7, MCH 29.0, MCHC 31.0 L, RDW 11.9, Plt Count 193, MPV 10.9 H, Neut % (Auto) 77.7, Lymph % (Auto) 13.8, [place] % (Auto) 6.3, Eos % (Auto) 1.4, Baso % (Auto) 0.3, N eut # (Auto) 13.7 H, Lymph # (Auto) 2.4, [place] # (Auto) 1.1 H, Eos # (Auto) 0.2, Baso # (Auto) 0.1, D-Dimer 0.99 H, Sodium 140, Potassium 4.6, Chloride 105, Carbon Dioxide 26, Anion Gap 13.6, BUN 29 H, Creatinine 1.60 H, Estimated Creat Clear 41, Estimated GFR 42 L, Est GFR ( Amer) 50 L, Glucose 137 H, Calcium 8.8, Magnesium 1.7, Total Bilirubin 0.5, AST 24, ALT 16, Alkaline Phosphatase 95, Troponin I < 0.01, Total Protein 6.7, Albumin 3.6, Globulin 3.1, Albumin/Globulin Ratio 1.2, Lipase 105, TSH 34.20 H, Free T4 0.51 L, HCV Ab CATRACHITA w/Rflx PCR Qn Negative, HIV Ag/Ab Combo Qual Negative 08/17/25 13:30: SARS-CoV-2 (PCR) Not detected, Influenza A Untype (PCR) Not detected, Influenza Type B (PCR) Not detected 08/17/25 15:03: Urine Color Yellow, Urine Appearance Clear, Urine pH 6.0, Ur Specific [place] 1.020, Urine Protein Trace, Urine Glucose (UA) Trace, Urine Ketones Negative, Urine Blood 1+ A, Urine Nitrate Negative, Urine Bilirubin Negative, Urine Urobilinogen 0.2, Ur Leukocyte Esterase Negative, Urine RBC 3-5, Urine WBC 3-5, Ur Squamous Epith Cells 3-5, Urine Bacteria 1+ 08/17/25 16:07: Troponin I < 0.01 08/17/25 13:00 08/17/25 13:00 Orders (Tests/Meds): ED MEDICATIONS Generic Name Dose Route Start Last Admin Trade Name Freq PRN Reason Stop Dose Admin Acetaminophen 650 mg 08/17/25 19:46 Acetaminophen 325mg Tab PO 09/16/25 19:45 Q4HP PRN Fever or Mild Pain (1-3) Acetaminophen 1,000 mg 08/17/25 22:37 08/17/25 22:43 Acetaminophen 1,000mg/100ml Vial IV 09/16/25 22:36 1,000 mg Q6HP PRN Administration Mild Pain (1-3), fever Heparin Sodium (Porcine) 5,000 unit 08/17/25 21:00 08/17/25 22:08 Heparin Sodium 5,000 Unit/Ml Vial SUBCUT 09/16/25 20:59 5,000 unit TID ROHITH Administration Lactated Ringer's 1,000 mls @ 50 mls/hr 08/17/25 20:00 Lactated Ringer's 1000 Ml Bag IV 09/16/25 19:59 .Q20H [facility] Miscellaneous 1 each 08/17/25 19:45 08/17/25 22:09 Vancomycin Consult Request NOTAPPLIC 09/16/25 19:44 Not Given CONSULT PHARMACY [facility] Ondansetron HCl 4 mg 08/17/25 19:46 Ondansetron 4mg/2ml Vial IV 09/16/25 19:45 Q8HP PRN Nausea Discontinued Medications Generic Name Dose Route Start Last Admin Trade Name Freq PRN Reason Stop Dose Admin Sodium Chloride 1,000 mls @ 999 mls/hr 08/17/25 13:19 08/17/25 15:36 Sod Chlor 0.9% 1000ml Bag IV 08/17/25 14:19 Infused .Q1H1M ONE Infusion Lactated Ringer's 2,380 mls @ 1,190 mls/hr 08/17/25 19:41 08/17/25 22:48 Lactated Ringer's 1000 Ml Bag 30 ml/kg infuse over 2 hr (2380 ml) 08/17/25 21:40 Infused IV Infusion .Q2H ONE Protocol Piperacillin Sod/Tazobactam 50 mls @ 100 mls/hr 08/17/25 19:45 08/17/25 21:37 Sod 3.375 gm/ Sodium Chloride IV 08/17/25 20:14 Infused ONCE ONE Infusion Vancomycin/PEG/NADA/Lysine/Water 1.5 gm in 300 mls @ 150 mls/hr 08/17/25 20:00 Vancomycin 1.5gm/300ml (Peg) Premix IV 08/17/25 21:59 ONCE ONE ORDERS Category Date Time Status Chest XR -- portable [XR chest portable] Stat Exams 08/17/25 13:20 Completed Elbow XR right minimum 3 views [XR elbow RT min 3V] Exams 08/17/25 17:49 Completed Stat Shoulder XR right miminum 2 views [XR shoulder RT min Exams 08/17/25 17:49 Completed 2V] Stat Wrist XR right minimum 3 views [XR wrist RT min 3V] Exams 08/17/25 17:49 Completed Stat Basic Metabolic Panel AMLAB Lab 08/18/25 06:00 Ordered Basic Metabolic Panel AMLAB Lab 08/19/25 06:00 Ordered Basic Metabolic Panel AMLAB Lab 08/20/25 06:00 Ordered CBC [Complete Blood Count Auto Diff] Stat Lab 08/17/25 13:00 Completed Complete Blood Count Auto Diff AMLAB Lab 08/18/25 06:00 Ordered Complete Blood Count Auto Diff AMLAB Lab 08/19/25 06:00 Ordered Complete Blood Count Auto Diff AMLAB Lab 08/20/25 06:00 Ordered Comprehensive Metabolic Panel Stat Lab 08/17/25 13:00 Completed D-Dimer Stat Lab 08/17/25 13:00 Completed Free T4 (Free Thyroxine) Stat Lab 08/17/25 13:00 Completed HIV Combo Stat Lab 08/17/25 13:00 Completed Hepatitis C Ab Qual. W/ RFX Stat Lab 08/17/25 13:00 Completed Lipase Stat Lab 08/17/25 13:00 Completed Magnesium Stat Lab 08/17/25 13:00 Completed Rapid PCR Covid and Flu A/B Stat Lab 08/17/25 13:30 Completed TSH [Thyroid Stimulating Hormone] Stat Lab 08/17/25 13:00 Completed Trop I [Troponin I] Stat Lab 08/17/25 13:00 Completed Troponin I Q3H Lab 08/17/25 16:07 Completed Urinalysis and Microscopic Stat Lab 08/17/25 15:03 Completed Medical Decision Narrative: patient is a 80-year-old man presenting to the emergency department for evaluation of weakness. Patient is hemodynamically stable and nontoxic- appearing upon arrival, afebrile. Differential diagnosis includes weakness, altered mental status, among others. Workup will be conducted with hematologic labs, specific imaging, provocative tests. Initial inventions include crystalloid bolus. Discussed with Sachi at [facility] that patient is unsteady with a walker so they usually walk with him. Also discussed with Sachi that he does complain and scream out when someone touches the right arm. He has been doing that for a few days. Talk to Ally his son who says he is pretty normal but thinks he is declining some.I am waiting for the x-rays on his shoulder at this time. Dr. Santana and I discussed this case as well as Dr. Hemphill and discussed the case. Dr. Hemphill assessed the patient twice and I assessed the patient many times. Patient had films of his right arm. Dr. Santana and I both looked at these films. They look like they are negative for any acute fracture. With the symptoms being ongoing I discussed with Dr. Ortiz and we agree that patient is [facility] to [facility]. He does need to follow-up with his PCP to discuss further treatment options. Patient's heart rate went up to 130s. Dr. Santana reassess patient EKG showed sinus tach 130. We entered orders for sepsis bolus and antibiotics and admitted patient to hospital medicine. <Brennan Santana MD - Last Filed: 08/17/25 23:04> Vital Signs: 08/17/25 12:53 08/17/25 13:01 08/17/25 13:11 Temperature 98.7 F Temperature Source Oral Pulse Rate 101 H 90 Pulse Rate [Right] 99 H Respiratory Rate 12 15 19 Blood Pressure 122/78 142/69 H Blood Pressure [Right Arm] 122/78 Blood Pressure Mean Blood Pressure Mean [Right Arm] 92 Blood Pressure Source [Right Arm] Automatic Cuff Blood Pressure Position [Right Arm] Supine 02 Sat by Pulse Oximetry 99 98 96 Oxygen Delivery Method Room Air 08/17/25 13:23 08/17/25 13:33 08/17/25 14:01 Temperature Temperature Source Pulse Rate Pulse Rate [Right] Respiratory Rate 14 12 Blood Pressure 137/79 125/73 Blood Pressure [Right Arm] Blood Pressure Mean Blood Pressure Mean [Right Arm] Blood Pressure Source [Right Arm] Blood Pressure Position [Right Arm] 02 Sat by Pulse Oximetry 96 97 Oxygen Delivery Method Room Air 08/17/25 14:31 08/17/25 15:02 08/17/25 15:31 Temperature Temperature Source Pulse Rate Pulse Rate [Right] Respiratory Rate 14 19 Blood Pressure 136/66 128/110 H 139/92 H Blood Pressure [Right Arm] Blood Pressure Mean 89 111 105 Blood Pressure Mean [Right Arm] Blood Pressure Source [Right Arm] Blood Pressure Position [Right Arm] 02 Sat by Pulse Oximetry 92 L 92 L Oxygen Delivery Method 08/17/25 16:01 08/17/25 16:31 08/17/25 17:01 Temperature Temperature Source Pulse Rate Pulse Rate [Right] Respiratory Rate 13 Blood Pressure 136/99 H 152/123 H 172/87 H Blood Pressure [Right Arm] Blood Pressure Mean 132 115 Blood Pressure Mean [Right Arm] Blood Pressure Source [Right Arm] Blood Pressure Position [Right Arm] 02 Sat by Pulse Oximetry Oxygen Delivery Method 08/17/25 19:09 08/17/25 19:31 08/17/25 19:36 Temperature Temperature Source Pulse Rate 132 H 129 H 131 H Pulse Rate [Right] Respiratory Rate Blood Pressure 132/69 131/76 114/74 Blood Pressure [Right Arm] Blood Pressure Mean Blood Pressure Mean [Right Arm] Blood Pressure Source [Right Arm] Blood Pressure Position [Right Arm] 02 Sat by Pulse Oximetry 97 98 95 Oxygen Delivery Method 08/17/25 20:01 08/17/25 20:01 08/17/25 20:15 Temperature 98.2 F Temperature Source Pulse Rate 124 H 128 H Pulse Rate [Right] Respiratory Rate 20 Blood Pressure 132/88 139/78 Blood Pressure [Right Arm] Blood Pressure Mean Blood Pressure Mean [Right Arm] Blood Pressure Source [Right Arm] Blood Pressure Position [Right Arm] 02 Sat by Pulse Oximetry 98 Oxygen Delivery Method Room Air Room Air Lab Data Lab Results 08/17/25 13:00: WBC 17.6 H, RBC 3.34 L, Hgb 9.7 L, Hct 31.3 L, MCV 93.7, MCH 29.0, MCHC 31.0 L, RDW 11.9, Plt Count 193, MPV 10.9 H, Neut % (Auto) 77.7, Lymph % (Auto) 13.8, [place] % (Auto) 6.3, Eos % (Auto) 1.4, Baso % (Auto) 0.3, N eut # (Auto) 13.7 H, Lymph # (Auto) 2.4, [place] # (Auto) 1.1 H, Eos # (Auto) 0.2, Baso # (Auto) 0.1, D-Dimer 0.99 H, Sodium 140, Potassium 4.6, Chloride 105, Carbon Dioxide 26, Anion Gap 13.6, BUN 29 H, Creatinine 1.60 H, Estimated Creat Clear 41, Estimated GFR 42 L, Est GFR ( Amer) 50 L, Glucose 137 H, Calcium 8.8, Magnesium 1.7, Total Bilirubin 0.5, AST 24, ALT 16, Alkaline Phosphatase 95, Troponin I < 0.01, Total Protein 6.7, Albumin 3.6, Globulin 3.1, Albumin/Globulin Ratio 1.2, Lipase 105, TSH 34.20 H, Free T4 0.51 L, HCV Ab CATRACHITA w/Rflx PCR Qn Negative, HIV Ag/Ab Combo Qual Negative 08/17/25 13:30: SARS-CoV-2 (PCR) Not detected, Influenza A Untype (PCR) Not detected, Influenza Type B (PCR) Not detected 08/17/25 15:03: Urine Color Yellow, Urine Appearance Clear, Urine pH 6.0, Ur Specific [place] 1.020, Urine Protein Trace, Urine Glucose (UA) Trace, Urine Ketones Negative, Urine Blood 1+ A, Urine Nitrate Negative, Urine Bilirubin Negative, Urine Urobilinogen 0.2, Ur Leukocyte Esterase Negative, Urine RBC 3-5, Urine WBC 3-5, Ur Squamous Epith Cells 3-5, Urine Bacteria 1+ 08/17/25 16:07: Troponin I < 0.01 Orders (Tests/Meds): ED MEDICATIONS Generic Name Dose Route Start Last Admin Trade Name Freq PRN Reason Stop Dose Admin Acetaminophen 650 mg 08/17/25 19:46 Acetaminophen 325mg Tab PO 09/16/25 19:45 Q4HP PRN Fever or Mild Pain (1-3) Acetaminophen 1,000 mg 08/17/25 22:37 08/17/25 22:43 Acetaminophen 1,000mg/100ml Vial IV 09/16/25 22:36 1,000 mg Q6HP PRN Administration Mild Pain (1-3), fever Heparin Sodium (Porcine) 5,000 unit 08/17/25 21:00 08/17/25 22:08 Heparin Sodium 5,000 Unit/Ml Vial SUBCUT 09/16/25 20:59 5,000 unit TID ROHITH Administration Lactated Ringer's 1,000 mls @ 50 mls/hr 08/17/25 20:00 Lactated Ringer's 1000 Ml Bag IV 09/16/25 19:59 .Q20H [facility] Miscellaneous 1 each 08/17/25 19:45 08/17/25 22:09 Vancomycin Consult Request NOTAPPLIC 09/16/25 19:44 Not Given CONSULT PHARMACY [facility] Ondansetron HCl 4 mg 08/17/25 19:46 Ondansetron 4mg/2ml Vial IV 09/16/25 19:45 Q8HP PRN Nausea Discontinued Medications Generic Name Dose Route Start Last Admin Trade Name Cosmo PRN Reason Stop Dose Admin Sodium Chloride 1,000 mls @ 999 mls/hr 08/17/25 13:19 08/17/25 15:36 Sod Chlor 0.9% 1000ml Bag IV 08/17/25 14:19 Infused .Q1H1M ONE Infusion Lactated Ringer's 2,380 mls @ 1,190 mls/hr 08/17/25 19:41 08/17/25 22:48 Lactated Ringer's 1000 Ml Bag 30 ml/kg infuse over 2 hr (2380 ml) 08/17/25 21:40 Infused IV Infusion .Q2H ONE Protocol Piperacillin Sod/Tazobactam 50 mls @ 100 mls/hr 08/17/25 19:45 08/17/25 21:37 Sod 3.375 gm/ Sodium Chloride IV 08/17/25 20:14 Infused ONCE ONE Infusion Vancomycin/PEG/NADA/Lysine/Water 1.5 gm in 300 mls @ 150 mls/hr 08/17/25 20:00 Vancomycin 1.5gm/300ml (Peg) Premix IV 08/17/25 21:59 ONCE ONE ORDERS Category Date Time Status Chest XR -- portable [XR chest portable] Stat Exams 08/17/25 13:20 Completed Elbow XR right minimum 3 views [XR elbow RT min 3V] Exams 08/17/25 17:49 Completed Stat Shoulder XR right miminum 2 views [XR shoulder RT min Exams 08/17/25 17:49 Completed 2V] Stat Wrist XR right minimum 3 views [XR wrist RT min 3V] Exams 08/17/25 17:49 Completed Stat Basic Metabolic Panel AMLAB Lab 08/18/25 06:00 Ordered Basic Metabolic Panel AMLAB Lab 08/19/25 06:00 Ordered Basic Metabolic Panel AMLAB Lab 08/20/25 06:00 Ordered CBC [Complete Blood Count Auto Diff] Stat Lab 08/17/25 13:00 Completed Complete Blood Count Auto Diff AMLAB Lab 08/18/25 06:00 Ordered Complete Blood Count Auto Diff AMLAB Lab 08/19/25 06:00 Ordered Complete Blood Count Auto Diff AMLAB Lab 08/20/25 06:00 Ordered Comprehensive Metabolic Panel Stat Lab 08/17/25 13:00 Completed D-Dimer Stat Lab 08/17/25 13:00 Completed Free T4 (Free Thyroxine) Stat Lab 08/17/25 13:00 Completed HIV Combo Stat Lab 08/17/25 13:00 Completed Hepatitis C Ab Qual. W/ RFX Stat Lab 08/17/25 13:00 Completed Lipase Stat Lab 08/17/25 13:00 Completed Magnesium Stat Lab 08/17/25 13:00 Completed Rapid PCR Covid and Flu A/B Stat Lab 08/17/25 13:30 Completed TSH [Thyroid Stimulating Hormone] Stat Lab 08/17/25 13:00 Completed Trop I [Troponin I] Stat Lab 08/17/25 13:00 Completed Troponin I Q3H Lab 08/17/25 16:07 Completed Urinalysis and Microscopic Stat Lab 08/17/25 15:03 Completed ECG Data Tracing #1: Independently interpreted by me rate is 131, rhythm is regular, axis is leftward deviated, chatter but no ST elevation in anatomical contiguous leads, sinus tachycardia, QTc 388. Medical Decision Narrative: patient is a 80-year-old man presenting to the emergency department for evaluation of weakness. Patient is hemodynamically stable and nontoxic- appearing upon arrival, afebrile. Differential diagnosis includes weakness, altered mental status, among others. Workup will be conducted with hematologic labs, specific imaging, provocative tests. Initial inventions include crystalloid bolus. Discussed with Sachi at [facility] that patient is unsteady with a walker so they usually walk with him. Also discussed with Sachi that he does complain and scream out when someone touches the right arm. He has been doing that for a few days. Talk to Ally his son who says he is pretty normal but thinks he is declining some.I am waiting for the x-rays on his shoulder at this time. Dr. Santana and I discussed this case as well as Dr. Hemphill and discussed the case. Dr. Hemphill assessed the patient twice and I assessed the patient many times. Patient had films of his right arm. Dr. Santana and I both looked at these films. They look like they are negative for any acute fracture. With the symptoms being ongoing I discussed with Dr. Ortiz and we agree that patient is okay to [facility] back to [facility]. He does need to follow-up with his PCP to discuss further treatment options. Patient's heart rate went up to 130s. Dr. Santana reassess patient EKG showed sinus tach 130. We entered orders for sepsis bolus and antibiotics and admitted patient to hospital medicine. Patient presented for low blood pressure upon standing from [facility]. Ultimately after multiple calls collateral was obtained and patient was acting at his behavioral baseline and does not like to use his right upper extremity which is also his baseline. He has a leukocytosis of 17.6, no HERMILO or critical electrolyte abnormality serial troponins undetectably low. Subclinical hypothyroidism on labs. Urinalysis interpreted by me and not consistent with infection. Viral swab negative. On repeat evaluation patient had uptrending heart rate EKG was obtained and sinus tachycardia D-dimer excludes pulmonary embolism per years criteria although by small margin. Patient has fever which makes pulmonary embolism less likely and given sepsis criteria sepsis bolus was administered after initiation tissue reperfusion performed agree with ongoing crystalloid resuscitation, broad-spectrum antibiotics were started given no source and unreliable patient and the case was discussed with hospital medicine regarding management they will admit the patient to their service for continued evaluation at this time. Critical Care <Julia Blank (ED), CARE SPECIALIST - Last Filed: 08/17/25 20:26> Critical Care Time Critical Care Time: No
--- NOTE | 2025-08-17 13:24 | ECG_ITS ---
APPROVED REPORT Exam: Resting ECG HR:106 bpm ECG Measurements Heart Rate 106 AXES SC 159 P 72 QRSd 104 QRS -53 QT 333 T 53 QTc 395 Conclusion Sinus tachycardia Left axis Normal intervals Probable incomplete right bundle branch block, full interpret limited by artifact No STEMI Electronically signed by : Hernán Hemphill, 08/18/2025 16:47:01
--- OUTSIDE RECORDS SUMMARY | 2025-08-17 13:27 | XMS_ITS | Clinical Summary ---
Author Organization Healthcare Address [address] [place] [address] Care Team Providers Care Insurance Marketing Specialist Name Role Phone Unavailable Primary Care Provider Unavailabl e Social History Tobacco Use Types Packs/Day Years Used Date Smoking Tobacco: Never Assessed Sex and Gender Information Value Date Recorded Sex Assigned at Not on file Legal Sex Male 7:17 PM EDT Gender Identity Not on file Sexual Orientation Not on file Plan of Treatment Not on file Insurance [place] [id number] MEDICARE [employer]
[2025-08-17 13:32] LABS: Hematocrit 31.3 % (42.0-52.0); Hemoglobin 9.7 g/dL (14.1-18.0); Immature Granulocytes % 0.5 %; Mean Corpuscular HGB Conc 31.0 g/dL (31.8-35.4); Mean Corpuscular Hemoglobin 29.0 pg (27.0-31.2); Mean Corpuscular Volume 93.7 fl (80-94); Nucleated Red Blood Cells % 0 %; Platelet Count 193 K/mm3 (142-424); Red Blood Count 3.34 M/mm3 (4.60-6.20); Red Cell Distribution Width-SD 41.1 fL; White Blood Count 17.6 K/mm3 (4.8-10.8)
[2025-08-17 13:34] LABS: Coronavirus 19, PCR Not Detected (NotDetected); Influenza A, PCR Not Detected (NotDetected); Influenza B, PCR Not Detected (NotDetected)
[2025-08-17] MEDS: 0.9 % SODIUM CHLORIDE 1000ML 1,000 ML 999 ML IV (13:51)
[2025-08-17 14:08] LABS: Alanine Aminotransferase 16 U/L (12-78); Albumin Level 3.6 g/dl (3.5-5.0); Albumin/Globulin Ratio 1.2 (1.1-1.8); Alkaline Phosphatase 95 U/L (38-126); Anion Gap 13.6 mEq/L (5-15); Aspartate Amino Transferase 24 U/L (17-59); Bilirubin,Total 0.5 mg/dl (0.2-1.3); Blood Urea Nitrogen 29 mg/dl (9-20); Calcium 8.8 mg/dl (8.4-10.2); Carbon Dioxide 26 mmol/L (22.0-30.0); Chloride 105 mmol/L (98-107); Creatinine Clearance Estimated 41 mL/min (50-200); Creatinine,Serum 1.60 mg/dl (0.66-1.25); Estimated Glomerular Filt Rate 42 ml/min (>60); GFR (African American) 50 ML/MIN (>60); Globulin 3.1 g/dL (1.3-3.2); Glucose 137 mg/dl (74-100); Lipase 105 U/L (23-300); Magnesium 1.7 mg/dl (1.6-2.3); Potassium 4.6 mmoL/L (3.5-5.1); Sodium 140 mmol/L (136-145); Total Protein,Serum 6.7 g/dl (6.3-8.2)
[2025-08-17 14:21] LABS: Troponin I < 0.01 ng/ml (0.00-0.034)
[2025-08-17 14:38] LABS: Thyroid Stimulating Hormone 34.20 uIU/mL (0.465-4.68)
[2025-08-17 14:39] LABS: Hepatitis C Ab Qual. W/ RFX NEGATIVE (Negative)
[2025-08-17 15:06] LABS: Microscopic, Urine URINE MICROSCOPIC (MICROSCOPIC)
[2025-08-17 15:16] LABS: Free T4 (Free Thyroxine) 0.51 ng/dl (0.78-2.19)
[2025-08-17 15:34] LABS: Bilirubin,Urine Negative (Negative); Color,Urine YELLOW (Yellow); Glucose,Urine (UA) TRACE (Negative); Ketones,Urine Negative (Negative); Leukocyte Esterase,Urine Negative (Negative); PH,Urine 6.0 (5.0-8.5); Protein,Urine TRACE (Negative); Specific Gravity, Urine 1.020 (1.005-1.030); Urobilinogen,Urine 0.2 EU/dl (0.2)
[2025-08-17 16:44] LABS: Bacteria,Urine 1+ /lpf
[2025-08-17 16:49] LABS: Troponin I < 0.01 ng/ml (0.00-0.034)
--- NOTE | 2025-08-17 17:49 | XR_ITS ---
PROCEDURE INFORMATION: Exam: XR Right Wrist Exam date and time: 08/17/2025 6:06 PM Age: 80 years old Clinical indication: Pain; Wrist; Right TECHNIQUE: Imaging protocol: Radiologic exam of the right wrist. Views: 3 or more views. COMPARISON: CR XR ELBOW RT MIN 3V 08/17/2025 6:06 PM FINDINGS: Bones/joints: Normal. Soft tissues: Normal. IMPRESSION: No acute findings.
--- NOTE | 2025-08-17 17:49 | XR_ITS ---
PROCEDURE INFORMATION: Exam: XR Right Elbow Exam date and time: 08/17/2025 6:06 PM Age: 80 years old Clinical indication: Pain; Elbow; Right TECHNIQUE: Imaging protocol: Radiologic exam of the right elbow. Views: 3 or more views. COMPARISON: CR XR SHOULDER RT MIN 2V 08/17/2025 6:06 PM FINDINGS: Bones/joints: Normal. Soft tissues: Normal. IMPRESSION: No acute findings.
--- NOTE | 2025-08-17 17:49 | XR_ITS ---
PROCEDURE INFORMATION: Exam: XR Right Shoulder Exam date and time: 08/17/2025 6:06 PM Age: 80 years old Clinical indication: Pain; Shoulder; Right TECHNIQUE: Imaging protocol: Radiologic exam of the right shoulder. Views: 2 or more views. 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 Large marginal osteophyte off the inferior medial humeral head. No acute fracture. Soft tissues: Normal. IMPRESSION: 1. End-stage osteoarthritis of the right glenohumeral joint with complete obliteration of the joint space, reactive subchondral sclerosis. Large marginal osteophyte off the inferior medial humeral head. 2. No evidence for acute fracture.
--- NOTE | 2025-08-17 19:23 | PC.NURSE ---
Called EMS to take the patient back to [facility]. They are sending someone this way.
--- NOTE | 2025-08-17 19:42 | ECG_ITS ---
APPROVED REPORT Exam: Resting ECG HR:131 bpm ECG Measurements Heart Rate 131 AXES QRSd 109 QRS -65 QT 311 T 72 QTc 388 Conclusion SUPRAVENTRICULAR TACHYCARDIA PATTERN CONSISTENT WITH PULMONARY DISEASE RIGHT BUNDLE BRANCH BLOCK [120+ ms QRS DURATION, UPRIGHT V1, 40+ ms S IN I/aVL/V4/V5/V6] LEFT ANTERIOR FASCICULAR BLOCK [QRS AXIS <= -45, QR IN I, RS IN II] ABNORMAL ECG UNCONFIRMED REPORT Electronically signed by : DARCIE OLSON, 08/19/2025 23:06:04
[2025-08-17] MEDS: PIPERACILLIN/TAZO 3.375 GM in 0.9 % SODIUM CHLORIDE 50 ML IV (19:54)
[2025-08-17] MEDS: LACTATED RINGERS 1190 ML IV (19:55)
[2025-08-17 20:03] LABS: D-Dimer 0.99 ug/mL (0.0-0.5)
--- NOTE | 2025-08-17 20:39 | PC.NURSE ---
Patient arrived to floor via stretcher from ED at 20:36.
[2025-08-17] MEDS: HEPARIN SODIUM 5,000 UNIT/ML VIAL 5000 UNIT SUBCUT (22:08)
[2025-08-17] MEDS: ACETAMINOPHEN 1,000MG/100ML VIAL 1000 MG IV (22:43)
[2025-08-17] MEDS: VANCOMYCIN/WATER FOR INJ (PEG) 1.5 GM/300 ML PIGGYBACK IV (23:21)
[2025-08-17] MEDS: LACTATED RINGERS 1000ML 1,000 ML 50 ML IV (23:21)
[2025-08-18] VITALS: BP 101/50; PULSE 101; RESP 18; TEMP 38.1; O2SAT 96
--- NOTE | 2025-08-18 00:06 | EXP.HP ---
History of Present Illness *Admission Date: 08/17/25 *Reason for visit:: AMS *History of present illness: 66 patient is a 80-year-old male who resides at correction facility, patient has past medical history of CVA diabetes mellitus, schizophrenia. Presents to the hospital due to generalized weakness, change in mental status, patient does not follow commands or hold conversations, patient is alert oriented x 1 at baseline. Patient is unable to provide reliable history, most of the history is from patient's chart. On further evaluation patient also had fever on the floor as well as tachycardia, leukocytosis, source of infection is unclear at this time [facility] Disclaimer: The information contained in this section may have been updated after the patient was seen, as this information can be updated by other users. Medical History Hypertension Schizo affective schizophrenia Dysphagia Diabetes Diabetes Hypothyroid Anemia CVA (cerebral vascular accident) Social History Smoking Status: Former smoker tobacco type: cigarettes packs per day: 1 second hand exposure: No alcohol intake: never substance use type: other current occupational status: disabled Travel in the last 8 weeks?: None household members: other housing: assisted living facility current occupational exposures/hazards: No caffeine: Yes Have you lived/traveled outside US in past 30 days?: No Contact w/someone who lives/traveled outside US past 30 days?: No Exposure to someone with infectious disease in past 14 days?: No Do you have a fever (greater than 100.4 F or 38 C)?: No Have you tested positive for COVID-19?: No Exposed to someone with COVID-19 in past 14 days?: No Do you have a sore throat?: No Do you have a cough?: No Do you have any weakness?: No Do you have any diarrhea?: No Are you experiencing any unusual bleeding?: No Do you have any muscle aches/pain?: No Do you have any abdominal pain?: No Are you experiencing loss of taste or smell?: No Other Medical History Have you received the Flu Vaccine for this season: No Have you received the Pneumonia Vaccine: No Review of Systems Review of Systems Review of systems:: unable to obtain Meds Home Medications and Allergies Home Medications ?Medication ?Instructions ?Recorded ?Confirmed ?Type acetaminophen 325 mg tablet 650 mg (2 x 325 mg) PO Q6HP PRN As 12/28/24 Rx Needed For Fever Or Pain 30 days #120 tabs allopurinol 300 mg tablet 300 mg PO DAILY 30 days #30 tabs 12/28/24 Rx atorvastatin 20 mg tablet 20 mg PO HS 30 days #30 tabs 12/28/24 Rx metformin 500 mg tablet 500 mg PO BIDWMEAL 30 days #60 tabs 12/28/24 Rx sennosides 8.6 mg-docusate sodium 1 tab PO BID PRN constipation 30 12/28/24 08/17/25 Rx 50 mg tablet days #60 tabs venlafaxine 75 mg capsule,extended 225 mg (3 x 75 mg) PO HS 30 days 12/28/24 Rx release 24 hr #90 caps levothyroxine 88 mcg tablet 112 mcg PO DAILYDM 08/17/25 08/17/25 History (Synthroid) New Prescriptions to Start Prescriptions: Allergies Allergy/AdvReac Type Severity Reaction Status Date / Time No Known Allergies Allergy Verified 12/21/24 13:37 Exam Data for Last 24 hours Vital signs and Labs for Last 24 Hours: Temp Pulse Resp BP Pulse Ox O2 Del Method 102.1 F H 121 H 18 104/81 L 98 Room Air 08/17/25 21:17 08/17/25 21:17 08/17/25 21:17 08/17/25 21:17 08/17/25 21:17 08/17/25 23:00 Laboratory Results - last 24 hr 08/17/25 13:00: WBC 17.6 H, RBC 3.34 L, Hgb 9.7 L, Hct 31.3 L, MCV 93.7, MCH 29.0, MCHC 31.0 L, RDW 11.9, Plt Count 193, MPV 10.9 H, Neut % (Auto) 77.7, Lymph % (Auto) 13.8, Bradford % (Auto) 6.3, Eos % (Auto) 1.4, Baso % (Auto) 0.3, Neut # (Auto) 13.7 H, Lymph # (Auto) 2.4, Bradford # (Auto) 1.1 H, Eos # (Auto) 0.2, Baso # (Auto) 0.1, D-Dimer 0.99 H, Sodium 140, Potassium 4.6, Chloride 105, Carbon Dioxide 26, Anion Gap 13.6, BUN 29 H, Creatinine 1.60 H, Estimated Creat Clear 41, Estimated GFR 42 L, Est GFR ( Amer) 50 L, Glucose 137 H, Calcium 8.8, Magnesium 1.7, Total Bilirubin 0.5, AST 24, ALT 16, Alkaline Phosphatase 95, Troponin I < 0.01, Total Protein 6.7, Albumin 3.6, Globulin 3.1, Albumin/Globulin Ratio 1.2, Lipase 105, TSH 34.20 H, Free T4 0.51 L, HCV Ab CATRACHITA w/Rflx PCR Qn Negative, HIV Ag/Ab Combo Qual Negative 08/17/25 13:30: SARS-CoV-2 (PCR) Not detected, Influenza A Untype (PCR) Not detected, Influenza Type B (PCR) Not detected 08/17/25 15:03: Urine Color Yellow, Urine Appearance Clear, Urine pH 6.0, Ur Specific Mineral 1.020, Urine Protein Trace, Urine Glucose (UA) Trace, Urine Ketones Negative, Urine Blood 1+ A, Urine Nitrate Negative, Urine Bilirubin Negative, Urine Urobilinogen 0.2, Ur Leukocyte Esterase Negative, Urine RBC 3-5, Urine WBC 3-5, Ur Squamous Epith Cells 3-5, Urine Bacteria 1+ 08/17/25 16:07: Troponin I < 0.01 I & O for Last 24 hours: Intake & Output 08/15/25 08/16/25 08/17/25 08/18/25 23:59 23:59 23:59 23:59 Intake Total 3430 / 3430 Output Total 0 / 0 Balance 3430 / 3430 Weight 75.75 kg Constitutional Constitutional: no acute distress *Routine HEENT Exam Head: Present normocephalic Eye: Present EOMI and PERRL ENT: Present mucous membranes moist *Routine Neck Exam Neck: Present supple; Absent lymphadenopathy *Routine Respiratory Exam Respiratory: Present CTA bilaterally *Routine Cardiovascular Exam Cardiovascular: Present RRR *Routine Abdominal Exam Abdominal: Present soft and normoactive bowel sounds; Absent tenderness *Routine Rectal Exam Rectal:: deferred *Routine Genitalia Exam Genitalia:: deferred *Routine Extremities Exam Extremities: Absent cyanosis, clubbing or edema *Routine Skin Exam Skin: Present warm; Absent rash *Routine Neurological Exam Neurological: Present alert Comments: not following commands, appears confused Assessment and Plan *Assessment and plan (1) AMS (altered mental status): Status: Acute Category: Medical Code(s): R41.82 - Altered mental status, unspecified (2) Hypothyroidism: Status: Acute Qualifiers: Hypothyroidism type: acquired Qualified Code(s): E03.9 - Hypothyroidism, unspecified Category: Medical Code(s): E03.9 - Hypothyroidism, unspecified (3) Renal insufficiency: Status: Acute Category: Medical Code(s): N28.9 - Disorder of kidney and ureter, unspecified (4) Schizophrenia: Status: Acute Category: Medical Code(s): F20.9 - Schizophrenia, unspecified (5) Diabetes 1.5, managed as type 2: Status: Acute Category: Medical Code(s): E13.9 - Other specified diabetes mellitus without complications Plan 66 patient is a 80-year-old male who resides at correction facility, patient has past medical history of CVA diabetes mellitus, schizophrenia. Presents to the hospital due to generalized weakness, change in mental status, patient does not follow commands or hold conversations, patient is alert oriented x 1 at baseline. Patient is unable to provide reliable history, most of the history is from patient's chart. On further evaluation patient also had fever on the floor as well as tachycardia, leukocytosis, source of infection is unclear at this time Assessment and plan Acute encephalopathy Sepsis present on admission-leukocytosis, fever, tachycardia, unclear source Start broad-spectrum antibiotics with vancomycin, cefepime CT head performed in the emergency department-negative for acute neurologic process Chest x-ray negative for acute lung process Check blood cultures Start IV fluids UA not suggestive for UTI Hypothyroidism Start p.o. levothyroxine when able to take p.o. Chronic medical conditions Diabetes mellitus Schizophrenia CKD stage III, creatinine at baseline of 1.5 - Start insulin sliding scale Resume home medications when able to take p.o. DVT prophylaxis-subcutaneous heparin
--- NOTE | 2025-08-18 03:48 | PC.NURSE ---
Pt new admit this shift. Alert to self only, pleasant. Received abx and sepsis boluses. Currently has LR running at 50mL/hr. Received IV tylenol for fever. Pt has had two incontinent bowel movements this shift. Currently resting in bed with eyes closed. Respirations even and unlabored. Bed is low, locked, and call light is in reach. Bed alarm on and functioning.
[2025-08-18 04:00] VITALS: BP 94/63; PULSE 92; RESP 18; TEMP 37.2; O2SAT 95; BMI 22.6
[2025-08-18] MEDS: CEFEPIME HCL 1 GM in 0.9 % SODIUM CHLORIDE 50 ML IV ×2 (05:04→16:15)
[2025-08-18] MEDS: 0.9 % SODIUM CHLORIDE 1000ML 1,000 ML 75 ML IV (05:05)
[2025-08-18 05:35] LABS: POC Glucose,Bedside 126 gm/dL (70-110)
[2025-08-18 06:01] LABS: Hematocrit 26.1 % (42.0-52.0); Immature Granulocytes % 0.4 %; Mean Corpuscular HGB Conc 31.0 g/dL (31.8-35.4); Mean Corpuscular Hemoglobin 28.5 pg (27.0-31.2); Mean Corpuscular Volume 91.9 fl (80-94); Nucleated Red Blood Cells % 0 %; Platelet Count 144 K/mm3 (142-424); Red Blood Count 2.84 M/mm3 (4.60-6.20); Red Cell Distribution Width-SD 40.6 fL; White Blood Count 10.6 K/mm3 (4.8-10.8)
[2025-08-18 06:13] LABS: Hemoglobin 8.3 g/dL (14.1-18.0)
--- NOTE | 2025-08-18 07:46 | SW/DCPLANNER ---
Addendum entered by Merry Mendoza 08/19/25 11:09: I have updated Mar that patient will return [facility] level of care today. Addendum entered by Merry Mendoza 08/18/25 11:07: I have updated Mar w/ [facility] that patient will return tomorrow pending no setbacks. Original Note: Patient currently resides at [facility] level of care. Updated patient information will be faxed to Mar w/ [facility] this AM. Discharge date is unknown at this time. CM will continue to follow up.
[2025-08-18 08:00] VITALS: BP 100/55; PULSE 92; RESP 16; O2SAT 99
--- NOTE | 2025-08-18 08:05 | P.CONPHA_ITS ---
Pharmacy Intervention Comments: HOME MEDICATION LIST VERIFIED USING LIST FROM [facility]
--- NOTE | 2025-08-18 08:05 | HMH.PHAINT1 ---
Pharmacy Intervention Comments: HOME MEDICATION LIST VERIFIED USING LIST FROM LONG TERM
[2025-08-18 08:41] LABS: Anion Gap 8.8 mEq/L (5-15); Blood Urea Nitrogen 26 mg/dl (9-20); Calcium 8.2 mg/dl (8.4-10.2); Carbon Dioxide 25 mmol/L (22.0-30.0); Chloride 108 mmol/L (98-107); Creatinine Clearance Estimated 37 mL/min (50-200); Creatinine,Serum 1.70 mg/dl (0.66-1.25); Estimated Glomerular Filt Rate 39 ml/min (>60); GFR (African American) 47 ML/MIN (>60); Glucose 116 mg/dl (74-100); Potassium 3.8 mmoL/L (3.5-5.1); Sodium 138 mmol/L (136-145)
[2025-08-18] MEDS: HEPARIN SODIUM 5,000 UNIT/ML VIAL 5000 UNIT SUBCUT ×3 (09:01→20:58)
--- NOTE | 2025-08-18 09:02 | HMH.PTEV ---
Physical Therapy Evaluation Rehab PT IP Evaluation Start: 08/17/25 21:33 Freq: ONCE Status: Active Protocol: Document 08/18/25 08:54 RAMIN (Rec: 08/18/25 09:02 RAMIN [id number]) Subjective/History History History Per H&P: 66 patient is a 80-year-old male who [facility], patient has past medical history of CVA diabetes mellitus, schizophrenia. Presents to the hospital due to generalized weakness, change in mental status, patient does not follow commands or hold conversations, patient is alert oriented x 1 at baseline. Patient is unable to provide reliable history, most of the history is from patient' s chart. On further evaluation patient also had fever on the floor as well as tachycardia, leukocytosis, source of infection is unclear at this time Subjective Subjective Pt not able to provide detailed answers to hx questions but stated yeah or no Pt reports he is normally IND with ambulation without AD use. Pt with difficulty following commands. [facility] How much help from another person do you currently need... Turning from your A little back to your side while in a flat bed without using bedrails? Moving from lying on A little back to sitting on the side of a flat bed without using bedrails? Moving to and from a A lot bed to a chair ( including a wheelchair)? Standing up from a A lot chair using your arms? (e.g., wheelchair, bedside chair) Walking in hospital A lot room? Climbing 3-5 steps A lot with a railing? Mobility Score 14 Mobility Level [facility] Mobility 4 Move to chair/commode Mobility Calculator Rehab PT IP Eval Objective Appearance Patient Behavior Appropriate,Cooperative Patient Orientation Person Difficulty following moderate instructions Ambulation Patient Able to No Ambulate Balance Ability to Arise Able, uses arms to help Sitting Balance Steady, safe Standing Balance Unsteady Transfers Bed Transfer Ability Moderate x 1 (50% assist) Rehab PT IP prob,goals,plan Problems Date of Evaluation: 08/18/25 PT IP Problems Bed Mobility,Transfers,Gait,Balance,Self care,Safety Rehab Potential Rehab Potential Good Plan PT Intervention Plan Bed Mobility,Transfers,Gait,Balance,Self care,Safety, Therapeutic Exercise Other Intervention 1-2 times Plan PT Plan Frequency Daily Duration LOS Discharge Goals Bed Transfer Ability Contact Guard/Hand Hold Sit to Stand Chair Minimal x 1 (25% assist) Transfer Ability Discharge Plan PT Discharge Plan PT does not know what pt's mobility baseline is as pt is questionable historian. PT recommending short-term rehab upon d/c to address deficits. Pt would benefit from PT while at [facility] to prevent further functional decline. Eval Complexity Eval Charge Codes 11617 - Moderate Complexity PHYSICIAN CERTIFICATION: I certify the specified therapy services for Geo Bond are required, authorized, and reviewed every 30 days.
--- NOTE | 2025-08-18 09:38 | HMH.OTEV ---
OT Evaluation Rehab OT IP Evaluation Start: 08/17/25 21:33 Freq: ONCE Status: Active Protocol: Document 08/18/25 09:[facility] (Rec: 08/18/25 09:38 [facility] [id number]) Rehab OT IP Assessment Subjective History Pt oriented x 1 on arrival. Pt agreeable to engage in therapy evaluation with max verbal cues for participation. Pt admitted on 08/17/25 due to AMS. History and physical: 66 patient is a 80-year-old male who resides at skilled nursing facility, patient has past medical history of CVA diabetes mellitus, schizophrenia. Presents to the hospital due to generalized weakness, change in mental status, patient does not follow commands or hold conversations, patient is alert oriented x 1 at baseline. Patient is unable to provide reliable history, most of the history is from patient's chart. On further evaluation patient also had fever on the floor as well as tachycardia, leukocytosis, source of infection is unclear at this time Subjective Prior to being in the hospital, pt resided at SNF. At skilled nursing, pt was normally independent with functional transfers using rolling walker and feeding himself. Pt was dependent upon staff with completion of IADLs. Pt required mod/max verbal cues for sequencing of task during evaluation. Pt required min assist to go from supine to sitting at eob. Therapist then provided verbal instruction to complete functional transfer from eob to chair with rolling walker and min assist x 2. Max verbal cues and hand over hand assistance required at times for appropriate rolling walker use to increase safety during functional transfers. Pt then required maximal assistance to complete lower body dressing to change brief and complete toileting hygiene after having a BM in brief. Pt able to sit in chair with cga after being cleaned. Objective Patient Orientation Person Bed Mobility bed mobility-scooting,bed mobility - supine/sit Assist Level Minimal x 1 (25% assist) Transfer Training Sit/Stand Transfer Assist Level Minimal x 1 (25% assist) Chair Transfer Minimal x 1 (25% assist) Ability Chair Transfer Sit to/from Ambulatory Technique Chair Transfer Rolling Walker Assistive Devices Lower Body Dressing Maximum Assistance Ability Performing Toilet Maximum Assistance Hygiene Ability Overall Commode/ Minimal Assistance,Maximum Assistance Toilet Transfer Ability Commode/Toilet Sit to/from Ambulatory Transfer Technique Rehab OT IP prob,goals,plan Problems Date of Evaluation: 08/18/25 OT IP Problems Bed Mobility,Transfers,Balance,Self care,Safety Rehab Potential Rehab Potential Good Equipment Needs Assistive Devices Rolling / Wheeled Walker Plan OT intervention Plan Bed Mobility,Transfers,Balance,Self care,Safety, Therapeutic Exercise OT Plan Frequency Daily Duration LOS Discharge Goals Bed Mobility Ability Assistance x1 Sit to Stand Chair Contact Guard/Hand Hold Transfer Ability Chair Transfer Contact Guard/Hand Hold Ability Chair Transfer Sit to/from Ambulatory Technique Chair Transfer Rolling Walker Assistive Devices Lower Body Dressing Moderate Assistance Ability Upper Body Dressing Minimal Assistance Ability Performing Toilet Moderate Assistance Hygiene Ability Overall Commode/ Contact Guard Toilet Transfer Ability Commode/Toilet Sit to/from Ambulatory Transfer Technique Discharge Plan OT Discharge Plan Pt will continue to be seen for OT services while at [facility]. Pt would benefit most from returning to SNF and receiving skilled therapy services. Continued skilled therapy is important in order for patient to improve strength, safety, endurance, ADL independence, and functional transfers to reach PLOF. Eval Complexity Eval Charge Codes 88334 - Moderate Complexity PHYSICIAN CERTIFICATION: I certify the specified therapy services for Geo Bond are required, authorized, and reviewed every 30 days.
[2025-08-18 09:41] LABS: Hemoglobin A1C 6.0 % (4.0-6.0)
--- NOTE | 2025-08-18 10:23 | DIET.NUTRFU ---
Called [facility] verified diet- regular, thin. Tolerates well with good intake and stable weight. Family chose to cancel swallow study in January, they did not want to change him to altered diet. Will monitor during stay
--- NOTE | 2025-08-18 11:10 | P.PN_ITS ---
<Statement entered by Bryson Ott MD - 08/18/25 15:51> Rounded on patient after nurse practitioner. Personally examined and interviewed patient. Agree with exam findings and care plan as documented. Subjective *Date: 08/18/25 *Time: 15:22 Interval history: Mr. Bond is doing well. He is up to the chair, answers questions with yes or no. He is able to tell me his name. Discussed his baseline function with [facility], they state that he appears to be at baseline. PT/OT evaluation patient able to ambulate with walker. Patient did have fever overnight, 102. Will continue to monitor for 24 hours. Medical Exam Vital signs and Labs for Last 24 Hours: Vital Signs Temp Pulse Pulse Resp BP BP Pulse Ox 08/18/25 10:42 08/18/25 08:00 08/18/25 08:00 92 H 16 100/55 L 99 08/18/25 07:00 08/18/25 05:00 08/18/25 04:00 98.9 F 92 H 18 94/63 L 95 08/18/25 03:00 08/18/25 01:00 08/18/25 00:00 100.5 F H 101 H 18 101/50 L 96 08/17/25 23:00 08/17/25 21:17 102.1 F H 121 H 18 104/81 L 98 08/17/25 21:00 08/17/25 20:15 98.2 F 128 H 20 139/78 08/17/25 20:01 08/17/25 20:01 124 H 132/88 98 08/17/25 19:36 131 H 114/74 95 08/17/25 19:31 129 H 131/76 98 08/17/25 19:09 132 H 132/69 97 08/17/25 17:01 172/87 H 08/17/25 16:31 152/123 H 08/17/25 16:01 13 136/99 H 08/17/25 15:31 19 139/92 H 92 L 08/17/25 15:02 14 128/110 H 92 L 08/17/25 14:31 136/66 08/17/25 14:01 12 125/73 08/17/25 13:33 14 137/79 97 08/17/25 13:23 96 08/17/25 13:11 98.7 F 99 H 19 122/78 96 08/17/25 13:01 90 15 142/69 H 98 08/17/25 12:53 101 H 12 122/78 99 O2 Del Method 08/18/25 10:42 Room Air 08/18/25 08:00 Room Air 08/18/25 08:00 Room Air 08/18/25 07:00 Room Air 08/18/25 05:00 Room Air 08/18/25 04:00 Room Air 08/18/25 03:00 Room Air 08/18/25 01:00 Room Air 08/18/25 00:00 Room Air 08/17/25 23:00 Room Air 08/17/25 21:17 Room Air 08/17/25 21:00 Room Air 08/17/25 20:15 Room Air 08/17/25 20:01 Room Air 08/17/25 20:01 08/17/25 19:36 08/17/25 19:31 08/17/25 19:09 08/17/25 17:01 08/17/25 16:31 08/17/25 16:01 08/17/25 15:31 08/17/25 15:02 08/17/25 14:31 08/17/25 14:01 08/17/25 13:33 08/17/25 13:23 Room Air 08/17/25 13:11 Room Air 08/17/25 13:01 08/17/25 12:53 Intake and Output 08/17/25 08/18/25 08/18/25 23:59 07:59 15:59 Intake Total 2430 / 3430 350 / 590 240 / 590 Output Total 0 / 0 0 / 0 Balance 2430 / 3430 350 / 590 240 / 590 Intake: Intake, Oral Amount 240 / 240 Intake, Total IV Amount 2430 / 3430 350 / 350 Cefepime HCl 1 gm In 0.9 % 50 / 50 Sodium Chloride 50 ml @ 100 mls /hr IV Q12H [facility] Rx#:[id number] Lactated Ringers 1000ML 2,380 2380 / 2380 ml @ 1190 mls/hr IV .Q2H [facility] Rx #:[id number] Piperacillin/Tazo 3.375 gm In 0 50 / 50 .9 % Sodium Chloride 50 ml @ 100 mls/hr IV ONCE ONE Rx#: [id number] Vancomycin/Water For Inj (Peg) 300 / 300 1.5 gm In 300 ml @ 150 mls/hr IV ONCE ONE Rx#:[id number] Output: Output, Urine Amount 0 / 0 0 / 0 Other: Number of Unmeasured Voids 1 1 Number of Bowel Movements 1 1 Weight 75.75 kg 75.75 kg Patient Weight 08/18/25 23:59 Weight 75.75 kg Laboratory Results - last 24 hr 08/17/25 13:00: WBC 17.6 H, RBC 3.34 L, Hgb 9.7 L, Hct 31.3 L, MCV 93.7, MCH 29.0, MCHC 31.0 L, RDW 11.9, Plt Count 193, MPV 10.9 H, Neut % (Auto) 77.7, Lymph % (Auto) 13.8, [place] % (Auto) 6.3, Eos % (Auto) 1.4, Baso % (Auto) 0.3, Neut # (Auto) 13.7 H, Lymph # (Auto) 2.4, [place] # (Auto) 1.1 H, Eos # (Auto) 0.2, Baso # (Auto) 0.1, D-Dimer 0.99 H, Sodium 140, Potassium 4.6, Chloride 105, Carbon Dioxide 26, Anion Gap 13.6, BUN 29 H, Creatinine 1.60 H, Estimated Creat Clear 41, Estimated GFR 42 L, Est GFR ( Amer) 50 L, Glucose 137 H, Calcium 8.8, Magnesium 1.7, Total Bilirubin 0.5, AST 24, ALT 16, Alkaline Phosphatase 95, Troponin I < 0.01, Total Protein 6.7, Albumin 3.6, Globulin 3.1, Albumin/Globulin Ratio 1.2, Lipase 105, TSH 34.20 H, Free T4 0.51 L, HCV Ab CATRACHITA w/Rflx PCR Qn Negative, HIV Ag/Ab Combo Qual Negative 08/17/25 13:30: SARS-CoV-2 (PCR) Not detected, Influenza A Untype (PCR) Not detected, Influenza Type B (PCR) Not detected 08/17/25 15:03: Urine Color Yellow, Urine Appearance Clear, Urine pH 6.0, Ur Specific [place] 1.020, Urine Protein Trace, Urine Glucose (UA) Trace, Urine Ketones Negative, Urine Blood 1+ A, Urine Nitrate Negative, Urine Bilirubin Negative, Urine Urobilinogen 0.2, Ur Leukocyte Esterase Negative, Urine RBC 3-5, Urine WBC 3-5, Ur Squamous Epith Cells 3-5, Urine Bacteria 1+ 08/17/25 16:07: Troponin I < 0.01 08/18/25 05:28: POC Glucose 126 H 08/18/25 05:33: WBC 10.6 D, RBC 2.84 L, Hgb 8.3 L D, Hct 26.1 L, MCV 91.9, MCH 28.5, MCHC 31.0 L, RDW 11.9, Plt Count 144 D, MPV 10.6 H, Neut % (Auto) 70.8, Lymph % (Auto) 16.5, [place] % (Auto) 11.9 H, Eos % (Auto) 0.1, Baso % (Auto) 0.3, Neut # (Auto) 7.5, Lymph # (Auto) 1.8, [place] # (Auto) 1.3 H, Eos # (Auto) 0.0, Baso # (Auto) 0.0, Sodium 138, Potassium 3.8, Chloride 108 H, Carbon Dioxide 25, Anion Gap 8.8, BUN 26 H, Creatinine 1.70 H, Estimated Creat Clear 37, Estimated GFR 39 L, Est GFR ( Amer) 47 L, Glucose 116 H, Hemoglobin A1c 6.0, Calcium 8.2 L I & O for Labs for Last 24 Hours: Intake & Output 08/15/25 08/16/25 08/17/25 08/18/25 23:59 23:59 23:59 23:59 Intake Total 3430 / 3430 590 / 590 Output Total 0 / 0 0 / 0 Balance 3430 / 3430 590 / 590 Weight 75.75 kg 75.75 kg Constitutional: Present no acute distress, average body habitus and chronically ill appearing Head: Present atraumatic Eyes: Present as per HPI ENT: Present normal exam Neck: Present normal inspection Respiratory: Present CTA bilaterally, able to speak in complete sentences and symmetric chest movement; Absent wheezes or crackles Cardiac: Present Reg Rate and Rhythm; Absent No Murmur GI: Present soft and normal bowel sounds; Absent distention or tenderness Rectal (male): Present deferred (male): Present deferred Extremities: Present normal inspection, full ROM and normal capillary refill; Absent edema Skin: Present intact and dry; Absent rash Comment:: Alert to self Assessment and Plan *Assessment and plan (1) SIRS (systemic inflammatory response syndrome): Status: Resolved Category: Medical Code(s): R65.10 - Systemic inflammatory response syndrome (SIRS) of non-infectious origin without acute organ dysfunction (2) AMS (altered mental status): Status: Acute Category: Medical Code(s): R41.82 - Altered mental status, unspecified (3) Hypothyroidism: Status: Acute Qualifiers: Hypothyroidism type: acquired Qualified Code(s): E03.9 - Hypothyroidism, unspecified Category: Medical Code(s): E03.9 - Hypothyroidism, unspecified (4) Renal insufficiency: Status: Acute Category: Medical Code(s): N28.9 - Disorder of kidney and ureter, unspecified (5) Schizophrenia: Status: Acute Category: Medical Code(s): F20.9 - Schizophrenia, unspecified (6) Diabetes 1.5, managed as type 2: Status: Acute Category: Medical Code(s): E13.9 - Other specified diabetes mellitus without complications Plan 66 patient is a 80-year-old male who resides at longterm facility, patient has past medical history of CVA, diabetes mellitus, schizophrenia. Presents to the hospital due to generalized weakness, change in mental status, patient does not follow commands or hold conversations, patient is alert oriented x 1 at baseline. Patient is unable to provide reliable history, most of the history is from patient's chart. On further evaluation patient also had fever on the floor as well as tachycardia, leukocytosis, source of infection continues to be unclear. Plan of care as follows: #Acute encephalopathy, resolved #SIRS?leukocytosis, fever, tachycardia ? Patient was admitted for acute encephalopathy and meeting SIRS criteria. No clear etiology for possible infection. Initial white count was 17, trending downward today to 10. Patient did have a fever overnight, 102. Was given IV Tylenol, has not been afebrile since. Patient was also tachycardic at 130. EKG obtained showed sinus tachycardia. Patient received IV hydration overnight, tachycardia resolved. ? Broad-spectrum antibiotics were initiated, vancomycin and cefepime. Continue cefepime every 12 hours. ? Blood cultures were not obtained in the emergency department. Chest x-ray showed no acute findings, patient satting 98% on room air. Lungs CTA. Urinalysis not suggestive of UTI, sent for urine culture?pending. CT head showed no acute neurologic process. ? Patient has remained hemodynamically stable. Continue to monitor, anticipate discharge tomorrow pending urine culture. #Unsteady gait #Weakness ? Spoke with [facility] who states patient at baseline uses walker and is a standby assist when ambulating. Patient worked with PT/OT today who feel he is at baseline and was able to ambulate with walker and standby assist. Plans for return to [facility] tomorrow. #Hypothyroidism ?Patient TSH elevated at 36, discussed with [facility] who states the patient refuses medication or spits medication out on a regular basis. Resumed Synthroid, increase dose slightly to Synthroid 125 mcg daily. Patient tolerated medication without issue today. #Diabetes mellitus, type II ? SSI, ACHS fingersticks. A1c 6.0%. #Schizophrenia: Patient does have a diagnosis of schizophrenia, is not on medication. Patient appears to be at baseline mentation. Will continue to monitor. DNR and DNI Ambulate as tolerated with assistance VTE?heparin SQ 3 times daily Diabetic diet
[2025-08-18 12:00] VITALS: BP 101/47; PULSE 91; RESP 16; O2SAT 98
[2025-08-18] MEDS: LEVOTHYROXINE 125MCG (0.125MG) TAB 125 MCG PO (12:25)
--- OUTSIDE RECORDS SUMMARY | 2025-08-18 13:29 | XMS_ITS | Clinical Summary ---
Author Organization Healthcare Address [address] [place] [address] Care Team Providers Care Equity Holder Name Role Phone Unavailable Primary Care Provider Unavailabl e Social History Tobacco Use Types Packs/Day Years Used Date Smoking Tobacco: Never Assessed Sex and Gender Information Value Date Recorded Sex Assigned at Not on file Legal Sex Male 7:17 PM EDT Gender Identity Not on file Sexual Orientation Not on file Plan of Treatment Not on file Insurance [employer] [id number] [place] [address] [employer]
[2025-08-18 14:32] VITALS: BMI 22.6
[2025-08-18 15:34] LABS: POC Glucose,Bedside 179 gm/dL (70-110)
[2025-08-18 16:00] VITALS: BP 135/57; PULSE 113; RESP 18; TEMP 37.2; O2SAT 96
[2025-08-18 16:09] LABS: POC Glucose,Bedside 135 gm/dL (70-110)
--- NOTE | 2025-08-18 18:15 | PC.NURSE ---
PT IS RESTING IN BED. ALERT TO SELF ONLY. PT ANSWERS SIMPLE YES OR NO QUESTIONS BUT OCCASIONALLY HAS ISSUES WITH FOLLOWING COMMANDS. LUNG SOUNDS CLEAR. ABDOMEN SOFT/NON TENDER WITH ACTIVE BOWEL SOUNDS. PT HAS BEEN EATING AND DRINKING WELL. NEW IV ACCESS NOTED TO RAC. WILL CONTINUE TO MONITOR.
[2025-08-18 20:00] VITALS: BP 107/56; PULSE 102; RESP 16; TEMP 37.7; O2SAT 98
[2025-08-18 20:53] LABS: POC Glucose,Bedside 205 gm/dL (70-110)
[2025-08-18] MEDS: humaLOG 100 UNITS/ML 10ML VIAL (SSI) SUBCUT (20:58)
[2025-08-19] VITALS: BP 131/52; PULSE 97; RESP 16; TEMP 36.6; O2SAT 96
[2025-08-19 04:00] VITALS: BP 98/51; PULSE 93; RESP 14; TEMP 37.7; O2SAT 95; BMI 23.1
[2025-08-19] MEDS: CEFEPIME HCL 1 GM in 0.9 % SODIUM CHLORIDE 50 ML IV (04:51)
--- NOTE | 2025-08-19 05:45 | PC.NURSE ---
Pt is Alert to his name and his . He does not follow commands very well. Pt has a 20g in the LAC. Pt is on room air. PT is incontinent of both bowel and bladder. Pt has a brief on. Pt has barrier cream with zinc oxide in it which was used on his scrotum for protection. JEANNETTE SAHU RN
[2025-08-19 06:04] LABS: Hematocrit 22.4 % (42.0-52.0); Immature Granulocytes % 0.4 %; Mean Corpuscular HGB Conc 31.7 g/dL (31.8-35.4); Mean Corpuscular Hemoglobin 29.3 pg (27.0-31.2); Mean Corpuscular Volume 92.6 fl (80-94); Nucleated Red Blood Cells % 0 %; Platelet Count 123 K/mm3 (142-424); Red Blood Count 2.42 M/mm3 (4.60-6.20); Red Cell Distribution Width-SD 40.7 fL; White Blood Count 7.6 K/mm3 (4.8-10.8)
[2025-08-19] MEDS: LEVOTHYROXINE 125MCG (0.125MG) TAB 125 MCG PO (06:09)
[2025-08-19 06:11] LABS: Anion Gap 11.2 mEq/L (5-15); Blood Urea Nitrogen 39 mg/dl (9-20); Calcium 8.1 mg/dl (8.4-10.2); Carbon Dioxide 22 mmol/L (22.0-30.0); Chloride 111 mmol/L (98-107); Creatinine Clearance Estimated 32 mL/min (50-200); Creatinine,Serum 2.00 mg/dl (0.66-1.25); Estimated Glomerular Filt Rate 32 ml/min (>60); GFR (African American) 39 ML/MIN (>60); Glucose 100 mg/dl (74-100); Hemoglobin 7.2 g/dL (14.1-18.0); Potassium 4.2 mmoL/L (3.5-5.1); Sodium 140 mmol/L (136-145)
[2025-08-19 06:16] LABS: POC Glucose,Bedside 112 gm/dL (70-110)
[2025-08-19 08:00] VITALS: BP 105/56; PULSE 81; RESP 18; TEMP 36.7; O2SAT 98
[2025-08-19 09:10] LABS: Iron 41 ug/dL (49-181)
[2025-08-19 09:44] LABS: Ferritin 31.2 ng/ml (17.9-464)
[2025-08-19] MEDS: PANTOPRAZOLE 40MG VIAL 40 MG IV (09:56)
[2025-08-19 10:31] LABS: Vitamin B12 278 pg/mL (239-931)
--- NOTE | 2025-08-19 11:00 | P.DS_ITS ---
<Statement entered by Bryson Ott MD - 08/19/25 14:12> Rounded on patient after nurse practitioner. Personally examined and interviewed patient. Agree with exam findings and care plan as documented. General Admission date:: 08/17/25 Discharge date: 08/19/25 HPI HPI HPI: 66 patient is a 80-year-old male who resides at alf facility, patient has past medical history of CVA diabetes mellitus, schizophrenia. Presents to the hospital due to generalized weakness, change in mental status, patient does not follow commands or hold conversations, patient is alert oriented x 1 at baseline. Patient is unable to provide reliable history, most of the history is from patient's chart. On further evaluation patient also had fever on the floor as well as tachycardia, leukocytosis, source of infection is unclear at this time Hospital Course Hospital Course Hospital Course: Mr. Bond is a 80-year-old male who resides at [facility]. He has past medical history of CVA, diabetes mellitus, schizophrenia. Presented to the hospital due to generalized weakness, change in mental status, patient does not follow commands or hold conversations, patient is alert oriented x 1 at baseline. Patient is unable to provide reliable history, most of the history is from patient's chart. On further evaluation patient also had fever on the floor as well as tachycardia, leukocytosis, source of infection continues to be unclear. #Acute encephalopathy, resolved #SIRS?leukocytosis, fever, tachycardia, resolved ? Patient was admitted for acute encephalopathy and meeting SIRS criteria. No clear etiology for possible infection. Initial white count was 17, trending downward today to 10. Patient did have one-time fever of 102. Was treated with IV Tylenol, has been afebrile since. Patient initially tachycardic on admission, received IV fluids patient has been hemodynamically stable since. ? Broad-spectrum antibiotics were initiated, vancomycin and cefepime, patient continued receiving cefepime during admission. Transition to Augmentin 875-125 mg twice daily to complete a total of 5 days of empiric coverage antibiotics. ? Blood cultures were not obtained in the emergency department. Chest x-ray showed no acute findings, patient satting 98% on room air. Lungs CTA. Urinalysis not suggestive of UTI, sent for urine culture?pending. CT head showed no acute neurologic process. ? Patient has remained hemodynamically stable. Patient's brother at bedside st ated this is patient's baseline. #Anemia ? On admission patient's hemoglobin slightly low at 9.7. Patient hemoglobin at discharge 7.2, patient asymptomatic. No dark stools, no coffee-ground emesis. Likely low due to hemodilution. Patient should have repeat CBC in approximately 2 to 3 days. ? Iron slightly low at 41, B12 and ferritin unremarkable. #Unsteady gait #Weakness ? Spoke with [facility] who states patient at baseline uses walker and is a standby assist when ambulating. Patient worked with PT/OT who feel he is at baseline and was able to ambulate with walker and standby assist. Plans for return to [facility]. #Hypothyroidism ?Patient TSH elevated at 36, discussed with [facility] who states the patient refuses medication or spits medication out on a regular basis. Resumed Synthroid, increase dose slightly to Synthroid 125 mcg daily. Patient tolerated medication during admission without issues. Patient should take medication on an empty stomach in the morning. #Diabetes mellitus, type II: A1c 6.0%. #Schizophrenia: Patient does have a diagnosis of schizophrenia, is not on medication. Patient appears to be at baseline mentation. Total time spent on discharge 34 minutes in counseling, documentation, chart review, and direct care with patient. Exam Data for Last 24 hours Vital signs and Labs for Last 24 Hours: Temp Pulse Resp BP Pulse Ox O2 Del Method 98.1 F 81 18 105/56 L 98 Room Air 08/19/25 08:00 08/19/25 08:00 08/19/25 08:00 08/19/25 08:00 08/19/25 08:00 08/19/25 10:22 Laboratory Results - last 24 hr 08/18/25 11:33: POC Glucose 179 H 08/18/25 16:03: POC Glucose 135 H 08/18/25 20:46: POC Glucose 205 H 08/19/25 05:23: WBC 7.6 D, RBC 2.42 L, Hgb 7.2 L D, Hct 22.4 L, MCV 92.6, MCH 29.3, MCHC 31.7 L, RDW 11.9, Plt Count 123 L, MPV 10.9 H, Neut % (Auto) 65.4, Lymph % (Auto) 22.2, [place] % (Auto) 10.7 H, Eos % (Auto) 0.8, Baso % (Auto) 0.5, Neut # (Auto) 5.0, Lymph # (Auto) 1.7, [place] # (Auto) 0.8, Eos # (Auto) 0.1, Baso # (Auto) 0.0, Sodium 140, Potassium 4.2, Chloride 111 H, Carbon Dioxide 22, Anion Gap 11.2, BUN 39 H D, Creatinine 2.00 H, Estimated Creat Clear 32, Estimated GFR 32 L, Est GFR ( Amer) 39 L, Glucose 100, Calcium 8.1 L, Iron 41 L, Ferritin 31.2, Vitamin B12 278 08/19/25 06:08: POC Glucose 112 H I & O for Last 24 hours: Intake & Output 08/16/25 08/17/25 08/18/25 08/19/25 23:59 23:59 23:59 23:59 Intake Total 3430 / 3430 3109 / 3229 170 / 170 Output Total 0 / 0 0 / 0 0 / 0 Balance 3430 / 3430 3109 / 3229 170 / 170 Weight 75.75 kg 75.75 kg 77.655 kg Constitutional Constitutional: no acute distress, average body habitus, chronically ill appearing and cooperative *Routine HEENT Exam Head: Present normocephalic Eye: Present EOMI and PERRL ENT: Present mucous membranes moist *Routine Neck Exam Neck: Present supple; Absent lymphadenopathy *Routine Respiratory Exam Respiratory: Present CTA bilaterally and normal respiratory effort; Absent accessory muscle use, rhonchi, wheezes or crackles *Routine Cardiovascular Exam Cardiovascular: Present RRR, Normal S1 and Normal S2; Absent murmur *Routine Abdominal Exam Abdominal: Present soft and normoactive bowel sounds; Absent tenderness *Routine Extremities Exam Extremities: Absent cyanosis, clubbing or edema *Routine Skin Exam Skin: Present intact and warm; Absent erythema or rash *Routine Neurological Exam Neurological: Present alert, CN II-XII intact and moving all extremities; Absent motor deficit Comments: oriented to self, baseline mentation Routine Psychiatric Exam Comments: No behavioral disturbance. Normal affect Results Data Completed and Pending Labs on day of discharge: Labs from last 24 hours 08/19/25 08/19/25 08/18/25 06:08 05:23 20:46 WBC 7.6 D RBC 2.42 L Hgb 7.2 L D Hct 22.4 L MCV 92.6 MCH 29.3 MCHC 31.7 L RDW 11.9 Plt Count 123 L MPV 10.9 H Neut % (Auto) 65.4 Lymph % (Auto) 22.2 [place] % (Auto) 10.7 H Eos % (Auto) 0.8 Baso % (Auto) 0.5 Neut # (Auto) 5.0 Lymph # (Auto) 1.7 [place] # (Auto) 0.8 Eos # (Auto) 0.1 Baso # (Auto) 0.0 Sodium 140 Potassium 4.2 Chloride 111 H Carbon Dioxide 22 Anion Gap 11.2 BUN 39 H D Creatinine 2.00 H Estimated Creat Clear 32 Estimated GFR 32 L Est GFR ( Amer) 39 L Glucose 100 POC Glucose 112 H 205 H Calcium 8.1 L Iron 41 L Ferritin 31.2 Vitamin B12 278 08/18/25 08/18/25 16:03 11:33 WBC RBC Hgb Hct MCV MCH MCHC RDW Plt Count MPV Neut % (Auto) Lymph % (Auto) [place] % (Auto) Eos % (Auto) Baso % (Auto) Neut # (Auto) Lymph # (Auto) [place] # (Auto) Eos # (Auto) Baso # (Auto) Sodium Potassium Chloride Carbon Dioxide Anion Gap BUN Creatinine Estimated Creat Clear Estimated GFR Est GFR ( Amer) Glucose POC Glucose 135 H 179 H Calcium Iron Ferritin Vitamin B12 DS: Diagnosis Discharge Diagnosis (1) SIRS (systemic inflammatory response syndrome): Status: Resolved Code(s): R65.10 - Systemic inflammatory response syndrome (SIRS) of non-infectious origin without acute organ dysfunction (2) AMS (altered mental status): Status: Acute Code(s): R41.82 - Altered mental status, unspecified (3) Hypothyroidism: Status: Acute Code(s): E03.9 - Hypothyroidism, unspecified Qualifiers: Hypothyroidism type: acquired Qualified Code(s): E03.9 - Hypothyroidism, unspecified (4) Renal insufficiency: Status: Acute Code(s): N28.9 - Disorder of kidney and ureter, unspecified (5) Schizophrenia: Status: Acute Code(s): F20.9 - Schizophrenia, unspecified (6) Diabetes 1.5, managed as type 2: Status: Acute Code(s): E13.9 - Other specified diabetes mellitus without complications (7) Anemia: Status: Acute Code(s): D64.9 - Anemia, unspecified Meds Home Medications and Allergies Home Medications ?Medication ?Instructions ?Recorded ?Confirmed ?Type sennosides 8.6 mg-docusate sodium 1 tab PO BID PRN con stipation 30 12/28/24 08/17/25 Rx 50 mg tablet days #60 tabs cyanocobalamin (vitamin B-12) 1,000 mcg IM MONTHLY 12/1208/18/25 History 1,000 mcg/mL injection solution multivitamin 1 tab PO HS 08/18/25 5 History amoxicillin 875 mg-potassium 1 tab PO BID #5 tabs 01/12 Rx clavulanate 125 mg tablet levothyroxine 125 mcg tablet 125 mcg PO DAILYDM 30 day s #30 tabs 08/19/25 Rx (Synthroid) New Prescriptions to Start Prescriptions: amoxicillin-pot clavulanate Faby Urias levothyroxine [Synthroid] Faby Urias Allergies Allergy/AdvReac Type Severity Reaction Status Date / Time No Known Allergies Allergy Verified 12/21/24 13:37 Discharge Plan Disposition Patient Disposition: er Intermediate Care Fac Condition: Fair Discharge Order Discharge Orders: Discharge Order (Routine); Ordered 08/19/25 Ordered By: Faby Urias Follow up Plan Follow up with: Provider,Referral, [Primary Care Provider, Medical] - Enter time for follow up Referral Note: provider at [facility] Prescriptions/Medication Reconciliation: New levothyroxine [Synthroid] 125 mcg Tablet 125 mcg PO DAILYDM 30 Days Qty: 30 0RF amoxicillin-pot clavulanate 875-125 mg tablet 1 tab PO BID Qty: 5 0RF Continued sennosides-docusate sodium 1 EACH tablet 1 tab PO BID PRN (Reason: constipation) 30 Days Qty: 60 0RF multivitamin Tablet 1 tab PO HS cyanocobalamin (vitamin B-12) 1,000 mcg/mL solution 1,000 mcg IM MONTHLY Discontinued levothyroxine 112 mcg tablet 112 mcg PO DAILY Problem Reconciliation Problems Reviewed?: Yes Patient Discharge Instructions ACTIVITY: Continue current activity and Up with assistance DIET: continue same diet Patient Instructions: DI for Hypothyroidism, DI for Altered Mental Status Print Language: Kiswahili Providers Primary Care Provider: Provider,Referral Admit Provider: Bryson Ott Attending Provider: Bryson Ott
[2025-08-19 11:56] VITALS: BP 105/62; PULSE 69; RESP 18; TEMP 36.6; O2SAT 100
--- NOTE | 2025-08-19 11:56 | PC.NURSE ---
report called to [facility], patient will be transported via EMS.
== END 2025-08-19 12:56 | DRG 868 ==
LOC: ER 19:51 → 2ND 20:00
PROVIDERS: Internal Medicine; Nurse Practitioner; Student in an Organized Health Care Education/Training Program; Admitting Provider Internal Medicine Adolescent Medicine; Emergency Provider Emergency Medicine; Visit Provider Internal Medicine Adolescent Medicine
DX: B99.9 Unspecified infectious disease (principal); R65.10 Systemic inflammatory response syndrome (SIRS) of non-infectious origin without acute organ dysfunction; D63.1 Anemia in chronic kidney disease; E03.9 Hypothyroidism, unspecified; F20.9 Schizophrenia, unspecified; E13.22 Other specified diabetes mellitus with diabetic chronic kidney disease; I12.9 Hypertensive chronic kidney disease with stage 1 through stage 4 chronic kidney disease, or unspecified chronic kidney disease; N18.30 Chronic kidney disease, stage 3 unspecified; N28.9 Disorder of kidney and ureter, unspecified; R26.81 Unsteadiness on feet; R53.1 Weakness; Z66 Do not resuscitate; Z91.148 Patient's other noncompliance with medication regimen for other reason; Z86.73 Personal history of transient ischemic attack (TIA), and cerebral infarction without residual deficits; Z87.891 Personal history of nicotine dependence; Z79.84 Long term (current) use of oral hypoglycemic drugs; Z79.890 Hormone replacement therapy; Z79.899 Other long term (current) drug therapy
CPT/HCPCS: 36415; 71045; 73030; 73080; 73110; 80048; 80053; 81001; 82607; 82728; 82962; 83036; 83540; 83690; 83735; 84439; 84443; 84484; 85025; 85378; 86803; 87086; 87389; 87636; 93005; 97162; 97166; 97530; 99285; J0131; J0692; J1644; J2470; J2543; J3375; J7030; J7120

== ENCOUNTER 2025-09-12 17:16 | Outpatient (CLI) | payer MEDICARE, MEDICAID, SELFPAY ==
--- OUTSIDE RECORDS SUMMARY | 2025-09-12 17:19 | XMS_ITS | Clinical Summary ---
Author Organization Healthcare Address [address] [place] [address] Care Team Providers Care Architectural Technologist Name Role Phone Unavailable Primary Care Provider Unavailabl e Social History Tobacco Use Types Packs/Day Years Used Date Smoking Tobacco: Never Assessed Sex and Gender Information Value Date Recorded Sex Assigned at Not on file Legal Sex Male 7:17 PM EDT Gender Identity Not on file Sexual Orientation Not on file Plan of Treatment Not on file Insurance [employer] [id number] [place] [address] [employer]
== END 2025-09-12 23:59 | disposition home or self-care (01) ==
LOC: LAB.DROPOF 17:17
PROVIDERS: PCP Nurse Practitioner Family; Visit Provider Nurse Practitioner Family
DX: R69 Illness, unspecified (principal)

== ENCOUNTER 2025-09-12 20:25 | Outpatient (CLI) | payer MEDICARE, MEDICAID, SELFPAY ==
--- OUTSIDE RECORDS SUMMARY | 2025-09-12 20:29 | XMS_ITS | Clinical Summary ---
Author Organization Healthcare Address [address] [place] [address] Care Team Providers Care Home Economics Teacher Name Role Phone Unavailable Primary Care Provider Unavailabl e Social History Tobacco Use Types Packs/Day Years Used Date Smoking Tobacco: Never Assessed Sex and Gender Information Value Date Recorded Sex Assigned at Not on file Legal Sex Male 7:17 PM EDT Gender Identity Not on file Sexual Orientation Not on file Plan of Treatment Not on file Insurance [employer] [id number] [place] [address] [employer]
[2025-09-12 20:48] LABS: Coronavirus 19, PCR Not Detected (NotDetected); Influenza A, PCR Not Detected (NotDetected); Influenza B, PCR Not Detected (NotDetected)
== END 2025-09-12 23:59 | disposition home or self-care (01) ==
LOC: LAB.DROPOF 20:27
PROVIDERS: PCP Nurse Practitioner Family; Visit Provider Nurse Practitioner Family
DX: R50.9 Fever, unspecified (principal)
CPT/HCPCS: 87631

== ENCOUNTER 2025-09-13 10:05 | Emergency (ER) | payer MEDICARE, MEDICAID, SELFPAY ==
[2025-09-13] VITALS (42 sets, daily range): BP systolic 67–127; BP diastolic 39–83; PULSE 109–129; RESP 12–29; TEMP 37.1–38.6; O2SAT 92–99; BMI 25.1
--- NOTE | 2025-09-13 10:00 | CT_ITS ---
FINAL REPORT TECHNIQUE: After the administration of oral and intravenous contrast, axial images were obtained through the abdomen and pelvis by computed tomography. The study was performed with techniques to keep radiation dose as low as reasonably achievable, (ALARA). Individual dose reduction techniques using automated exposure control or adjustment of mA and/or kV according to the patient's size were employed. CLINICAL HISTORY: abd PAIN COMPARISON: 11/30/2022 FINDINGS: CT ABDOMEN PELVIS WITH CONTRAST Abdomen: Chronic changes of the lung bases are present. There is fatty infiltration of the liver. The gallbladder is distended. The spleen, pancreas, adrenals appear unremarkable. There are large left renal stones measuring up to 1.7 cm, calcified. There is mild left hydroureter without a distal stone seen. The aorta is normal in caliber. There is no free fluid or adenopathy. Pelvis: The appendix is not identified. The urinary bladder wall is contracted and thick-walled. There is no free fluid or adenopathy. There is marked rectal distention, which measures up to 10.4 cm in diameter, possibly secondary to impaction. IMPRESSION: Marked distention of the rectum to 10.4 cm, may be secondary to impaction. Mild left hydroureter without a distal stone remains present. There are large left renal stones measuring up to 1.7 cm in size. The bladder wall is contracted and thick-walled, cystitis not excluded. Reviewed, Interpreted and Dictated by Zeb Brown MD Transcribed by Elen Choe Authenticated and [facility]
--- NOTE | 2025-09-13 10:00 | CT_ITS ---
FINAL REPORT TECHNIQUE: The patient was injected with IV contrast. Axial images were obtained through the chest in a PE protocol. 3-D reconstruction images were also performed. Individualized dose reduction techniques using automated exposure control or adjustment of the MA and/or KV according to patient's size were employed. CLINICAL HISTORY: shortness of breath COMPARISON: None FINDINGS: CTA CHEST: Mediastinal vasculature is adequately opacified. No pulmonary artery filling defects are identified to suggest PE. There is no aortic dissection. There is no axillary adenopathy. There is no hilar or mediastinal adenopathy. The heart size is normal. There is no pericardial or pleural effusion. There are patchy bilateral ground glass opacities, primarily in the lung bases, consistent with pneumonitis. IMPRESSION: No pulmonary embolus, aneurysm or dissection. Patchy bilateral ground glass opacities, consistent with pneumonitis. Reviewed, Interpreted and Dictated by Zeb Brown MD Transcribed by Elen Choe Authenticated and [facility]
--- NOTE | 2025-09-13 10:07 | ECG_ITS ---
APPROVED REPORT Exam: Resting ECG HR:122 bpm ECG Measurements Heart Rate 122 AXES NH 143 P 51 QRSd 103 QRS -58 QT 332 T 63 QTc 405 Conclusion SINUS TACHYCARDIA LEFT AXIS DEVIATION [QRS AXIS < -30] PATTERN CONSISTENT WITH PULMONARY DISEASE INCOMPLETE RIGHT BUNDLE BRANCH BLOCK [90+ ms QRS DURATION, TERMINAL R IN V1/V2, 40+ ms S IN I/aVL/V4/V5/V6] ABNORMAL ECG UNCONFIRMED REPORT Electronically signed by : DARCIE OLSON, 09/14/2025 06:30:22
--- NOTE | 2025-09-13 10:13 | ED_ITS ---
<Statement entered by Lefty De Oliveira MD - 09/13/25 20:36> I was consulted by the JOHN, and we discussed the complexity of the problems being addressed. I approve the treatment and management plan for this patient's care in the emergency department, thus performing a substantive portion of the medical decision making. Lefty De Oliveira MD Discharge Plan Disposition Patient Disposition: Xfer Other Prescriptions Prescriptions: No Action sennosides-docusate sodium 1 EACH tablet 1 tab PO BID PRN (Reason: constipation) 30 Days Qty: 60 0RF multivitamin Tablet 1 tab PO HS cyanocobalamin (vitamin B-12) 1,000 mcg/mL solution 1,000 mcg IM MONTHLY levothyroxine [Synthroid] 125 mcg Tablet 125 mcg PO DAILYDM 30 Days Qty: 30 0RF amoxicillin-pot clavulanate 875-125 mg tablet 1 tab PO BID Qty: 5 0RF Referrals Follow up/Referrals: Provider,Referral, [Referring, Medical] - See instructions Clinical Impressions Clinical Impression: Renal insufficiency, Sepsis, Fecal impaction in rectum, Schizophrenia Stand Alone Forms Stand Alone Forms: Transfer Record - ED Print Language Print Language: Irish Discharge ED Provider: Lefty De Oliveira General Adult HPI <Julia Blank (ED), MEDICAL MANAGER - Last Filed: 09/13/25 18:52> General Chief complaint: Fever Stated complaint: FEVER Time Seen by Provider: 09/13/25 10:13 Mode of Arrival: EMS Source of Information: EMS Description of Symptoms (Recalled from ER Triage Doc. by RN): Per EMS they were called to the nursing for patient having a fever and bile emesis. Patient with no current complaints. History of Present Illness HPI narrative: 80-year-old male presents via EMS after being called to the long term for patient having a fever and vomiting bile. Patient has no complaints but did wince when I examined his abdomen. Patient arrives with heart rate in the 120s and blood pressure 78/43. For EMS his blood pressure was 92/59 and heart rate over 146 with a blood sugar of 156. He had a temp of 101.4. Here his temp is 101.5. Patient is mentally at his baseline according to EMS. Patient is alert to his name only. Patient has history of hypertension, kidney function decline, dysphagia, TIA, hypothyroidism, schizophrenia, diabetes and unsteady gait. This is all per paperwork for you. Related Data Home Medications ?Medication ?Instructions ?Recorded ?Confirmed cyanocobalamin (vitamin B-12) 1,000 mcg IM MONTHLY 12/1208/18/25 1,000 mcg/mL injection solution multivitamin 1 tab PO HS 08/18/25 5 Previous Rx's ?Medication ?Instructions ?Recorded sennosides 8.6 mg-docusate sodium 1 tab PO BID PRN con stipation 30 12/28/24 50 mg tablet days #60 tabs amoxicillin 875 mg-potassium 1 tab PO BID #5 tabs 1001/12 clavulanate 125 mg tablet levothyroxine 125 mcg tablet 125 mcg PO DAILYDM 30 day s #30 tabs 08/19/25 (Synthroid) Allergies Allergy/AdvReac Type Severity Reaction Status Date / Time No Known Allergies Allergy Verified 12/21/24 13:37 [facility] <Julia Blank (ED), MEDICAL MANAGER - Last Filed: 09/13/25 18:52> [facility] Disclaimer: The information contained in this section may have been updated after the patient was seen, as this information can be updated by other users. Medical History (Updated 09/13/25 @ 16:33 by Julia Blank (ED), MEDICAL MANAGER) AMS (altered mental status) CVA (cerebral vascular accident) Hypertension Schizo affective schizophrenia Dysphagia Diabetes Diabetes Hypothyroid Anemia CVA (cerebral vascular accident) Social History Smoking Status: Unknown if ever smoked second hand exposure: No alcohol intake: never substance use type: other current occupational status: disabled Travel in the last 8 weeks?: None household members: other housing: assisted living facility current occupational exposures/hazards: No caffeine: Yes Have you lived/traveled outside [place] in past 30 days?: No Contact w/someone who lives/traveled outside US past 30 days?: No Exposure to someone with infectious disease in past 14 days?: No Do you have a fever (greater than 100.4 F or 38 C)?: No Have you tested positive for COVID-19?: No Exposed to someone with COVID-19 in past 14 days?: No Do you have a sore throat?: No Do you have a cough?: No Do you have any weakness?: No Do you have any diarrhea?: No Are you experiencing any unusual bleeding?: No Do you have any muscle aches/pain?: No Do you have any abdominal pain?: No Are you experiencing loss of taste or smell?: No Other Medical History Have you received the Flu Vaccine for this season: No Have you received the Pneumonia Vaccine: No <Julia Clevelandashish (ED), MEDICAL MANAGER - Last Filed: 09/13/25 18:52> ROS Obtained: Yes Systems reviewed as appropriate & no additional complaints except as documented Constitutional Constitutional: Reports as per HPI Physical Exam <Julia Clevelandashish (ED), MEDICAL MANAGER - Last Filed: 09/13/25 18:52> General General appearance: alert Comment: Alert to person only Head Head exam: normocephalic Eye Eye exam: Present EOMI and other (Right pupil is unreactive but this is normal) ENT ENT exam: Present normal oropharynx and mucous membranes moist Neck Neck exam: Present full ROM and trachea midline Chest Chest inspection: Present normal inspection and symmetric chest wall rise Respiratory Respiratory exam: Present normal lung sounds bilaterally Cardiovascular Cardiovascular exam: Present tachycardia, normal heart sounds, +S1 and +S2 Abdominal Exam Abdominal exam: Present soft, tenderness and diminished bowel sounds Extremities Exam Extremities exam: Present normal inspection, full ROM and normal capillary refill Neurological Exam Neurological exam: Present alert and other (Alert to person only) Skin Skin exam: Present warm and dry Medical Decision Making <Julia Blank (ED), MEDICAL MANAGER - Last Filed: 09/13/25 18:52> Medical Records Screening: Per USPSTF and CDC recommendations, given the prevalence of disease in our region, it is our hospital?s policy to screen for HIV and viral Hepatitis for all patients aged 18 and over and those with ongoing risk factors. Jermaine Inquiry Pt receiving controlled substance: No Jermaine was queried for this patient: No Vital Signs: 09/13/25 09:59 09/13/25 10:30 09/13/25 11:09 Temperature 101.5 F H Temperature Source Axillary Axillary Pulse Rate 123 H Pulse Rate [Radial] 120 H Respiratory Rate 22 16 Blood Pressure 76/46 L Blood Pressure [Right Arm] 78/43 L Blood Pressure Mean Blood Pressure Mean [Right Arm] 54 Blood Pressure Source Blood Pressure Source [Right Arm] Automatic Cuff Blood Pressure Position [Right Arm] Supine 02 Sat by Pulse Oximetry 98 99 Oxygen Delivery Method Room Air 09/13/25 11:23 09/13/25 11:30 09/13/25 12:08 Temperature Temperature Source Pulse Rate Pulse Rate [Radial] Respiratory Rate 29 H 26 H Blood Pressure 72/43 L 77/45 L 67/39 L Blood Pressure [Right Arm] Blood Pressure Mean 44 Blood Pressure Mean [Right Arm] Blood Pressure Source Blood Pressure Source [Right Arm] Blood Pressure Position [Right Arm] 02 Sat by Pulse Oximetry Oxygen Delivery Method 09/13/25 12:15 09/13/25 12:30 09/13/25 12:45 Temperature Temperature Source Pulse Rate Pulse Rate [Radial] Respiratory Rate Blood Pressure 74/42 L 77/45 L 91/55 L Blood Pressure [Right Arm] Blood Pressure Mean 50 54 64 Blood Pressure Mean [Right Arm] Blood Pressure Source Blood Pressure Source [Right Arm] Blood Pressure Position [Right Arm] 02 Sat by Pulse Oximetry Oxygen Delivery Method 09/13/25 12:59 09/13/25 13:15 09/13/25 14:00 Temperature Temperature Source Pulse Rate Pulse Rate [Radial] Respiratory Rate Blood Pressure 113/64 97/53 L 94/59 L Blood Pressure [Right Arm] Blood Pressure Mean 79 67 65 Blood Pressure Mean [Right Arm] Blood Pressure Source Blood Pressure Source [Right Arm] Blood Pressure Position [Right Arm] 02 Sat by Pulse Oximetry Oxygen Delivery Method 09/13/25 14:33 09/13/25 14:45 09/13/25 14:47 Temperature 99.5 F Temperature Source Axillary Pulse Rate Pulse Rate [Radial] Respiratory Rate 16 27 H Blood Pressure 100/62 L 101/57 L Blood Pressure [Right Arm] Blood Pressure Mean Blood Pressure Mean [Right Arm] Blood Pressure Source Blood Pressure Source [Right Arm] Blood Pressure Position [Right Arm] 02 Sat by Pulse Oximetry Oxygen Delivery Method 09/13/25 15:00 09/13/25 15:15 09/13/25 15:20 Temperature Temperature Source Pulse Rate Pulse Rate [Radial] Respiratory Rate 15 19 14 Blood Pressure 99/51 L 114/66 127/62 Blood Pressure [Right Arm] Blood Pressure Mean Blood Pressure Mean [Right Arm] Blood Pressure Source Blood Pressure Source [Right Arm] Blood Pressure Position [Right Arm] 02 Sat by Pulse Oximetry Oxygen Delivery Method 09/13/25 15:32 09/13/25 15:45 09/13/25 16:16 Temperature Temperature Source Pulse Rate Pulse Rate [Radial] Respiratory Rate 20 20 16 Blood Pressure 104/60 L 102/61 L 97/68 L Blood Pressure [Right Arm] Blood Pressure Mean Blood Pressure Mean [Right Arm] Blood Pressure Source Blood Pressure Source [Right Arm] Blood Pressure Position [Right Arm] 02 Sat by Pulse Oximetry Oxygen Delivery Method 09/13/25 17:00 09/13/25 18:16 09/13/25 18:18 Temperature Temperature Source Pulse Rate 120 H Pulse Rate [Radial] Respiratory Rate 18 15 18 Blood Pressure 105/82 L 110/64 110/64 Blood Pressure [Right Arm] Blood Pressure Mean Blood Pressure Mean [Right Arm] Blood Pressure Source Automatic Cuff Blood Pressure Source [Right Arm] Blood Pressure Position [Right Arm] 02 Sat by Pulse Oximetry Oxygen Delivery Method 09/13/25 18:30 Temperature Temperature Source Pulse Rate Pulse Rate [Radial] Respiratory Rate 22 Blood Pressure 112/65 Blood Pressure [Right Arm] Blood Pressure Mean Blood Pressure Mean [Right Arm] Blood Pressure Source Blood Pressure Source [Right Arm] Blood Pressure Position [Right Arm] 02 Sat by Pulse Oximetry Oxygen Delivery Method Lab Data Lab Results 09/13/25 09:55: WBC 26.8 H*, RBC 3.09 L, Hgb 8.8 L, Hct 27.9 L, MCV 90.3, MCH 28.5, MCHC 31.5 L, RDW 12.0, Plt Count 126 L, MPV 11.1 H, Neut % (Auto) 89.7 H, Lymph % (Auto) 3.0 L, Bond % (Auto) 3.7, Eos % (Auto) 1.5, Baso % (Auto) 0.2, N eut # (Auto) 24.0 H, Lymph # (Auto) 0.8, Bond # (Auto) 1.0, Eos # (Auto) 0.4, Baso # (Auto) 0.1, Total Counted 100, Neutrophils % (Manual) 63, Band Neutrophils % 20.0 H, Lymphocytes % (Manual) 5 L, Monocytes % (Manual) 4, Promyelocytes % 8, Platelet Estimate Slight decrease, RBC Morphology Normal, ESR > 140 H, PT 13.5 H, INR 1.24 H, APTT 34.1 H, Sodium 135 L, Potassium 4.2, Chloride 102, Carbon Dioxide 21 L, Anion Gap 16.2 H, BUN 55 H, Creatinine 4.40 H , Estimated Creat Clear 15, Estimated GFR 13 L*, Est GFR ( Amer) 16 L*, G lucose 119 H, Lactate 4.5 H, Calcium 8.3 L, Phosphorus 2.7, Total Bilirubin 0.6, AST 49, ALT 30, Alkaline Phosphatase 92, Total Creatine Kinase 1108 H*, C- Reactive Protein 87.0 H, Total Protein 7.0, Albumin 2.7 L, Globulin 4.3 H, A lbumin/Globulin Ratio 0.6 L 09/13/25 10:00: VBG pH 7.37, VBG pCO2 33.1 L, VBG pO2 131.9 H, VBG HCO3 18.5 L, VBG Total CO2 19.6 L, VBG O2 Saturation 99.0 H, VBG Base Excess -6.8 L, VBG Lactic Acid 5.7 H 09/13/25 10:02: Chlamy pneumoniae PCR Not detected, Adenovirus (PCR) Not detected, B. pertussis DNA (PCR) Not detected, Coronavirus OC43 (PCR) Not detected, Coronavirus HKU1 (PCR) Not detected, Coronavirus 229E (PCR) Not detected, SARS-CoV-2 (PCR) Not detected, Coronavirus NL63 (PCR) Not detected, Human Metapneumovir PCR Not detected, Influenza A (H1) PCR Not detected, Influ A (H1N1/09) PCR Not detected, Influenza A (H3) PCR Not detected, Influenza Type A (PCR) Not detected, Influenza Type B (PCR) Not detected, M. pneumoniae (PCR) Not detected, Parainfluenza 1 (PCR) Not detected, Parainfluenza 2 (PCR) Not detected, Parainfluenza 3 (PCR) Not detected, Parainfluenza 4 (PCR) Not detected, RSV (PCR) Not detected, Entero/Rhino (PCR) Not detected 09/13/25 15:39: Lactate 5.4 H 09/13/25 09:55 09/13/25 09:55 Orders (Tests/Meds): ED MEDICATIONS Generic Name Dose Route Start Last Admin Trade Name Freq PRN Reason Stop Dose Admin Norepinephrine/Dextrose 8 mg in 250 mls @ 3.75 mls/hr 09/13/25 11:24 09/13/25 16:39 Levophed 8mg/250ml-D5w Premix IV 10/13/25 11:23 9 mcg/min .Q24H ROHITH 16.88 mls/hr Protocol Administration 2 MCG/MIN Vancomycin/PEG/NADA/Lysine/Water 1.5 gm in 300 mls @ 150 mls/hr 09/13/25 17:30 09/13/25 17:56 Vancomycin 1.5gm/300ml (Peg) Premix IV 09/13/25 19:29 150 mls/hr ONCE ONE Administration Miscellaneous 1 each 09/13/25 17:15 09/13/25 18:05 Vancomycin Consult Request NOTAPPLIC 10/13/25 17:14 1 each CONSULT PHARMACY ROHITH Administration Discontinued Medications Generic Name Dose Route Start Last Admin Trade Name Freq PRN Reason Stop Dose Admin Acetaminophen 1,000 mg 09/13/25 10:00 09/13/25 10:15 Acetaminophen 1,000mg/100ml Vial IV 09/13/25 10:01 1,000 mg ONCE ONE Administration Cefepime HCl 2 gm/ Sodium 100 mls @ 200 mls/hr 09/13/25 10:00 09/13/25 14:45 Chloride IV 09/13/25 10:29 Infused ONCE ONE Infusion Piperacillin Sod/Tazobactam 100 mls @ 200 mls/hr 09/13/25 10:00 09/13/25 11:48 Sod 4.5 gm/ Sodium Chloride IV 09/13/25 10:29 Infused ONCE ONE Infusion Lactated Ringer's 2,190 mls @ 1,095 mls/hr 09/13/25 10:05 09/13/25 13:09 Lactated Ringer's 1000 Ml Bag 30 ml/kg infuse over 2 hr (2190 ml) 09/13/25 12:04 Infused IV Infusion .Q2H ONE Iopamidol 70 ml 09/13/25 10:36 09/13/25 10:37 Iopamidol-370 (76%);100ml Bottle IV 09/13/25 10:37 70 ml ONCE ONE Administration Ondansetron HCl 4 mg 09/13/25 10:08 09/13/25 11:08 Ondansetron 4mg/2ml Vial IV 09/13/25 10:09 4 mg ONCE ONE Administration Sodium Chloride 10 ml 09/13/25 10:36 09/13/25 10:36 Sodium Chloride 0.9% 10ml Syr (Rad Only) IV 09/13/25 10:37 10 ml ONCE ONE Administration Sodium Chloride 50 ml 09/13/25 10:36 09/13/25 10:36 0.9 % Sodium Chloride 50 Ml Vial IV 09/13/25 10:37 50 ml ONCE ONE Administration ORDERS Category Date Time Status CT abdomen pelvis w con Stat Cat Scan 09/13/25 10:00 Completed CTA Chest [CT angio chest PE protocol] Stat Cat Scan 09/13/25 10:00 Completed Activated Partial Thrombo Time Stat Lab 09/13/25 09:55 Completed C-Reactive Protein Stat Lab 09/13/25 09:55 Completed Complete Blood Count Auto Diff Stat Lab 09/13/25 09:55 Results Comprehensive Metabolic Panel Stat Lab 09/13/25 09:55 Completed Creatine Kinase Stat Lab 09/13/25 09:55 Completed Erythrocyte Sedimentation Rate Stat Lab 09/13/25 09:55 Completed Full Resp Panel w/COVID ([facility]) Routine Lab 09/13/25 10:02 Completed GI Mid Panel, PCR Stat Lab 09/13/25 10:00 Ordered Lactic Acid Follow Up (RFLX 1) Stat Lab 09/13/25 15:39 Completed Lactic Acid Follow up (RFLX 2) Stat Lab 09/13/25 18:35 Ordered Lactic Acid Stat Lab 09/13/25 09:55 Completed Peripheral Smear Review Stat Lab 09/13/25 09:55 Results Phosphorous Stat Lab 09/13/25 09:55 Completed Prothrombin Time INR Stat Lab 09/13/25 09:55 Completed Urinalysis and Microscopic Stat Lab 09/13/25 10:00 Ordered Blood Culture Stat Micro 09/13/25 10:03 Received Urine Culture Stat Micro 09/13/25 10:02 Ordered VBG [Venous Blood Gas] Stat RT 09/13/25 10:00 Completed Medical Decision Narrative: patient is a 80-year-old male presenting to the emergency department for evaluation of fever. Patient arrives to the ED with blood pressure that is 78/43 and heart rate of 120-140 patient is febrile 101.5 patient is alert to person. Differential diagnosis includes sepsis, breath sounds are diminished and abdomen is tender but not peritonitic, bowel obstruction, cholecystitis, UTI, constipation, among others. Workup will be conducted with hematologic labs, specific imaging, provocative tests. Initial inventions include crystalloid bolus including the sepsis bolus, analgesics, antibiotics. Initial workup reviewed by me hematologic labs are remarkable for white blood count 26.8, H&H level 8.8 and 27.9. Patient's platelets are low at 126, ESR was greater than 140,PT was 13.5, INR was 1.24, pH was 7.37 pCO2 was 33.1, PaO2 was 131, bicarb was 18.5, lactic was 5.7, gap was 16.2, BUN was 55, creatinine was 4.4, GFR was 13, creatinine kinase was 1108, CRP 87 albumin 2.7. I completed a CT of the chest and initial read by myself showed some patchy ground glass opacities. The radiologist read it as pneumonitis. Update [address] Bernabe at transfer center he is working on finding this patient a bed. Patient is stable at this time with blood pressure 94/59 still on a levo drip. Update 1504 discussed with Ralf at [facility] he had an acceptance from Dr. Pereira at . Patient will be excepted to the medicine ICU. We are waiting for a bed assignment. I called the patient's next of kin, Baylee Bond and gave him an update on what was going on with his brother. Patient continues to be stable and his blood pressure currently is 99/51 and continues to be on the norepinephrine drip. Patient was accepted to the MICU at . We await transport. Patient continues to be stable still await transport at 1852 PM. Will transfer care to Dr. Rea Patient <Lefty De Oliveira MD - Last Filed: 09/13/25 10:14> Vital Signs: 09/13/25 09:59 09/13/25 10:30 09/13/25 11:09 Temperature 101.5 F H Temperature Source Axillary Axillary Pulse Rate 123 H Pulse Rate [Radial] 120 H Respiratory Rate 22 16 Blood Pressure 76/46 L Blood Pressure [Right Arm] 78/43 L Blood Pressure Mean Blood Pressure Mean [Right Arm] 54 Blood Pressure Source Blood Pressure Source [Right Arm] Automatic Cuff Blood Pressure Position [Right Arm] Supine 02 Sat by Pulse Oximetry 98 99 Oxygen Delivery Method Room Air 09/13/25 11:23 09/13/25 11:30 09/13/25 12:08 Temperature Temperature Source Pulse Rate Pulse Rate [Radial] Respiratory Rate 29 H 26 H Blood Pressure 72/43 L 77/45 L 67/39 L Blood Pressure [Right Arm] Blood Pressure Mean 44 Blood Pressure Mean [Right Arm] Blood Pressure Source Blood Pressure Source [Right Arm] Blood Pressure Position [Right Arm] 02 Sat by Pulse Oximetry Oxygen Delivery Method 09/13/25 12:15 09/13/25 12:30 09/13/25 12:45 Temperature Temperature Source Pulse Rate Pulse Rate [Radial] Respiratory Rate Blood Pressure 74/42 L 77/45 L 91/55 L Blood Pressure [Right Arm] Blood Pressure Mean 50 54 64 Blood Pressure Mean [Right Arm] Blood Pressure Source Blood Pressure Source [Right Arm] Blood Pressure Position [Right Arm] 02 Sat by Pulse Oximetry Oxygen Delivery Method 09/13/25 12:59 09/13/25 13:15 09/13/25 14:00 Temperature Temperature Source Pulse Rate Pulse Rate [Radial] Respiratory Rate Blood Pressure 113/64 97/53 L 94/59 L Blood Pressure [Right Arm] Blood Pressure Mean 79 67 65 Blood Pressure Mean [Right Arm] Blood Pressure Source Blood Pressure Source [Right Arm] Blood Pressure Position [Right Arm] 02 Sat by Pulse Oximetry Oxygen Delivery Method 09/13/25 14:33 09/13/25 14:45 09/13/25 14:47 Temperature 99.5 F Temperature Source Axillary Pulse Rate Pulse Rate [Radial] Respiratory Rate 16 27 H Blood Pressure 100/62 L 101/57 L Blood Pressure [Right Arm] Blood Pressure Mean Blood Pressure Mean [Right Arm] Blood Pressure Source Blood Pressure Source [Right Arm] Blood Pressure Position [Right Arm] 02 Sat by Pulse Oximetry Oxygen Delivery Method 09/13/25 15:00 09/13/25 15:15 09/13/25 15:20 Temperature Temperature Source Pulse Rate Pulse Rate [Radial] Respiratory Rate 15 19 14 Blood Pressure 99/51 L 114/66 127/62 Blood Pressure [Right Arm] Blood Pressure Mean Blood Pressure Mean [Right Arm] Blood Pressure Source Blood Pressure Source [Right Arm] Blood Pressure Position [Right Arm] 02 Sat by Pulse Oximetry Oxygen Delivery Method 09/13/25 15:32 09/13/25 15:45 09/13/25 16:16 Temperature Temperature Source Pulse Rate Pulse Rate [Radial] Respiratory Rate 20 20 16 Blood Pressure 104/60 L 102/61 L 97/68 L Blood Pressure [Right Arm] Blood Pressure Mean Blood Pressure Mean [Right Arm] Blood Pressure Source Blood Pressure Source [Right Arm] Blood Pressure Position [Right Arm] 02 Sat by Pulse Oximetry Oxygen Delivery Method 09/13/25 17:00 09/13/25 18:16 09/13/25 18:18 Temperature Temperature Source Pulse Rate 120 H Pulse Rate [Radial] Respiratory Rate 18 15 18 Blood Pressure 105/82 L 110/64 110/64 Blood Pressure [Right Arm] Blood Pressure Mean Blood Pressure Mean [Right Arm] Blood Pressure Source Automatic Cuff Blood Pressure Source [Right Arm] Blood Pressure Position [Right Arm] 02 Sat by Pulse Oximetry Oxygen Delivery Method 09/13/25 18:30 Temperature Temperature Source Pulse Rate Pulse Rate [Radial] Respiratory Rate 22 Blood Pressure 112/65 Blood Pressure [Right Arm] Blood Pressure Mean Blood Pressure Mean [Right Arm] Blood Pressure Source Blood Pressure Source [Right Arm] Blood Pressure Position [Right Arm] 02 Sat by Pulse Oximetry Oxygen Delivery Method Lab Data Lab Results 09/13/25 09:55: WBC 26.8 H*, RBC 3.09 L, Hgb 8.8 L, Hct 27.9 L, MCV 90.3, MCH 28.5, MCHC 31.5 L, RDW 12.0, Plt Count 126 L, MPV 11.1 H, Neut % (Auto) 89.7 H, Lymph % (Auto) 3.0 L, Bond % (Auto) 3.7, Eos % (Auto) 1.5, Baso % (Auto) 0.2, N eut # (Auto) 24.0 H, Lymph # (Auto) 0.8, Bond # (Auto) 1.0, Eos # (Auto) 0.4, Baso # (Auto) 0.1, Total Counted 100, Neutrophils % (Manual) 63, Band Neutrophils % 20.0 H, Lymphocytes % (Manual) 5 L, Monocytes % (Manual) 4, Promyelocytes % 8, Platelet Estimate Slight decrease, RBC Morphology Normal, ESR > 140 H, PT 13.5 H, INR 1.24 H, APTT 34.1 H, Sodium 135 L, Potassium 4.2, Chloride 102, Carbon Dioxide 21 L, Anion Gap 16.2 H, BUN 55 H, Creatinine 4.40 H , Estimated Creat Clear 15, Estimated GFR 13 L*, Est GFR ( Amer) 16 L*, G lucose 119 H, Lactate 4.5 H, Calcium 8.3 L, Phosphorus 2.7, Total Bilirubin 0.6, AST 49, ALT 30, Alkaline Phosphatase 92, Total Creatine Kinase 1108 H*, C- Reactive Protein 87.0 H, Total Protein 7.0, Albumin 2.7 L, Globulin 4.3 H, A lbumin/Globulin Ratio 0.6 L 09/13/25 10:00: VBG pH 7.37, VBG pCO2 33.1 L, VBG pO2 131.9 H, VBG HCO3 18.5 L, VBG Total CO2 19.6 L, VBG O2 Saturation 99.0 H, VBG Base Excess -6.8 L, VBG Lactic Acid 5.7 H 09/13/25 10:02: Chlamy pneumoniae PCR Not detected, Adenovirus (PCR) Not detected, B. pertussis DNA (PCR) Not detected, Coronavirus OC43 (PCR) Not detected, Coronavirus HKU1 (PCR) Not detected, Coronavirus 229E (PCR) Not detected, SARS-CoV-2 (PCR) Not detected, Coronavirus NL63 (PCR) Not detected, Human Metapneumovir PCR Not detected, Influenza A (H1) PCR Not detected, Influ A (H1N1/09) PCR Not detected, Influenza A (H3) PCR Not detected, Influenza Type A (PCR) Not detected, Influenza Type B (PCR) Not detected, M. pneumoniae (PCR) Not detected, Parainfluenza 1 (PCR) Not detected, Parainfluenza 2 (PCR) Not detected, Parainfluenza 3 (PCR) Not detected, Parainfluenza 4 (PCR) Not detected, RSV (PCR) Not detected, Entero/Rhino (PCR) Not detected 09/13/25 15:39: Lactate 5.4 H Orders (Tests/Meds): ED MEDICATIONS Generic Name Dose Route Start Last Admin Trade Name Freq PRN Reason Stop Dose Admin Norepinephrine/Dextrose 8 mg in 250 mls @ 3.75 mls/hr 09/13/25 11:24 09/13/25 16:39 Levophed 8mg/250ml-D5w Premix IV 10/13/25 11:23 9 mcg/min .Q24H ROHITH 16.88 mls/hr Protocol Administration 2 MCG/MIN Vancomycin/PEG/NADA/Lysine/Water 1.5 gm in 300 mls @ 150 mls/hr 09/13/25 17:30 09/13/25 17:56 Vancomycin 1.5gm/300ml (Peg) Premix IV 09/13/25 19:29 150 mls/hr ONCE ONE Administration Miscellaneous 1 each 09/13/25 17:15 09/13/25 18:05 Vancomycin Consult Request NOTAPPLIC 10/13/25 17:14 1 each CONSULT PHARMACY ROHITH Administration Discontinued Medications Generic Name Dose Route Start Last Admin Trade Name Freq PRN Reason Stop Dose Admin Acetaminophen 1,000 mg 09/13/25 10:00 09/13/25 10:15 Acetaminophen 1,000mg/100ml Vial IV 09/13/25 10:01 1,000 mg ONCE ONE Administration Cefepime HCl 2 gm/ Sodium 100 mls @ 200 mls/hr 09/13/25 10:00 09/13/25 14:45 Chloride IV 09/13/25 10:29 Infused ONCE ONE Infusion Piperacillin Sod/Tazobactam 100 mls @ 200 mls/hr 09/13/25 10:00 09/13/25 11:48 Sod 4.5 gm/ Sodium Chloride IV 09/13/25 10:29 Infused ONCE ONE Infusion Lactated Ringer's 2,190 mls @ 1,095 mls/hr 09/13/25 10:05 09/13/25 13:09 Lactated Ringer's 1000 Ml Bag 30 ml/kg infuse over 2 hr (2190 ml) 09/13/25 12:04 Infused IV Infusion .Q2H ONE Iopamidol 70 ml 09/13/25 10:36 09/13/25 10:37 Iopamidol-370 (76%);100ml Bottle IV 09/13/25 10:37 70 ml ONCE ONE Administration Ondansetron HCl 4 mg 09/13/25 10:08 09/13/25 11:08 Ondansetron 4mg/2ml Vial IV 09/13/25 10:09 4 mg ONCE ONE Administration Sodium Chloride 10 ml 09/13/25 10:36 09/13/25 10:36 Sodium Chloride 0.9% 10ml Syr (Rad Only) IV 09/13/25 10:37 10 ml ONCE ONE Administration Sodium Chloride 50 ml 09/13/25 10:36 09/13/25 10:36 0.9 % Sodium Chloride 50 Ml Vial IV 09/13/25 10:37 50 ml ONCE ONE Administration ORDERS Category Date Time Status CT abdomen pelvis w con Stat Cat Scan 09/13/25 10:00 Completed CTA Chest [CT angio chest PE protocol] Stat Cat Scan 09/13/25 10:00 Completed Activated Partial Thrombo Time Stat Lab 09/13/25 09:55 Completed C-Reactive Protein Stat Lab 09/13/25 09:55 Completed Complete Blood Count Auto Diff Stat Lab 09/13/25 09:55 Results Comprehensive Metabolic Panel Stat Lab 09/13/25 09:55 Completed Creatine Kinase Stat Lab 09/13/25 09:55 Completed Erythrocyte Sedimentation Rate Stat Lab 09/13/25 09:55 Completed Full Resp Panel w/COVID ([facility]) Routine Lab 09/13/25 10:02 Completed GI Mid Panel, PCR Stat Lab 09/13/25 10:00 Ordered Lactic Acid Follow Up (RFLX 1) Stat Lab 09/13/25 15:39 Completed Lactic Acid Follow up (RFLX 2) Stat Lab 09/13/25 18:35 Ordered Lactic Acid Stat Lab 09/13/25 09:55 Completed Peripheral Smear Review Stat Lab 09/13/25 09:55 Results Phosphorous Stat Lab 09/13/25 09:55 Completed Prothrombin Time INR Stat Lab 09/13/25 09:55 Completed Urinalysis and Microscopic Stat Lab 09/13/25 10:00 Ordered Blood Culture Stat Micro 09/13/25 10:03 Received Urine Culture Stat Micro 09/13/25 10:02 Ordered VBG [Venous Blood Gas] Stat RT 09/13/25 10:00 Completed ECG Data Tracing #1: I reviewed this ECG and interpreted as documented below: Sinus tachycardia. No ST elevation or depression. QTc normal at 405 Critical Care <Julia Blank (ED), MEDICAL MANAGER - Last Filed: 09/13/25 18:52> Critical Care Time Critical Care Time: Yes Attestation: On 09/13/25, the high probability of a clinically significant, sudden or life threatening deterioration of the following system(s) required my full and direct attention, intervention and personal management. The time I documented below is in addition to time spent performing reported procedures but includes the following listed in this critical care notation. Total Time Total Critical Care Time: 30
[2025-09-13 10:14] LABS: Hematocrit 27.9 % (42.0-52.0); Hemoglobin 8.8 g/dL (14.1-18.0); Immature Granulocytes % 1.9 %; Mean Corpuscular HGB Conc 31.5 g/dL (31.8-35.4); Mean Corpuscular Hemoglobin 28.5 pg (27.0-31.2); Mean Corpuscular Volume 90.3 fl (80-94); Nucleated Red Blood Cells % 0 %; Platelet Count 126 K/mm3 (142-424); Red Blood Count 3.09 M/mm3 (4.60-6.20); Red Cell Distribution Width-SD 39.6 fL; White Blood Count 26.8 K/mm3 (4.8-10.8)
[2025-09-13] MEDS: ACETAMINOPHEN 1,000MG/100ML VIAL 1000 MG IV (10:15)
--- NOTE | 2025-09-13 10:17 | PC.NURSE ---
RADIOLOGY NOTIFIED OF CT SCAN
[2025-09-13 10:18] LABS: VBG HCO3 18.5 mmol/L (23-30); VBG PCO2 33.1 mmol/L (35-51); VBG PH 7.37 mmol/L (7.31-7.41); VBG PO2 131.9 mmol/L (28-40)
[2025-09-13 10:20] LABS: Lactate Venous 5.7 mmol/L (0.4-2.0)
[2025-09-13 10:21] LABS: Activated Partial Thrombo Time 34.1 seconds (22.8-30.6); INR 1.24 (0.9-1.1); Prothrombin Time 13.5 seconds (10.1-12.5)
--- OUTSIDE RECORDS SUMMARY | 2025-09-13 10:21 | XMS_ITS | Clinical Summary ---
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
[2025-09-13 10:22] LABS: Albumin Level 2.7 g/dl (3.5-5.0); Chloride 102 mmol/L (98-107); Potassium 4.2 mmoL/L (3.5-5.1); Sodium 135 mmol/L (136-145)
[2025-09-13 10:25] LABS: Alanine Aminotransferase 30 U/L (12-78); Albumin/Globulin Ratio 0.6 (1.1-1.8); Alkaline Phosphatase 92 U/L (38-126); Anion Gap 16.2 mEq/L (5-15); Aspartate Amino Transferase 49 U/L (17-59); Bilirubin,Total 0.6 mg/dl (0.2-1.3); Blood Urea Nitrogen 55 mg/dl (9-20); Calcium 8.3 mg/dl (8.4-10.2); Carbon Dioxide 21 mmol/L (22.0-30.0); Creatine Kinase 1108 U/L (55-170); Creatinine Clearance Estimated 15 mL/min (50-200); Estimated Glomerular Filt Rate 13 ml/min (>60); GFR (African American) 16 ML/MIN (>60); Globulin 4.3 g/dL (1.3-3.2); Glucose 119 mg/dl (74-100); Total Protein,Serum 7.0 g/dl (6.3-8.2)
[2025-09-13 10:28] LABS: Adenovirus,PCR Not Detected (NotDetected); Chlamydophila Pneumoniae, PCR Not Detected (NotDetected); Coronavirus 19, PCR Not Detected (NotDetected); Coronovirus HKU1,PCR Not Detected (NotDetected); Influenza A, PCR Not Detected (NotDetected); Influenza AH1, 2009 Not Detected (NotDetected); Influenza AH1, PCR Not Detected (NotDetected); Influenza AH3,PCR Not Detected (NotDetected); Influenza B, PCR Not Detected (NotDetected); Mycoplasma Pneumoniae, PCR Not Detected (NotDetected); Parainfluenza 1, PCR Not Detected (NotDetected); Parainfluenza 2, PCR Not Detected (NotDetected); Parainfluenza 3, PCR Not Detected (NotDetected); Parainfluenza 4, PCR Not Detected (NotDetected)
[2025-09-13 10:34] LABS: Creatinine,Serum 4.40 mg/dl (0.66-1.25)
--- NOTE | 2025-09-13 10:35 | [facility].ITSTN ---
GFR completion/results were overrode for the use of contrast media by the Physician on a risk vs. benefit situation with this patient
[2025-09-13] MEDS: 0.9 % SODIUM CHLORIDE 50 ML VIAL IV (10:36)
[2025-09-13] MEDS: SODIUM CHLORIDE 0.9% 10ML SYR (RAD ONLY) 10 ML IV (10:36)
[2025-09-13] MEDS: IOPAMIDOL-370 (76%);100ML BOTTLE 70 ML IV (10:37)
[2025-09-13 10:45] LABS: Phosphorous 2.7 mg/dl (2.5-4.5)
[2025-09-13 10:52] LABS: C-Reactive Protein 87.0 mg/L (0-4)
[2025-09-13] MEDS: ONDANSETRON 4MG/2ML VIAL 4 MG IV (11:08)
[2025-09-13] MEDS: LACTATED RINGERS 1000ML 2,190 ML 1095 ML IV (11:09)
[2025-09-13 11:10] LABS: Total Cells Counted 100
[2025-09-13 11:14] LABS: RBC Morphology Normal
[2025-09-13] MEDS: PIPERACILLIN/TAZO 4.5 GM in 0.9 % SODIUM CHLORIDE 100 ML IV (11:16)
[2025-09-13] MEDS: NOREPINEPHRINE BITARTRATE/D5W 8 MG/250 ML PLAST..BAG 3.75 MG IV (11:42)
--- NOTE | 2025-09-13 12:10 | PC.NURSE ---
RN aware of BP's at this time.
--- NOTE | 2025-09-13 13:17 | PC.NURSE ---
Called [facility] per TARIQ Blank to see about transferring this pt for severe sepsis, colorectal for fecal impaction, and nephrology for renal failure. images were power shared and [facility] would call us back. called back immediately and was speaking with TARIQ Blank at this time
[2025-09-13] MEDS: CEFEPIME HCL 2 GM in 0.9 % SODIUM CHLORIDE 100 ML IV (13:20)
[2025-09-13 14:20] LABS: Reflex Lactic Add Lactic Reflex
--- NOTE | 2025-09-13 14:52 | PC.NURSE ---
JEFFRY SPEAKING WITH [facility]
--- NOTE | 2025-09-13 15:55 | PC.NURSE ---
ROOM AVAILABLE AT [facility], ROOM 457.
--- NOTE | 2025-09-13 16:16 | PC.NURSE ---
Report called to WOLFGANG Shaffer at [facility]
[2025-09-13] MEDS: NOREPINEPHRINE BITARTRATE/D5W 8 MG/250 ML PLAST..BAG 16.88 MG IV (16:39)
[2025-09-13 17:11] LABS: Lactic Acid Follow Up (RFLX 1) 5.4 mmol/L (0.7-2.1)
--- NOTE | 2025-09-13 17:13 | PC.NURSE ---
Keesha from lab called critical on patient. Lactic Acid 5.4, repeated and verified.
[2025-09-13] MEDS: VANCOMYCIN/WATER FOR INJ (PEG) 1.5 GM/300 ML PIGGYBACK IV (17:56)
[2025-09-13] MEDS: VANCOMYCIN CONSULT REQUEST 1 EACH NOTAPPLIC (18:05)
[2025-09-13 18:35] LABS: Reflex Lactic (2 hrs) Add Lactic Reflex
[2025-09-13 19:12] LABS: Lactic Acid Follow up (RFLX 2) 4.6 mmol/L (0.7-2.1)
--- NOTE | 2025-09-13 19:13 | PC.NURSE ---
Nara from lab called critical on patient, Lactic acid 4.6, repeated and verified.
--- NOTE | 2025-09-13 20:43 | PC.NURSE ---
blood culture results called from lab, MD Rea notified
[2025-09-13 22:03] LABS: Acinetobacter calcoaceticus-ba Not Detected; Bacteroides fragilis Not Detected; CTX-M Not Detected; Candida auris Not Detected; Candida glabrata Not Detected; Enterobacterales Detected; Enterococcus faecalis Not Detected; Enterococcus faecium Not Detected; IMP Not Detected; KPC Not Detected; Klebsiella aerogenes Not Detected; Klebsiella pneumoniae grp Not Detected; NDM Not Detected; OXA-48-like Not Detected; Proteus spp. Detected; Salmonella spp. Not Detected; Serratia marcescens Not Detected; Staphylococcus epidermidis Not Detected; Staphylococcus lugdunensis Not Detected; Staphylococcus spp. Not Detected; Stenotrophomonas maltophilia Not Detected; Streptococcus agalactiae(GrpB) Not Detected; Streptococcus pyogenes Group A Not Detected; Streptococcus spp. Not Detected; VIM Not Detected
[2025-09-13 22:03] LABS: Acinetobacter calcoaceticus-ba Not Detected; Bacteroides fragilis Not Detected; CTX-M Not Detected; Candida auris Not Detected; Candida glabrata Not Detected; Enterobacterales Detected; Enterococcus faecalis Not Detected; Enterococcus faecium Not Detected; IMP Not Detected; KPC Not Detected; Klebsiella aerogenes Not Detected; Klebsiella pneumoniae grp Not Detected; NDM Not Detected; OXA-48-like Not Detected; Proteus spp. Detected; Salmonella spp. Not Detected; Serratia marcescens Not Detected; Staphylococcus epidermidis Not Detected; Staphylococcus lugdunensis Not Detected; Staphylococcus spp. Not Detected; Stenotrophomonas maltophilia Not Detected; Streptococcus agalactiae(GrpB) Not Detected; Streptococcus pyogenes Group A Not Detected; Streptococcus spp. Not Detected; VIM Not Detected
--- NOTE | 2025-09-14 09:32 | PC.NURSE ---
Blood culture results faxed to [facility]
== END 2025-09-13 22:03 | disposition other institution (70) ==
PROVIDERS: Nurse Practitioner; Emergency Provider Student in an Organized Health Care Education/Training Program; PCP Family Medicine
DX: A41.9 Sepsis, unspecified organism (principal); B96.4 Proteus (mirabilis) (morganii) as the cause of diseases classified elsewhere; R74.02 Elevation of levels of lactic acid dehydrogenase [LDH]; I95.9 Hypotension, unspecified; R00.0 Tachycardia, unspecified; R50.9 Fever, unspecified; R11.14 Bilious vomiting; K56.41 Fecal impaction; N28.9 Disorder of kidney and ureter, unspecified; F20.9 Schizophrenia, unspecified; I10 Essential (primary) hypertension; Z86.73 Personal history of transient ischemic attack (TIA), and cerebral infarction without residual deficits
CPT/HCPCS: 0223U; 71275; 74177; 80053; 82550; 82803; 83605; 84100; 85007; 85025; 85610; 85651; 85730; 86140; 87040; 87077; 87154; 87186; 93005; 96361; 96365; 96366; 96367; 96375; 99285; J0131; J0692; J2405; J2543; J3375; J7120; Q9967